=== PATIENT | female | born 1990 | race Caucasian/White ===

== ENCOUNTER 2024-11-02 09:16 | Outpatient (OUT) | payer OTHER, SELFPAY ==
--- NOTE | 2024-10-30 14:08 | V.VEINS.HP ---
Vital Signs 11/02/24 09:50 Height 5 ft 6 in Weight 97.522 kg BMI 34.7 Respiration 16 Pulse 90 Pulse Source Monitor Pulse Oximetry (%) 100 Oxygen Delivery Method Room Air Varicose Veins Patient is a 34 year old female in this day as a referral from Dr. Manzanarse secondary to painful varicose veins. Patient c/o bilateral lower leg achiness/pain and edema left leg greater than right leg. Patient has worn bilateral leg knee high compression stockings since 2015. 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 Patient has been diagnosed with varicose vein disease in 2019, but has not had any treatments. Patient has a family history of varicose vein in father and paternal grandmother. Patient has no history of blood clot issues. Omar Ramirez MD personally performed the services described in this documentation, as scribed by Carlos Jordan RN in my presence and it is both accurate and complete. Carlos Ramirez RN, am scribing for, and in the presence of, Dr. Omar Marin and in the presence of the patient. . thigh: bilateral (symptoms left leg > right leg), knee: bilateral, calf: bilateral, ankle: bilateral and duarte: bilateral aching, burning, cramping, dull and tender 4 10 years Worsened in recent months: Yes standing and sitting elevating extremities and compression stockings Reports muscle spasms of leg, heaviness, limb pain, edema and leg edema History of lower extremity trauma: No Superficial thrombophlebitis: No Family history of varicose veins: yes Has patient had previous lower extremity venous surgery: No Patient has previously received the following treatment(s) for lower extremity varicose veins: Reports none Does patient have a history of : yes Does patient intend to have future pregnancies: no Has patient had lower extremity venous scan with relux testing: Yes Support hose used: Yes Problems walking or doing physical activity: Yes How does it affect you: often has to stop and take a warm bath Do you walk much: Yes Do you stand much: Yes Review of Systems ROS Narrative Omar Ramirez MD personally performed the services described in this documentation, as scribed by Carlos Jordan RN in my presence and it is both accurate and complete. Carlos Ramirez RN, am scribing for, and in the presence of, Dr. Omar Marin and in the presence of the patient. 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 - Neoplasm of uncertain behavior of aortic body and other paraganglia (ICD-10) Varicose veins of bilateral lower extremities with pain ?I83.813 - Varicose veins of bilateral lower extremities with pain (ICD-10) Surgical History (Updated 11/02/24 @ 10:03 by Carlos Jordan) H/O tubal ligation ?Z98.51 - Tubal ligation status (ICD-10) Family History (Updated 11/02/24 @ 10:03 by Carlos Jordan) Other Family history of cancer Family history of diabetes mellitus Family history of hypertension Family history of myocardial infarction Social History (Updated 11/02/24 @ 10:04 by Carlos Jordan) Within the past year, how often did you have a drink containing alcohol: monthly or less Smoking status: Never smoker Non-prescribed substance use: denies use Meds Home Medications and Allergies Home Medications ?Medication ?Instructions ?Recorded ?Confirmed ?Type No Known Home Medications 11/02/24 11/02/24 History Allergies Allergy/AdvReac Type Severity Reaction Status Date / Time Iodinated Contrast Media Allergy Hives Verified 11/02/24 10:05 Exam Narrative Exam Narrative: IOmar MD personally performed the services described in this documentation, as scribed by Carlos Jordan RN in my presence and it is both accurate and complete. ICarlos RN, am scribing for, and in the presence of, Dr. Omar Marin and in the presence of the patient. Constitutional Documenting provider has reviewed patient's vital signs: yes Common normals: oriented x3 Nutritional appearance: overweight Cardio Peripheral pulses: posterior tibial pulses present and dorsalis pedis pulses present Extremity Common normals: normal capillary refill General: calf tenderness and edema Right lower extremity: lower leg Right lower leg: inspection and palpation Left lower extremity: lower leg Left lower leg: inspection and palpation Neuro Common normals: oriented x3 Results Additional Findings Additional findings: Bilateral leg reflux u/s reveals bilateral leg incompetent great saphenous veins with associated dilation along with bilaterateral leg branch saphenous truncal tributary varicosities. Omar Ramirez MD personally performed the services described in this documentation, as scribed by Carlos Jordan RN in my presence and it is both accurate and complete. Carlos Ramirez RN, am scribing for, and in the presence of, Dr. Omar Marin and in the presence of the patient. Assessment and Plan Assessment and Plan (1) Varicose veins of bilateral lower extremities with pain: Plan Patient is to continue use of bilateral leg knee high compression stockings, rest, and elevation of bilateral legs/feet. Patient to return for EVLT of left GSV followed by right GSV followed by microfoam chemical ablation bilateral leg branch saphenous varicosities. Omar Ramirez MD personally performed the services described in this documentation, as scribed by Carlos Jordan RN in my presence and it is both accurate and complete. Carlos Ramirez RN, am scribing for, and in the presence of, Dr. Omar Marin and in the presence of the patient.
--- NOTE | 2024-10-30 14:16 | W.VEIN ---
Discharge Plan Discharge Disposition: Home, Self-Care Outpatient Diagnostics: VC Endovenous Ablation 1VeinLT (Routine) Timeframe: 2 Weeks Facility: [facility] - Location: [facility]in Center Ordered By: Omar Marin Plan of Treatment: EVLT of left GSV Patient Instructions: Endovenous Ablation (DC) Print Language: Bulgarian Discharge Date/Time: 11/02/24 11:39
--- NOTE | 2024-11-02 09:37 | VEIN_ITS ---
Patient Name: STEPHANIE LONGORIA MR#: [id number] : 1990 Exam Date: 11/02/2024 Ordering Doctor: DR RAMESH MARTIN M.D. RADIOLOGY REPORT PROCEDURE: [facility]IN [facility] - OFFICE VISIT INITIAL COMPARISON: None. PROGRESS NOTES: [age] year old female who presents with a 10 year history of dilated bulging veins, leg pain. The patient's left leg symptoms are worse than the right. There has been a progression of symptoms over past 5 years. This increases with prolonged leg dependency. The patient describes an improvement with compression stockings, rest, and elevation. The patient denies any signs and symptoms to suggest arterial ischemia. The patient describes a family history of heart disease, diabetes, cancer. The patient has drinking and smoking history of : Occasional alcohol consumption. No tobacco use.. Patient has a past medical history significant for bilateral leg swelling, varicose veins, and remote history of benign brain neoplasm removal as a child. The patient denies a history of deep venous thrombus or pulmonary embolus. See separate history and physical for medication list. No prior treatment for varicose or spider veins. Current long-term use of compression stockings. After review of nurse notes, history and physical exam I discussed at length the pathophysiology of venous hypertension and possible treatments, therapies and strategies available. We discussed at length the importance of elevating the lower extremities above the level of the heart, increased physical activity and compression stocking use. Ultrasound venous reflux study performed today was discussed at length with the patient. The report demonstrates abnormally dilated and incompetent great saphenous veins bilaterally. Associated incompetent branch saphenous varicosities bilaterally, with a large 11 mm varicosity lateral to the left knee and calf corresponding to patient's area of pain. PHYSICAL EXAM: The right leg demonstrates a few varicosities, no significant spider veins, no ulceration, mild edema, no skin discoloration. The left leg demonstrates a few varicosities with a large tortuous varicosity lateral to the knee and proximal calf, no significant spider veins, no ulceration, mild edema, no skin discoloration. Both thighs, legs and feet were symmetrically warm to the touch. Good posterior tibial and dorsalis pedis pulses were present bilaterally. VEIN/[facility] IMPRESSION: 1. Bilateral lower extremity venous insufficiency 2. Bilateral lower extremity varicose veins 3. Mild bilateral lower extremity subcutaneous edema 4. No flow significant arterial disease 5. CEAP: C3, AP, , [place] PLAN: 1. Continued use of compression stockings 2. Elevated legs and increased physical activity symptomatic relief 3. Endovenous laser ablation of right and left great saphenous veins. 4. Microfoam chemical ablation of bilateral incompetent branch saphenous varicosities. Nurse notes, history and physical were reviewed and confirmed, see attached forms. The nurse was present throughout the physical exam and consultation Dictated by: Omar Marin M.D. on 11/02/2024 at 11:12 Approved by: Omar Marin M.D. on 11/02/2024 at 11:18
--- NOTE | 2024-11-02 09:37 | VEIN_ITS ---
Patient Name: STEPHANIE LONGORIA MR#: [id number] : 1990 Exam Date: 11/02/2024 Ordering Doctor: DR RAMESH MARTIN M.D. RADIOLOGY REPORT PROCEDURE: VC EXT VENOUS REFLUX BELA LMTD COMPARISON: None. INDICATIONS: I83.813 Bilateral painful varicose veins TECHNIQUE: Duplex imaging of the lower extremity to assess the deep and superficial venous system for the presence of deep or superficial venous incompetence and to document the location and severity of disease. The study includes evaluation of the great saphenous vein (GSV), anterior accessory saphenous vein (AASV) and small saphenous vein (SSV). Patient scanned in reverse Trendelenburg and standing. FINDINGS: RIGHT LOWER EXTREMITY: Saphenofemoral Junction Reflux: Yes 9.0mm 1.2 sec GSV: Diam (mm) Reflux/ Time (sec) Proximal Thigh 6.0 Yes 0.6 Mid Thigh 5.0 Yes 0.6 Distal Thigh 4.7 Yes 1.8 Prox Calf 4.1 Yes 0.5 Mid Calf 2.8 Yes 0.4 Saphenopopliteal Junction Reflux: 3.6mm Yes 0.5 SSV: Proximal Calf 3.0 Yes 0.4 Mid Calf 2.1 Yes 0.3 AASV: Proximal Thigh 3.8 Yes 1.0 Mid Thigh 3.6 Yes 0.4 Distal Thigh Thrombi: No acute or chronic thrombus. Compressibility: Normal. Flow: Moderate deep venous reflux. Preforator: Distal medial lower leg measures 3.4 mm with 4.8s reflux. Tech Note: Incompetent varicose vein proximal medial lower leg measures 4.0 mm with 2.2s reflux. Varicose vein medial knee measures 4.0 mm with 1.2s reflux. LEFT LOWER EXTREMITY: Saphenofemoral Junction Reflux: Yes 11.8 mm 1.4 sec GSV: Diam (mm) Reflux/Time (sec) Proximal Thigh 7.3 No 1.1 Mid Thigh 5.4 Yes 1.0 Distal Thigh 5.8 Yes 1.4 Prox Calf 4.3 Yes 0.8 Mid Calf 2.9 Yes 2.6 Saphenopopliteal Junction Relux: 4.4 mm No SSV: Proximal Calf 4.7 Yes 0.4 Mid Calf 3.0 No AASV: Proximal Thigh 4.1 Yes 0.4 Mid Thigh 4.3 Yes 0.9 Distal Thigh Thrombi: Chronic partial thrombus in small segment of varicose vein lateral knee. Compressibility: Chronic partial thrombus in small segment of varicose vein lateral knee. Flow: Mild deep venous reflux. Barrel Cap Setter: Mid lateral lower leg 4.6 mm with 2.9s reflux. Lateral knee 11.0mm with 3.8s reflux. Tech Note: Incompetent varicose vein proximal medial lower leg measures 4.3 mm with 1.3s reflux. Varicose vein off of director [employer] database lateral knee measures 11.4mm with 2.3s reflux. Varicose vein proximal lateral lower leg measures 7.1 mm with 4.6s reflux. CONCLUSION: 1. Abnormally dilated and incompetent great saphenous veins bilaterally with associated branch saphenous varicosities. Dictated by: Omar Marin M.D. on 11/02/2024 at 10:47 Approved by: Omar Marin M.D. on 11/02/2024 at 11:12
[2024-11-02 09:50] VITALS: PULSE 90; O2SAT 100; BMI 34.7
== END 2024-11-02 11:39 | disposition home or self-care (01) ==
LOC: VC 09:16
PROVIDERS: Visit Provider Radiology Diagnostic Radiology
DX: I83.813 Varicose veins of bilateral lower extremities with pain (principal)
CPT/HCPCS: 93970; G0463

== ENCOUNTER 2024-12-03 10:23 | Outpatient (OUT) | payer OTHER, SELFPAY ==
--- NOTE | 2024-12-02 14:06 | VEINCLINIC_ITS ---
Vital Signs 12/03/24 10:31 BP 142/72 H BP Location Left Brachial BP Position Sitting BP Cuff Size Adult BP Source Manual Cuff Respiration 16 Pulse 80 Pulse Source Monitor Pulse Oximetry (%) 98 Oxygen Delivery Method Room Air Comment The patient's blood pressure is elevated. Varicose Veins Patient in this day for EVLT of left GSV . thigh: bilateral (symptoms left leg > right leg), knee: bilateral, calf: bilateral, ankle: bilateral and duarte: bilateral aching, burning, cramping, dull and tender 4 10 years Worsened in recent months: Yes standing and sitting elevating extremities and compression stockings Reports muscle spasms of leg, heaviness, limb pain, edema and leg edema History of lower extremity trauma: No Superficial thrombophlebitis: No Family history of varicose veins: yes Has patient had previous lower extremity venous surgery: No Patient has previously received the following treatment(s) for lower extremity varicose veins: Reports none Does patient have a history of : yes Does patient intend to have future pregnancies: no Has patient had lower extremity venous scan with relux testing: Yes Support hose used: Yes Problems walking or doing physical activity: Yes How does it affect you: often has to stop and take a warm bath Do you walk much: Yes Do you stand much: Yes Review of Systems ROS Narrative I, Brandon Church MD personally performed the services described in this documentation, as scribed by Carlos Jordan RN in my presence and it is both accurate and complete. ICarlos RN, am scribing for, and in the presence of, Dr. Brandon Church and in the presence of the patient. Status of ROS 10 or more systems reviewed and unremark able except as noted in history and below Cardiovascular Reports: edema Neurological Reports: weakness in extremities [facility] Medical History (Updated 12/03/24 @ 11:01 by Carlos Jordan) Superficial thrombophlebitis of left leg ?I80.02 - Phlebitis and thrombophlebitis of superficial vessels of left lower extremity (ICD-10) Tumor cells, benign ?D36.9 - Benign neoplasm, unspecified site (ICD-10) Bilateral leg edema ?R60.0 - Localized edema (ICD-10) Brain tumor (benign) ?D33.2 - Benign neoplasm of brain, unspecified (ICD-10) Paraganglioma ?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.7 - Neoplasm of uncertain behavior of aortic body and other paraganglia (ICD-10) Varicose veins of bilateral lower extremities with pain ?I83.813 - Varicose veins of bilateral lower extremities with pain (ICD-10) Surgical History (Updated 12/03/24 @ 10:46 by Carlos Jordan) Status post laser ablation of incompetent vein ?Z98.890 - Other specified postprocedural states (ICD-10) H/O tubal ligation ?Z98.51 - Tubal ligation status (ICD-10) Family History (Updated 11/02/24 @ 10:03 by Carlos Jordan) Other Family history of cancer Family history of diabetes mellitus Family history of hypertension Family history of myocardial infarction Social History (Updated 11/02/24 @ 10:04 by Carlos Jordan) Within the past year, how often did you have a drink containing alcohol: monthly or less Smoking status: Never smoker Non-prescribed substance use: denies use Meds Home Medications and Allergies Allergies Allergy/AdvReac Type Severity Reaction Status Date / Time Iodinated Contrast Media Allergy Hives Verified 11/02/24 10:05 Exam Narrative Exam Narrative: Brandon Ramirez MD personally performed the services described in this documentation, as scribed by Carlos Jordan RN in my presence and it is both accurate and complete. Carlos Ramirez RN, am scribing for, and in the presence of, Dr. Brandon Church and in the presence of the patient. Constitutional Documenting provider has reviewed patient's vital signs: yes Common normals: oriented x3 Nutritional appearance: overweight Cardio Peripheral pulses: posterior tibial pulses present and dorsalis pedis pulses present Extremity Common normals: normal capillary refill General: calf tenderness and edema Right lower extremity: lower leg Right lower leg: inspection and palpation Left lower extremity: lower leg Left lower leg: inspection and palpation Neuro Common normals: oriented x3 Assessment and Plan Assessment and Plan (1) Varicose veins of bilateral lower extremities with pain: Plan f/u examination with physician along with left leg limited u/s Brandon Raimrez MD personally performed the services described in this documentation, as scribed by Carlos Jordan RN in my presence and it is both accurate and complete. Carlos Ramirez RN, am scribing for, and in the presence of, Dr. Brandon Church and in the presence of the patient. Procedures Procedure Instructions Procedures Plan of care: Risks and benefits of the procedure were discussed at length and informed written consent was obtained.? Time-out completed for verification of correct patient, procedure and site.? Staff present during time-out: Carlos Jordan RN,? Brandon Church MD, [facility]. Time Out Time__1100 Patient prepped and procedure performed in usual sterile fashion. Risk of injury related to use of Diode laser and/or laser devices__CR___ ? Serial number of laser used :? [id number] Control panel self test performed, electrical cords in good condition, floor is dry, basin of water available, fire extinguisher in close proximity_CR__ Polycarbonate goggles available and Laser warning signs outside of doors___CR__ Eye protection provided to patient and staff in room_CR___ Use of laser retardant drapes and dull blackened instruments as directed__CR___ Use of nonflammable prep solutions and use of saline soaked sponges to protect tissues as indicated _CR___ Length __36 cm Laser operated by __Dr. Church Physician verbal confirmation laser locked in place__CR__ Laser start time (date and time) _12/03/2024@__1113 Laser stop time(date and time) __12/03/2024@___1116 Chaney _8.0___ Average laser use __1256 Joules Average laser use___157 seconds Pulse continuous ___CR_? Pulse intermittent ___ Amount of Tumescent used __225cc____ Evaluated patient for signs and symptoms of electrical injury __CR___ ? Skin clear at insertion site __CR___ Patient tolerated procedure well.? Left leg Coban dressing applied to access site.? Applied Left thigh high leg compression stocking. Will return on 12/10/2024 for Left leg limited venous ultrasound and exam. I, Brandon Church MD personally performed the services described in this documenta tion, as scribed by Carlos Jordan RN in my presence and it is both accurate and complete. I, Carlos Jordan RN, am scribing for, and in the presence of, Dr. Brandon Church and in the presence of the patient.
--- NOTE | 2024-12-02 15:02 | W.VEIN ---
Discharge Plan Discharge Disposition: Home, Self-Care Outpatient Diagnostics: VC EXT Venous LT Limited (Routine) Timeframe: 2 Weeks Facility: [facility] - Location: [facility] Center Ordered By: Brandon Church VC Facility EST LMTD (Routine) Timeframe: 2 Weeks Facility: [facility] - Location: Vein Center Ordered By: Brandon Church Follow Up Appointments: 12/10/2024 Plan of Treatment: f/u evaluation with physician along with right leg limited u/s Patient Instructions: Endovenous Ablation (DC) Print Language: Montserratian Discharge Date/Time: 12/03/24 10:49
--- NOTE | 2024-12-03 10:23 | VEIN_ITS ---
[address] [address] Patient Name: STEPHANIE LONGORIA MRN: [id number] date: 1990 Sex: F Assigned Patient Location: Current Patient Location: Accession/Order Number: [id number] Exam Date: 12/03/2024 10:23 Report Date: 12/03/2024 11:43 At the request of: GABRIELLE ARNOLD Procedure: VC Endovenous Ablation 1VeinLT EXAMINATION: VC Endovenous Ablation 1Vein, left great saphenous vein HISTORY: I83.813 - Varicose veins of bilateral lower extremities w... COMPARISON: No relevant comparison available. TECHNIQUE: The risks and benefits of the procedure had been previously discussed, and were rediscussed at length. Informed written consent was obtained. Nina Flannery and Carlos Jordan assisted. Time out procedure was performed. The left lower extremity was prepared and draped in the usual sterile fashion to allow knee flexion in the sterile field. Duplex ultrasound probe was draped in a sterile cover, sterile transmission gel was used. Venous mapping was performed with the areas of dilation and large tributaries marked. The total length was 36 cm from the entry at the knee to 3 cm below the saphenofemoral junction. The diameter of the greater saphenous vein ranged from 4-8 mm. A 30 gauge needle and 1% buffered lidocaine was used to anesthetize the entry site. A 4 mm incision was made with a scalpel and the saphenous vein was entered percutaneously under direct ultrasound guidance with a micropuncture set, a single stick was successful in gaining access. A micro-guide wire was inserted and the needle removed. A micro-set including a dilator was inserted over the microwire and the needle and dilator were removed. A 0.018 guide wire was inserted through the micro-set and threaded through the saphenous vein to the saphenofemoral junction. The dilator was removed and an introducer sheath was inserted over the wire until the end of the sheath entered the saphenofemoral junction. The dilator and wire were removed and the 600 micron fiber was introduced and placed and positioned so that it extended beyond the sheath and was 3 cm peripheral to the saphenofemoral femoral junction. Final position of the fiber was determined by ultrasound guidance and duplex imaging. Tumescent anesthetic was delivered by ultrasound guidance. 225 cc of fluid was delivered along the entire course of the saphenous vein. The solution consisted of 1000 cc of normal saline with 40 mL of 1% lidocaine and 20 mL of sodium bicarbonate. A final positioning check was made. The energy source was turned on by means of the foot pedal and the fiber and sheath were withdrawn. The total number of Joules delivered was 1256. The laser was active for 157seconds under continuous pulse, average laser use of 8 J. Laser start time 1113 AM . Laser stop time 1116AM . A duplex ultrasound revealed compressibility and flow at the saphenofemoral junction immediately after the procedure. Hemostasis at the access site was achieved. The skin incision of the saphenous vein was closed with a 4 x 4. A compression stocking was applied. Postop instructions were given. A follow up appointment was recommended and scheduled. The patient tolerated the procedure well and was discharged in good condition . VEIN/VC Endovenous Ablation 1VeinLT IMPRESSION: Technically successful endovenous laser ablation left great saphenous vein Electronically authenticated by: RAMESH MARTIN Date: 12/03/2024 11:43
[2024-12-03] MEDS: 0.9 % SODIUM CHLORIDE 500 ML, LIDOCAINE HCL 20 ML, SODIUM BICARBONATE 10 MEQ INJ (10:24)
[2024-12-03] MEDS: LIDOCAINE HCL 1% 100 MG/10 ML MDV INJ (10:24)
[2024-12-03 10:31] VITALS: BP 142/72; PULSE 80; O2SAT 98
== END 2024-12-03 10:49 | disposition home or self-care (01) ==
LOC: VC 10:23
PROVIDERS: PCP Radiology Diagnostic Radiology; Visit Provider Radiology Diagnostic Radiology
DX: I83.813 Varicose veins of bilateral lower extremities with pain (principal)
CPT/HCPCS: 36478

== ENCOUNTER 2024-12-10 09:22 | Outpatient (OUT) | payer OTHER, SELFPAY ==
--- NOTE | 2024-12-10 09:23 | VEIN_ITS ---
Patient Name: STEPHANIE LONGORIA MR#: [id number] : 1990 Exam Date: 12/10/2024 Ordering Doctor: DR BRANDON CHURCH M.D. RADIOLOGY REPORT PROCEDURE: VC EXT VENOUS LT LIMITED COMPARISON: None. INDICATIONS: I80.02 - Phlebitis and thrombophlebitis of superficial ve... TECHNIQUE: Lower extremity goldberg scale and Duplex Doppler evaluation of the deep venous system from the inguinal ligament through the calf veins. FINDINGS: REGION: Left lower extremity. THROMBI: Negative for DVT. Heat induced thrombus visualized 4.1 cm from the SFJ. The heat induced thrombus extends from groin to mid thigh. COMPRESSIBILITY: Non-compressible segments corresponding to thrombus FLOW: Areas of no flow corresponding to thrombus CONCLUSION: Post ablation occlusion of the treated left great saphenous vein with heat induced thrombus 4.1 cm from the saphenofemoral junction. No deep vein thrombus Dictated by: Brandon Church MD on 12/10/2024 at 09:54 Approved by: Brandon Church MD on 12/10/2024 at 09:55
--- NOTE | 2024-12-10 09:23 | VEIN_ITS ---
Patient Name: STEPHANIE LONGORIA MR#: [id number] : 1990 Exam Date: 12/10/2024 Ordering Doctor: DR BRANDON CHURCH M.D. RADIOLOGY REPORT PROCEDURE: VC FACILITY EST LMTD VEIN CENTER - OFFICE VISIT FOLLOW UP COMPARISON: None. PROGRESS NOTES: The patient reports no significant problems following intravenous laser ablation of the left great saphenous vein. The patient did wear her compression stocking. The patient did not require oral analgesics. Physical exam demonstrates 3 areas of bruising the largest measuring 6 cm in size, mild likely related to tumescence injection. Minimal warmth suggests a very mild thrombophlebitis. No active ulceration. Review of the ultrasound performed the same day demonstrates occlusive thrombus extending throughout the treated left great saphenous vein with heat induced thrombus 4.1 cm from the saphenofemoral junction. No deep vein thrombus. The patient expressed a desire to proceed with treatment of incompetent right great saphenous vein. VEIN/VC Facility EST LMTD IMPRESSION: 1. Successful ablation of the left great saphenous vein 2. Persistent incompetent right great saphenous vein. PLAN: Intravenous laser ablation right great saphenous vein Nurse notes, history and physical were reviewed and confirmed, see attached forms. The nurse was present throughout the physical exam and consultation Dictated by: Brandon Church MD on 12/10/2024 at 10:21 Approved by: Brandon Church MD on 12/10/2024 at 10:24
--- NOTE | 2024-12-10 09:26 | VEINCLINIC_ITS ---
Varicose Veins Patient in this day for follow up ultrasound post EVLT of left GSV Brandon Ramirez MD personally performed the services described in this documentation, as scribed by Stacy Flannery RVT, RDMS in my presence and it is both accurate and complete. Stacy Ramirez RVT, RDMS, am scribing for, and in the presence of, Dr. Brandon Church and in the presence of the patient. thigh: bilateral (symptoms left leg > right leg), knee: bilateral, calf: bilateral, ankle: bilateral and duarte: bilateral aching, burning, cramping, dull and tender 4 10 years Worsened in recent months: Yes standing and sitting elevating extremities and compression stockings Reports muscle spasms of leg, heaviness, limb pain, edema and leg edema History of lower extremity trauma: No Superficial thrombophlebitis: No Family history of varicose veins: yes Has patient had previous lower extremity venous surgery: No Patient has previously received the following treatment(s) for lower extremity varicose veins: Reports none Does patient have a history of : yes Does patient intend to have future pregnancies: no Has patient had lower extremity venous scan with relux testing: Yes Support hose used: Yes Problems walking or doing physical activity: Yes How does it affect you: often has to stop and take a warm bath Do you walk much: Yes Do you stand much: Yes Review of Systems ROS Narrative Brandon Ramirez MD personally performed the services described in this documentation, as scribed by Stacy Flannery RVT, RDMS in my presence and it is both accurate and complete. I, Stacy Flannery RVT, RDMS, am scribing for, and in the presence of, Dr. Brandon Church and in the presence of the patient. Status of ROS 10 or more systems reviewed and unremark able except as noted in history and below Cardiovascular Reports: edema Neurological Reports: weakness in extremities [facility] Medical History (Updated 12/03/24 @ 11:01 by Carlos Jordan) Superficial thrombophlebitis of left leg ?I80.02 - Phlebitis and thrombophlebitis of superficial vessels of left lower extremity (ICD-10) Tumor cells, benign ?D36.9 - Benign neoplasm, unspecified site (ICD-10) Bilateral leg edema ?R60.0 - Localized edema (ICD-10) Brain tumor (benign) ?D33.2 - Benign neoplasm of brain, unspecified (ICD-10) Paraganglioma ?D44.7 - Neoplasm of uncertain behavior of aortic body and other paraganglia (ICD-10) Varicose veins of bilateral lower extremities with pain ?I83.813 - Varicose veins of bilateral lower extremities with pain (ICD-10) Surgical History (Updated 12/03/24 @ 10:46 by Carlos Jordan) Status post laser ablation of incompetent vein ?Z98.890 - Other specified postprocedural states (ICD-10) H/O tubal ligation ?Z98.51 - Tubal ligation status (ICD-10) Family History (Updated 11/02/24 @ 10:03 by Carlos Jordan) Other Family history of cancer Family history of diabetes mellitus Family history of hypertension Family history of myocardial infarction Social History (Updated 11/02/24 @ 10:04 by Carlos Jordan) Within the past year, how often did you have a drink containing alcohol: monthly or less Smoking status: Never smoker Non-prescribed substance use: denies use Meds Home Medications and Allergies Allergies Allergy/AdvReac Type Severity Reaction Status Date / Time Iodinated Contrast Media Allergy Hives Verified 11/02/24 10:05 Exam Narrative Exam Narrative: IBrandon MD personally performed the services described in this documentation, as scribed by Stacy Flannery RVT, RDMS in my presence and it is both accurate and complete. Stacy Ramirez RVT, RDMS, am scribing for, and in the presence of, Dr. Brandon Church and in the presence of the patient. Constitutional Documenting provider has reviewed patient's vital signs: yes Common normals: oriented x3 Nutritional appearance: overweight Cardio Peripheral pulses: posterior tibial pulses present and dorsalis pedis pulses present Extremity Common normals: normal capillary refill General: calf tenderness and edema Right lower extremity: lower leg Right lower leg: inspection and palpation Left lower extremity: lower leg Left lower leg: inspection and palpation Neuro Common normals: oriented x3 Results Imaging Venous US: Radiologist's impression: The ultrasound demonstrates Heat induced thrombus visualized 4.1 cm from the SFJ. The heat induced thrombus extends from groin to mid thigh. Assessment and Plan Assessment and Plan (1) Superficial thrombophlebitis of left leg: Plan Patient in today for follow up ultrasound of lower extremity following treatment of EVLT of left leg GSV completed on 12/03/24. IBrandon MD personally performed the services described in this documentation, as scribed by Stacy Flannery RVT, RDMS in my presence and it is both accurate and complete. I, Stacy Flannery RVT, RDMS, am scribing for, and in the presence of, Dr. Brandon Church and in the presence of the patient.
--- NOTE | 2024-12-10 09:56 | W.VEIN ---
Discharge Plan Discharge Disposition: Home, Self-Care Outpatient Diagnostics: VC Endovenous Ablation 1VeinRT (Routine) Timeframe: 2 Weeks Facility: [facility] - Location: Vein Center Ordered By: Brandon Church Plan of Treatment: EVLT of right leg GSV Print Language: Mauritanian Discharge Date/Time: 12/10/24 10:06
== END 2024-12-10 10:06 | disposition home or self-care (01) ==
PROVIDERS: PCP Radiology Diagnostic Radiology; Visit Provider Radiology Diagnostic Radiology
DX: I80.01 Phlebitis and thrombophlebitis of superficial vessels of right lower extremity (principal)
CPT/HCPCS: 93971; G0463

== ENCOUNTER 2024-12-17 15:26 | Outpatient (OUT) | payer OTHER, SELFPAY ==
--- NOTE | 2024-12-17 15:21 | VEINCLINIC_ITS ---
Varicose Veins Patient in this day for DVT evaluation due to patient concern for DVT due to back pain. Brandon Ramirez MD personally performed the services described in this documentation, as scribed by Stacy Flannery RVT, RDMS in my presence and it is both accurate and complete. Stacy Ramirez RVT, RDMS, am scribing for, and in the presence of, Dr. Brandon Church and in the presence of the patient. thigh: bilateral (symptoms left leg > right leg), knee: bilateral, calf: bilateral, ankle: bilateral and duarte: bilateral aching, burning, cramping, dull and tender 4 10 years Worsened in recent months: Yes standing and sitting elevating extremities and compression stockings Reports muscle spasms of leg, heaviness, limb pain, edema and leg edema History of lower extremity trauma: No Superficial thrombophlebitis: No Family history of varicose veins: yes Has patient had previous lower extremity venous surgery: No Patient has previously received the following treatment(s) for lower extremity varicose veins: Reports none Does patient have a history of : yes Does patient intend to have future pregnancies: no Has patient had lower extremity venous scan with relux testing: Yes Support hose used: Yes Problems walking or doing physical activity: Yes How does it affect you: often has to stop and take a warm bath Do you walk much: Yes Do you stand much: Yes Review of Systems ROS Narrative Brandon Ramirez MD personally performed the services described in this documentation, as scribed by Stacy Flannery RVT, RDMS in my presence and it is both accurate and complete. I, Stacy Flannery RVT, RDMS, am scribing for, and in the presence of, Dr. Brandon Church and in the presence of the patient. Status of ROS 10 or more systems reviewed and unremark able except as noted in history and below Cardiovascular Reports: edema Neurological Reports: weakness in extremities [facility] Medical History (Updated 12/03/24 @ 11:01 by Carlos Jordan) Superficial thrombophlebitis of left leg ?I80.02 - Phlebitis and thrombophlebitis of superficial vessels of left lower extremity (ICD-10) Tumor cells, benign ?D36.9 - Benign neoplasm, unspecified site (ICD-10) Bilateral leg edema ?R60.0 - Localized edema (ICD-10) Brain tumor (benign) ?D33.2 - Benign neoplasm of brain, unspecified (ICD-10) Paraganglioma ?D44.7 - Neoplasm of uncertain behavior of aortic body and other paraganglia (ICD-10) Varicose veins of bilateral lower extremities with pain ?I83.813 - Varicose veins of bilateral lower extremities with pain (ICD-10) Surgical History (Updated 12/03/24 @ 10:46 by Carlos Jordan) Status post laser ablation of incompetent vein ?Z98.890 - Other specified postprocedural states (ICD-10) H/O tubal ligation ?Z98.51 - Tubal ligation status (ICD-10) Family History (Updated 11/02/24 @ 10:03 by Carlos Jordan) Other Family history of cancer Family history of diabetes mellitus Family history of hypertension Family history of myocardial infarction Social History (Updated 11/02/24 @ 10:04 by Carlos Jordan) Within the past year, how often did you have a drink containing alcohol: monthly or less Smoking status: Never smoker Non-prescribed substance use: denies use Meds Home Medications and Allergies Allergies Allergy/AdvReac Type Severity Reaction Status Date / Time Iodinated Contrast Media Allergy Hives Verified 11/02/24 10:05 Exam Narrative Exam Narrative: Brandon Ramirez MD personally performed the services described in this documentation, as scribed by Stacy Flannery RVT, RDMS in my presence and it is both accurate and complete. Stacy Ramirez RVT, RDMS, am scribing for, and in the presence of, Dr. Brandon Church and in the presence of the patient. Constitutional Documenting provider has reviewed patient's vital signs: yes Common normals: oriented x3 Nutritional appearance: overweight Cardio Peripheral pulses: posterior tibial pulses present and dorsalis pedis pulses present Extremity Common normals: normal capillary refill General: calf tenderness and edema Right lower extremity: lower leg Right lower leg: inspection and palpation Left lower extremity: lower leg Left lower leg: inspection and palpation Neuro Common normals: oriented x3 Results Imaging Venous US: Radiologist's impression: The ultrasound is negative for DVT. Assessment and Plan Assessment and Plan (1) Superficial thrombophlebitis of left leg: Plan In today for ultrasound of left leg to rule out DVT. Brandon Ramirez MD personally performed the services described in this documentation, as scribed by Stacy Flannery RVT, RDMS in my presence and it is both accurate and complete. I, Stacy Flannery RVT, RDMS, am scribing for, and in the presence of, Dr. Brandon Church and in the presence of the patient.
--- NOTE | 2024-12-17 15:23 | P.DS_ITS ---
Discharge Plan Discharge Disposition: Home, Self-Care Print Language: Martiniquais Discharge Date/Time: 12/17/24 15:50
--- NOTE | 2024-12-17 15:27 | VEIN_ITS ---
Patient Name: STEPHANIE LONGORIA MR#: [id number] : 1990 Exam Date: 12/17/2024 Ordering Doctor: DR BRANDON CHURCH M.D. RADIOLOGY REPORT PROCEDURE: VC EXT VENOUS LT LIMITED COMPARISON: VC EXT VENOUS LT LIMITED, 12/10/2024. INDICATIONS: I80.02 - Phlebitis and thrombophlebitis of superficial ve... TECHNIQUE: Lower extremity goldberg scale and Duplex Doppler evaluation of the deep venous system from the inguinal ligament through the calf veins. FINDINGS: REGION: Left lower extremity. THROMBI: Negative for DVT. Normal COMPRESSIBILITY: Non-compressible segments corresponding to thrombus FLOW: Areas of no flow corresponding to thrombus CONCLUSION: No deep vein thrombus Dictated by: Brandon Church MD on 12/17/2024 at 15:59 Approved by: Brandon Church MD on 12/17/2024 at 16:00
--- NOTE | 2024-12-17 15:27 | VEIN_ITS ---
Patient Name: STEPHANIE LONGORIA MR#: [id number] : 1990 Exam Date: 12/17/2024 Ordering Doctor: DR BRANDON CHURCH M.D. RADIOLOGY REPORT PROCEDURE: FACILITY EST [facility] - OFFICE VISIT FOLLOW UP COMPARISON: [facility] EST TD, 12/10/2024. PROGRESS NOTES: The patient reports new onset of mid back pain and had a concern for blood clot in the lung. The patient also reports an episode nasal and sinus congestion with a minor cough over the weekend. Physical exam demonstrates the patient to be in no distress. Normal breathing rate 12 breaths per minute. Normal heart rate of 74. Pulse ox 98%. Blood pressure 134/97. No pain of the mid back upon palpation. Review of the ultrasound performed the same day demonstrates no deep vein thrombus. I informed the patient of our findings. Well I cannot rule out a pulmonary embolus, the patient has no deep vein thrombus or other signs or symptoms to suggest a pulmonary embolus. I discussed the possible etiologies of back pain including radiculopathy or musculoskeletal issues. The patient was asked to see her primary care physician or seek care in the emergency room as she felt necessary or if her symptoms significantly progressed. VEIN/ Facility EST LMTD IMPRESSION: 1. No deep vein thrombus 2. Mid back pain of unknown etiology, I have no clinical concern for pulmonary embolus PLAN: Follow-up as needed Nurse notes, history and physical were reviewed and confirmed, see attached forms. The nurse was present throughout the physical exam and consultation Dictated by: Brandon Church MD on 12/17/2024 at 16:07 Approved by: Brandon Church MD on 12/17/2024 at 16:11
== END 2024-12-17 15:50 | disposition home or self-care (01) ==
LOC: VC 15:26
PROVIDERS: PCP Radiology Diagnostic Radiology; Visit Provider Radiology Diagnostic Radiology
DX: I80.02 Phlebitis and thrombophlebitis of superficial vessels of left lower extremity (principal)
CPT/HCPCS: 93971; G0463

== ENCOUNTER 2025-03-24 14:31 | Outpatient (REF) | payer OTHER, SELFPAY | END 2025-03-24 14:32 | disposition home or self-care (01) | LOC: LAB 14:31 | PROVIDERS: PCP Radiology Diagnostic Radiology; Visit Provider Obstetrics & Gynecology | DX: N93.8 Other specified abnormal uterine and vaginal bleeding (principal); N71.9 Inflammatory disease of uterus, unspecified ==

== ENCOUNTER 2025-04-12 10:03 | Outpatient (OUT) | payer OTHER, SELFPAY ==
--- OUTSIDE RECORDS SUMMARY | 2025-04-12 10:11 | XMS_ITS | CCD ---
Author Organization [facility] Care Team Providers Care Print Support Specialist Name Role Phone Unavailable Primary Care Provider Unavailabl e LAMBERTO CANSECO Admitting Unavailable LAMBERTO CANSECO Attending Unavailable SUSIE ., DR BROWN Admitting Unavailable SUSIE ., DR BROWN Attending Unavailable SUSIE ., DR BROWN Consulting Unavailable SUSIE ., DR BROWN Attending Unavailable SUSIE ., DR BROWN Admitting Unavailable [place] MANAGER INFORMATION, Mirella Daniels Unavailable Harleen CNLamberto Mcgowan Unavailable Unallocated MD, [place] Provider Primary Care Provi mitchell Abel Richards DO Attending Provider [phone] LAMBERTO CANSECO Attending Unavailable MATHEW MONTEJO Attending Unavailable LAMBERTO CANSECO Attending Unavailable LAMBERTO CANSECO Referring Unavailable SUSIEABEL Attending Unavailable LAMBERTO CANSECO Referring Unavailable SUSIEABEL Martins Attending Unavailable Abel Richards Attending Unavailable Abel Richards Admitting Unavailable Bruno Chuck Jac Primary Care Unavailable Omar Marin Admitting Unavailable Omar Marin Attending Unavailable Brandon Church V. Admitting Unavailable Carr, Chuck W Primary Care Unavailable Brandon Church V. Attending Unavailable Carr, Chuck W Primary Care Unavailable Brandon Church V. Attending Unavailable Brandon Church V. Admitting Unavailable Carr, Chuck W Primary Care Unavailable Brandon Church V. Admitting Unavailable Brandon Church V. Attending Unavailable Carr, Chuck W Primary Care Unavailable Brandon Church V. Admitting Unavailable Brandon Church V. Attending Unavailable Carr, Chuck W Primary Care Unavailable Brandon Church V. Attending Unavailable Brandon Church V. Admitting Unavailable Allergies Allergy Classification Reported Allergen(s) Allergy Type Date of Onset Reaction(s) Facility (1 source) Iodine (And Iodine Containting Drugs) Drug allergy (disorder) 2 [facility] Repository (16 sources) Iodine; Translations: [iodine] Drug Allergy 3 [facility] Work Phone: (15 sources) Iodinated Contrast Media Drug Intolerance 0 Hives, Itching [facility] (3 sources) Other Propensity to adverse reactions 5 [facility] Medications Current Medications Medication Drug Class(es) Dates Sig (Normalized) Sig (Original) acetaminophen 500 mg oral tablet (3 sources) Start: 08-25-2024 take 2 tablets by mouth every eight hours as needed for fever Acetaminophen (Tylenol Extra Strength) 500 mg tablet Active 1000 MG PO Every 8 hours as needed for fever 42 August 25, 2024 12:00am Start: 11-08-2022 acetaminophen (TYLENOL) tablet 1,000 mg [id number] 200 actuat albuterol 0.09 mg/actuat metered dose inhaler (2 sources) beta2-Adrenergic Agonist Start: 08-25-2024 take 1 puff(s) by inhalation every four hours Albuterol Sulfate 90 mcg/actuation HFA aerosol inhaler Active 2 PUFF INHALATION Q4H 1 August 25, 2024 12:00am benzocaine 200 mg/ml / menthol 5 mg/ml topical spray (1 source) Standardized Chemical Allergen Start: 11-08-2022 benzocaine-menthol (DERMOPLAST) 20-0.5 % spray 1 ml carboprost 0.25 mg/ml injection (1 source) Prostaglandin Analog Start: 11-08-2022 carboprost (HEMABATE) injection 250 mcg dextromethorphan hydrobromide 15 mg / guaiFENesin 400 mg / pseudoephedrine hydrochloride 60 mg oral tablet (2 sources) alpha-Adrenergic Agonist, Uncompetitive Q-gvwebu-X-aspartate Receptor Antagonist, Sigma-1 Agonist Start: 08-25-2024 take 4 tablets by mouth every twenty-four hours as needed Pseudoephedrine-Dm- Guaifenesin (Capmist Dm) 60-15-400 mg tablet Active 1 TAB PO EVERY 4-6 HOURS as needed for cold symptoms August 25, 2024 12:00am do not exceed 4 doses per 24 hrs docusate sodium 100 mg oral capsule (1 source) Start: 11-08-2022 docusate sodium (COLACE) capsule 100 mg doxycycline hyclate 100 mg oral capsule (1 source) Tetracycline-class Drug Start: 03-01-2025 End: 03-08-2025 doxycycline (Vibramycin) 100 MG capsule Indications: DUB (dysfunctional uterine bleeding) Take 1 capsule (100 mg) by mouth in the morning and 1 capsule (100 mg) before bedtime. Do all this for 7 days. Take with at least 8 ounces (large glass) of water, do not lie down for 30 minutes after. 14 capsule 03/01/2025 03/08/2025 Active hydrocortisone 25 mg/ml rectal cream (1 source) Corticosteroid Start: 11-08-2022 hydrocortisone (ANUSOL-HC) 2.5 % rectal cream ibuprofen 800 mg oral tablet (1 source) Nonsteroidal Anti-inflammatory Drug Start: 11-08-2022 ibuprofen (ADVIL;MOTRIN) tablet 800 mg lanolin 1000 mg/ml topical cream (1 source) Start: 11-08-2022 lansinoh lanolin ointment 1 ml methylergonovine maleate 0.2 mg/ml injection (1 source) Ergot Derivative Start: 11-08-2022 methylergonovine (METHERGINE) injection 200 mcg miSOPROStol 0.1 mg oral tablet (1 source) Prostaglandin E1 Analog Start: 11-08-2022 miSOPROStol (CYTOTEC) tablet 800 mcg predniSONE 20 mg oral tablet (2 sources) Start: 08-25-2024 take 1 tablet by mouth twice daily Prednisone 20 mg tablet Active 20 MG PO Twice daily 10 August 25, 2024 12:00am 28-0.8 MG tablet (5 sources) End: 11-12-2024 28-0.8 MG tablet 1 (one) time each day at the same time 11/12/2024 Discontinued (Therapy completed) 28-0.8 MG tablet 1 (one) time each day at the same time Active 5 ml sodium chloride 9 mg/ml injection (3 sources) Start: 11-08-2022 0.9 % sodium c hloride infusion Start: 11-08-2022 sodium chlorid e flush 0.9 % injection 5-40 mL witch luis f 500 mg/ml medicated pad (1 source) Start: 11-08-2022 eulogiogermania kerns-gl ycerin ([facility]) pad Completed/Discontinued Medications Medication Drug Class(es) Dates Sig (Normalized) Sig (Original) 2 ml butorphanol tartrate 2 mg/ml injection (1 source) Opioid Agonist/Antagonist Start: 11-07-2022 End: 11-08-2022 butorphanol (STADOL) injection 1 mg calcium chloride 0.0014 meq/ml / potassium chloride 0.004 meq/ml / sodium chloride 0.103 meq/ml / sodium lactate 0.028 meq/ml injectable solution (1 source) Start: 11-07-2022 End: 11-08-2022 lactated ringers infusion oxytocin (PITOCIN) 30 units in 500 mL infusion (1 source) Start: 11-07-2022 End: 11-08-2022 oxytocin (PITOCIN) 30 units in 500 mL infusion rho(d) immune globulin, human 1500 unt prefilled syringe (1 source) Human Immunoglobulin G Start: 11-08-2022 End: 11-08-2022 rho(D) immune globulin (HYPERRHO S/D) injection 300 mcg Problems Active Problems Problem Classification Problem Date Documented Da te Episodic/Chronic Abdominal pain (1 source) Pain in female pelvis; Translations: [Pelvic and perineal pain] 03-24-2025 Episodic Anxiety disorders (4 sources) Post-traumatic stress disorder, unspecified; Translations: [Anxiety disorder, unspecified] Onset: 5 Chronic Attention-deficit, conduct, and disruptive behavior disorders (2 sources) Attention-deficit hyperactivity disorder, predominantly inattentive type; Translations: [Attention-deficit hyperactivity disorder. predominantly inattentive type] Onset: 5 Chronic Menstrual disorders (5 sources) Menorrhagia; Translations: [Excessive and frequent menstruation with regular cycle] 11-12-2024 Chronic Neoplasms of unspecified nature or uncertain behavior (2 sources) Neoplastic disease; Translations: [Neoplasm of unspecified behavior of bone, soft tissue, and skin] 02-25-2025 Episodic Other and unspecified benign neoplasm (2 sources) Melanocytic nevus of trunk; Translations: [Melanocytic nevi of trunk] 02-25-2025 Episodic Other and unspecified benign neoplasm (2 sources) Melanocytic nevi of right upper limb, including shoulder; Translations: [Benign neoplasm of skin of upper limb, including shoulder] 02-25-2025 Episodic Other and unspecified benign neoplasm (2 sources) Skin lesion; Translations: [Hemangioma of skin and subcutaneous tissue] 02-25-2025 Episodic Other endocrine disorders (1 source) Polycystic ovary syndrome; Translations: [Polycystic ovarian syndrome] 03-24-2025 Chronic Other female genital disorders (8 sources) Abnormal uterine bleeding; Translations: [Other specified abnormal uterine and vaginal bleeding] 11-12-2024 Chronic Other female genital disorders (1 source) Pain in female genitalia on intercourse; Translations: [Unspecified dyspareunia] 03-01-2025 Chronic Other screening for suspected conditions (not mental disorders or infectious disease) (2 sources) Cancer cervix screening status; Translations: [Encounter for screening for malignant neoplasm of cervix] 11-12-2024 Episodic Phlebitis; thrombophlebitis and thromboembolism (1 source) Phlebitis and thrombophlebitis of superficial vessels of left lower extremity; Translations: [Phlebitis and thrombophlebitis of superficial vessels of left lower extremity] Onset: 5 Episodic Varicose veins of lower extremity (1 source) Varicose veins of bilateral lower extremities with pain; Translations: [Varicose veins of bilateral lower extremities with pain] Onset: 5 Episodic Past or Other Problems Problem Classification Problem Date Documented Date Episodic/Chronic Cancer of cervix (15 sources) Atypical squamous cells of undetermined significance on cervical Papanicolaou smear; Translations: [Atypical squamous cells of undetermined significance on cytologic smear of cervix (ASC-US)] Onset: 04-08-2017 11-01-2023 Episodic Other complications of ; puerperium affecting management of mother (15 sources) heart echogenicity on obstetric ultrasound scan; Translations: [Echogenic focus of heart of fetus affecting management of mother in dexter , antepartum] Onset: 10-29-2018 11-01-2023 Episodic Other complications of (15 sources) RhD negative; Translations: [Other specified related conditions, unspecified trimester] Onset: 09-16-2018 11-01-2023 Episodic Other complications of (15 sources) Thrombocytopenic disorder; Translations: [Other diseases of the blood and blood-forming organs and certain disorders involving the immune mechanism complicating , unspecified trimester] Onset: 01-27-2019 11-01-2023 Episodic Other female genital disorders (15 sources) Vaginal odor; Translations: [Other specified noninflammatory disorders of vagina] Onset: 11-01-2023 11-01-2023 Episodic Other and delivery including normal (20 sources) Term ; Translations: [Encounter for supervision of normal , unspecified, unspecified trimester] Onset: 03-10-2019 Episodic Residual codes; unclassified (15 sources) Genetic disorder carrier; 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] Onset: 02-21-2020 11-01-2023 Episodic Residual codes; unclassified (15 sources) Family history of hereditary disease; Translations: [Family history of other specified conditions] Onset: 02-21-2020 11-01-2023 Episodic Results Test Name Value Interpretation Reference Range Facility US LE Venous Duplex Righton 04-06-2025 US LE Venous Duplex Right EXAMINATION: US LE Venous Duplex Right HISTORY: Phlebitis and thrombophlebitis of superficial vessels of right lower extremity COMPARISON: No relevant comparison available. TECHNIQUE: Greyscale, color and doppler FINDINGS: Post ablation occlusion of treated right leg varicose veins. No deep vein thrombus. No residual varicose veins are observed IMPRESSION: Occlusion of treated right leg varicose veins *Exam performed in accordance with [facility] practice guidelines- Peripheral venous ultrasound, February 18, 2010. Final Dictated by: Brandon Church MD Dictated DT/TM: 04/06/25 9:19 Signed (Electronic Signature): Brandon Church MD 04/06/25 9:27 am Technologist: DIGNA [facility] Coding Summaryon 04-01-2025 Coding Summary HTMLBase 64 TfmoprbsJYs2vWp+PGhlYW Q+IR3SOMOxV65riVZxxU2r P4LKKFdGRhztLMBDRVtOZm UyfzXcOF7nvRTzCUIv IC8+IT4sKIHsXzgbhRGci9 D2lIL8E46pwf3hKTglbAC9 DQJpDhXpyqttj1wgaYn3GC cuNmluOyBt QZIlcE40XIJ2nK25Dx50mO OmqZFpc2dqnDg3UqKbODBk QEE3lDxsCJgog9PxWRRvL1 2bpCEmu7P4 SXUezKbmcEIzVvWewGA6kD 9mKAqaechsc8ckiiivZhe6 ux69lDSvq3B8vSN8Q7Yghz A4TYDclFIu JqjqpDZJsP2uewraa1ezwp ayFjStCHQvDFj4PFb4OGCu jRraKeVyQN01GXZ1LJRsih EfX1ZaXXEo fElsTjG9o9Z9Bg4RT1HCKu xpV3PQLNASCGhcqHJ+PC90 iy98N3KbLibrMou2TGZzGB Q0cGZ3aG8r BFGiDSija6R6zCG4D9Ftca Ivex7dq7soPOMeBRlvX19n nIDvr4D4LOCloVP7VKVwvM evGdLbdX72 Oyc+DJQrjMqwt3IcNrurx9 pcb1uatOf9RvqfBQXpdpTb nQmoQJF9r1XcLq3kZVVuwE D1pZE6vT2y UpOgToQ4QJtkW888GnPuxS CrPafzR89nM2EwjNS+PHRy Crz1YMQycGlwTF4kT5NpPW RpbmctbGVm cFfdRT6sBMEwximzCWYogM 5lFFXzW3e4AzDeIsE3CQrc P8KiKBDnqaglLd10oI7uJs UyWmF1QIns R9VheqD1APFlsBUwMZlfKW L1X89cp1Q9CSCwSWEtUFK6 bYL8bV4myWmwvvhcsCUwfT sgdmVydGlj GLwpDUudO960PJHmzSugNw NvZGluZyBEYXRlOiAgMDUv MDgvMjAyNTwvdGQ+PHRkIH M1pAftXLPs lXTfGVraOc0ukWcpoIphKU 6dPYNcutxoJBRhvC5jSQTh xVPmgSevZY8jEHHbdtvmy4 24GfQtFVY1 GTQveOQlO5SieT7aVtRxLN KwKATlG2KmbQFkZTvwE081 HNpbBmO5NHCayeQrG9AhCL FsaWduOiB0 o5N1Pk3Ye6RlcvoyX0OgdZ QqOpStVvtgLTa3M9LkBpcv dHI+HI96STOpJN48FKq1KQ X4jOgdRWsy AZHfU2TowJ8rLmLxVWGyLC RkOyc+PHRhYmxlIHdpZHRo EFvoXUOnRoXmyAsvPB3zAh 9yZGVyLWNv xSjnmHAkIeDdf9wfGGIgMK qkMT2nhCweM2YjxKM7UKVx g3s1Yy72R20oA6ThxVJ+PG SvlTS6kZT3 jA5eSoZaZyV9CMgnW000Rr EwgCJmVwxxf3yoz1ifuZh0 PwZ4JYRadzDheIrmDAH4r5 IoVr15J08a IHdpZHRoPSIxNSUiIHZhbG ahhy6weS7tGf4+PGNvbCB3 bSQ4iQ1nDfXmLvR6UJhpX6 49InRvcCIv Currx2yxx2adtIv0WoIzSJ RmjbGbrHnbRCR5f8ZnKy00 I9SjuDntw6CcYec3wm46pG Edi2P4bZB3 F7DrMHYgqeczjEOumBfkRT 1aVXTogyzvLAJxxA1dFOOq K1a0DnTlMlM7TRoiP9Lkfh Q8ARUxnEVp LFHloZPGuD6nagqwp8ksut vlGuZeSEIjOKf4FRk7NVFl pRxnLxBgCME8EcS8OWQ0iY AzjL2pjQsf ufngzO3mLpj+DFP6oMHqfG FJER8wTmyspRU+PHRkIHN0 oYmbORqtJHHycU8gQRYqG8 x0LqGxHcD5 VExcK3IqgwP5JMRpkTMaPL HppQWKlB0kiuqrt3dxuyot ReTnGRFlUQf7EVp6YLHaqI duOiBsZWZ0 XvK1QWQ4mAUzkL9umKcsda klrI5uZoi+QmlydGggRGF0 VDi2F5KbHfr2PSHhzKjbZM 0ncGFkZGlu Eq0mgTjplOssVZ5wNWYhrq gxf092BuNqb7rkYRVjqKCc JWdsVNO5F30hm0I7VXNmEM EtQDI2vFG5 rQ2seHtmpfasvSFltLvtfj KpzIyiSVqjMSfwY217VCHm eWoeIpWgXVz4R7QbEaj8IG SbiBklQQ2m hAGiBIrjVq5cpAbmeKfaLS 7aCCDjvtteu333TjDxa6ow TPWraRFnFUfiUDT0U45zr9 L6AKVyYGNd ESY9wHM8dR8eoHducjoplJ VmdDsgdmVydGljYWwtYWxp F491YXCybMazKiRbmOy7X2 TuBfi7RIJh iRlrSM7plOEpAGraXl3ixO eilUgkQD2vPZBgixnoy713 YqAzg5tfOGNavFEmJLdyZZ Q2F53cn2D0 NKZiQEEbTJT6qMX2iN9vjY lnbjogbGVmdDsgdmVydGlj HIizRGfmV024PAZgsCypCn BhdGllbnQg PBijGTv9F0FyFiwzgJI+PC 78CVRnOU35uRPkcLBml9es jOw0ChNgECWpNAJ4nZhkFA zbr8CnRMYq A34gwQAfu7I5LGLfrOcjvE KjEzAodMD9dP3oDPvhlmuf c7kpbohbKbjuh0hvww33oO 54O23qJKzh ZHRoPSIzMCUiIHZhbGlnbj 0cvZ2zEj4+BOUjsBQ5rIZ8 zT1wVQHnMjD1AEidR300Xk RvcCIvPjxj r1kgf9foyRj2TgV3GMWxio WixZldFQL2w0QvDo71T30q IHdpZHRoPSIyMCUiIHZhbG tfhg7ppX4f Ii8+KPJhwDD3bSA3vA5nBg QfPxR1FUerT164KvMfrPKy WfyaD26qY9UreSS+PHRyPj v7PQVodJek UE0mdYYeXEwcCa1gTKO3Kn NfUnPwOMpbH9XbFETcblyj bobbkYQ2LGUwUQLpiP21Ep 9udDogMTBw pCLCeF3lblxep9tprarsLk XjKRPrKRm3FSx4DWQylTbh AjSrGQO6UbO7VZV7eTVnnH 1hbGlnbjog lQ6zA3SbZHEhqgjpWl46rE 6dQdBjEuZ2BYjrZtr+RU5H ImZBCTGHWSISG8HIMMSONf wvdGQ+PHRk PXQ8zOwdOBvkHZJgtO9uEV TyL2w3ZfZsMzC4KUcjR3Bh IYEgosikRf37kD2kMhRcUh D0QFohY2Mi xqS2PVJetYIbRZlnRNN2M4 0dq9K4BUVqAJTpZPJ3rSK4 xZ5ybFifwxjolXJikQlpmq VydGljYWwt EHruP637OGAxbWjkGbLmRq Y8RcQ4UZB5Y2RdVcn2HWRt vUkpTY2hkAUwZRazLc8efN xsyQidUQ9n RQQhshfgPDNivM8iZHBqyY XjsPirYH4sKWZkrppcb924 MkZmGUW9FGKnfLWwR8LygU 9yOiAjMDAw TWVyV3RcfNRsUTkcX716VN neXyZ7PYAcxwJxH8AfHJXa cKhtPoC8x7H8Ji8kWUDQGF FyczwvdGQ+ VZGeYVU3eAysOXzuQACnzB 5pONRiQ2x0FaNfFkV1OFxg W7OsASIpqnptPw10cH7pRi VjYiN7CRvq U4CaoyL3XSOigAFhNFbrQW I9I44wc3Q2EQLdFNTfQDS5 tUH2aJ2fcFaetjwnkNQxaP sgdmVydGlj QSwvOHkvQ776HLQylKvlYb ZFTUFMRTwvdGQ+PHRkIHN0 tPyuCTegZJYikZ7zSPJaG1 l0UeHaGcU4 VDbaE8PgXOJwqkfuMn18sL 9jOzZyVlS2BZpaM2YgraM2 NBAtzVJqPVycHTO4I99ku2 P6TZLpLIDk EFI8qAC7wF7kcBgklwqsvU VmdDsgdmVydGljYWwtYWxp Y927TZSnfFmqDn9KNM54BL 96D2MeTszo dGFibGU+PHRhYmxlIHdpZH KjQRidVMPoYmBgnMwxBX9l Is6oXIFfDQIwgFuivPIeBv Ytf6xcUXXt KAvsFD2tcOahM3TibKT4OY Osb5u0Af01D99jY5GikAK+ UEFysEL2hGF8yF2yQzQxQi B3KRcgT743 UdNwjGMiZbttb9yfb0qadM y8UoTcESNlyiZsgWdsFNZ3 u3EeWn15W54lITmmBSBeDP IyMCUiIHZh tMcycb3igK6uDs6+PGNvbC A2hEJ6zJ1oBlMbCvB3HHqj O742BcKfcEEsZrcuT69nN1 JvdXA+PHRy Ftr7NPGnaZneRF7cxSNmKT nvOr7lHOT9VeLwDpMfBWxg A4MzAGZongbnimiwaJL8WN IeHBZkhD47 Pd4heSjmXk2uESLwOWA7XI XgySAvR0ErdM3fZeAjFALt UWTnN3OhkQWfFOngS935IP ypWvN1FGWf koHiO6EyUORxsGmdQlQ9t8 Y0Ox4HmHbxoTZrGV8oPmYp UEe2H2NvZte3FJPlnHirKV 0ncGFkZGlu Li0hoHmkuQrlBZ8oEMNood brl500NiXfp0cuDHYlkCVj GApuHLQ5T44ga1V8QMGpAB CoKHQ6jIB2 oC1oaXqueixrkDQhsQxzca OfnFgqAUpqUCcsP339JQHo bKhaMvHXZeh6M0ZqDhp5NE YjeKmaPP7p sBWwRGamMn2hfKzkeLoiKT 2yVMOzjkjri013FlFkj4ha PPYxuDUlBBzuVTQ0U01et3 A0YQWlTSMa PFQ3zLH0eI5zuBlaleozaC VmdDsgdmVydGljYWwtYWxp M869MNWprCvoEy5KJiu8F4 JbJxp2FPEc rXchLA5jsMZzHSphNe7miN zfvUmbGE6nUJKjftsxd014 VcRta3kaCGFlmUNuUQteSS S3C85pl6A4 FYEqWJKcUUA3kJC8cR1neK lnbjogbGVmdDsgdmVydGlj BBtwRZvpQ259IGKzvVnfHb BheWVyOjwv dGQ+SK71mt82A1GpDcsgQj i8QGPqTLA4uEF3tM4cMZXq KClda5F8nZC2F8PmniUawu 4il1ntPYGv ZTo (more content not included)... [facility] PATHOLOGY REQUEST FOR LAB CO RPon 03-31-2025 PATHOLOGY REQUEST FOR LAB AMBIKA [facility] Comment on above: See report. Scanned copy available in EMR. [facility] HCG ( test) Ql (U)o n 03-24-2025 Interpretation and review of laboratory results Normal [facility] Preg Test, Ur Negative Negative [facility] Pathology Request for Lab Co rpon 03-24-2025 Pathology Request for Lab Ambika Normal [facility] Comment on above: Order Comment: EMBX Result Comment: See report. Scanned copy available in EMR. PERFORMED BY: [place] [address] PATHOLOGIST BAND NAILER MILKA MATTHEWS M.D. Performed By: #### P ATH TO [facility] #### [address] LE Venous Duplex Lefton 0 03-23-2025 LE Venous Duplex Left EXAMINATION: US LE Venous Duplex Left HISTORY: Phlebitis and thrombophlebitis of superficial vessels of left lower extremity COMPARISON: None. TECHNIQUE: Venous duplex examination performed using B-mode, color flow and spectral analysis. FINDINGS: Post ablation occlusion of the treated left leg varicose veins. No deep vein thrombus. There is accessory small saphenous vein arising from the popliteal vein measuring up to 7.5 mm with reflux of 1 second. IMPRESSION: Post ablation occlusion treated varicose veins Patent incompetent accessory small saphenous vein Final Dictated by: Brandon Church MD Dictated DT/TM: 03/23/25 10:47 Signed (Electronic Signature): Brandon Church MD 03/23/25 10:58 a Technologist: DIGNA [facility] Patient Handouton 03-17-2025 Patient Handout Sclerotherapy, Care After After sclerotherapy, it is common to have swelling, bruising, and soreness. You may also have: ? Some changes to skin color. ? Slight bleeding from where you got your shot (injection site). Follow these instructions at home: The instructions below may help you care for yourself at home. Your health care provider may give you more instructions. If you have questions, ask your health care provider. Injection site care ? Follow instructions from your health care provider about how to take care of your injection site. Make sure you: ? Wash your hands with soap and water for at least 20 seconds before and after you change your bandage. If you cannot use soap and water, use hand sorting livestock worker. ? Change your bandage. ? Check the area around any injection sites (injection areas) every day for signs of infection. Check for: ? More redness, swelling, or pain. ? More fluid or blood. ? Warmth. ? Pus or a bad smell. Activity ? Do light exercise every day, as told by your health care provider. Walking or riding a stationary bike may be good options for you. ? Return to your normal activities when your health care provider says that it is safe. Ask what activities are safe for you. General instructions ? Take ebuc-nsk-sunrbeq and prescription medicines only as told by your health care provider. ? Do not use lotions or creams on your legs unless your health care provider approves. ? Do not smoke or use any products that contain nicotine or tobacco before the procedure. If you need help quitting, ask your health care provider. ? Wear compression stockings as told by your health care provider. These help to prevent blood clots and reduce swelling in your legs. ? Wear loose-fitting clothes on the treatment area. ? Avoid being in direct sunlight. This includes avoiding: ? Sun tanning. ? Using tanning beds. ? Do not use hot, wet cloths or any form of heat near the injection site. Contact a health care provider if: ? You have more redness, swelling, or pain at any injection area. ? You have more fluid or blood coming from any injection site. ? Any injection area feels warm to the touch. ? You have pus or a bad smell coming from any injection site. ? You have a fever. Get help right away if: ? You have leg pain that gets worse when you walk. ? You have redness or swelling in your leg that is getting worse. ? You have trouble breathing. ? You have chest pain. Summary ? Swelling, bruising, and soreness are common after this procedure. ? Check all injection areas every day for signs of infection. ? Wear compression stockings as told by your health care provider. These stockings help to prevent blood clots and reduce swelling in your legs. This information is not intended to replace advice given to you by your health care provider. Make sure you discuss any questions you have with your health care provider. Document Revised: 02/14/2023 Document Reviewed: 02/14/2023 [employer] Patient Education ? 2023 [employer] Radiology Sclerotherapy, Care After After sclerotherapy, it is common to have swelling, bruising, and soreness. You may also have: ? Some changes to skin color. ? Slight bleeding from where you got your shot (injection site). Follow these instructions at home: The instructions below may help you care for yourself at home. Your health care provider may give you more instructions. If you have questions, ask your health care provider. Injection site care ? Follow instructions from your health care provider about how to take care of your injection site. Make sure you: ? Wash your hands with soap and water for at least 20 seconds before and after you change your bandage. If you cannot use soap and water, use hand sorting livestock worker. ? Change your bandage. ? Check the area around any injection sites (injection areas) every day for signs of infection. Check for: ? More redness, swelling, or pain. ? More fluid or blood. ? Warmth. ? Pus or a bad smell. Activity ? Do light exercise every day, as told by your health care provider. Walking or riding a stationary bike may be good options for you. ? Return to your normal activities when your health care provider says that it is safe. Ask what activities are safe for you. General instructions ? Take nkru-lnk-vuzmfwj and prescription medicines only as told by your health care provider. ? Do not use lotions or creams on your legs unless your health care provider approves. ? Do not smoke or use any products that contain nicotine or tobacco before the procedure. If you need help quitting, ask your health care provider. ? Wear compression stockings as told by your health care provider. These help to prevent blood clots and reduce swelling in your legs. ? Wear loose-fitting clothes on the treatment (more content not included)... [facility] Coding Summaryon 03-10-2025 Coding Summary HTMLBase 64 IqluwfqyHMb0uHr+PGhlYW Q+[id number] J6OFCCvZGaquHLALUQuOFs YwyaPdJF3vwRBpTLQn IC8+WH4oWWBvLdqvmVFiy2 L7kHW0D46tjp6nCLfpyXD5 BCOtSjKjhmpxn2bymEw6HB cuNmluOyBt TBHhzX65ILS9pF44Uh89nL LugSIay2hcnGq3NvOtGWWp FUQ2rClaTXule0YmTIZrP7 7drZYpv3E8 BDZyhXarhTXtQrCzaWR5nX 0bXEcxswgle8skgcrpBrt9 yx30pSIim9G9gYD2S2Opxq Z1FNQtfLKq UovptESCeN5zfrcob7okbf seFhAfLCYlOEc1HEg9QMAm uXcbThMwYW11HKP8FGQrfn BfV1ArKHVy iIbyHeX1d2H9Fr8PJ6KWCw obQ6YSNSNBWPuvgCB+PC90 cj46I1UaJhuqVwe1DNQwVX E5nER6eT7w WKInVDoch5C6zKS6V8Stsl Roug1sl7njVZCnDQyiO10h nKNfj0Q1WANoyBF0RFStvM rrBtMbuM04 Oyc+ZKVypAaga5UiBsams6 sax8bsePq0UvvcNISeasSx kEmaENH3a5XwCu4rTRUzuV S7rHH5dO6l KlGnYnS4BOrzN153GxFfwZ ZcRcffE05kA1RodAL+PHRy Cdb5KBIpoQrwSY9jF5LkXS RpbmctbGVm iVyeWH9iOVVhkbchAXOtaA 7uTCSeU1x8QqZkIpI5AOlz T9UaJBIhlmroDj64iJ3hIw WjDgF3NDle B4QzlrL5MMCukRUwOBtuDE Y7N95ii3L7NTRyLYSiCGN2 oOD2cR3bsOwshtrriIEyiD sgdmVydGlj FAjkERriB338OWLqfFpdSh NvZGluZyBEYXRlOiAgMDQv MTYvMjAyNTwvdGQ+PHRkIH Y8tUcrHVRr tUFzHLbzJp4ltPmszDzcZV 0tKWEigfanBNGthD2rOZGm uOYubHlwWI9hPIQbyiuva6 03RoVmSNV0 JYLtkEBzR9AqvQ0xCaMtEK PqCNQyQ4FhhMBaNByjN445 RJmzQtW3CVZiojIpY9XfBT FsaWduOiB0 j8J5Kp8Qj9BerkzdA9QlcL SxVmLeXfijTVg2U9ZbUdcv dHI+OZ36KXFqHR31EXt6DW W2sFqbSUcg QGFpG9UrkD5qZmCsIHHqTN RkOyc+PHRhYmxlIHdpZHRo WCblMMDwImWbcGhhSH4kDj 9yZGVyLWNv mPciuMDxHpOwj8awRJErKH enBV6yaUckP8UsfJG6AXLh c6i6Tl38V09kN0LqaQU+PG RpaON1iFR0 nU6yKyRfVbS6HHlqD086Gl LvcCVyVknfc3ltl0ovnXb6 DiH8HLObaeXsnIwlKDJ4g5 WaHw24T37w IHdpZHRoPSIxNSUiIHZhbG eetd5uuF9lIa5+PGNvbCB3 vRU4jX9yRmYcIwT6PLnjK0 49InRvcCIv Olite1rqb3fmwWh0YaIdUG QgpeOooImhVQS2g8RqBi94 T0EzzAruz0UmKxw4vl76fS Ler4P7tUO3 G3RnSAThmpnmfXUhzPflCI 2eJDNpjqvjXXVoxK0lXKDn F6y8AhImOwL8JKxxO8Anov Z7UMCisTGg FVKitUOQpK7pvnljl3jmix etYmVpKJQeNEe2UCx2VZIj qRnrRdXoMSZ9HsI0ODF2uY CdbW1jbEij bmedqQ7oVtu+IZP1xZNglN FVDC4eTnijtQP+PHRkIHN0 oDjzYYrpDISdkY4mBWReA5 t6WzAnOdN7 TSrkJ0KwjxC0BQCjqQXlCT AkwZRPvR7eaefll2teyhgv TsQxAPOnIZt2ABr1SAHdtR duOiBsZWZ0 SiT5ZVV9jYNzyK4htZnejs pkbM3pIll+QmlydGggRGF0 AAx5A6SyCxc7AURgeFvbKS 0ncGFkZGlu Pe7riVewjPxoIM9jWKJprl tdy794YiIub5jfQWLspNSq WEvzOIE0I33pm4F5VCZbIA JuYTA1hSM3 aD7uuAgwselcnKJhpOutov QjfZjeVLenAKzkU626DWHy nYruKjYuSFm6N7NhHvp8WM OvhEwgMO5a pABuQQifTx4gyYtqkTezNM 7yPLMjsxinp509EdKny3yy IPKozDImPLbpFJZ6L12lg4 I9DOGwRWPz FRV4aWN9gP3plKkpaccroM VmdDsgdmVydGljYWwtYWxp G388UEZaeHdyLePfqLt2N7 NgIgc7POQu oIalEH0dwJCtGWuoMz5xjL nmbIqtKM0bSZRboqsot662 IfNpq1isBJOujIKaVCcaPZ K5M19aj5B7 HQIvHTPrAPY3xEB4aK1qjJ lnbjogbGVmdDsgdmVydGlj NUzeSAqpH016HSWopQrqPd BhdGllbnQg RPkuBQo8C9YiYccpmWQ+PC 01POQcUV61wUQunJOrl9rs hUm6GuAfNYNaJMB1sHibHQ jij6MnJFLg S00djIPff6R0BGZcfIeuuG PbHrYblAV7cA2mNRkpcuzu b1nmadjrReskx3uuxi23rU 10E05wNGvt ZHRoPSIzMCUiIHZhbGlnbj 2fpV5yNn5+MXFycZY3fOV5 cO6lBVVxMoP4MHmzC003Vn RvcCIvPjxj e0wsm4ojgJg7JoO2QPUamj GacWapGYK9k4CjHu84Y94k IHdpZHRoPSIyMCUiIHZhbG hlrb2buR0t Ii8+GCYfmFW3rHW3gK0bFx HmReM5APznD854DfCpbYTe KcxjN65lW6YvjKO+PHRyPj o7RPMlzAvw OX5vuIHhGPqlHq3pYRF8Lv DtIaGhKCpdZ5SoXUMkjqfs uslpyDO2NZDfHOJgfY62Wa 9udDogMTBw fWIVnZ7zghqbp4odwvnuAi XtZCYvTSe2MKt0KQMgsLuv IiDpTYS0XiN1YRU8nAQubZ 1hbGlnbjog hG7tS7YwHRIsmsdmPr32tC 0wNcJgXtL2ILtpIra+RU5H FwCVPMDNFZELJ2VYILQKXf wvdGQ+PHRk TXP7zRvbOWsqTJLtvX1gUT WmE4f8XgShDvN9PCjxZ3Yr DVXpkztgVl06uF2dSpZpYb Y8KEzuX1Lh yrM1JYXwlTLfMOjxYMS1W0 6zr8J0IKKpCWJgIVY5pNH2 wY4fwKfztgksxNMazDowzu VydGljYWwt MWbsU725FOVjpCfbMzSlYs U4SmG6CUF2O7PsIhg6WVGf eUwjBI0hyCCkYYtcIu8iaQ xwgKfnBV2s SZFwlfbyKEBlwW4jCUTokK TxkNumXG0lQVGrckusf944 IyGjMDN6BPLxlZExW5HlhV 9yOiAjMDAw WPMdS1BhrOVuEQhnU210HU zkVyP9TTEjcrFzM2LdKVPk bFtrMwT1j5V1Er5bEQPCKV FyczwvdGQ+ MQHsUIX6oZncMDdnRHBqiT 6bTAVgH9u4PoMlZwW6HFdp A6UoUXCjolhzFe64gA1uEt LtGoA4ZPwk P5QqflB1XBRrhVSpVXnbFA J2O10eo1G7GTRoYKKiDJN7 pDL5gD5wjOdkqsfasBDvrJ sgdmVydGlj NNsvKFauT852JCJtrRhsUl ZFTUFMRTwvdGQ+PHRkIHN0 mBjmQDmwKLYmmR3eLEOiP2 t5XfEwQlE5 YVvfK0LbQSYculrhNn02qC 3yMbOlCvZ5GHeiQ0CiavR8 WCObqSXkELfgFSN3W45gn9 E9LFGlCUMj BAV0oSM3dV4zaHvatwiozD VmdDsgdmVydGljYWwtYWxp V815IRXqwUqeVe0ZGH45GV 60U9VyGftd dGFibGU+PHRhYmxlIHdpZH AaXJjuJCDiWbNsoNdoMQ4d Aq1zURKlVGKolVrkdHMtOs Hff8bzRJTc BImnEM2lzEaaH5OhwBJ8DT Imu2q0Bs77Z17cQ8FilHX+ TFMsyFS1mCR3bT6iZhXcBi G0RPjbY872 ZuGfgMNtLxofr4iuw0ohbP b3WrMqOTLoesZpoQifMEH0 n6JaIj59L88cVAtkLTOhQV IyMCUiIHZh pAefjr3apA3qMl1+PGNvbC K3sAS7gE2yLrBaFjV0ULkr N598WeUveFQyGpytI69fO5 JvdXA+PHRy Toj5WQZwuDubRP1faWWjKU ifUk9cRZF5KeYfYtNzFKid D3PkUEVjbdcpbqwdxBN7EO MiDBMkqU11 Pp3kfWlcKz0hYBBuPHW9EB MhkGTjK6UjnQ9mFdAxHUHp OVHwX7FxgFOnPPjeL046YG uqGwW8FISr gxHjQ9YbWIZovTidCgX2t1 V6Zj2IhNcwzTVwEX8lCfWl IVu8K5EfWtv2OFMsbDraXK 0ncGFkZGlu Hi3ygRndjNmiGQ6uJOUgzj pko378YdRhb4jbKICrjAGz MLyaDZV3I23pl8L4YAKtKJ XyMWV8uEL2 wA3xeMuahtmccOEzhPotjh GjyChfUGmeJDhxZ337XAPy dTxeHxIUIsf6R5JbBer5SD TzvFgtNR7f hYVmUReaXp6ycDiyzEabSV 5mDLJangdkj965YtQfk2rq GJLlhVCgCGbbKQS4U32ee8 S4CTIaRBCc EIO2yOW7wN9doEsenmmxmV VmdDsgdmVydGljYWwtYWxp X530ZPAcwNxhLl9TTiy6M5 KcLnv2BCZm xZboGW2rtQTaHStrDi4haO loaQmxCX9mMTLhtkkxv084 LuMrz2fqVRGjvKLdOPkeLM I1A59eg5L6 NZZwTIZjJTI8uMB9nW8oeX lnbjogbGVmdDsgdmVydGlj OTcnDJvcQ421FIOhtEghLn BheWVyOjwv dGQ+WO51ti40A1OvYhzcAx x5BXUvWUE0sJI4xC2qNVAp LScne5L9vBQ1J0BcjbXifr 2xk7vgTPJx ZTo (more content not included)... Normal [facility] HEMOGLOBIN A1con 03-03-2025 HEMOGLOBIN A1c 5.3 % of total Hgb Normal <5.7 [facility] Comment on above: Result Comment: For the purpose of screening for the presence of diabetes: <5.7% Consistent with the absence of diabetes 5.7-6.4% Consistent with increased risk for diabetes (prediabetes) > or =6.5% Consistent with diabetes This assay result is consistent with a decreased risk of diabetes. Currently, no consensus exists regarding use of hemoglobin A1c for diagnosis of diabetes in children. According to [place] [employer] (ADA) guidelines, hemoglobin A1c <7.0% represents optimal control in non- diabetic patients. Different metrics may apply to specific patient populations. Standards of Medical Care in Diabetes(ADA). Performed By: #### 4 [id number] #### [facility] [address], [address] [place] [address] Manager Post: Kosta Perdue MD Urinalysis macro (dipstick) panel (U)on 03-01-2025 Bilirubin, UA Negative Negative - 4(70) +++ mg/dL [facility] Blood, UA Negative Negative - 50 Bernardo/mcL [facility] Clarity, UA Clear [facility] Color, UA Yellow [facility] Glucose, UA Negative Negative - 2000(110) ++++ mg/dL [facility] Interpretation and review of laboratory results Normal [facility] Ketones, UA Negative Negative - 160(16) ++++ mg/dL [facility] Leukocytes, UA Negative Negative - 500+++ Matti/mcL [facility] Nitrite, UA Negative Negative - Positive [facility] pH, UA 6.5 5 - 9 [facility] Protein, UA Negative Negative - 2000(20) ++++ mg/dL [facility] Spec Grav, UA 1.02 1 - 1.03 [facility] Urobilinogen, UA 1.0 0.2 - 12 mg/dL [facility] No Panel Informationon 02-25 Type of biopsy: tangential Informed consent: discussed and consent obtained Informed consent comment: The risks and benefits of the biopsy were discussed. Risks include but are not limited to bleeding, infection, scarring, pain, and nerve damage. An opportunity to ask questions prior to the procedure was permitted and all questions were answered. Patient was prepped and draped in usual sterile fashion: area cleansed with alcohol. Anesthesia: the lesion was anesthetized in a standard fashion Anesthetic: 1% lidocaine w/ epinephrine 1-100,000 buffered w/ 8.4% NaHCO3 Instrument used: DermaBlade Hemostasis achieved with: electrodesiccation Outcome: patient tolerated procedure well Outcome comment: The specimen was placed in a prelabeled formalin container to be sent for pathology Post-procedure details: sterile dressing applied and wound care instructions given Post-procedure details comment: Emphasized need to contact clinic for any signs of infection, uncontrollable bleeding, or complications. Dressing type: bandage Additional details: Photo taken Amount of lidocaine used: 0.2 cc Scoutzie Type of biopsy: tangential Informed consent: discussed and consent obtained Informed consent comment: The risks and benefits of the biopsy were discussed. Risks include but are not limited to bleeding, infection, scarring, pain, and nerve damage. An opportunity to ask questions prior to the procedure was permitted and all questions were answered. Patient was prepped and draped in usual sterile fashion: area cleansed with alcohol. Anesthesia: the lesion was anesthetized in a standard fashion Anesthetic: 1% lidocaine w/ epinephrine 1-100,000 buffered w/ 8.4% NaHCO3 Instrument used: DermaBlade Hemostasis achieved with: electrodesiccation Outcome: patient tolerated procedure well Outcome comment: The specimen was placed in a prelabeled formalin container to be sent for pathology Post-procedure details: sterile dressing applied and wound care instructions given Post-procedure details comment: Emphasized need to contact clinic for any signs of infection, uncontrollable bleeding, or complications. Dressing type: bandage Additional details: Photo taken Amount of lidocaine used: 0.3 cc Scoutzie US LE Venous Duplex Righton 02-25-2025 US LE Venous Duplex Right EXAMINATION: US LE Venous Duplex Right HISTORY: Phlebitis and thrombophlebitis of superficial vessels of right lower extremity COMPARISON: None. TECHNIQUE: Venous duplex examination performed using B-mode, color flow and spectral analysis. 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 Heat induced thrombus is 2.4 cm from the saphenofemoral junction and just beyond the takeoff of the epigastric vein which remains patent. 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 Final Dictated by: Brandon Church MD Dictated DT/TM: 02/25/25 10:58 Signed (Electronic Signature): Brandon Church MD 02/25/25 11:00 a Technologist: [facility] US Endovenous Ablation 1st V love 02-18-2025 US Endovenous Ablation 1st Vein EXAMINATION: US Endovenous Ablation 1st Vein , right great saphenous vein HISTORY: Varicose veins of bilateral lower extremities with pain COMPARISON: No relevant comparison available. TECHNIQUE: The risks and benefits of the procedure had been previously discussed, and were rediscussed at length. Informed written consent was obtained. Nina Ellison and Carlos Jordan assisted. Time out procedure was performed. The right lower extremity was prepared and draped in the usual sterile fashion to allow knee flexion in the sterile field. Duplex ultrasound probe was draped in a sterile cover, sterile transmission gel was used. Venous mapping was performed with the areas of dilation and large tributaries marked. The total length was 31 cm from the entry upper calf to 3 cm below the saphenofemoral junction. The diameter of the greater saphenous vein ranged from 5-6 mm. A 30 gauge needle and 1% buffered lidocaine was used to anesthetize the entry site. A 4 mm incision was made with a scalpel and the saphenous vein was entered percutaneously under direct ultrasound guidance with a micropuncture set, a single stick was successful in gaining access. A micro-guide wire was inserted and the needle removed. A micro-set including a dilator was inserted over the microwire and the needle and dilator were removed. A 0.018 guide wire was inserted through the micro-set and threaded through the saphenous vein to the saphenofemoral junction. The dilator was removed and an introducer sheath was inserted over the wire until the end of the sheath entered the saphenofemoral junction. The dilator and wire were removed and the 600 micron fiber was introduced and placed and positioned so that it extended beyond the sheath and was 3 cm peripheral to the saphenofemoral femoral junction. Final position of the fiber was determined by ultrasound guidance and duplex imaging. Tumescent anesthetic was delivered by ultrasound guidance. 200 cc of fluid was delivered along the entire course of the saphenous vein. The solution consisted of 1000 cc of normal saline with 40 mL of 1% lidocaine and 20 mL of sodium bicarbonate. A final positioning check was made. The energy source was turned on by means of the foot pedal and the fiber and sheath were withdrawn. The total number of Joules delivered was 1522. The laser was active for 190 seconds under continuous pulse, average laser use of 8 J. Laser start time 1010 AM . Laser stop time 1013AM . A duplex ultrasound revealed compressibility and flow at the saphenofemoral junction immediately after the procedure. Hemostasis at the access site was achieved. The skin incision of the saphenous vein was closed with a 4 x 4. A compression stocking was applied. Postop instructions were given. A follow up appointment was recommended and scheduled. The patient tolerated the procedure well and was discharged in good condition . IMPRESSION: Technically successful endovenous laser ablation right great saphenous vein Final Dictated by: Brandon Church MD Dictated DT/TM: 02/18/25 10:26 Signed (Electronic Signature): Brandon Church MD 02/18/25 10:27 a Technologist: [facility] Outside Recordson 01-12-2025 Outside Records [id number]#1.00 [facility] Outside Records [id number]#1.00 [facility] Rad - Other Radiology Report on 01-12-2025 Rad - Other Radiology Report [id number]#1.00 [facility] Rad - Other Radiology Report [id number]#1.00 [facility] US PELVIS TRANSVAGINALon US PELVIS TRANSVAGINAL EXAM: Pelvic Ultrasound, Endovaginal: REASON FOR EXAM: Dysfunctional uterine bleeding. COMPARISON: None. TECHNIQUE: An endovaginal exam was performed, including color Doppler. FINDINGS: Myometrium: Smooth, normal echogenicity without focal masses. Endometrium: A small 2 mm cyst is noted within the endometrium in the lower uterine segment near the cervix. Cervix: A small amount of fluid is noted in the cervix, nonspecific. Cul-de-sac: No significant free fluid present. Right Ovary: Normal follicles. Normal size and echogenicity. Intact blood flow. Left Ovary: Not visualized. Measurements: Uterus: 8.55 x 6.04 x 4.63 cm EM: 1.15 cm Right Ovary: 3.38 x 4.19 x 2.87 cm Left Ovary: N/V IMPRESSION, Endovaginal Pelvic Ultrasound: Fluid in the cervix and a small cyst or other fluid collection in the lower uterine segment of the uterus near the internal os. The appearance is nonspecific and may reflect blood as noted in the history of dysfunctional uterine bleeding. *This report is generated using voice recognition reporting (Scanbuy). On occasion [employer]ant[employer] erroneously drops words from the report or replaces the spoken word with similar sounding words. Please call with any questions/concerns regarding this report.* Dictated and transcribed 12/10/2024/jf This report has been electronically signed and approved by the interpreting radiologist. Normal Not Available No Panel InformationOrdered By: Gissell Malagon on 08-25-2024 Quick Strep (POC) [facility] RHOGAM INJECTION ONLYon 10-25 Blood product type Nom (BPU) RHIG [facility] Status of Units TRANSFUSED [facility] Transfusion Status OK TO TRANSFUSE B ON [facility] Unit Divison 0 [facility] Unit Number [id number] [facility] CBC with Diffon 11-08-2022 Abs. Basophil 0.03 k/uL Normal 0.00-0.20 [facility] Comment on above: Performed By: #### C DP #### [facility] [address] [place] [address] [place] [address] Surgery Assistant: Brandon Thompson MD Abs. Eosinophil <0.03 Normal 0.00-0.44 [facility] Comment on above: Performed By: #### C DP #### [facility] [address] [place] [address] Surgery Assistant: Brandon Thompson MD Abs.Imm.Granulocyte 0.06 k/uL Normal 0.00-0.30 [facility] Comment on above: Performed By: #### C DP #### [facility] [address] [place] [address] [place] [address] Surgery Assistant: Brandon Thompson MD Abs.Neutrophil (Seg) 8.25 k/uL High 1.50-8.10 [facility] Comment on above: Performed By: #### C DP #### [facility] [address] [place] [address] [place] [address] Surgery Assistant: Brandon Thompson MD Basophils/100 WBC (Bld) 0 % Normal 0-2 [facility] Comment on above: Performed By: #### C DP #### [address] [place] [address] Surgery Assistant: Brandon Thompson MD Eosinophils/100 WBC (Bld) 0 % Low 1-4 [facility] Comment on above: Performed By: #### C DP #### [facility] [address] [place] [address] [place] [address] Surgery Assistant: Brandon Thompson MD Erythrocyte distribution width (RBC) [Ratio] 12.6 % Normal 11.8-14.4 [facility] Comment on above: Performed By: #### C DP #### [address] [place], [facility] Surgery Assistant: Brandon Thompson MD Hematocrit (Bld) [Volume fraction] 39.9 % Normal 36.3-47.1 [facility] Comment on above: Performed By: #### C DP #### [address] [place] [address] Surgery Assistant: Brandon Thompson MD Hemoglobin (Bld) [Mass/Vol] 13.5 g/dL Normal 11.9-15.1 [facility] Comment on above: Performed By: #### C DP #### [facility] [address] [place], [place] [id number] Surgery Assistant: Brandon Thompson MD Immature granulocytes/100 WBC (Bld) 1 % High 0 [facility] Comment on above: Performed By: #### C DP #### [facility] [address] [place] [address] Surgery Assistant: Brandon Thompson MD Lymphocytes (Bld) [#/Vol] 1.59 10*3/uL Normal 1.10-3.70 [facility] Comment on above: Performed By: #### C DP #### [address] [place] [address] Surgery Assistant: Brandon Thompson MD Lymphocytes/100 WBC (Bld) 15 % Low 24-43 [facility] Comment on above: Performed By: #### C DP #### [address] [place], [facility] Surgery Assistant: Brandon Thompson MD MCH (RBC) [Entitic mass] 32.6 pg Normal 25.2-33.5 [facility] Comment on above: Performed By: #### C DP #### [address] [place], [place] [id number] Surgery Assistant: Brandon Thompson MD MCHC (RBC) [Mass/Vol] 33.8 g/dL Normal 28.4-34.8 [facility] Comment on above: Performed By: #### C DP #### [address] [place] [address] Surgery Assistant: Brandon Thompson MD MCV (RBC) [Entitic vol] 96.4 fL Normal 82.6-102.9 [facility] Comment on above: Performed By: #### C DP #### [address] [place] [address] Surgery Assistant: Brandon Thompson MD Monocytes (Bld) [#/Vol] 0.74 10*3/uL Normal 0.10-1.20 [facility] Comment on above: Performed By: #### C DP #### [facility] [address] [place], [place] [id number] Surgery Assistant: Brandon Thomspon MD Monocytes/100 WBC (Bld) 7 % Normal 3-12 [facility] Comment on above: Performed By: #### C DP #### [facility] [address] [place], [place] [id number] Surgery Assistant: Brandon Thompson MD Neutrophil (Seg) 77 % High 36-65 [facility] Comment on above: Performed By: #### C DP #### [facility] [address] [place], [place] [id number] Surgery Assistant: Brandon Thompson MD NRBC Automated 0.0 per 100 WBC Normal 0.0 [facility] Comment on above: Performed By: #### C DP #### [facility] [address] [place], [place] [id number] Surgery Assistant: Brandon Thompson MD Platelet mean volume (Bld) [Entitic vol] 13.0 fL Normal 8.1-13.5 [facility] Comment on above: Performed By: #### C DP #### [facility] [address] [place] [address] [place] [address] Surgery Assistant: Brandon Thompson MD Platelets (Bld) [#/Vol] 134 10*3/uL Low 138-453 [facility] Comment on above: Performed By: #### C DP #### [facility] [address] [place], [place] [id number] Surgery Assistant: Brandon Thompson MD RBC (Bld) [#/Vol] 4.14 10*6/uL Normal 3.95-5.11 [facility] Comment on above: Performed By: #### C DP #### [facility] [address] [place], [place] [id number] Surgery Assistant: Brandon Thompson MD WBC (Bld) [#/Vol] 10.7 10*3/uL Normal 3.5-11.3 [facility] Comment on above: Performed By: #### C DP #### [facility] [address] [place], [place] [id number] Surgery Assistant: Brandon Thompson MD Drug Scr, Abuse, Uron 2021 Amphetamine(s),Ur Negative Normal NEG [facility] Comment on above: Performed By: #### D AU #### [address] [place], [place] [id number] Surgery Assistant: Brandon Thompson MD Barbiturate(s),Ur Negative Normal NEG [facility] Comment on above: Performed By: #### D AU #### [facility] [address] [place], [place] [id number] Surgery Assistant: Brandon Thompson MD Benzodiazepine(s) Negative Normal NEG [facility] Comment on above: Performed By: #### D AU #### [address] [place], [place] [id number] Surgery Assistant: Brandon Thompson MD Buprenorphrine, Ur Negative Normal NEG [facility] Comment on above: Performed By: #### D AU #### [facility] [address] [place], [place] [address]83 Surgery Assistant: Brandon Thompson MD Cannabinoid(s),Ur Negative Normal NEG [facility] Comment on above: Performed By: #### D AU #### [facility] [address] [place], [place] [id number] Surgery Assistant: Brandon Thompson MD Cocaine Metabolite Negative Normal [facility] Comment on above: Performed By: #### D AU #### [facility] [address] [place], [place] [id number] Surgery Assistant: Brandon Thompson MD Methadone Ql (U) Negative Normal NEG [facility] Comment on above: Performed By: #### D AU #### [facility] [address] [place], [place] [id number] Surgery Assistant: Brandon Thompson MD Methamphetamine, Ur Negative Normal NEG [facility] Comment on above: Performed By: #### D AU #### [facility] [address] [place], [place] [id number] Surgery Assistant: Brandon Thompson MD Opiate(s), Ur Negative Normal NEG [facility] Comment on above: Performed By: #### D AU #### [facility] [address] [place], [place] [id number] Surgery Assistant: Brandon Thompson MD Oxycodone, Urine Negative Normal NEG [facility] Comment on above: Performed By: #### D AU #### [facility] [address] [place], [place] [id number] Surgery Assistant: Brandon Thompson MD Phencyclidine, Ur Negative Normal NEG [facility] Comment on above: Performed By: #### D AU #### [facility] [address] [place], [place] [id number] Surgery Assistant: Brandon Thompson MD Propoxyphene,Urine Negative Normal NEG [facility] Comment on above: Performed By: #### D AU #### [facility] [address] [place], [place] [id number] Surgery Assistant: Brandon Thompson MD Tricyclic antidepressants Screen Ql (U) Negative Normal NEG [facility] Comment on above: Result Comment: Drug screen results are to be used for medical purposes only. All positive results are unconfirmed. Testing for employment or legal uses should be sent to a reference laboratory for confirmation. Performed By: #### D AU #### [facility] [address] [place] [address] Surgery Assistant: Brandon Thompson MD ROSETTEon 11-08-2022 Kymberly Negative [facility] Rosetteon 11-08-2022 Kymberly Negative Normal [facility] Comment on above: Performed By: #### C FET #### [facility] [address] [place] [address] Surgery Assistant: Brandon Thompson MD RHIG, Transfuseon 11-08-2022 RHIG, Transfuse Unit Number [id number]/ [id number] Blood Component Type RHIG Unit Division 00 Status of Unit TRANSFUSED Transfusion Status OK TO TRANSFUSE [facility] Comment on above: Performed By: #### T RHIG #### [address] [place] [address] Surgery Assistant: Brandon Thompson MD Surgical Pathologyon 022 Surgical Pathology (NOTE) -- Diagnosis -- PLACENTA, CORD AND MEMBRANES, DELIVERY: - MILD ACUTE CHORIOAMNIONITIS. 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 Oscar Aguilera M.D. Electronically Signed Out 11/12/2022 Clinical Information Operative Findings: PLACENTA Source of Specimen A: PLACENTA Gross Description STEPHANIE PALENCIA, UNDESIGNATED Placenta with attached membranes and umbilical cord. UMBILICAL CORD Length: 24.0 cm Diameter: 1.6 cm True knots: No Number of vessels: 3 Spiraling: Normal Insertion into surface: Paracentral MEMBRANES Color: Powell-alva and opacified with a marginal insertion Meconium staining: No SURFACE Color: Purple-alva, with a normal array of surface vessels Subchorionic fibrin: Patchy and marginal and involves less than 5% of the disc MATERNAL SURFACE Cotyledons: -All present and intact: Yes -Focal lesions: No Placental size: 17.0 x 15.0 x 3.0 cm Shape: Ovoid Weight: 408 grams Number of cassettes: 3cs tm Microscopic Description Umbilical cord: Unremarkable Membranes: Mild neutrophilic inflammation Meconium staining: No Infarcts: No Intervillous thrombi: No Subchorionic fibrin: Not significantly increased Villous maturation: Appropriate Nucleated erythrocytes in villous capillaries: Not increased Other: Few microcalcifications SURGICAL PATHOLOGY CONSULTATION Patient Name: STEPHANIE PALENCIA [facility] Rec: [id number] Path Number: [id number] [facility] ANATOMIC PATHOLOGY [address] [place], [place] [address] [facility] Comment on above: Performed By: #### P PPVS #### [facility] [address] [place], [place] [id number] Surgery Assistant: Curly Connolly MD TYPE AND SCREENon 11-08-2022 ABO/Rh Negative [facility] Arm Band Number [id number] [facility] Expiration Date 11/10/2022,2359 [facility] Type + Screenon 11-08-2022 Type + Screen Sample Expiration 11/10/2022,2359 Arm Band Number [id number] ABO/Rh(D) O NEGATIVE Antibody Screen NEGATIVE [facility] Comment on above: Performed By: #### T YS #### [facility] [address] [place] [address] Surgery Assistant: Brandon Thompson MD CBC auto differentialon 10-25 Absolute Eos # [facility] Absolute Immature Granulocyte 0.06 [facility] Absolute Lymph # 1.59 [facility] Absolute Harlan # 0.74 [facility] Basophils (Bld) [#/Vol] 0.03 10*3/uL [facility] Basophils/100 WBC (Bld) 0 % 0 - 2 % [facility] Eosinophils/100 WBC (Bld) 0 % Low 1 - 4 % [facility] Hematocrit (Bld) [Volume fraction] 39.9 % 36.3 - 47.1 % [facility] Hemoglobin (Bld) [Mass/Vol] 13.5 g/dL 11.9 - 15.1 g/dL [facility] Immature granulocytes/100 WBC (Bld) 1 % High 0 [facility] Interpretation and review of laboratory results Abnormal [facility] Lymphocytes/100 WBC (Bld) 15 % Low 24 - 43 % [facility] MCH (RBC) [Entitic mass] 32.6 pg 25.2 - 33.[address] [facility] MCHC (RBC) [Mass/Vol] 33.8 g/dL 28.4 - 34.8 g/dL [facility] MCV (RBC) [Entitic vol] 96.4 fL 82.6 - 102.9 fL [facility] Monocytes/100 WBC (Bld) 7 % 3 - 12 % [facility] NRBC Automated 0.0 0.0 per 100 WBC [facility] Platelet distribution width (Bld) [Ratio] 12.6 % 11.8 - 14.4 % [facility] Platelet mean volume (Bld) [Entitic vol] 13.0 fL 8.1 - 13.5 fL [facility] Platelets (Bld) [#/Vol] 134 10*3/uL Low [facility] RBC (Bld) [#/Vol] 4.14 10*6/uL 3.95 - 5.1 1 m/uL [facility] Segmented neutrophils/100 WBC (Bld) 77 % High 36 - 65 % [facility] Segs Absolute 8.25 High [facility] WBC (Bld) [#/Vol] 10.7 10*3/uL [facility] DRUG SCREEN MULTI URINEon Amphetamine Screen, Ur Negative NEGATIVE [facility] Barbiturate Screen, Ur Negative NEGATIVE [facility] Benzodiazepine Screen, Urine Negative NEGATIVE [facility] Buprenorphine Urine Negative NEGATIVE [facility] Cannabinoid Scrn, Ur Negative NEGATIVE [facility] Cocaine Metabolite, Urine Negative NEGATIVE [facility] Methadone Screen, Urine Negative NEGATIVE [facility] Methamphetamine, Urine Negative NEGATIVE [facility] Opiates, Urine Negative NEGATIVE [facility] Oxycodone Screen, Ur Negative NEGATIVE [facility] Phencyclidine, Urine Negative NEGATIVE [facility] Propoxyphene, Urine Negative NEGATIVE [facility] Slides Tricyclic Antidepressants, Urine Negative NEGATIVE [facility] Comment on above: Drug screen results are to be used for medical purposes only. All positive results are unconfirmed. Testing for employment or legal uses should be sent to a reference laboratory for confirmation. [employer] [facility] OB Growthon 10-17-2022 US OB Growth FINDINGS: Comparison made with prior examination October 11, 2022, delivery at that time was October 31, 2022. A single, live intrauterine is present with normal cardiac rate of 156 beats per minute. Normal activity and amniotic fluid volume. Amniotic fluid index is 17.0 cm. Morphology is grossly normal. The cervix is long and closed, 4.8 cm. The placenta is posterior, (maternal left) Grade 2, not associated with the cervical os. The current sonographic age is 37 weeks and 5 days, based on the following measurements: BPD 9.4cm (38 weeks,3 days) Head Circumference 33.4 cm (38 weeks, 2 days) Abdominal Circumference 32.9 cm (36 weeks, 5 days) Femur Length 7.4 cm (37 weeks, 5 days) Presentation Cephalic Placenta Posterior, maternal left, Grade 2 Weight by percentile 93.3% These measurements result in an estimated date of delivery of November 02, 2022. The current estimated weight is 3188 grams +/- grams ( 7 pound, 0 ounces). IMPRESSION: Single, live intrauterine , current sonographic age of 37 weeks and 5 days, with an estimated date of delivery of November 02, 2022. Report reported and signed by Elder Farrell on 10/17/2022 1135 Normal [facility] Machinist Class B GBS, External Resulton 10-11 GBS, External Result Negative [employer] Work Phone: [employer] Work Phone: OB 2nd/3rd Trimesteron OB 2nd/3rd Trimester HISTORY: Late care/FMA. COMPARISON: None Findings: Transabdominal imaging was performed. There is no abnormality of the maternal uterus or fetus. A single living intrauterine demonstrates spontaneous movement. Cervical length is 5.1 cm and the cerix is closed. heart rate is 141 bpm. Amniotic fluid index is 18.3 cm. Fetus is in the cephalic position. The placenta is grade 1. Measurements include cerebellum 5.0 cm, cisterna magnum 0.8 cm, biparietal diameter 9.2 cm, head circumference 33.2 cm, abdominal circumference 31.4 cm, and femur length 7.3 cm. This calculates to a mean gestational age by ultrasound of 37 weeks and 1 day. Estimated date of delivery is 10/31/22. Estimated weight is 3045 g (6 lbs. 11 oz.). Estimated weight percentile is 76 %. A four-chamber heart, three-vessel cord, cord insertion, stomach, bladder, face, spine, and kidneys are seen. There are no gross abnormalities however please note that ultrasound cannot detect all anomalies. IMPRESSION: Single live intrauterine with estimated gestational age 37 weeks 1 day. Estimated date of delivery is 10/31/22. Report reported and signed by Leonel Foster on 10/12/2022 1159 Normal [facility] Machinist Class B C. Trachomatis, External Res [facility] 05-15-2022 C. Trachomatis, External Result Negative [employer] Work Phone: N. Gonorrhoeae, External Res [facility] 05-15-2022 N. Gonorrhoeae, External Result Negative [employer] Work Phone: No Panel Informationon 05-15 [employer] Work Phone: Hepatitis B, External Result on 05-01-2022 Hep B, External Result Negative [employer] Work Phone: [employer] Work Phone: ABO, External Resulton 04-30 ABO, External Result o [employer] Work Phone: HIV, External ResultOrdered By: Rizwana Sorto on 04-30-2022 HIV, External Result Negative [facility] [facility] Verified ray quigley rn [employer] [facility] Hepatitis C Antibody, Emr Implementation Specialist al Resulton 04-30-2022 Hepatitis C Antibody, External Result Negative [employer] Work Phone: No Panel Informationon 04-30 [employer] Work Phone: RPR, External Labon 04-30-20 RPR, External Result Negative [employer] Work Phone: Rh Factor, External Resulton 04-30-2022 Rh Factor, External Result Negative [employer] Work Phone: Rubella Titer, External Resu lton 04-30-2022 Rubella Titer, External Result Immune [employer] Work Phone: Vital Signs Date Time Vital Sign Value Performing Clinician Facility 03-24-2025 16:16-0400 Body mass index (BMI) [Ratio] 35.96 kg/m2 Abel Susie DO Work Phone: [facility] 03-24-2025 16:16-0400 Body weight 101.06 kg Abel Susie DO Work Phone: [facility] 03-24-2025 16:16-0400 Diastolic blood pressure 78 mm[Hg] Abel Susie DO Work Phone: [facility] 03-24-2025 16:16-0400 Systolic blood pressure 120 mm[Hg] Abel Susie DO Work Phone: [facility] 03-01-2025 09:21-0400 Body mass index (BMI) [Ratio] 36.17 kg/m2 Abel Susie DO Work Phone: [facility] 03-01-2025 09:21-0400 Body weight 101.66 kg Abel Susie DO Work Phone: [facility] 03-01-2025 09:21-0400 Diastolic blood pressure 76 mm[Hg] Abel Susie DO Work Phone: [facility] 03-01-2025 09:21-0400 Systolic blood pressure 114 mm[Hg] Abel Susie DO Work Phone: [facility] 01-26-2025 13:19-0500 Body mass index (BMI) [Ratio] 36.15 kg/m2 Lamberto Floro CNM Work Phone: [facility] 01-26-2025 13:19-0500 Body weight 101.61 kg Lamberto Floro CNM Work Phone: [facility] 01-26-2025 13:19-0500 Diastolic blood pressure 80 mm[Hg] Lamberto Floro CNM Work Phone: [facility] 01-26-2025 13:19-0500 Systolic blood pressure 120 mm[Hg] Lamberto Floro CNM Work Phone: [facility] 11-12-2024 10:35-0500 Body mass index (BMI) [Ratio] 36.15 kg/m2 Lamberto Floro CNM Work Phone: [facility] 11-12-2024 10:35-0500 Body weight 101.61 kg Lamberto Floro CNM Work Phone: [facility] 11-12-2024 10:35-0500 Diastolic blood pressure 80 mm[Hg] Lamberto Floro CNM Work Phone: [facility] 11-12-2024 10:35-0500 Systolic blood pressure 120 mm[Hg] Lamberto Floro CNM Work Phone: [facility] 08-25-2024 09:17-0400 Body height 167.64 cm [facility] 08-25-2024 09:17-0400 Body mass index (BMI) [Ratio] 34.5 kg/m2 [facility] 08-25-2024 09:17-0400 Body temperature 97.3 [degF] [facility] 08-25-2024 09:17-0400 Body weight 97.06 kg [facility] 08-25-2024 09:17-0400 Diastolic blood pressure 90 mm[Hg] [facility] 08-25-2024 09:17-0400 Heart rate 104 /min [facility] 08-25-2024 09:17-0400 Respiratory rate 18 /min [facility] 08-25-2024 09:17-0400 SaO2% (BldA) [Mass fraction] 97 % [facility] 08-25-2024 09:17-0400 Systolic blood pressure 138 mm[Hg] [facility] 11-09-2022 12:22-0500 Body temperature 98.01 [degF] Lamberto Canseco MANAGER TRUCK - CNM Work Phone: [employer] 11-09-2022 12:22-0500 Diastolic blood pressure 80 mm[Hg] Lamberto Canseco MANAGER TRUCK - CNM Work Phone: [employer] 11-09-2022 12:22-0500 Heart rate 81 /min Lamberto Canseco MANAGER TRUCK - CNM Work Phone: [employer] 11-09-2022 12:22-0500 Respiratory rate 16 /min Lamberto Canseco MANAGER TRUCK - CNM Work Phone: [employer] 11-09-2022 12:22-0500 Systolic blood pressure 130 mm[Hg] Lamberto Canseco MANAGER TRUCK - CNM Work Phone: [employer] Encounters Encounter Date Encounter Type Care Provider Facility Start: 04-06-2025 End: 04-06-2025 ambulatory [facility] Facility:[facility] Start: 04-01-2025 ambulatory [facility] Facility: [facility] Start: 03-24-2025 End: 03-24-2025 Departed Referred Abel Richards DO Work Phone: [facility] Start: 03-24-2025 End: 03-24-2025 Patient encounter procedure Abel Quickzio DO Work Phone: [facility] Comment on above: Pre-op examination; Menorrhagia with regular cycle; Abnormal uterine bleeding; Pelvic pain in female; PCOS (polycystic ovarian syndrome) Start: 03-24-2025 End: 03-24-2025 Preprocedural examination done Abel Susie DO Work Phone: [facility] Start: 03-24-2025 End: 03-24-2025 ambulatory ABEL SUSIE [facility] Work Phone: Start: 03-24-2025 End: 03-31-2025 External Result Encounter Abel Susie DO Work Phone: [facility] External Department Unsolicited Start: 03-24-2025 End: 03-31-2025 External Result Encounter Abel Susie DO Work Phone: [facility] External Department Unsolicited Start: 03-23-2025 End: 03-23-2025 ambulatory [facility] Facility:[facility] Start: 03-18-2025 End: 03-18-2025 ambulatory [facility] Facility:[facility] Start: 03-01-2025 End: 03-01-2025 Bamboo flowsheet Abel Susie DO Work Phone: [facility] Start: 03-01-2025 End: 03-01-2025 Bamboo flowsheet Abel Susie DO Work Phone: [facility] Start: 03-01-2025 End: 03-01-2025 Office outpatient visit 15 minutes Abel Susie DO Work Phone: [facility] Comment on above: DUB (dysfunctional u terine bleeding) (Primary Dx); Dyspareunia, female Start: 03-01-2025 End: 03-01-2025 ambulatory ABEL SUSIE Not Available Start: 02-25-2025 End: 02-25-2025 Bamboo flowsheet Mathew A Felter MANAGER TRUCK-HVAC R TECH Work Phone: [facility] Start: 02-25-2025 End: 02-25-2025 Bamboo flowsheet Mathew A Felter MANAGER TRUCK-HVAC R TECH Work Phone: [facility] Start: 02-25-2025 End: 02-25-2025 ambulatory MATHEW A FELTER Not Available Start: 02-25-2025 End: 02-25-2025 Office outpatient visit 15 minutes Mathew A Felter MANAGER TRUCK-HVAC R TECH Work Phone: [facility] Comment on above: Melanocytic nevus of trunk (Primary Dx); Melanocytic nevus of skin of both upper extremities; Angioma of skin; Neoplasm of unspecified behavior of bone, soft tissue, and skin Start: 02-18-2025 ambulatory Chuck Barillase Facility: [facility] Start: 01-26-2025 End: 01-26-2025 Bamboo flowsheet Lamberto L Floro CNM Work Phone: [facility] Start: 01-26-2025 End: 01-26-2025 Bamboo flowsheet Lamberto L Floro CNM Work Phone: [facility] Start: 01-26-2025 End: 01-26-2025 Office outpatient visit 15 minutes Lamberto L Floro CNM Work Phone: [facility] Comment on above: DUB (dysfunctional u terine bleeding) (Primary Dx); Irregular bleeding Start: 01-26-2025 End: 01-26-2025 ambulatory LAMBERTO L FLORO Not Available Start: 12-09-2024 End: 12-09-2024 ambulatory LAMBERTO L FLORO Not Available Start: 12-07-2024 End: 12-28-2024 ambulatory [facility] Start: 11-12-2024 End: 11-12-2024 Bamboo flowsheet Lamberto L Floro CNM Work Phone: [facility] Start: 11-12-2024 End: 11-12-2024 Bamboo flowsheet Lamberto L Floro CNM Work Phone: [facility] Start: 11-12-2024 End: 11-12-2024 Gynecological examination normal Lamberto L Floro CNM Work Phone: [facility] Start: 11-12-2024 End: 11-12-2024 Periodic preventive med est patient 18-39 yrs Lamberto L Floro CNM Work Phone: [facility] Comment on above: Menorrhagia with reg ular cycle (Primary Dx); Normal gynecologic examination; Screening for cervical cancer; DUB (dysfunctional uterine bleeding) Start: 11-12-2024 End: 11-12-2024 ambulatory LAMBERTO CANSECO Not Available Start: 10-28-2024 End: 10-28-2024 Telephone encounter [facility] Provider Unallocated Work Phone: [facility] Start: 10-26-2024 End: 10-26-2024 Telephone encounter Lamberto Canseco CNM Work Phone: [facility] Start: 08-25-2024 End: 08-25-2024 ambulatory [facility] Work Phone: Start: 08-25-2024 End: 08-25-2024 Patient encounter procedure [facility] Work Phone: Start: 04-12-[address] ABEL RICHARDS . Facili ty:H1 Start: 04-04-2023 Encounter for other preprocedural examination DR ABEL RICHARDS . [facility] Start: 03-29-2023 End: 03-30-[address] ABEL RICHARDS . Facility: Start: 03-29-2023 End: 03-30-2023 Encounter for other preprocedural examination DR ABEL RICHARDS . Facility: Start: 11-07-2022 End: 11-09-2022 Evaluation and management of inpatient LAMBERTO CANSECO [facility] Start: 11-07-2022 End: 11-09-2022 Evaluation and management of inpatient Lamberto Canseco MANAGER TRUCK - CNM Work Phone: [facility] Labor and Delivery Procedures Date Procedure Procedure Detail Performing Clinician Start: 03-24-2025 Urine test visual color cmprsn meths Abel Richards DO Work Phone: Start: 03-24-2025 PATHOLOGY REQUEST FO R LAB AMBIKA Abel Richards DO Work Phone: Start: 03-01-2025 Urnls dip stick/tabl et rgnt non-auto w/o micrscp Abel Richards DO Work Phone: Start: 02-25-2025 End: 02-25-2025 SKIN / NAIL BIOPSY Mathew Montejo APR N[facility] Work Phone: Start: 11-12-2024 Microscopic observat ion [Identifier] in Cervix by Cyto stain Mathew Montejo MANAGER TRUCK-HVAC R TECH Work Phone: Start: 08-25-2024 Quick Strep (POC) Start: 12-26-2022 Microscopic observat ion [Identifier] in Cervix by Cyto stain Jatin Unallocated Work Phone: Start: 11-08-2022 KYMBERLY Lamberto edwards [facility] Work Phone: Start: 11-08-2022 Antibody screen Lamberto Canseco [facility] Work Phone: Start: 11-07-2022 Blood count complete auto&auto difrntl wbc Lamberto Canseco [facility] Work Phone: Start: 11-07-2022 Blood typing serolog ic abo Lamberto Canseco [facility] Work Phone: Start: 11-07-2022 Drug tst prsmv instr mnt chem analyzers pr date Lamberto Canseco MANAGER TRUCK - [facility] Work Phone: Start: 10-11-2022 GBS, EXTERNAL RESULT Md neemaical Provider Start: 05-15-2022 C. TRACHOMATIS, EXTE RNAL RESULT Historical Provider Start: 05-15-2022 N. GONORRHOEAE, EXTE RNAL RESULT Historical Provider Start: 05-01-2022 HEPATITIS B, EXTERNA L RESULT Historical Provider Start: 04-30-2022 ABO, EXTERNAL RESULT Hi neemaical Provider Start: 04-30-2022 HEPATITIS C ANTIBODY , EXTERNAL RESULT Historical Provider Start: 04-30-2022 HIV, EXTERNAL RESULT Md neemaical Provider Start: 04-30-2022 RH FACTOR, EXTERNAL RESULT Historical Provider Start: 04-30-2022 RPR, EXTERNAL RESULT Hi storical Provider Start: 04-30-2022 RUBELLA TITER, EXTER NAL RESULT Historical Provider Plan of Treatment Date Care Activity Detail Author Start: 12-26-2027 Screening for malignant neoplasm of cervix [facility] Start: 11-12-2027 Screening for malignant neoplasm of cervix Pap Smear [facility] Start: 03-14-2026 End: 03-14-2026 Patient encounter procedure 03/14/2026 9:20 AM EDT Office Visit [facility] [address] [place] [id number] Mathew Montejo, MANAGER TRUCK-HVAC R TECH [address] [place] [address] [facility] Start: 02-28-2026 End: 02-28-2026 Patient encounter procedure 02/28/2026 9:35 AM EDT Office Visit [facility] [address] [place] [phone] Mathew Montejo, MANAGER TRUCK-HVAC R TECH [address] [place] [address] [facility] Start: 12-26-2025 Screening for malignant neoplasm of cervix Pap Smear [facility] Start: 07-26-2025 Influenza vaccination Influenza Vaccine (Season Ended) [facility] Start: 03-24-2025 End: 03-24-2025 Patient encounter procedure 03/24/2025 3:30 PM EDT Procedure Visit [facility] [address] [place] [phone] Abel Richards, [address] [address] [facility] Start: 03-24-2025 End: 03-24-2026 DHEA DHEA Lab Routine PCOS (polycystic ovarian syndrome) Expected: 03/24/2025 (Approximate), Expires: 03/24/2026 [facility] Comment on above: Expected: 03/24/2025 (Approximate), Expi res: 03/24/2026 Start: 03-24-2025 [facility] Start: 03-01-2025 End: 03-01-2025 Patient encounter procedure [facility] Comment on above: DUB (dysfunctional uterine bleeding) Start: 01-26-2025 End: 01-26-2025 Patient encounter procedure 01/26/2025 1:15 PM EST Office Visit [facility] [address] [facility] [place] [phone] Lamberto Canseco, RIRIM [address] [place] [address] Arrived [facility] Comment on above: Arrived Start: 12-07-2024 End: 12-07-2024 Patient encounter procedure 12/07/2024 1:10 PM EST Office Visit [facility] [address] [place] [phone] Mathew Montejo APRN-HVAC R TECH [address] [place] [address] [facility] Start: 11-12-2024 End: 11-12-2025 Lipid 1996 panel - Serum or Plasma Lipid panel Lab Routine Normal gynecologic examination Expected: 11/12/2024 (Approximate), Expires: 11/12/2025 [facility] Comment on above: Expected: 11/12/2024 (Approximate), Expi res: 11/12/2025 Start: 11-12-2024 End: 11-12-2025 THINPREP IMAGING PAP AND HPV DNA REFLEX HPV 16,18 THINPREP IMAGING PAP AND HPV DNA REFLEX HPV 16,18 Pathology and Cytology Routine Screening for cervical cancer Expected: 11/12/2024 (Approximate), Expires: 11/12/2025 [facility] Work Phone: Comment on above: Expected: 11/12/2024 (Approximate), Expi res: 11/12/2025 Start: 11-12-2024 End: 11-12-2025 US Pelvis transvaginal US pelvis transvaginal Imaging Routine DUB (dysfunctional uterine bleeding) Expected: 11/12/2024, Expires: 11/12/2025 [facility] Comment on above: Expected: 11/12/2024, Expires: Start: 11-12-2024 End: 11-12-2024 Patient encounter procedure 11/12/2024 10:30 AM EST Office Visit [facility] [address] [place] [address] Lamberto Canseco CNM [address] [place] [address] Arrived [facility] Comment on above: Arrived Start: 07-26-2024 Influenza vaccination Influenza Vaccine (#1) [facility] Start: 06-25-2022 Influenza vaccination Flu vaccine (#1) [facility] Start: 2009 DTaP/Tdap/Td vaccine (1 - Tdap) DTaP/Tdap/Td vaccine (1 - Tdap) [facility] Start: 03-23-1991 COVID-19 Vaccine (#1) COVID-19 Vaccine (#1) [facility] Biopsy endometrium Biopsy endome trium Procedures Routine Pre-op examination Menorrhagia with regular cycle Abnormal uterine bleeding Ordered: 03/24/2025 [facility] Work Phone: Comment on above: Ordered: 03/24/2025 CBC panel - Blood by Automated count CBC Lab Routine Normal gynecologic examination Ordered: 11/12/2024 [facility] Comment on above: Ordered: 11/12/2024 Comprehensive metabo lic 2000 panel - Serum or Plasma Comprehensive metabolic panel Lab Routine Normal gynecologic examination Ordered: 11/12/2024 [facility] Comment on above: Ordered: 11/12/2024 Dermatopathology exam Dermatopat hology exam Pathology and Cytology Timed Neoplasm of unspecified behavior of bone, soft tissue, and skin Release Upon Ordering for 1 Occurrences starting 02/25/2025 [facility] Work Phone: Comment on above: Release Upon Ordering for 1 Occurrences starting 02/25/2025 DHEA-sulfate DHEA-sulfate Lab Routine PCOS (polycystic ovarian syndrome) Ordered: 03/24/2025 [facility] Comment on above: Ordered: 03/24/2025 Estradiol Estradiol Lab Ro utine Pre-op examination Menorrhagia with regular cycle Abnormal uterine bleeding PCOS (polycystic ovarian syndrome) Ordered: 03/24/2025 [facility] Comment on above: Ordered: 03/24/2025 Follicle stimulating hormone Follicle stimulating hormone Lab Routine PCOS (polycystic ovarian syndrome) Ordered: 03/24/2025 [facility] Comment on above: Ordered: 03/24/2025 Hemoglobin A1c/Hemoglobin.total in Blood Hemoglobin A1c Lab Routine DUB (dysfunctional uterine bleeding) Ordered: 03/01/2025 [facility] Work Phone: Comment on above: Ordered: 03/01/2025 Luteinizing hormone Luteinizing hormone Lab Routine PCOS (polycystic ovarian syndrome) Ordered: 03/24/2025 [facility] Comment on above: Ordered: 03/24/2025 Progesterone Progesterone Lab Routine Pre-op examination Menorrhagia with regular cycle Abnormal uterine bleeding PCOS (polycystic ovarian syndrome) Ordered: 03/24/2025 [facility] Comment on above: Ordered: 03/24/2025 End: 11-08-2022 Surgical Pathology Surgical Pathology Lab Routine One Time for 1 Occurrences starting 11/08/2022 until 11/08/2022 [employer] Phone: Comment on above: One Time for 1 Occurrences starting 10/25 until 11/08/2022 End: 11-08-2022 SURGICAL PATHOLOGY REPORT SURGICAL PATHOLOGY REPORT Lab Routine Once for 1 Occurrences starting 11/08/2022 until 11/08/2022 [employer] Phone: Comment on above: Once for 1 Occurrences starting 11/08/20 until 11/08/2022 Thyrotropin [Units/volume] in Serum or Plasma TSH Lab Routine Normal gynecologic examination Menorrhagia with regular cycle Ordered: 11/12/2024 [facility] Comment on above: Ordered: 11/12/2024 [facility] Immunizations Immunization Date Immunization Notes Care Provider Ynes giles 11-08-2022 RHO(D) immune globulin - IM Lamberto Canseco APRN - ELIAS Work Phone: [employer] Phone: 11-08-2022 measles, mumps and rubella virus vaccine Lamberto Canseco APRN - CNM Work Phone: [facility] [place] [employer] [facility] Work Phone: 03-15-2022 RHO(D) immune globulin- IV or IM Lamberto Floro CNM Work Phone: [facility] 05-12-2020 RHO(D) immune globulin- IV or IM Lamberto Floro CNM Work Phone: [facility] 03-14-2020 tetanus toxoid, reduced diphtheria toxoid, and acellular pertussis vaccine, adsorbed Lamberto Floro CNM Work Phone: [facility] 12-16-2018 RHO(D) immune globulin- IV or IM Lamberto Floro CNM Work Phone: [facility] NEGATED: Highlighted row has not occurred!11-09-2022 tetanus toxoid, reduced diphtheria toxoid, and acellular pertussis vaccine, adsorbed Lamberto Floro MANAGER TRUCK - CNM [facility] Phone: [facility] Payers Date Payer Category Payer Unknown [employer] rx 2024 Unknown UNKNOWN 2024 Medicaid (Managed Care) [employer] [id number] 2023 [facility] er [id number] 2023 Unknown [id number] 2023 Private Health Insurance [facility] MEDICAID [id number] 2021 [employer] ( and others) [id number] 1990 Unknown [id number] 2.16.840.1.392886.3.579.2 .173 1990 Unknown [id number] 2.16.840.1.152447.3.579.2 .593 1990 Unknown [id number] 2.16.840.1.531586.3.579.2 .593 1990 Unknown [id number] 2.16.840.1.898112.3.579.2 .1259 1990 Unknown [id number] 2.16.840.1.790051.3.579.2 .1259 1990 Unknown [id number] 2.16.840.1.341420.3.579.2 .1259 1990 Unknown [id number] 2.16.840.1.243590.3.579.2 .1259 1990 Unknown [id number] 2.16.840.1.017809.3.579.2 .1259 1990 Unknown [id number] 2.16.840.1.675484.3.579.2 .1259 1990 Unknown [id number] 2.16.840.1.123165.3.579.2 .718 1990 Unknown [id number] 2.16.840.1.874026.3.579.2 .718 1990 Unknown [id number] 2.16.840.1.776548.3.579.2 .718 1990 Unknown [id number] 2.16.840.1.368432.3.579.2 .718 1990 Unknown [id number] 2.16.840.1.166210.3.579.2 .718 1990 Unknown [id number] 2.16.840.1.606461.3.579.2 .718 1959 Medicaid [id number] 1959 Private Health Insurance [id number] Social History Date Type Detail Facility Tobacco smoking stat [facility] Tobacco smoking consumption unknown [facility] Phone: Start: 1990 Sex Assigned At Not on file [facility] Phone: Start: 10-28-2022 End: 11-07-2022 Exposure to SARS-CoV-2 (event) Not sure [facility] Phone: Start: 1990 Sex Assigned At Female F [facility] Start: 12-19-2023 Tobacco smoking stat [facility] Never smoked tobacco [facility] Start: 12-19-2023 Tobacco use and exposure Smokeless tobacco non-user [facility] Start: 12-19-2023 End: 02-25-2025 Alcoholic beverage intake Current drinker of alcohol (finding) [facility] Start: 12-02-2023 End: 06-23-2024 History of Social function [facility] Start: 12-02-2023 End: 06-23-2024 [id number] Health Literacy [facility] How often do you nee d to have someone help you when you read instructions, pamphlets, or other written material from your doctor or pharmacy [SILS] Never [facility] Do you belong to any clubs or organizations such as restoration groups, unions, fraternal or athletic groups, or school groups? No [facility] Are you now , , , , never or living with a partner? [facility] How often to you hav e a drink containing alcohol? Monthly or less [facility] How many standard drinks containing alcohol do you have on a typical day? 3 or 4 [facility] How often do you hav e 6 or more drinks on 1 occasion? Less than monthly [facility] How hard is it for y ou to pay for the very basics like food, housing, medical care, and heating Hard [facility] Do you feel stress - tense, restless, nervous, or anxious, or unable to sleep at night because your mind is troubled all the time - these days [OSQ] Only a little [facility] (I/We) worried wheth er (my/our) food would run out before (I/we) got money to buy more. Sometimes true [facility] In the past 12 month s, was there a time when you were not able to pay the mortgage or rent on time? Yes [facility] Start: 12-02-2023 Alcohol Comment Caffeine intak e: 1-2 cups per day [facility] How often do you nee d to have someone help you when you read instructions, pamphlets, or other written material from your doctor or pharmacy [SILS] Never [facility] Start: 03-26-2025 Sex Female (finding) [facility] NEGATED: Highlighted rowStart: NINF History of tobacco use Passive smoker [facility] Clinical Notes 11-09-2022 to 04-06-2025 Albina Post - 03/24/2025 3:30 PM Musa Monroy NP - 03/01/2025 9:10 AM Lexa Montejo, GLEN-MANSOOR - 02/25/2025 9:10 AM David Canseco CNM - 01/26/2025 1:15 PM ESTAttachments Note Date & Type Note Facility 04-06-2025 Note Radiology Sclerotherapy Sclerotherapy is a procedure that is done to make varicose veins and spider veins look better and it helps to relieve aching, swelling, cramping, and pain in the legs. Varicose veins are veins that have become enlarged, bulging, and twisted due to a damaged valve that causes blood to collect (pool) in the veins. Spider veins are small varicose veins. Sclerotherapy is usually done on the legs where varicose and spider veins occur most of the time. Sclerotherapy usually works best for smaller spider and varicose veins. This procedure involves putting a chemical directly into the lining of the vein, causing it to swell and stick together. Over time, the vessel turns into scar tissue that fades from view. You may need more than one treatment to close a vein all the way. The number of veins treated in one session depends on the size and location of the veins, and on your overall medical condition. Tell a health care provider about: ? Any allergies you have. ? All medicines you are taking, including vitamins, herbs, eye drops, creams, and myjh-rwr-clulium medicines. ? Any bleeding problems you have. ? Any surgeries you have had. ? Any medical conditions you have. ? Whether you are or may be . What are the risks? Your health care provider will talk with you about risks. These may include: ? Infection. ? Bleeding or blood clots. ? Allergic reactions to medicines or to the chemicals being used, which are called sclerosing agents. ? Larger treated veins becoming lumpy or hard. This may last for several months before getting better. ? Small sores (ulcers) forming at the injection site. ? Red streaking in the groin area or bruising around the injection site. ? Brown lines or spots at the injection site. These usually disappear within 3 to 6 months, but in rare cases they can be permanent. What happens before the procedure? Medicines Ask your health care provider about: ? Changing or stopping your regular medicines. These include any diabetes medicines or blood thinners you take. ? Taking medicines such as aspirin and ibuprofen. These medicines can thin your blood. Do not take them unless your health care provider tells you to. ? Taking mjtq-rgd-wptzfvu medicines, vitamins, herbs, and supplements. Tests ? You may have an ultrasound of the affected area to check for blood clots and to check blood flow. ? In rare cases, you may have an X-ray procedure to check how blood flows through your veins (angiogram). For an angiogram, a dye is injected to highlight your veins on X-rays. General instructions ? Do not use lotions or creams on your legs before the procedure unless your health care provider approves. ? Follow instructions from your health care provider about what you may eat and drink. ? Do not use any products that contain nicotine or tobacco before the procedure. These products include cigarettes, chewing tobacco, and vaping devices, such as e-cigarettes. If you need help quitting, ask your health care provider. ? Ask your health care provider what steps will be taken to help prevent infection. These steps may include: ? Removing hair at the injection site. ? Washing skin with a soap that kills germs. What happens during the procedure? ? The treatment area will be cleaned. ? A small, thin needle is used to inject a chemical (sclerosant) into your varicose or spider veins. The sclerosant will irritate the lining of the vein and cause the vein to close below where the needle was put in. You may feel some stinging, burning, or irritation. ? The injection may be repeated for more than one varicose or spider vein. ? After the procedure, the area around where the needle was put in will be wrapped with elastic bandages. The procedure may vary among health care providers and hospitals. What can I expect after the procedure? ? Your blood pressure, heart rate, breathing rate, and blood oxygen level will be monitored until you leave the hospital or clinic. ? The area around the injection site will be wrapped with elastic bandages. If there is bleeding, the bandages may be changed. ? After the treatment, you will be able to drive yourself home. ? Wear compression stockings as told by your health care provider. These stockings help to prevent blood clots and reduce swelling in your legs. Contact a health care provider if: ? You have more redness, swelling, or pain around any injection sites. ? You have more fluid or blood coming from any injection sites. ? Any injection sites feel warm to the touch. ? You have pus or a bad smell coming from any injection sites. ? You have a fever. Get help right away if: ? You have leg pain that gets worse when you walk. ? You have redness or swelling in your leg that is getting worse. ? You have trouble breathing. ? You have chest pain. These symptoms may be an emergency. Get help right away. Call 911. (more content not included)... [facility] 04-01-2025 Note PROCEDURE: US Inject ion Varicose Vein Multiple COMPARISON: None. HISTORY: Varicose veins of bilateral lower extremities with pain Pre-operative Diagnosis: CEAP class C3 venous insufficiency with pain, tenderness, edema and incompetent right varicose and saphenous vein(s), chronic venous insufficiency right leg secondary to venous incompetence Post-operative Diagnosis: CEAP class C3 venous insufficiency with pain, tenderness, edema and incompetent right varicose and saphenous vein(s), chronic venous insufficiency right leg secondary to venous incompetenceProcedure Performed: 1. Ultrasound-guided microfoam chemical ablation with Varithenaregistered 2. Intraoperative ultrasound guidance Anesthesia: None Indications for Procedure: 34-year-old female who presents with a long history of lower extremity pain and swelling. The patient failed conservative medical therapy including medical compression stockings, exercise and analgesics. Prior procedures include endovenous laser ablation. Multiple incompetent varicosities of the right leg. Duplex scan showed reflux and enlarged diameters up to 4 mm. The patient underwent informed consent including management options where the complications of infection, bleeding, pain, and skin injury were discussed. Particular attention was spent discussing thrombus extension and deep vein thrombosis as well as the possibility of pulmonary embolus and treatment with oral or injectable blood thinners. Procedure: The patient walked to the procedure room. All applicable staff donned appropriate apparel. A procedure timeout was performed to confirm correct patient, correct extremity, correct procedure, and correct room set-up including presence of all applicable supplies, devices, and drugs. A duplex ultrasound, performed by myself confirmed the location and incompetence of branch saphenous varicosities and their course was marked on the skin together with the dilated tributaries. The extent of treatment of the vein and the associated varicosities was determined through ultrasound mapping. The skin was prepped and then punctured with a butterfly needle and advanced under ultrasound guidance. The Varithenaregistered canister was activated and the canister was primed and purged as required in the instructions for use. Varithenaregistered was drawn into a sterile syringe. The following injections were made: 6 cc injected into a 4 mm varicose vein right proximal medial lower leg 4 cc injected into a 4 mm varicose vein right distal lateral lower leg Varithenaregistered was slowly administered at 0.5-1.0 cc/second with close observation by ultrasound of its course in the vessels. Total volume utilized was: 10cc. Following administration of Varithenaregistered the leg was elevated and the patient was asked to repeatedly dorsiflex the ankle to limit flow of Varithenaregistered into perforating veins. Once appropriate spasm had been confirmed in the treated veins, the vascular catheter was removed from the leg and light pressure was applied over the puncture site for hemostasis. The common femoral and deep superficial veins were then evaluated for flow and compressibility prior to dressing placement. The lower extremity was kept elevated at 45 degrees above the horizontal and cording material was applied over the saphenous segments and tributaries to allow for eccentric compression over the target vessels including the targeted saphenous vein(s). A multilayer dressing was applied consisting of foam pads, coban and thigh-high 20-30 mm Hg compression elastic support hose were placed on the patient. The leg was lowered only after compression had been applied and the patient was immediately ambulatory. The patient ambulated 10 minutes under supervision and was without apparent concerns at time of release. Post-care instructions include advising patient to keep post-treatment bandages in place and dry for 48 hours, avoid extended periods of inactivity, avoid heavy exercise for one week, wear compression stockings on the treated leg continuously for two weeks, to walk daily for 10 minutes over the next month. The patient was instructed to take an anti-inflammatory medicine as needed and to follow up for color duplex scan of the Saphenous veins, the treated branch saphenous varicosities, the adjacent deep veins, and additional treatment within 7 days. PERSONNEL: Carlos Jordan RN Final Dictated by: Brandon Church MD Dictated DT/TM: 04/01/25 10:09 Signed (Electronic Signature): Brandon Church MD 04/01/25 10:10 a Technologist: [facility] 03-29-2025 Note Radiology Sclerotherapy Sclerotherapy is a procedure that is done to make varicose veins and spider veins look better and it helps to relieve aching, swelling, cramping, and pain in the legs. Varicose veins are veins that have become enlarged, bulging, and twisted due to a damaged valve that causes blood to collect (pool) in the veins. Spider veins are small varicose veins. Sclerotherapy is usually done on the legs where varicose and spider veins occur most of the time. Sclerotherapy usually works best for smaller spider and varicose veins. This procedure involves putting a chemical directly into the lining of the vein, causing it to swell and stick together. Over time, the vessel turns into scar tissue that fades from view. You may need more than one treatment to close a vein all the way. The number of veins treated in one session depends on the size and location of the veins, and on your overall medical condition. Tell a health care provider about: ? Any allergies you have. ? All medicines you are taking, including vitamins, herbs, eye drops, creams, and ggvt-tbb-jbbqzko medicines. ? Any bleeding problems you have. ? Any surgeries you have had. ? Any medical conditions you have. ? Whether you are or may be . What are the risks? Your health care provider will talk with you about risks. These may include: ? Infection. ? Bleeding or blood clots. ? Allergic reactions to medicines or to the chemicals being used, which are called sclerosing agents. ? Larger treated veins becoming lumpy or hard. This may last for several months before getting better. ? Small sores (ulcers) forming at the injection site. ? Red streaking in the groin area or bruising around the injection site. ? Brown lines or spots at the injection site. These usually disappear within 3 to 6 months, but in rare cases they can be permanent. What happens before the procedure? Medicines Ask your health care provider about: ? Changing or stopping your regular medicines. These include any diabetes medicines or blood thinners you take. ? Taking medicines such as aspirin and ibuprofen. These medicines can thin your blood. Do not take them unless your health care provider tells you to. ? Taking ijyy-eit-zdclrft medicines, vitamins, herbs, and supplements. Tests ? You may have an ultrasound of the affected area to check for blood clots and to check blood flow. ? In rare cases, you may have an X-ray procedure to check how blood flows through your veins (angiogram). For an angiogram, a dye is injected to highlight your veins on X-rays. General instructions ? Do not use lotions or creams on your legs before the procedure unless your health care provider approves. ? Follow instructions from your health care provider about what you may eat and drink. ? Do not use any products that contain nicotine or tobacco before the procedure. These products include cigarettes, chewing tobacco, and vaping devices, such as e-cigarettes. If you need help quitting, ask your health care provider. ? Ask your health care provider what steps will be taken to help prevent infection. These steps may include: ? Removing hair at the injection site. ? Washing skin with a soap that kills germs. What happens during the procedure? ? The treatment area will be cleaned. ? A small, thin needle is used to inject a chemical (sclerosant) into your varicose or spider veins. The sclerosant will irritate the lining of the vein and cause the vein to close below where the needle was put in. You may feel some stinging, burning, or irritation. ? The injection may be repeated for more than one varicose or spider vein. ? After the procedure, the area around where the needle was put in will be wrapped with elastic bandages. The procedure may vary among health care providers and hospitals. What can I expect after the procedure? ? Your blood pressure, heart rate, breathing rate, and blood oxygen level will be monitored until you leave the hospital or clinic. ? The area around the injection site will be wrapped with elastic bandages. If there is bleeding, the bandages may be changed. ? After the treatment, you will be able to drive yourself home. ? Wear compression stockings as told by your health care provider. These stockings help to prevent blood clots and reduce swelling in your legs. Contact a health care provider if: ? You have more redness, swelling, or pain around any injection sites. ? You have more fluid or blood coming from any injection sites. ? Any injection sites feel warm to the touch. ? You have pus or a bad smell coming from any injection sites. ? You have a fever. Get help right away if: ? You have leg pain that gets worse when you walk. ? You have redness or swelling in your leg that is getting worse. ? You have trouble breathing. ? You have chest pain. These symptoms may be an emergency. Get help right away. Call 911. (more content not included)... [facility] 03-24-2025 History of Present illness Narrative Reason for Appointment: Patient ID: Stephanie Palencia is a 34 y.o. female who presents for Pre-op Visit and Endometrial Biopsy Patient presents today for Pre Op/Endometrial Biopsy appointment. Patient is scheduled to undergo Endometrial Ablation with Anneliese on 04/22/[address] Richards at [facility]. 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 Echogenic focus of heart of fetus affecting management of mother in dexter , antepartum 10/29/2018 Family history of genetic disease 02/21/2020 Normal labor 03/10/2019 (normal spontaneous vaginal delivery) 11/09/2022 state 05/12/2020 Rh negative state in antepartum period 09/16/2018 Term 11/07/2022 Thrombocytopenia affecting (CMS/HCC) 01/27/2019 Vaginal odor 11/01/2023 Resolved Ambulatory Problems Diagnosis Date Noted No Resolved Ambulatory Problems Past Medical History: Diagnosis Date Brain tumor (CMS/HCC) Personal history of medical treatment HISTORY PAST MEDICAL HISTORY SOCIAL HISTORY Past Medical History: Diagnosis Date Brain tumor (CMS/HCC) age 12 Personal history of medical treatment 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 Social History Tobacco Use Smoking status: Never Passive exposure: Never Smokeless tobacco: Never Vaping Use Vaping status: Never Used Substance Use Topics Alcohol use: Yes Comment: Caffeine intake: 1-2 cups per day Drug use: Never FAMILY HISTORY Family History Problem Relation Name Age of Onset Hypertension Mother Hyperlipidemia Father Other (sma) Daughter SURGICAL HISTORY Past Surgical History: Procedure Laterality Date BRAIN SURGERY Age 11-- benign tumor removed EYE SURGERY Age 14- Tumor removed SALPINGECTOMY Bilateral 04/12/2023 assisted by [employer] REVIEW OF SYSTEMS Review of Systems: Review of Systems Constitutional: Negative. HENT: Negative. Eyes: Negative. Respiratory: Negative. Cardiovascular: Negative. Gastrointestinal: Negative. Genitourinary: Positive for menstrual problem and pelvic pain. Musculoskeletal: Negative. Skin: Negative. Neurological: Negative. All other systems reviewed and are negative. Hematological: Negative. Endocrine: Negative. Allergic/Immunologic: Negative. OBJECTIVE Objective: Physical Exam Constitutional: Appearance: Normal appearance. She is well-developed. Genitourinary: Vulva normal. Cardiovascular: Rate and Rhythm: Normal rate and regular rhythm. Pulmonary: Effort: Pulmonary effort is normal. Breath sounds: Normal breath sounds. Abdominal: General: Bowel sounds are normal. There is no distension. Palpations: Abdomen is soft. Tenderness: There is no abdominal tenderness. There is no guarding or rebound. Musculoskeletal: General: No swelling. Normal range of motion. Right lower leg: No edema. Left lower leg: No edema. Neurological: Mental Status: She is alert and oriented to person, place, and time. Skin: General: Skin is warm and dry. Psychiatric: Mood and Affect: Mood normal. Behavior: Behavior normal. Vitals and nursing note reviewed. Exam conducted with a script reader present. Vitals: Estimated body mass index is 36.17 kg/m as calculated from the following: Height as of 11/01/23: 5' 6 . Weight as of 03/01/25: 224 lb 1.9 oz. BP: No LMP recorded. ASSESSMENT & PLAN ICD-10-CM 1. Pre-op examination Z01.818 2. Menorrhagia with regular cycle N92.0 3. Abnormal uterine bleeding N93.9 4. Pelvic pain in female R10.2 EMBX: Patient was placed in dorsal lithotomy position with feet in stirrups. A sterile speculum was placed into the vagina and the cervix was visualized. The cervix was grasped with a single tooth tenaculum. The endometrial pipette was placed through the cervix into the uterus, endometrial curettage was performed and sampling was obtained, endometrial curettings were placed in formalin, and single tooth tenaculum was removed. Excellent hemostasis was assured. All instruments were removed from vagina. Pre Op: Patient is doing well but has complaints of bleeding and pelvic pain. Patient has tried hormone therapy in the past but all attempts to subside patients issues have failed. I have discussed conservative management vs. surgical management with the patient in detail and patient desires surgical management at this time. Patient will undergo Endometrial Ablation with Anneliese on 04/22/2025. Surgical consents were signed, mmc was reviewed, and patient is to proceed to [facility] OR. Follow Up: Patient is to follow up between 1-2 weeks post op to assess proper healing and recovery from procedure. Documented by Brittani Grossman LPN on behalf of: Abel Richards DO documented in this encounter [facility] 03-23-2025 Note Sclerotherapy Sclerotherapy is a procedure that is done to make varicose veins and spider veins look better and it helps to relieve aching, swelling, cramping, and pain in the legs. Varicose veins are veins that have become enlarged, bulging, and twisted due to a damaged valve that causes blood to collect (pool) in the veins. Spider veins are small varicose veins. Sclerotherapy is usually done on the legs where varicose and spider veins occur most of the time. Sclerotherapy usually works best for smaller spider and varicose veins. This procedure involves putting a chemical directly into the lining of the vein, causing it to swell and stick together. Over time, the vessel turns into scar tissue that fades from view. You may need more than one treatment to close a vein all the way. The number of veins treated in one session depends on the size and location of the veins, and on your overall medical condition. Tell a health care provider about: ? Any allergies you have. ? All medicines you are taking, including vitamins, herbs, eye drops, creams, and nlke-vbh-tvotpms medicines. ? Any bleeding problems you have. ? Any surgeries you have had. ? Any medical conditions you have. ? Whether you are or may be . What are the risks? Your health care provider will talk with you about risks. These may include: ? Infection. ? Bleeding or blood clots. ? Allergic reactions to medicines or to the chemicals being used, which are called sclerosing agents. ? Larger treated veins becoming lumpy or hard. This may last for several months before getting better. ? Small sores (ulcers) forming at the injection site. ? Red streaking in the groin area or bruising around the injection site. ? Brown lines or spots at the injection site. These usually disappear within 3 to 6 months, but in rare cases they can be permanent. What happens before the procedure? Medicines Ask your health care provider about: ? Changing or stopping your regular medicines. These include any diabetes medicines or blood thinners you take. ? Taking medicines such as aspirin and ibuprofen. These medicines can thin your blood. Do not take them unless your health care provider tells you to. ? Taking mtmu-vyq-xvijact medicines, vitamins, herbs, and supplements. Tests ? You may have an ultrasound of the affected area to check for blood clots and to check blood flow. ? In rare cases, you may have an X-ray procedure to check how blood flows through your veins (angiogram). For an angiogram, a dye is injected to highlight your veins on X-rays. General instructions ? Do not use lotions or creams on your legs before the procedure unless your health care provider approves. ? Follow instructions from your health care provider about what you may eat and drink. ? Do not use any products that contain nicotine or tobacco before the procedure. These products include cigarettes, chewing tobacco, and vaping devices, such as e-cigarettes. If you need help quitting, ask your health care provider. ? Ask your health care provider what steps will be taken to help prevent infection. These steps may include: ? Removing hair at the injection site. ? Washing skin with a soap that kills germs. What happens during the procedure? ? The treatment area will be cleaned. ? A small, thin needle is used to inject a chemical (sclerosant) into your varicose or spider veins. The sclerosant will irritate the lining of the vein and cause the vein to close below where the needle was put in. You may feel some stinging, burning, or irritation. ? The injection may be repeated for more than one varicose or spider vein. ? After the procedure, the area around where the needle was put in will be wrapped with elastic bandages. The procedure may vary among health care providers and hospitals. What can I expect after the procedure? ? Your blood pressure, heart rate, breathing rate, and blood oxygen level will be monitored until you leave the hospital or clinic. ? The area around the injection site will be wrapped with elastic bandages. If there is bleeding, the bandages may be changed. ? After the treatment, you will be able to drive yourself home. ? Wear compression stockings as told by your health care provider. These stockings help to prevent blood clots and reduce swelling in your legs. Contact a health care provider if: ? You have more redness, swelling, or pain around any injection sites. ? You have more fluid or blood coming from any injection sites. ? Any injection sites feel warm to the touch. ? You have pus or a bad smell coming from any injection sites. ? You have a fever. Get help right away if: ? You have leg pain that gets worse when you walk. ? You have redness or swelling in your leg that is getting worse. ? You have trouble breathing. ? You have chest pain. These symptoms may be an emergency. Get help right away. Call 911. ? Do not wa (more content not included)... [facility] 03-18-2025 Note PROCEDURE: US Inject ion Varicose Vein Multiple HISTORY: Varicose veins of bilateral lower extremities with pain Pre-operative Diagnosis: CEAP class C3 venous insufficiency with pain, tenderness, edema and incompetent branch saphenous vein(s), chronic venous insufficiency left leg secondary to venous incompetence Post-operative Diagnosis: CEAP class C3 venous insufficiency with pain, tenderness, edema and incompetent branch saphenous vein(s), chronic venous insufficiency left leg secondary to venous incompetence Procedure Performed: 1. Ultrasound-guided microfoam chemical ablation with Varithenaregistered. 2. Intraoperative ultrasound guidance Physician: Omar Marin M.D. Anesthesia: None INDICATION : 34 year old female. Symptoms including lower extremity heaviness, swelling, dilated bulging veins for many years despite conservative medical therapy including medical compression stockings, exercise and analgesics. Prior procedures include endovenous laser ablation. Multiple incompetent varicosities of the left leg. Duplex scan showed reflux and enlarged diameters up to 5 mm. The patient underwent informed consent including management options where the complications of infection, bleeding, pain, and skin injury were discussed. Particular attention was spent discussing thrombus extension and deep vein thrombosis as well as the possibility of pulmonary embolus and treatment with oral or injectable blood thinners. PROCEDURE: The patient walked to the procedure room. All applicable staff donned appropriate apparel. A procedure timeout was performed to confirm correct patient, correct extremity, correct procedure, and correct room set-up including presence of all applicable supplies, devices, and drugs. A duplex ultrasound, performed by myself confirmed the location and incompetence of branch saphenous varicosities and their course was marked on the skin together with the dilated tributaries. The extent of treatment of the vein and the associated varicosities was determined through ultrasound mapping. The skin was prepped and then punctured with a butterfly needle and advanced under ultrasound guidance. The Varithenaregistered canister was activated and the canister was primed and purged as required in the instructions for use. Varithenaregistered was drawn into a sterile syringe. Varithenaregistered was slowly administered at 0.5-1.0 cc/second with close observation by ultrasound of its course in the vessels. Total volume utilized was: 10 mL (5 mL into a 4 mm varicosity proximal anterior medial lower leg; 5 mL into a 5 mm varicosity mid lateral lower leg). Following administration of Varithenaregistered the leg was elevated and the patient was asked to repeatedly dorsiflex the ankle to limit flow of Varithenaregistered into perforating veins. Once appropriate spasm had been confirmed in the treated veins, the vascular catheter was removed from the leg and light pressure was applied over the puncture site for hemostasis. The common femoral and deep superficial veins were then evaluated for flow and compressibility prior to dressing placement. The lower extremity was kept elevated at 45 degrees above the horizontal and cording material was applied over the saphenous segments and tributaries to allow for eccentric compression over the target vessels including the targeted saphenous vein(s). A multilayer dressing was applied consisting of foam pads, coban and thigh-high 20-30 mm Hg compression elastic support hose were placed on the patient. The leg was lowered only after compression had been applied and the patient was immediately ambulatory. The patient ambulated 10 minutes under supervision and was without apparent concerns at time of release. Post-care instructions include advising patient to keep post-treatment bandages in place and dry for 48 hours, avoid extended periods of inactivity, avoid heavy exercise for one week, wear compression stockings on the treated leg continuously for two weeks, to walk daily for 10 minutes over the next month. The patient was instructed to take an anti-inflammatory medicine as needed and to follow up for color duplex scan of the Saphenous veins, the treated branch saphenous varicosities, the adjacent deep veins, and additional treatment within 7 days. PERSONNEL: Carlos Jordan RN and Stacy Flannery RDMS, RVT Final Dictated by: Omar Marin MD Dictated DT/TM: 03/18/25 2:37 Signed (Electronic Signature): Omar Marin MD 03/18/25 2:39 pm Technologist: [facility] 03-01-2025 History of Present illness Narrative Reason for Appointment: Patient ID: Stephanie Palencia is a 34 y.o. female who presents for Vaginal Bleeding Patient presents today for Acute Visit. 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 Echogenic focus of heart of fetus affecting management of mother in dexter , antepartum 10/29/2018 Family history of genetic disease 02/21/2020 Normal labor 03/10/2019 (normal spontaneous vaginal delivery) 11/09/2022 state 05/12/2020 Rh negative state in antepartum period 09/16/2018 Term 11/07/2022 Thrombocytopenia affecting (CMS/HCC) 01/27/2019 Vaginal odor 11/01/2023 Resolved Ambulatory Problems Diagnosis Date Noted No Resolved Ambulatory Problems Past Medical History: Diagnosis Date Brain tumor (CMS/HCC) Personal history of medical treatment HISTORY PAST MEDICAL HISTORY SOCIAL HISTORY Past Medical History: Diagnosis Date Brain tumor (CMS/HCC) age 12 Personal history of medical treatment 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 Social History Tobacco Use Smoking status: Never Passive exposure: Never Smokeless tobacco: Never Vaping Use Vaping status: Never Used Substance Use Topics Alcohol use: Yes Comment: Caffeine intake: 1-2 cups per day Drug use: Never FAMILY HISTORY Family History Problem Relation Name Age of Onset Hypertension Mother Hyperlipidemia Father Other (sma) Daughter SURGICAL HISTORY Past Surgical History: Procedure Laterality Date BRAIN SURGERY Age 11-- benign tumor removed EYE SURGERY Age 14- Tumor removed SALPINGECTOMY Bilateral 04/12/2023 assisted by Heriberto Marinelli Robot REVIEW OF SYSTEMS Review of Systems: Review of Systems Constitutional: Negative. HENT: Negative. Eyes: Negative. Respiratory: Negative. Cardiovascular: Negative. Gastrointestinal: Negative. Genitourinary: Positive for dyspareunia, pelvic pain and vaginal bleeding. Musculoskeletal: Negative. Skin: Negative. Neurological: Negative. All other systems reviewed and are negative. Hematological: Negative. Endocrine: Negative. Allergic/Immunologic: Negative. OBJECTIVE Objective: Physical Exam Constitutional: Appearance: Normal appearance. She is well-developed. Cardiovascular: Rate and Rhythm: Normal rate and regular rhythm. Pulmonary: Effort: Pulmonary effort is normal. Breath sounds: Normal breath sounds. Abdominal: General: Bowel sounds are normal. There is no distension. Palpations: Abdomen is soft. Tenderness: There is no abdominal tenderness. There is no guarding or rebound. Musculoskeletal: General: No swelling. Normal range of motion. Right lower leg: No edema. Left lower leg: No edema. Neurological: Mental Status: She is alert and oriented to person, place, and time. Skin: General: Skin is warm and dry. Psychiatric: Mood and Affect: Mood normal. Behavior: Behavior normal. Vitals and nursing note reviewed. Exam conducted with a script reader present. Vitals: Estimated body mass index is 36.17 kg/m as calculated from the following: Height as of 11/01/23: 5' 6 . Weight as of this encounter: 224 lb 1.9 oz. BP: 114/76 No LMP recorded. ASSESSMENT & PLAN ICD-10-CM 1. DUB (dysfunctional uterine bleeding) N93.8 Ambulatory referral to Obstetrics / Gynecology POCT urinalysis dipstick manually resulted doxycycline (Vibramycin) 100 MG capsule Hemoglobin A1c 2. Dyspareunia, female N94.10 Patient with complaints of pelvic pain, dysfunctional uterine bleeding, dyspareunia. She has no recent hemoglobin A1c on file so and order has been given to her. She reports history of salpingectomy bilateral. She is interested in moving forward with endometrial ablation. She will be started on doxycycline given the continued complaint of dyspareunia. Documented by Lynsey Monroy NP on behalf of: Abel Richards DO documented in this encounter [facility] 02-25-2025 Note Procedures Endovenous Ablation Endovenous ablation is a procedure that seals off an abnormally enlarged leg vein (varicose vein). This procedure uses heat from radiofrequency waves or a laser to close off the affected vein. This procedure leaves the vein in place, so there is minimal pain and bruising. Closing off the vein can help reduce symptoms by preventing the pooling of blood that causes varicose veins. This procedure may be done if the vein is causing pain, swelling, sores on the skin (ulcers), or skin discoloration. Tell a health care provider about: ? Any allergies you have. ? All medicines you are taking, including vitamins, herbs, eye drops, creams, and zvqq-eah-zhjovlr medicines. ? Any problems you or family members have had with anesthetic medicines. ? Any bleeding problems you have. ? Any surgeries you have had. ? Any medical conditions you have or have had. ? Whether you are or may be . What are the risks? Generally, this is a safe procedure. However, problems may occur, including: ? Infection. ? Bleeding. ? Allergic reactions to medicines. ? Damage to nearby structures. ? Numbness or tingling along the leg. This is uncommon, and it is usually temporary. ? Vein swelling. This is usually temporary. ? Blood clots that form in a deep vein of the leg (deep vein thrombosis, or DVT) and can travel to the lungs (pulmonary embolism, or PE). This is very rare. What happens before the procedure? When to stop eating and drinking Follow instructions from your health care provider about what you may eat and drink before your procedure. These may include: ? 8 hours before your procedure ? Stop eating most foods. Do not eat meat, fried foods, or fatty foods. ? Eat only light foods, such as toast or crackers. ? All liquids are okay except energy drinks and alcohol. ? 6 hours before your procedure ? Stop eating. ? Drink only clear liquids, such as water, clear fruit juice, black coffee, plain tea, and sports drinks. ? Do not drink energy drinks or alcohol. ? 2 hours before the procedure ? Stop drinking all liquids. ? You may be allowed to take medicines with small sips of water. If you do not follow your health care provider's instructions, your procedure may be delayed or canceled. Medicines Ask your health care provider about: ? Changing or stopping your regular medicines. This is especially important if you are taking diabetes medicines or blood thinners. ? Taking medicines such as aspirin and ibuprofen. These medicines can thin your blood. Do not take these medicines unless your health care provider tells you to take them. ? Taking ttlw-sqc-dfzvzjv medicines, vitamins, herbs, and supplements. General instructions ? You may have blood tests to make sure that your blood can clot normally. ? Do not use any products that contain nicotine or tobacco for at least 4 weeks before the procedure. These products include cigarettes, chewing tobacco, and vaping devices, such as e-cigarettes. If you need help quitting, ask your health care provider. ? Plan to have a responsible adult take you home from the hospital or clinic. ? If you will be going home right after the procedure, plan to have a responsible adult care for you for the time you are told. This is important. ? Ask your health care provider what steps will be taken to help prevent infection. These may include: ? Removing hair at the procedure site. ? Washing skin with a germ-killing soap. What happens during the procedure? ? You will lie on an exam table. ? An IV will be inserted into one of your veins. ? You will be given one or more of the following: ? A medicine to help you relax (sedative). ? A medicine to numb the area (local anesthetic). ? A medicine to make you fall asleep (general anesthetic). ? Your health care provider will use an imaging tool that uses sound waves (ultrasound) to show images of your leg veins and to tory the skin over the target treatment vein. ? A small incision will be made near the area that will be treated. A thin tube (catheter) will be slipped through the incision and into the vein. ? Your health care provider will inject a solution of salt water and anesthetic agent along the length of the vein to be treated. ? Electrodes or laser fibers will be passed through the catheter and into the vein. ? Radiofrequency or laser energy will be sent through the electrodes or laser fibers to burn the vein. This seals off the vein. ? The electrodes, laser fibers, and catheter will be removed from the vein. ? A bandage (dressing) will be placed over the incision. The procedure may vary among health care providers and hospitals. What happens after the procedure? ? Your blood pressure, heart rate, breathing rate, and blood oxygen level may be monitored until you leave the hospital or clinic. ? You may have to wear compression stockings. These stockings help (more content not included)... [facility] 02-25-2025 History of Present illness Narrative Images from the original note were not included. Skin Check Location: Patient requests a skin examination from the waist up Dermatologic history: no history of skin cancer, no history of atypical moles, no family history of melanoma Last visit: 1 year ago Established patient All pertinent medical history, medications, and allergies were reviewed. General Exam: alert, oriented to person, place, and time, normal affect, well appearing Accompanied by daughter A complete skin exam was offered, pt declined. Areas not examined despite medical recommendation: Scalp, Examined , exam limited by hair Head, Face Examined Neck Examined Chest Examined Back Examined Abdomen Examined Right arm Examined Left arm Examined Hands Examined Digits,nails: Examined Lymphatics: Not examined 1. Melanocytic nevus of trunk Trunk Scattered benign appearing, regular brown to light brown melanocytic papules and macules with similar morphology Counseled regarding these benign growths. Rarely, a nevus can develop into malignant melanoma, so any changing nevi should be promptly re-evaluated. 2. Melanocytic nevus of skin of both upper extremities Arms Scattered benign appearing, regular brown to light brown melanocytic papules and macules with similar morphology Counseled regarding these benign growths. Rarely, a nevus can develop into malignant melanoma, so any changing nevi should be promptly re-evaluated. 3. Angioma of skin Mid Tip of Nose Scattered braxton-red papule(s). The patient was informed that angiomas are benign growths on the the skin. No treatment is necessary. 4. Neoplasm of unspecified behavior of bone, soft tissue, and skin (2) Left Shoulder Irregularly pigmented papule Lesion biopsy Type of biopsy: tangential Informed consent: discussed and consent obtained Informed consent comment: The risks and benefits of the biopsy were discussed. Risks include but are not limited to bleeding, infection, scarring, pain, and nerve damage. An opportunity to ask questions prior to the procedure was permitted and all questions were answered. Patient was prepped and draped in usual sterile fashion: area cleansed with alcohol. Anesthesia: the lesion was anesthetized in a standard fashion Anesthetic: 1% lidocaine w/ epinephrine 1-100,000 buffered w/ 8.4% NaHCO3 Instrument used: DermaBlade Hemostasis achieved with: electrodesiccation Outcome: patient tolerated procedure well Outcome comment: The specimen was placed in a prelabeled formalin container to be sent for pathology Post-procedure details: sterile dressing applied and wound care instructions given Post-procedure details comment: Emphasized need to contact clinic for any signs of infection, uncontrollable bleeding, or complications. Dressing type: bandage Additional details: Photo taken Amount of lidocaine used: 0.3 cc Specimen A - Dermatopathology exam Differential Diagnosis: Inflamed nevus vs other Check Margins: No Size of lesion: 0.6 x 0.3 cm Left Abdomen Irregularly pigmented papule Lesion biopsy Type of biopsy: tangential Informed consent: discussed and consent obtained Informed consent comment: The risks and benefits of the biopsy were discussed. Risks include but are not limited to bleeding, infection, scarring, pain, and nerve damage. An opportunity to ask questions prior to the procedure was permitted and all questions were answered. Patient was prepped and draped in usual sterile fashion: area cleansed with alcohol. Anesthesia: the lesion was anesthetized in a standard fashion Anesthetic: 1% lidocaine w/ epinephrine 1-100,000 buffered w/ 8.4% NaHCO3 Instrument used: DermaBlade Hemostasis achieved with: electrodesiccation Outcome: patient tolerated procedure well Outcome comment: The specimen was placed in a prelabeled formalin container to be sent for pathology Post-procedure details: sterile dressing applied and wound care instructions given Post-procedure details comment: Emphasized need to contact clinic for any signs of infection, uncontrollable bleeding, or complications. Dressing type: bandage Additional details: Photo taken Amount of lidocaine used: 0.2 cc Specimen B - Dermatopathology exam Differential Diagnosis: Inflamed nevus vs other Check Margins: No Size of lesion: 0.2 x 0.2 cm Next Visit: 1 year, skin check documented in this encounter [facility] 02-18-2025 Note Procedures Endovenous Ablation, Care After The following information offers guidance on how to care for yourself after your procedure. Your health care provider may also give you more specific instructions. If you have problems or questions, contact your health care provider. What can I expect after the procedure? After the procedure, it is common to have: ? Bruising. ? Tenderness. Follow these instructions at home: Incision care ? Follow instructions from your health care provider about how to take care of your incision. Make sure you: ? Wash your hands with soap and water for at least 20 seconds before and after you change your bandage (dressing). If soap and water are not available, use hand sorting livestock worker. ? Change your dressing as told by your health care provider. ? Follow instructions from your health care provider about when you should remove your dressing. ? Check your incision area every day for signs of infection. Check for: ? Redness, swelling, or pain. ? Fluid or blood. ? Warmth. ? Pus or a bad smell. ? Keep the dressing dry until your health care provider says it can be removed. Activity ? Avoid sitting for a long time without moving. Get up to take short walks every 1?2 hours. This is important to improve blood flow. Ask for help if you feel weak or unsteady. ? Rest as told by your health care provider. ? Do exercises as told by your health care provider. ? Return to your normal activities as told by your health care provider. Ask your health care provider what activities are safe for you. Driving ? If you were given a sedative during the procedure, it can affect you for several hours. Do not drive or operate machinery until your health care provider says that it is safe. ? Ask your health care provider if the medicine prescribed to you requires you to avoid driving or using machinery. General instructions ? Raise (elevate) your legs above the level of your heart while you are sitting or lying down. ? Take brzw-gha-iqtmyoa and prescription medicines only as told by your health care provider. ? Do not take long car trips or travel by air until your health care provider has approved. ? Wear compression stockings as told by your health care provider. These stockings help to prevent blood clots and reduce swelling in your legs. ? Do not use any products that contain nicotine or tobacco. These products include cigarettes, chewing tobacco, and vaping devices, such as e-cigarettes. These can delay incision healing after the procedure. If you need help quitting, ask your health care provider. ? Keep all follow-up visits. This is important. Contact a health care provider if you have: ? A fever. ? More redness, swelling, or pain at the site of your incision. ? Fluid or blood coming from your incision. ? Warmth at the incision area. ? Pus or a bad smell coming from your incision. Get help right away if: ? You notice red streaks coming from the incision. ? You develop nausea or vomiting. ? You have trouble breathing. ? You develop chest pain. Summary ? Follow instructions from your health care provider about how to take care of your incision. ? Avoid sitting for a long time without moving. Get up to take short walks every 1?2 hours. ? Wear compression stockings as told by your health care provider. These stockings help to prevent blood clots and reduce swelling in your legs. ? Contact a health care provider if you have more redness, swelling, or pain at the site of your incision. ? Keep all follow-up visits. This is important. This information is not intended to replace advice given to you by your health care provider. Make sure you discuss any questions you have with your health care provider. Document Revised: 04/19/2022 Document Reviewed: 04/19/2022 [employer] Patient Education ? [facility]23 [facility] History of Present illness Narrative PROBLEM VISIT Stephanie Palencia is 34 y.o. a patient of [facility] Here for Last pap: 11/12/24 Last mammogram: Patient's last menstrual period was 01/07/2025 (approximate). 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 No current facility-administered medications on file prior to visit. There were no vitals filed for this visit. HPI: ROS: Review of Systems Physical exam: Physical Exam Assessment and Plan: No exam, patient had yearly done in November. Patient c/o irregular, unpredictable bleeding since she had her salpingectomy. She states she has bled off and on for 65 weeks at a time, and then spots for several days after intercourse. She states her mom did the exact same thing. When we discussed referral to Dr Richards for consult for endometrial ablation, she states My mom had to have that done for the same reasons Denies current pain, she wears a disc when on her period and she changes it 2-3 x a day when bleeding. I will refer her back to Dr Richards for evaluation of irregular bleeding and get his opinion of if she is a good candidate for endometrial ablation. There are no diagnoses linked to this encounter. No follow-ups on file. There are no Patient Instructions on file for this visit. Izabel Orosco MA,01/26/2025 1:26 PM documented in this encounter [facility] 11-12-2024 History of Present illness Narrative YEARLY HPI: This is a established patient. Chief Complaint Patient presents with Gynecologic Exam Here for annual exam. 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 Past Surgical History: Procedure Laterality Date BRAIN SURGERY Age 11-- benign tumor removed EYE SURGERY Age 14- Tumor removed SALPINGECTOMY Bilateral 04/12/2023 assisted by Da Isis Robot Family History Problem Relation Name Age of Onset Hypertension Mother Hyperlipidemia Father Other (sma) Daughter Allergies: Allergies Allergen Reactions Iodinated Contrast Media Hives and Itching Iodine Medications: Current Outpatient Medications on File Prior to Visit Medication Sig Dispense Refill [DISCONTINUED] 28-0.8 MG tablet 1 (one) time each day at the same time No current facility-administered medications on file prior to visit. ROS: Review of Systems All other systems reviewed and are negative. There were no vitals filed for this visit. Physical exam: Physical Exam Vitals reviewed. Constitutional: Appearance: Normal appearance. HENT: Head: Normocephalic. Right Ear: Tympanic membrane normal. Left Ear: Tympanic membrane normal. Mouth/Throat: Mouth: Mucous membranes are moist. Eyes: Pupils: Pupils are equal, round, and reactive to light. Cardiovascular: Rate and Rhythm: Normal rate and regular rhythm. Pulses: Normal pulses. Heart sounds: Normal heart sounds. Pulmonary: Effort: Pulmonary effort is normal. Breath sounds: Normal breath sounds. Chest: Breasts: Right: Normal. Left: Normal. Abdominal: General: Abdomen is flat. Bowel sounds are normal. Palpations: Abdomen is soft. Tenderness: There is no abdominal tenderness. Genitourinary: General: Normal vulva. Exam position: Lithotomy position. Vagina: Normal. No tenderness. Cervix: Normal. No cervical motion tenderness. Uterus: Normal. Adnexa: Right adnexa normal and left adnexa normal. Musculoskeletal: General: Normal range of motion. Cervical back: Normal range of motion and neck supple. Skin: General: Skin is warm and dry. Neurological: General: No focal deficit present. Mental Status: She is alert and oriented to person, place, and time. Psychiatric: Mood and Affect: Mood normal. Patient states her periods have been really heavy and lasting a long time like 10 days, and then she spots before her period and also after. Does have some pain with sex, but only occasionally. She has a new PCP at [facility] and she is being worked up for ADHD and with the bleeding changes I asked her if they ran any labs and she stated no. I will order labs today. Schedule pelvic US for irregular bleeding and pelvic discomfort. Assessment and Plan: 1. Annual exam 2. SBE discussed: Yes 3. Diet and exercise discussed: No 4. Wt control discussed: No 5. Safe sex discussed: No Stephanie was seen today for gynecologic exam. Diagnoses and all orders for this visit: Normal gynecologic examination No follow-ups on file. There are no Patient Instructions on file for this visit. Izabel Orosco MA, 11/12/2024 10:40 AM documented in this encounter [facility] 10-28-2024 Telephone encounter Note Stephanie returned your call to make an appt . She is at work but will try to answer. [facility] 10-28-2024 Miscellaneous Notes Stephanie returned your call to make an appt . She is at work but will try to answer. documented in this encounter [facility] 10-26-2024 Telephone encounter Note Pt would like to schedule with Lisa for her yearly, but is having issues with pain and would like to be seen sooner. Please return call to [phone] [facility] 10-26-2024 Miscellaneous Notes Pt would like to schedule with Lisa for her yearly, but is having issues with pain and would like to be seen sooner. Please return call to [phone] documented in this encounter [facility] 11-09-2022 History of Present illness Narrative Discharge instructions given and AVS. Questions and concerns addressed. Informed pt she will have to call Chris's office on Saturday for follow up appointment. RN attempted to call office for appointment office was closed before pts discharge. Pt discharged via wheelchair with in cars eat on lap accompanied by staff . No distress noted on discharge. Received call from Pharmacist stating that the rectal dose for Hydrocortisone cream is 2.5% not the 1% and that the 2.5% is what is in the unit omnicell. Control Integration Engineer talked to Lisa Canseco CNM, stated okay to switch order to the 2.5%. Department of Obstetrics and Gynecology Progress Note SUBJECTIVE: patient feeling more discomfort from contractions and would like some pain medication OBJECTIVE: Vitals: 11/07/22 2230 11/07/22 2300 11/07/22 2330 11/08/22 0000 Resp: Temp: 97.5 F (36.4 C) TempSrc: Oral heart rate: Baseline Heart Rate: 130 Accelerations: present Stone Splitter Variability: moderate Decelerations: absent Contraction frequency: irregular Membranes: Ruptured clear fluid, AROM performed with sterile amniohook with return of small amount of clear, odorless fluid. heart tones 130's before, during and after rupture of membranes Cervix: Dilation: 5 cm Effacement: 90 Station: -1 Position: mid ASSESSMENT & PLAN: Continue routine labor orders Continue pitocin orders Pain management as patient desires Department of Obstetrics and Gynecology Progress Note SUBJECTIVE: patient states the contractions are a little stronger and she feels the pressure OBJECTIVE: There were no vitals filed for this visit. heart rate: Baseline Heart Rate: 130 Accelerations: present Stone Splitter Variability: moderate Decelerations: absent Contraction frequency: 3-5 minutes Membranes: Intact Cervix: Dilation: 3-4/90/-2 stretchy and very soft Effacement: 90 Station: -2 Position: mid ASSESSMENT & PLAN: Admit for routine labor and delivery Pitocin augmentation Cord blood banking Anticipate documented in this encounter [facility] [employer] Work Phone: 11-09-2022 Hospital course Narrative Vaginal Delivery Discharge Summary Gestational Age:39w6d Antepartum complications: none Date of Delivery: Information for the patient's : Slime, Baby Girl Stephanie [[id number]] 11/08/2022 Type of Delivery: Vaginal Labs: CBC Lab Results Component Value Date HGB 13.5 11/07/2022 HCT 39.9 11/07/2022 Intrapartum complications: None complications: none Discharge Medications: Medication List You have not been prescribed any medications. The patient is ambulating well. The patient is tolerating a normal diet. Discharged to: Home Discharge Date: 11/09/2022 Plan: Follow up in 2 week(s) Shawn Rod MD documented in this encounter [facility] [employer] Work Phone: 11-09-2022 Hospital Discharge instructions Re Marie RN - 11/09/2022 9:54 AM EST Follow-up with your OB doctor as specified. [facility] OB Department phone: Dr. Marcel Duron [facility] Dr. Graham Griffin [facility] [address] [facility] [address] Graham Romo [facility] [address] [facility] [id number] [phone] Lisa Canseco, MSN, MANAGER TRUCK, CNM [facility] [address] [facility] [address] Stephany Lucas CN [address] [place] [address] [place] [address] Monique Delacruz CN [address] [place] [address] [place] [address] [phone] DIET Eat a well balanced diet focusing on foods high in fiber and protein. Drink plenty of fluids especially water. To avoid constipation you may take a mild stool softener as recommended by your doctor or section leader and machine setter. ACTIVITY Gradually increase your activity. Resume exercise regimen only after advice by your doctor or section leader and machine setter. Avoid lifting anything heavier than a gallon of milk for SIX weeks. Avoid driving until your doctor or section leader and machine setter has given their approval. Rise slowly from a lying to sitting and then a standing position. Climb stairs one at a time. Use caution when carrying your baby up and down the stairs. NO SEXUAL Activity for 4-6 weeks or until advised by your doctor; Nothing in vagina: intercourse, tampons, or douching. Be prepared to discuss family planning at your follow-up OB visit. You may feel tired or have a lack of energy. You may continue your vitamin to replenish nutrients post delivery. Nap when baby naps to catch up on sleep. EMOTIONS You may feel butler, sad, teary, & overwhelmed. Contact your OB provider if you feel you may be showing signs of depression, or have thoughts of harming yourself or your infant. If will not stop crying, contact another adult for help or place infant in their crib on their back and take a break. NEVER shake your . BLEEDING Vaginal bleeding will decrease in amount over the next few weeks. You will notice that as your activity increases, your flow may increase. This is your body's way of telling you, you need to take things easier and rest more often. Call your care provider if you are saturating more than one maxi pad in an hour & resting does not help. BREAST CARE Take medications as recommended by your doctor or section leader and machine setter for pain If you develop a warm, red, tender area on your breast or develop a fever contact your OB provider. For moms: If you become engorged, feeding may be more difficult or painful for 1-2 days. You may find it helpful to hand express some milk so that the can latch on more easily. While , continue to take your vitamins as directed by your doctor or section leader and machine setter. Refer to the booklet in the folder/binder for more information. If you feel you need more assistance or have questions, please call Betsy Rodriguez IBCLC, clinical practice consultant, at or the OB department to schedule an appointment or phone consultation. For more FREE help, visit the Support Group on Saturday evenings at 7 pm in the OB department. For NON- moms: You may apply ice packs to your breasts over your bra for twenty minutes at a time for comfort. Avoid stimulation to your breasts, when showering allow the water to strike your back not your breasts. Wear a good fitting bra until your milk dries, such as a sports bra. INCISIONAL CARE / MIGUEL CARE If you have an acticoat dressing in place after your please leave your dressing in place for one week until you follow up with your provider. They will remove this dressing in the office when you see them. If you have a DORINDA negative pressure wound dressing please leave the dressing in place for 7 days after delivery. Your health care provider will remove the dressing at your one week incisional check. You may shower with your DORINDA dressing, however the DORINDA pump should be disconnected and placed in a safe location where it will not get wet. To disconnect the pump from the dressing, press the orange button to pause the therapy, unscrew the two part connector, and place the pump somewhere safe. While disconnected, ensure the end of the tubing attached to the dressing is facing downward so that water does not enter the tubing. Then re-connect the pump after your shower is complete. If your dressing starts to peel up or becomes soiled prior to your appointment with your provider, you may remove the dressing and clean your incision as directed below. Clean your incision in the shower with mild soap. After shower pat the incision area dry and allow the area open to air. If used, Steri-strips should be completely removed by 2 weeks but you may remove them as they become loose or soiled. If used, Roselle should be removed by your care provider. If used/ordered, an abdominal binder may provide support for your incision. Use the miguel-bottle after toileting until bleeding stops. Cleanse your perineum from front to back If used, stitches will dissolve in 4-6 weeks. You may use a sitz bath or soak in a clean tub as needed for comfort. Kegel exercises will help restore bladder control. SWELLING Try to keep your legs elevated when you are sitting. When lying down keep your legs elevated. When wearing stocking or socks, make sure they are not too tight. WHEN TO CALL THE DOCTOR If you have a temp of 100.6 or more. If your bleeding has increased and you are saturating a pad in an hour. Your abdomen is tender to touch. You are passing blood clots bigger than the size of a lemon. If you are experiencing extreme weakness or dizziness. If you are having flu-like symptoms such as achy muscles or joints. There is a foul smell or a green color to your vaginal bleeding. If you have pain that cannot be relieved. You have persistent burning or frequency with urination. Call if you have concerns about your well-being. You are unable to sleep, eat, or are having thoughts of harming yourself or your baby. You have swelling, bleeding, drainage, foul odor, redness, or warmth in/around your incision or stitches. You have a red, warm, tender area in your calf. Call Lisa Mark office on Saturday for 11/12/2022 for 2 week follow up. The following attachments cannot be sent through Care Everywhere.5 Things You Can Expect With a New Baby: Video (Qatari)5 Ways to Prepare for : Video (Qatari)Caring for Yourself After Vaginal Delivery: Video (Qatari) (Qatari)documented in this encounter [employer] Work Phone: Evaluation note Diagnosis Term - Primary (normal spontaneous vaginal delivery) Normal delivery documented in this encounter [employer] Work Phone: evaluation noteNo assessment information available [facility] Work Phone: Evaluation note* Diagnosis Menorrhagia with regular cycle- Primary Normal gynecologic examination Screening for cervical cancer Screening for malignant neoplasm of the cervix DUB (dysfunctional uterine bleeding) Other disorder of menstruation and other abnormal bleeding from female genital tract [facility] Diagnosis DUB (dysfunctional uterine bleeding)- Primary Other disorder of menstruation and other abnormal bleeding from female genital tract Irregular bleeding Irregular menstrual cycle documented [facility]* Diagnosis Melanocytic nevus of trunk- Primary Benign neoplasm of skin of trunk, except scrotum Melanocytic nevus of skin of both upper extremities Angioma of skin Neoplasm of unspecified behavior of bone, soft tissue, and skin documented in [facility]* Diagnosis DUB (dysfunctional uterine bleeding)- Primary Other disorder of menstruation and other abnormal bleeding from female genital tract Dyspareunia, female documented in this [facility]* Diagnosis Pre-op examination Menorrhagia with regular cycle Abnormal uterine bleeding Unspecified disorder of menstruation and other abnormal bleeding from female genital tract Pelvic pain in female Unspecified symptom associated with female genital organs PCOS (polycystic ovarian syndrome) Polycystic ovaries documented in this encounter [facility] Summary Purpose Family History No Family History Records FoundNo Family History Records FoundNo Family History Records FoundNo Family History Records FoundNo Family History Records FoundNo Family History Records FoundNo Family History Records FoundNo Family History Records Found Advance Directives No Advanced Directives Records FoundLatest Code Status on File Code Status Date Activated Date Inactivated Comments Full Code 11/07/2022 9:59 PM 11/08/2022 3:42 AM Advance Directive Response Recorded Date/ Time Advance Directives No August 25, 2024 9:09am Chief Complaint and Reason for Visit Chief Complaint Cough, sinus congest ion Chief Complaint Admit Date Unknown March 24, 2025 4:0 0pm Additional Source Comments INFORMATION SOURCE (unrecogn ized section and content) DATE CREATED AUTHOR 10/18/2022 [facility] dical Specialist DATE CREATED AUTHOR AUTHOR'S ORGANIZ ATION 11/14/2022 [facility] DATE CREATED AUTHOR AUTHOR'S ORGANIZ ATION 04/10/2023 [facility] DATE CREATED AUTHOR AUTHOR'S ORGANIZ ATION 12/29/2024 [facility] DATE CREATED AUTHOR AUTHOR'S ORGANIZ ATION 03/05/2025 [facility] DATE CREATED AUTHOR AUTHOR'S ORGANIZ ATION 03/29/2025 [facility] dical Specialists EPIC DATE CREATED AUTHOR AUTHOR'S ORGANIZ ATION 04/02/2025 [facility] DATE CREATED AUTHOR AUTHOR'S ORGANIZ ATION 04/07/2025 [facility] Reason for Visit (unrecogniz ed section and content) Reason Comments Contractions Specialty Diagnoses / Procedures Referred By Contac t Referred To Contact Diagnoses Term Lamberto Canseco, MANAGER TRUCK - RIRIM [address] [place] [address] [facility] [address] [place] [address] Referral ID Status Reason Start Date Expiration Date Visits Re quested Visits Authorized [id number] 1 1 Reason Comments Gynecologic Exam Reason Comments Menstrual Problem Reason Comments Skin Check Reason Comments Vaginal Bleeding Specialty Diagnoses / Procedures Referred By Contac t Referred To Contact Obstetrics and Gynecology Diagnoses DUB (dysfunctional uterine bleeding) Procedures AL OFFICE/OUTPATIENT [facility] 60 MINUTES Lamberto Canseco, CNM [address] [place] [address] Phone: tel: fax: Abel Richards, [address] [place] [address] Phone: tel: fax: Referral ID Status Reason Start Date Expiration Date V isits Requested Visits Authorized [id number] Closed Specialty Services Required 01/26/2025 07/25/2025 1 1 Reason Comments Pre-op Visit Endometrial Biopsy Scheduled Active and Recently Administ ered Medications (unrecognized section and content) Medication Order 11/07/2022 11/08/2022 11/09/2022 benzocaine-menthol (DERMOPLAST) 20-0.5 % spray Topical, 2 TIMES DAILY, First dose (after last modification) on Airam 11/08/22 at 0430, Apply to perineal area. Patient is capable and may self administer at bedside., 0652 (Not Given - Provider: Audrey Vick RN - Reason: Patient/family refused)2099 (Due) 121 (Not Given - Provider: Re Marie RN - Reason: Other - Comment: Pt not wanting canister, states not really helping )2100 (Due) hydrocortisone (ANUSOL-HC) 2.5 % rectal cream Topical, 2 TIMES DAILY, First dose on Sat11/08/22 at 0900, Apply to Hemorrhoid. 0849 (Given - Provider: Rizwana Sorto RN - Comment: hemmirroids)2100 (Due) 1216 (Not Given - Provider: Re Marie RN - Reason: Other - Comment: Pt not wanting, states not really helping )2100 (Due) ibuprofen (ADVIL;MOTRIN) tablet 800 mg 800 mg, Oral, EVERY 8 HOURS, First dose on Airam 11/08/22 at 0400, Until Discontinued, Give 800 mg q 8 hrs x24 hours and then order can convert to q8 hrs prn, 0411 (Given - Provider: Audrey Vick, RN)1232 (Given - Provider: Rizwana Sorto RN)1928 (Given - Provider: Bronwyn Nunez, RN)1929 (Given - Provider: Bronwyn Nunez, RN) 0533 (Given - Provider: Bronwyn Nunez RN)1220 (Given - Provider: Re Marie, DALJIT)1999 (Due) measles, mumps & rubella vaccine (MMR) injection 0.5 mL 0.5 mL, SubCUTAneous, PRIOR TO DISCHARGE, 1 dose, Starting on Airam 11/08/22 at 0341, Until Discontinued, sodium chloride flush 0.9 % injection 5-40 mL 5-40 mL, IntraVENous, EVERY 12 HOURS SCHEDULED (2 times per day), First dose on Airam 11/08/22 at 0900, Until Discontinued, For Line Patency: Peripheral IV = 5 mL; Midline or Central Line = 10 mL/lumen. If following IV push medication, administer flush at same rate as the IV push. Flush volume is determined by type of infusion therapy being given. For non-viscous solutions use: Peripheral IV = 5 mL Midline or Central Line = 10 mL/lumen For viscous solutions (i.e. blood components, parenteral nutrition, contrast media, or after obtaining blood sample) use: Peripheral IV = 10 mL Midline or Central Line = 20 mL/lumen, 0851 (Given - Provider: Rizwana Sorto RN)2100 (Due) 0900 (Not Given - Provider: Re Marie, DALJIT - Reason: Other - Comment: No IV access)2100 (Due) witch luis f-glycerin (TUCKS) pad Topical, 2 TIMES DAILY, First dose (after last modification) on Airam 11/08/22 at 0430, Apply to perineal area. Patient is capable and may self administer at bedside., 0500 (Given - Provider: Audrey Vick RN)2100 (Due) 1218 (Not Given - Provider: Re Marie, DALJIT - Reason: Patient/family refused)2100 (Due) Continuous Medication Order 11/07/2022 11/08/2022 11/09/2022 lactated ringers infusion (CANCELED) IntraVENous, at 125 mL/hr, CONTINUOUS, Starting on Sat11/07/22 at 2215, Labor and Delivery 2244 (New Bag - Provider: Audrey Vick RN) oxytocin (PITOCIN) 30 units in 500 mL infusion (CANCELED) 1-24 jamie-units/min (1-24 mL/hr), IntraVENous, CONTINUOUS, Starting on Sat11/07/22 at 2215, Until Airam 11/08/22 at 0342, Begin infusion at 1 jamie-unit/min (1 jamie-unit per min = 1 mL per hour) and increase by 2 jamie-units/min as needed, every 30 minutes, until labor is achieved. Labor is defined as contractions every 2-3 minutes with cervical changes or Cary units (MVU) greater than 200 in a 10-minute window. Maximum infusion rate: 24 jamie-unit/min. Contact provider if maximum rate does not achieve desired response. Provider may order alternative titration goal or other clinically appropriate goal of titration rate (s). If staff does not increase pitocin at ordered rate, or if pitocin is turned down or off notify provider., Labor and Delivery 2245 (New Bag - Provider: Audrey Vick, DALJIT)2329 (Rate/Dose Change - Provider: Audrey Vick RN)2359 (Rate/Dose Change - Provider: Audrey Vick RN) 0030 (Rate/Dose Change - Provider: Audrey Vick RN)0130 (Rate/Dose Change - Provider: Audrey Vick RN)0203 (Rate/Dose Change - Provider: Audrey Vick RN)0313 (Rate/Dose Change - Provider: Audrey Vick RN)0326 (Rate/Dose Change - Provider: Audrey Vick RN)0523 (Stopped - Provider: Audrey Vick RN)0524 (Stopped - Provider: Audrey Vick RN) PRN Medication Order 11/07/2022 11/08/2022 11/09/2022 0.9 % sodium chloride infusion IntraVENous, at 5-250 mL/hr, PRN, if patient receiving piggyback infusions and maintenance fluids are not ordered OR KVO fluids to protect IV site / prevent frequent line interruptions/ long duration, Starting on Sat11/08/22 at 0341, For piggyback infusion, administer at same rate as piggyback for a total of 25 mL. Enter 25 mL into dose field and piggyback rate into rate field of order. If piggyback is infusing at a rate less than 100 mL/hr, enter 25 mL into dose field and 100 mL/hr into rate field of order. For KVO fluids, enter rate of 20 mL/hr or less into rate field of order., acetaminophen (TYLENOL) tablet 1,000 mg 1,000 mg, Oral, EVERY 8 HOURS PRN, Starting on Sat11/08/22 at 0341, Until Discontinued, Other, Pain (1-10), Give in addition to any other pain medication ordered at same time for any pain indication. Maximum dose of acetaminophen is 4000mg from all sources in 24 hours. Alternate ibuprofen and acetaminophen every 4 hours., 0850 (Given - Provider: Rizwana Sorto RN)1928 (Given - Provider: Bronwyn Nunez, RN) 0307 (Given - Provider: Bronwyn Nunez, RN) butorphanol (STADOL) injection 1 mg (CANCELED) 1 mg, IntraVENous, EVERY 3 HOURS PRN, 2 doses, Starting on Sat11/07/22 at 2154, Until Sat11/08/22 at 0342, Pain, For moderate pain level 4-6, May repeat times 1 for a total of 2 mg while in labor., Labor and Delivery 0220 (Given - Provider: Audrey Vick RN) carboprost (HEMABATE) injection 250 mcg 250 mcg, IntraMUSCular, PRN, Starting on Sat11/08/22 at 0341, Until Discontinued, bleeding, May repeat every 15 minutes up to a cumulative maximum dose of 1000 mcg, at physician's request., docusate sodium (COLACE) capsule 100 mg 100 mg, Oral, 2 TIMES DAILY PRN, Starting on Sat11/08/22 at 0341, Until Discontinued, Constipation, Do not crush or break., lansinoh lanolin ointment Topical, PRN, Dry Skin, nipple discomfort, Starting on Sat11/08/22 at 0341, methylergonovine (METHERGINE) injection 200 mcg 200 mcg, IntraMUSCular, PRN, Starting on Sat11/08/22 at 0341, Until Discontinued, Bleeding, PRN for post- hemorrhage, if not hypertensive., miSOPROStol (CYTOTEC) tablet 800 mcg 800 mcg, Rectal, PRN, 1 dose, Starting on Airam 11/08/22 at 0341, Until Discontinued, Post- Hemorrhage, Notify Physician prior to administration., rho(D) immune globulin (HYPERRHO S/D) injection 300 mcg (COMPLETED) 300 mcg, IntraMUSCular, PRN, 1 dose, Starting on Airam 11/08/22 at 0341, Until Discontinued, if mom negative and baby positive, 1232 (Given - Provider: Rizwana Sorto RN) sodium chloride flush 0.9 % injection 5-40 mL 5-40 mL, IntraVENous, PRN, Starting on Airam 11/08/22 at 0341, Until Discontinued, Line Care, After every IV line use, For Line Patency: Peripheral IV = 5 mL; Midline or Central Line = 10 mL/lumen. If following IV push medication, administer flush at same rate as the IV push. Flush volume is determined by type of infusion therapy being given. For non-viscous solutions use: Peripheral IV = 5 mL Midline or Central Line = 10 mL/lumen For viscous solutions (i.e. blood components, parenteral nutrition, contrast media, or after obtaining blood sample) use: Peripheral IV = 10 mL Midline or Central Line = 20 mL/lumen, Care Teams (unrecognized sec tion and content) Team Status: Active Member Role Status Dates HENRY Dumas Primary Care Provider Active Team Status: Inactive Member Role Status Dates Gissell Malagon APRN Attending Provider Active Start: August 25, 2024 End: August 25, 2024 HENRY Dumas Primary Care Provider Active Start: August 25, 2024 End: August 25, 2024 Print Support Specialist Relationship Specialty Start Date End Date Unallocated, Noms Provider, [address] [place], [place] [id number] PCP - General Family Medicine 10/26/24 Mirella Thibodeaux NP [address] [place] [address] Nurse Practitioner Family Medicine 10/26/24 Lamberto Canseco CNM [address] [facility] [place] [address] Obstetrics and Gynecology 10/26/24 Print Support Specialist Relationship Specialty Start Date End Date Unallocated, Jatin Perez MD [address] [place] [address] PCP - General Family Medicine 10/26/24 Mirella Thibodeaux NP [address] [place] [address] Nurse Practitioner Family Medicine 10/26/24 Lamberto Canseco CNM [address] [place] [address] Obstetrics and Gynecology 10/26/24 Print Support Specialist Relationship Specialty Start Date End Date Unallocated, Jtain Perez MD [address] [place] [address] PCP - General Family Medicine 10/26/24 Mirella Thibodeaux NP [address] [place] [address] Nurse Practitioner Family Medicine 10/26/24 Lamberto Canseco CNM [address] [place] [address] Obstetrics and Gynecology 10/26/24 Print Support Specialist Relationship Specialty Start Date End Date Unallocated, Jatin Perez MD [address] [place] [address] PCP - General Family Medicine 10/26/24 Mirella Thibodeaux NP [address] [place] [address] Nurse Practitioner Family Medicine 10/26/24 Lamberto Canseco CNM [address] [place] [address] Obstetrics and Gynecology 10/26/24 Print Support Specialist Relationship Specialty Start Date End Date Unallocated, Jatin Perez MD [address] [facility] [place] [address] PCP - General Family Medicine 10/26/24 Mirella Thibodeaux NP [address] [place] [address] Nurse Practitioner Family Medicine 10/26/24 Lamberto Canseco CNM [address] [facility] [place] [address] Obstetrics and Gynecology 10/26/24 Print Support Specialist Relationship Specialty Start Date End Date Unallocated, Jatin Perez MD [address] [place] [address] PCP - General Family Medicine 10/26/24 Mirella Thibodeaux NP [address] [place] [address] Nurse Practitioner Family Medicine 10/26/24 Lamberto Canseco CNM [address] [place] [address] Obstetrics and Gynecology 10/26/24 Print Support Specialist Relationship Specialty Start Date End Date Unallocated, Jatin Perez MD [address] [place] [address] PCP - General Family Medicine 10/26/24 Mirella Thibodeaux NP [address] [place] [address] Nurse Practitioner Family Medicine 10/26/24 Lamberto Canseco CNM [address] [place] [address] Obstetrics and Gynecology 10/26/24 Print Support Specialist Relationship Specialty Start Date End Date Unallocated, Noms ProviderMD [address] [place] [address] PCP - General Family Medicine 10/26/24 Mirella Thibodeaux NP [address] [place] [address] Nurse Practitioner Family Medicine 10/26/24 Lamberto Canseco CNM [address] [place] [address] Obstetrics and Gynecology 10/26/24 Team Status: Inactive Member Role Status Dates Abel Richards DO Attending Provider Active Start : March 24, 2025 End: March 24, 2025 Print Support Specialist Relationship Specialty Start Date End Date Unallocated, Jatin Perez MD [address] [place] [address] PCP - General Family Medicine 10/26/24 Mirella Thibodeaux NP [address] [place] [address] Nurse Practitioner Family Medicine 10/26/24 Lamberto Canseco CNM [address] [place] [address] Obstetrics and Gynecology 10/26/24 Goals (unrecognized section and content) Goals may be documented in a n alternate sectionGoals may be documented in an alternate section FOR RECORDS PERTAINING TO PATIENTS WHO ARE OR HAVE BEEN ENROLLED IN A CHEMICAL DEPENDENCY/SUBSTANCEABUSE PROGRAM, SOME INFORMATION MAY BE OMITTED. This clinical summary was aggregated from multiple sources. Caution should be exercised in using it in the provision of clinical care. This summary normalizes information from multiple sources, and as a consequence, information in this document may materially change the coding, format and clinical context of patient data. In addition, data may be omitted in some cases. CLINICAL DECISIONS SHOULD BE BASED ON THE PRIMARY CLINICAL RECORDS. [facility] [employer] [facility] provides no warranty or guarantee of the accuracy or completeness of information in this document.
== END 2025-04-12 10:04 | disposition home or self-care (01) ==
PROVIDERS: PCP Internal Medicine; Visit Provider Obstetrics & Gynecology
DX: Z01.818 Encounter for other preprocedural examination (principal); N92.0 Excessive and frequent menstruation with regular cycle; N93.9 Abnormal uterine and vaginal bleeding, unspecified; R10.2 Pelvic and perineal pain

== ENCOUNTER 2025-04-22 06:12 | Day surgery (SDC) | payer OTHER, SELFPAY ==
--- OUTSIDE RECORDS SUMMARY | 2015-07-28 05:35 | XMS_ITS | Continuity of Care Document ---
Author [facility] Address [address] [place] [address] Phone Care Team Providers Care Civil Rights Attorney Name Role Phone Unavailable Unavailable Unavailable Allergies, Adverse Reactions, Alerts Substance Reaction Status Criticality Iodinated Contrast Media Active No Information Medications Medication Instructions Dosage Effective Dates (start - stop) Status Comments Cipro 500 mg tablet take 1 tablet by oral route every 12 hours 500 MG - Active amoxicillin 500 mg tablet take 1 tablet by oral route every 8 hours - three times a day - No Longer Active Ann Marie-D 12 Hour 60 mg-120 mg tablet,extended release take 1 tablet by oral route 2 times every day as needed. 1 tablet - No Longer Active Problems Condition Type Effective Dates (start - stop) Clini cynthia Status Comments No Known Problems Procedures Procedure Date OFFICE/OUTPATIENT VISIT, [facility] URINALYSIS, AUTO, W/O SCOPE URINALYSIS, AUTO, W/O SCOPE OFFICE/OUTPATIENT VISIT, [facility] Advance Directives Directive Yes / No Effective Date File Name No Information Encounters Encounter Description Practice Location Reason(s) For Visit Diagnoses Date Provider Providers Copied on Encounter OFFICE/OUTPAT IENT VISIT, [employer], [address], [place], [place], [id number], [place] tel:[phone] [facility] cc back pain/headac he (chief complaint) Dysuria No Information OFFICE/OUTPAT IENT VISIT, [employer] [facility], [address], [place], [place], [id number], [place] tel:[phone] [facility] Cold symptoms (chief complaint) URI (upper respiratory infection)Str eptococcal carrier No Information Family History Family Member Type Diagnosis Age At Onset Father Problem (finding) hypercholesterolemia Payers Payer name Insurance type Covered constitution party ID Omar maravilla(alice) Larisa KRISHNAN [id number] Social History Type Description Quantity Date Captured Comments Alcohol Use Details hard liquor > 5 glasses monthly Caffeine Use Details No Tobacco Use Status Never smoked tobacco 2014 Smoking Status Never smoker Sex Female Vital Signs Date / Time: Height Weight BMI Pulse Rate Blood Pressure Temperature Respiratory Rate Body Surface Area Head Circumference Head Circ. Percentile Wt./Jae. Percentile BMI percentile Pulse Ox Inhaled Ox 9:35 AM 66.00 in 79.469 kg (175.20 lbs) 28.2 8 kg/m eter (2) 75 /min 121/84 mm[Hg] 97.60 F 16 /min 97 % Chief Complaint And Reason For Visit From encounter dated '07/28/2015 09:35'. cc back pain/headache (chief complaint). Description: The symptoms began 1 week ago. The symptoms are reported as being moderate. pt is here for lower back pain that started 1 week ago. pt states sheis now having stomach pain, urinary frequency, burning with urnination. pt states the last 2 days she has been shakey, hands cold, head hot, hot flashes, severe headache, dizzy, nausea, and having some extra discharge clear in color. pt denies vomiting, loose stool, chest pain, sob, fever. pt denies taking anything otc. Reason For Referral Reason For Referral No Information History Of Present Illness Encounter Date Complaint History Of Prese nt Illness cc back pain/headache The sympto ms began 1 week ago. The symptoms are reported as being moderate. pt is here for lower back pain that started 1 week ago. pt states she is now having stomach pain, urinary frequency, burning with urnination. pt states the last 2 days she has been shakey, hands cold, head hot, hot flashes, severe headache, dizzy, nausea, and having some extra discharge clear in color. pt denies vomiting, loose stool, chest pain, sob, fever. pt denies taking anything otc. Cold symptoms Onset: 2 weeks a go. There is no cough present. It occurs persistently. The problem has become gradually worse. Associated symptoms include chills, fatigue, hoarseness, nasal congestion, post-nasal drainage and sinus pressure. Pertinent negatives include cough, dyspnea, dyspnea on exertion, fever, heartburn, night sweats, sore throat and wheezing. The patient does not have a history of allergies or asthma. Additional information: Needs work note. Functional Status Date Functional Assessmen t No Information Instructions Date Instruction Additional Infor shanaion Antibiotic as prescr ibed. Report to ER for worsening abdominal or flank pain, fever or vomiting. Return to [facility] if not improving 3-7 days for recheck and possible additional testing. Related to Dysuria Amoxicillin 500 mg. - use one pill three times a day till gone (10 days).Ann Marie-D - 12 hour - use one every twelve hours for congestion (OTC).Throat lozenges, salt water gargles - as directed.Push fluid intake - water, tea, limited caffeine beveragesOTC Advil or Tylenol - every 4-6 hours as per label for aches, fever and malaise - limit to 5 days.Follow-up if not better in 1 - 3 days or [facility] ED if after hours and symptoms are worsened. Related to URI (upper respiratory infection) Assessments Type Assessment Date assessment Dysuria Mental Status Date Cognitive Assessment Orientation - Felton ed to time, place, person, situation. Patient Care Teams Name Effective Dates (start - stop) Status Members No Information
--- OUTSIDE RECORDS SUMMARY | 2020-01-11 03:15 | XMS_ITS | Continuity of Care Document ---
Author Organization [facility] Address [address] [place] [address] Phone Care Team Providers Care Heel Sprayer Name Role Phone Unavailable Unavailable Unavailable Advance Directives Directive Yes / No Effective Date File Name No Information Encounters Encounter Description Practice Location Reason(s) For Visit Diagnoses Date Provider Providers Copied on Encounter [facility], [address], [place], [place], [id number], tel:[phone] [facility] No Information 0 No Information Referring Provider: ANSLEY RIGGINS , [address] [place] [address] [address], [place], [address]. tel:[phone] Family History Family Member Type Diagnosis Age At Onset No Information Payers Payer name Insurance type Covered constitution party ID Authoriza tion(s) [facility] [id number] Social History Type Description Quantity Date Captured Comments Sex Female Smoking Status No Information Chief Complaint And Reason For Visit No Information History Of Present Illness Encounter Date Complaint History Of Prese nt Illness No Information Instructions Date Instruction Additional Infor mation No Information Assessments Type Assessment Date No Information
--- OUTSIDE RECORDS SUMMARY | 2025-04-12 10:18 | XMS_ITS | CCD ---
Author Organization [facility] Care Team Providers Care Railways Assistant Name Role Phone Unavailable Primary Care Provider Unavailabl e LAMBERTO CANSECO Admitting Unavailable LAMBERTO CANSECO Attending Unavailable SUSIE ., DR BROWN Admitting Unavailable SUSIE ., DR BROWN Attending Unavailable SUSIE ., DR BROWN Consulting Unavailable SUSIE ., DR BROWN Attending Unavailable SUSIE ., DR BROWN Admitting Unavailable [place] MICROBIOLOGY INSTRUCTOR, Mirella Daniels Unavailable Harleen CNLamberto Mcgowan Unavailable Unallocated MD, Noms Provider Primary Care Provi mitchell Abel Richards DO Attending Provider [phone] LAMBERTO CANSECO Attending Unavailable MATHEW MONTEJO [...] Containting Drugs) Drug allergy (disorder) 2 [facility] Repository (16 sources) Iodine; Translations: [iodine] Drug Allergy 3 [facility] Work Phone: (15 sources) Iodinated Contrast Media Drug Intolerance 0 Hives, Itching [facility] (3 sources) Other Propensity to adverse reactions 5 [facility] Medications Current Medications Medication Drug Class(es) Dates Sig (Normalized) Sig (Original) acetaminophen 500 mg oral tablet (3 sources) Start: 08-25-2024 take 2 tablets by mouth every eight hours as needed for fever Acetaminophen (Tylenol Extra Strength) 500 mg tablet Active 1000 MG PO Every 8 hours as needed for fever 42 August 25, 2024 12:00am Start: 11-08-2022 acetaminophen (TYLENOL) tablet 1,000 mg [id number] 200 actuat albuterol 0.09 mg/actuat metered dose [...] oral tablet (2 sources) alpha-Adrenergic Agonist, Uncompetitive M-eyprbw-R-aspartate Receptor Antagonist, Sigma-1 Agonist Start: 08-25-2024 take [...] (1 source) Start: 11-08-2022 eulogiogermania kerns-gl ycerin ([facility]) pad Completed/Discontinued Medications Medication Drug Class(es) Dates [...] Church MD 04/06/25 9:27 am Technologist: DIGNA [facility] Coding Summaryon 04-01-2025 Coding Summary HTMLBase 64 BqshrqcqPRb7dRk+PGhlYW Q+SJ4RYDJxW88wmJMbcF8x V2ICGGuCKesxCXKRRMlCIe BgvpJcLC2hjDWiZWLk IC8+QO5lGHOvObuhnPAvv2 D6eVQ3H93zwk5kSAisjTY1 VXSzKzHtjcddt5hmaHi4YV cuNmluOyBt UQMzaG31FIA2pO38Xw13yF JxiDFld8sioFw2QmCjMJJm DPF5pKmyPTwyr6LwCPIwJ3 2mjBOnu2V2 TRHahWupqUUnAlOgbFN2pB 1eBZqtuwamj9gukxsoRyp0 sj82eIJsw1Z5gOS3Y1Wneb Q4GCEgjSOt BdlmuXQOzA6mlhtqs7ranq cuEnCqXLUeQCh0FPp4CDKh uMzwFjNzZX95TCM0RSAfyj UuM8XeANQd pRkfWjX2k9U1Ko0AK9ATFl pxW7FKGPFJGRywoMQ+PC90 lg77L9QhNdqlJgf6WYZfGA W3pMQ9iT6g KXGpXMezi0Z0mBU0B9Mofb Htvl8jp3ieQLKqVJlcN36h yBDvy3E1NRIirYL7KTJuuO kgZqZxuG40 Oyc+GDNcpIpmz1OvOuntc8 fct9utjDf4MdzxNQRdmbTd vXgmFWG1n2SpSl7oBPRvvE E2qAJ5bB8c HyUvXnS8ZPerT062JeKjoS LdNxwoH83fD6EtaKW+PHRy Iam8VGByrAgvQM4pT6BfAB RpbmctbGVm zMvuMS5wAJUbfweiOLUtxM 9rOSDsX0t3OkHaPxE9EQho X2BkWIQsqkdvYs74jW4eYg HuZmG4EJzb G9WavzV0JWOplYJoZXotIN M9L39rl2E1BFTuEWDbPSK5 nFG9uS1bfQgouuxleRTacY sgdmVydGlj UFnvUQdtG314IAIuoMmiTx NvZGluZyBEYXRlOiAgMDUv MDgvMjAyNTwvdGQ+PHRkIH M5eHkxQJJr gLXsEOkzWk3wbBwdfTebFM 1gMSXblnbfYYLucO7rKZOr wAKgqDvpSF1lDOXlawqpz6 41VzSmHZX3 UPTjnWZfO1SvrQ6wIiQjNZ JzAOJbO5VtrGYvLTbpB328 TXkaRxJ3RJNmuiTpK7OeUZ FsaWduOiB0 n6R0Zk7Us3AmayymE2SizS VxApPsTybaDTc8Q8DcZxbz dHI+TO56WRQsRW61UUf8VI B0zKlzWZim LRAjB0SqwL5sQjJjLYSyRN RkOyc+PHRhYmxlIHdpZHRo VUohDTJnAdKlpZfaNS3zZw 9yZGVyLWNv uGbbcOWiWqGzy3rcFRBfWE prCS4exDzcG0BycPN8WNHj k6b9Ew20Z57bI4VfzSH+PG KamKQ1bDG4 qN5jGaHeBcP1UIzuR340Uy YgnYEaBgxce3gjq4jxcVd3 JiV6RCPktlNcbQknOQE3z1 UwJz72E06y IHdpZHRoPSIxNSUiIHZhbG exzs5wwR7cVm9+PGNvbCB3 zWO3iX4kKlTsHjN4VYthO8 49InRvcCIv Mzadr0xzk9cifXz9SaTrFZ XkieFizQwpMWK2x8CvBh68 C3ErqLegu7QeHty5nl71jO Nfc1L6mMI2 B1ReDIJmqoouvTHpwHzfDE 1yDTYfvwloIXIxvU8iBQCo S1b4GfEdHnT7XQudH2Hlpl V4NXLcqLAc HTUfgKWSvQ4romxdz0qbqj fkZzQmLRPxKNk3MGg6UNUf wJkfCfNuAYT6HbG1AUS8kN WbkO4clBci qxlarH3yWat+IDZ4eWRrrZ RDQQ6vJkmxiFB+PHRkIHN0 pNquWGzhYIPxjM3qFFMgV5 f1EqVbPeP9 QZoiJ2HrysY6PUYypZIxOA NlzRBRiD1cbnsbm6ugvhba KbZfJQWaIZg3NNt6CWMerZ duOiBsZWZ0 SjX0XVN6hLIibM9miUszgh gxdV4uUuk+QmlydGggRGF0 FQe2N3WkFwn1IYTrkYbeTI 0ncGFkZGlu Vs4lfTmsgQujEC5sGRCidf hym120CfKni9nqLEEjvGGv ZGbcUXG1Q36fr5M5DFSbQF RjCUF8nUI9 gZ6dkXowiaprhFXijIlnyz ZjtZtaTNbnTNuvZ844PNOu cSftYqXgEDz0H4XhQio9WZ SpzOboZH1z hCEpNLgdRy6pzWweeDiyDM 9lDYTsitzcj906XmTel6pt LZQnuQDrTKnuVMD1X96xz3 Q2DNXiWGEv IQK0tCL9yD9ifEckfaglaE VmdDsgdmVydGljYWwtYWxp M611OZOluPphKjUchDm0E6 ZhBaq6VPEv jLteTP2hhTWhAYaiZn8oqZ djsDwiVI6xNDMvibyij824 UtIzw6jtTOMdpUQeAIgkIF U7N16ty1X5 PYJzINFjWZJ4nOP5oP2arJ lnbjogbGVmdDsgdmVydGlj DRbaHPlhV332URVqsOcpLw BhdGllbnQg HFqnYEz9K6UmYeajpTU+PC 65EMJuSN45fAIvdWKqr5hi dCu2KoXySBDuMFF9yGrmKN wjm0ToOEZy C13ixBYud8I6IBCkrHfpxK YdHgSxuTC1tE1lTBxwzlfm c8cyygdnPubub9pkvf93qL 54O38lIWyz ZHRoPSIzMCUiIHZhbGlnbj 2ppQ9xBw8+QEUcuYE0bNM1 jE8uMWYjJpG1SWtkE603Gt RvcCIvPjxj u1gau7txeNr3ZuY5GFEzqn YdwYzrXGB0z7WkBs57G67i IHdpZHRoPSIyMCUiIHZhbG grjb7uvS8c Ii8+LGFxnRQ7lDL3yT4tSz TgAoS1JPmvM320PsZshPMg EjokO74wC9OmuDP+PHRyPj j4OYVjgQwo CS1shPAhECwyXx8aXTG3Sj JyApBeXFwiF7ImEHBkkmaz deayjGH7MNYcKZXviN40Mn 9udDogMTBw bETLoX8bfxgvy9bsopdhKe ZoHSHqMJb1IKc0TZVnkGuy AhXrBVP4JqF9FPH8uQIsqX 1hbGlnbjog xO0aB0IzCQEqdrzyLb98xY 8xVrVpIzX2OBrcPgd+RU5H KsGJDHOSPIHTC1KPDTIZDy wvdGQ+PHRk NOK9qCpyLDkxLLElkF3rSY KpX1l0WcOvJrL6ZAjtF0Mq JNZptohvJi07pN5rTgZwQj C6INyvV4Ck xfV6XXClmXNqCGpgMYU6U4 9cd9M0JHRlRRCoNGI9kLV1 vE9dxIonacwgzOBrwBzpyc VydGljYWwt VMkeV164GKMjmFibYzPcAh P6QpB8UGY2Z4IbYuz5STVj qYomUU5qnWHlDDwbMf2zbD xgwWmjWY0h ADRvnwykEZUieB7hDXGfwQ HwoVpuAN0dYXYafezxw886 NyXeFGH3XAYevYBjJ0RisJ 9yOiAjMDAw UDYrF3DyqBZuAXmtC890EI gvIoV5FLGpnuVnP2WnHICi mLxgWdW0l6T7Mj8iZDFOYW FyczwvdGQ+ GXFpXQL7gSggLPnrTDSvhH 0wARDoE2s3CbYzIeU5TShb O4TdLXDtovsnNn29qQ2vGk ZlKxD1DQop Y3DgzdC6UQIhwRDxHJgrER L1U35vp5I4MSFnGSNyGMA4 jMQ4tN4mgCufysquhTVanD sgdmVydGlj EBzqVKbwY230YMCtuCxaQq ZFTUFMRTwvdGQ+PHRkIHN0 hEwqCLijLAPmzD0rRQNyH1 g6JrXrEcA4 ZGmqQ7GcFCVvtmqgSo59kT 6zWiFwOqY4DZlwC3LlggU7 SDMfnASgASvlIFP2Q64zj5 O7HUXnYRGg QXE1xIB2aK1cnIdljdvjfZ VmdDsgdmVydGljYWwtYWxp H597YIXpxYbsOu4ULO83BB 08K0TcWzjp dGFibGU+PHRhYmxlIHdpZH XdRVnoAJEiIxJbqBgkZT3x Ll7dNGGuTXDtaUmutWAkJz Hna6ggJBSg DJipHE8mpAskD1CqgHT1DM Mta1s1Il37L07kO2LuiVC+ FYPblUV7vEU2hX8zVlHaPl J9MNphD624 GuUqsKVuEaiji1lty9ugkP i2HyHmAAIoboQarHdaGRG3 x3RzJo08F66cOWioSRUhDU IyMCUiIHZh zRjkmk9vlK7fNy4+PGNvbC Q9nCY4jA7hIkBpPzH9KRge J880OhKtuAHxKiyhR66fQ3 JvdXA+PHRy Ezo2INPyvKfvDJ0bfTOlWK ptKg0oSDL8GeMjXtAdBJgv N3PyIAUommdfoueyfGU7QD OfQYMkfL88 Bn4tvKceHi9xJDKxTNN8EM UldECvU5AjnV4fZwUyDVQn HCPuZ4PbqMGjPLrsF831HT leIxV4KLRh bcOpW0SxNROkbMjoHlI6m5 H9Uh6HbXafoZLsBB5pRhNu HWl1U7TbPya7IHEbjAqpBL 0ncGFkZGlu Yu0lcRbabEaoFI1yPTAtpu tvm659VjYtz7mfRRIdgBIu CFinACF9L61gp2W7MYLrXP UjCTD6bXL9 qC5scCpmrwlyiRZdxCymqk HcpPhaJRxmUAncL954MRYq jSyhRfRDMwx3F4PjTic9XW RtnDulLR8x cZWlBAqnLd3mnMtgbNcgGM 7uLHWdsezem205SnBpn3pa XNMhsCGbDCzsXRG9F41up5 B1ADXkTSBd ADY8sKR4gQ4heVzkaxingW VmdDsgdmVydGljYWwtYWxp L059OWVybPbsOy1LIud7R4 IcZar4QQTx vCyiON4owDUfDHdiSy5oeK kpuGsrFC2yHXFqzisrk489 GdPei9vsFKJacRAzEFuyDX Z7L37fx5V8 CKBiEWYzIOP6eIT1dV0yqR lnbjogbGVmdDsgdmVydGlj OVouOAwpK691QMLdtLaxRd BheWVyOjwv dGQ+GY11xv04Q8ZaTknbJo l1TWCbHYK1iUZ4lN6pIPPd DYyai4N2sVK3V5XhrwEvgt 1kg2afAKIj ZTo (more content not included)... [facility] PATHOLOGY REQUEST FOR LAB CO RPon 03-31-2025 PATHOLOGY REQUEST FOR LAB AMBIKA [facility] Comment on above: See report. Scanned copy available in EMR. [facility] HCG ( test) Ql (U)o n 03-24-2025 Interpretation and review of laboratory results Normal [facility] Preg Test, Ur Negative Negative [facility] Pathology Request for Lab Co rpon 03-24-2025 Pathology Request for Lab Ambika Normal [facility] Comment on above: Order Comment: EMBX Result Comment: See report. Scanned copy available in EMR. PERFORMED BY: [place] [id number] PATHOLOGIST JIGGER ARTISAN MILKA MATTHEWS M.D. Performed By: #### P ATH TO [facility] #### [address] [place] Venous Duplex Lefton 0 03-23-2025 [...] Church MD 03/23/25 10:58 a Technologist: DIGNA [facility] Patient Handouton 03-17-2025 Patient Handout Sclerotherapy, Care [...] cannot use soap and water, use hand marketing systems manager. ? Change your bandage. ? Check the [...] safe for you. General instructions ? Take nkdz-wpz-rilypvu and prescription medicines only as told by [...] provider. Document Revised: 02/14/2023 Document Reviewed: 02/14/2023 [employer] Patient Education ? 2023 [employer] Radiology Sclerotherapy, Care After After sclerotherapy, [...] cannot use soap and water, use hand marketing systems manager. ? Change your bandage. ? Check the [...] safe for you. General instructions ? Take xked-tnz-hnilnke and prescription medicines only as told by [...] on the treatment (more content not included)... [facility] Coding Summaryon 03-10-2025 Coding Summary HTMLBase 64 UqmalhnsJQj2sGb+PGhlYW Q+HT8RIHRjF50mmXUmgG7m E4MHXAoMZumgCLLTYNiEIm JarpKuYF4ttWBpYTHq IC8+LD8sOVJpQdavaCYbb3 S1jPM8Q68zqa4lLVmeyKN4 ZHZkUdNqucwqp0weiEl5LJ cuNmluOyBt SVHznW05DFF5aK99Lu97dQ RfuFRnt0kvqCl5YhYkXVNo WNR1rAwxHNxjt6DqCRKsV1 7qvZEkn5C1 ZVWtmRkcsWSfVfZtyJK6gR 1lQMouzuigj2bqkgunUog2 lh02jYAua1G0nKW6R6Feuy Z7TVAluUOg XgvajGLXoC6anrnvq5glnu qpRmJzZTTfOIt6YWv4NZVq lGahTbXlMQ18LLB2TKRrek WvU6VdIZOi zClzItW9h9N8Wh3TQ6FTJu kbE8PNOTAZNFbmeVF+PC90 or07Q3JrCfyqErx7AYUyJO V5gWX0mP0i YPPwZHnei5A6tML7M0Mlts Oshg4am0wqFOHuCBetI71q tDKcg9Q2EVNsqII1ORFghQ hmShUuwV81 Oyc+OGRfxIgpc9UeMwlaa7 aba7efcLi4QflzKATvwfXm bIpqHIS0t2FkTy3jUGRftA F6mVG8qK7l GoRsPvE2YLetW960ZkCjsL PeWuebW35mM1IorFZ+PHRy Gzm4FMZvbXgnMV2lH2ZlOP RpbmctbGVm pBexDZ5xRCKnrsijWOKluA 4gYSUzN8s4SnZqLlK7BVtz O9NjVNRrxntcSw10fE8xJm OwPdV4JOtc A3AwyxF5WCYidQUwCUgiLY N1Q37ka8W8DTPbLDVkTWM5 hAC4hH7wqFnjvegomVQxiV sgdmVydGlj ZZbrWIlzM025AJThqOzfBp NvZGluZyBEYXRlOiAgMDQv MTYvMjAyNTwvdGQ+PHRkIH U2jQetKUEv nAUgBQysPv1gdYqbrGefHF 4cJAVvsrkcXGQfsA4fDYPq qFHpbCdjHB9eEQRogioyt8 29DkPyAWD4 ENKyvUTnM4PwtI0dHjUeBK VnACMqA4OzgINjSStlG419 GEepQpE8GQHzhhHrO2XeDK FsaWduOiB0 n3W4Wz6Jh3TmgilkK6UmhA LwRjPdMykvDLk6D0IgXsxe dHI+IX05UOFnWE42JSj1JQ X1dNlwPAku RVOoC9GeiN0iEfRyYZLqDA RkOyc+PHRhYmxlIHdpZHRo SAugJYHzMpMzsCqzHB3zEv 9yZGVyLWNv vMnxyXOpJfJjx8rtTXJkWE fbUX6csBdfM8FrhVE3GSTv f2p9Fe97V73dL1LypYA+PG LkkHL0nAS8 pQ7sVcIkPyG5JDiiX756Cy CiiNAdLzoae6sxr8bwuRj7 AkR3NHOrhfKqfRkaDCG0e8 ZcAi85V74f IHdpZHRoPSIxNSUiIHZhbG kiub6rpB0qMe9+PGNvbCB3 xVP9yQ1sNoCuQcF0SMwqU4 49InRvcCIv Bcmgi5rvy7cvzAe6ErRbOS KgokCalLfbZTL3s4RsMt76 K0TbnOovf0FfViy4vm72lS Ixu5J3iWP7 H3UxQSMpwsddnWIluIhcXK 1dVKXowzujELClkJ2pNRYx I5q3OvXzJuZ2KOvkJ5Qcfa W5DPAxvFNn EPMbpHXShC7yssbnt3aqax usIvFtKVItHFv6BPs1AODq qHoiMfQqZNA4PbM0GRX0sM BibP4wfXji sfhpcU5aHlm+MAD7zTZanZ ZHDL3nJeifjAJ+PHRkIHN0 vYkeVQhbCWXkxY4mATTzJ9 n6ZjZrMuT1 BBbkU8NfyxV9FOImxXAkHS OjlRYMmS6kdonra4ghejmd IpKeVQVkAUn5RDp6IARqxO duOiBsZWZ0 CbE9BMI6iMCaqI1ylZmgdv croQ8tMpe+QmlydGggRGF0 IPr1M1CvWuv1BWQdyOqeRI 0ncGFkZGlu Dp4xaDlhmAwxIJ9rYXEldo uut705DgTgi4oqEOSrcLBl MNxhLDV4L05zf1J4ZQCmZZ JmFUB4mJU9 iN0lsBnucnoieYSzvGmceh HuaPfmJDngHUltY454DUXt lFuhBuPlCHy2C5ObNvv7MA ZbbIhnDW9i lXAgLFptQo3qzLqczTcxSO 3fHFPsxjmyf964TzDlc9gl UTPblWUcMUsuACZ6R71mn5 Q9KIEsRVHo MEE9vWD8oT0ebCebrhntwW VmdDsgdmVydGljYWwtYWxp Z498PJGmxOahDiFwvCl9G0 WgBef6CHDc wAriPU5ocDMiWKqqEx4ijB rotSasUI8iTXVgqdxeb556 GfSck7jyECDmqOUxSYzqVQ N1Y49tr2T6 SHSgORMfVVG5hIW0zY6knJ lnbjogbGVmdDsgdmVydGlj CSxpKYzhQ568YBZorOwbEf BhdGllbnQg ZMjoKCl3R1BbFvbhoVB+PC 88ZBFjAJ75lWQiwTGmj9zj sMf8RjJdSSSoEZD1uDaiUQ hxd0ZeQOZw V37qzGIqz4N8NSNfpRmwwO HrWiZcpDN0tI3yJCqrmmjv h8sxytvwXqxgc9epcn34aQ 81B08oIZhb ZHRoPSIzMCUiIHZhbGlnbj 5anL8dCx3+PFOoxZW4bPU7 qI6mHDIxVyM2KOaiX352Ot RvcCIvPjxj y7utq1qngAp6YlQ8OUEcor OutJdyYAE9a3LsMt98Y66p IHdpZHRoPSIyMCUiIHZhbG vexx6thO0n Ii8+HNWnzQX3iOJ7vC9fFs QnMwH6NWgxS037EeXfdSZn ErfgQ37zR9IrqXT+PHRyPj d6HXItxNut VO0eoBLaZUfpHd2eMBQ2Dc BeWhBbMQxoY3EkOVQrktwr dbakdNY3IUJpGYCgzO21Vv 9udDogMTBw iYWZmT6fytokb3gkzczsLz XyWJYiVIg0GUa5KWBchCxb LiVaJLW5YbX5HIG2jHZryD 1hbGlnbjog jK1uE7CjCYAjgytqDa99hI 0aCsTqJjD9PKbjImi+RU5H IzRPCWSADTFPR7MWGOPMDf wvdGQ+PHRk EMH8eQdlOJtkCKVndE5xMT OtW6y5KwQbNvP3WOjuB8Ik YZPmqdgqVj25uK6gIjUnPj H8RZaxT9Vw fmW9KHLwdJRwKEieWDU4U9 0xv1M5UOIeHLNuIYE3hYZ6 gK2zsRullkmciXUsiDyazi VydGljYWwt CBvwF192QSRhzEnbVzOvSq Q4QkA0MWU1U4HfSbm3KRKm cGdiXP9uwKUnBJgjEb7ivZ wquAidGI4b USBltisaUYEpuU1nJJWuoN IyeAvhCM4sZHRvdfzxf966 IfMxPWF7UPJfoVDiA5MjiR 9yOiAjMDAw JHKsK4KorSTuYDcmS286CX gcJeE1RKFhgeOaJ3GcJEEd qVlaMiC0v5R4Nm1tJEEAWA FyczwvdGQ+ ZCMpYCM4aFesLZzoQCKocM 6cSNPgH6e4NmTgBiA7KXus E2CeMCRzptpyUg78eF7vOo IzPuX0BPri N1WqduV1SJQdmGXwSIgbKJ K6K79yy4W5FJNsCXZxBJA2 hZU4oP7cpTekusvddJWciG sgdmVydGlj CEvqMBbgX744KBCasNxiJy ZFTUFMRTwvdGQ+PHRkIHN0 kQmqJEunGYNjqF3cVMObH8 d1OnNxNeV3 DGocH6TsHQBbmplmHh93kO 7lHhObLaA5WJklM8KvrmG0 YWXopQUrRFelUYM6O32xx9 T3YXFuTDKt KXE7eDC7uY1nqLzmthpxpG VmdDsgdmVydGljYWwtYWxp L568JFNxmZzdUx7CVF78FW 14H5DlZxzl dGFibGU+PHRhYmxlIHdpZH YfBTppRRBnOzUkrPrzKV8c Pr9xTUJkLUDjtYhqaBRtDe Cnw2tnVDMg TKvdKK8dvXwyQ6KpcCG1YV Tuv0k9Yh44A08fD1NvoOP+ YFLhbQS6jSZ4vD1aApNsLs K8LCkmT458 BoUblBVvAqedl8szz4mmkW g6BfNuKBYgtpUflDblTMG3 p4CfIu63Z42dMXvxCPAaWC IyMCUiIHZh zPgrrq9xtJ2hJz9+PGNvbC P9sJU2uP1uYyKxNnT0OIwg B367QuKvoIMlKlnnY32zN3 JvdXA+PHRy Cuv7AJBqyFekAF1cgESgIM fxFb6iYTM4YrMxQsAtECvp B1OrFPFdtxdvuwunvMW3AN LnGNJnhR69 Oy2lfKbwYx9vMVEyMQK5IV DiaMVnH6XeaZ8wDgAbPAMs QRYcR8AqqCGsDPetA735MD oeUtA4VJHt aiMaV6WoXJXjsHijKxO4g3 A5Tc6SwZvpaCZmIE0uFlUx XNc8S5OlWkx8WAFfmDvtQV 0ncGFkZGlu Qq2rhAwmvBzdQM8pRFEgff myr951BgDtr5vkGIOluZTl AEdrPJU5R13kz8U9NAWtLL NnKRQ0hUH8 hK9vaBxtpmvlbGZtsXvnkd DbgFmwOZapSSbxB285BPUj tSlaLfJWJpb6G9ZlVta6EG KqvHwtIV0t sEFyWBzfJb5zjArptIubOZ 6uDRXoblujm625OwHvl5ye DMVstKIdFNcvAFR2F67mc7 P8UHOtXCJm LCT3xJM3qW6udWgscswnkR VmdDsgdmVydGljYWwtYWxp G540JWRkdBslUs5ACpn5N3 IiCdu0EXNf wTlqOA7mqCLqNPegMw6nvG aaaRspGH4rDUWpymudn883 MaLwf1zjZNTuwALlZRgcZU Q9S08bv7W8 BKEoMEFrCRS2cDA4rO4ztN lnbjogbGVmdDsgdmVydGlj SVpcXRrnC498VJOfdAaaTd BheWVyOjwv dGQ+UW50mi33V5AmOhejZk l5TCViSAP1dZK6oP1dXVFq NLnsl3Q3yTZ9T8HeaaItuz 1qc1uxBLHg ZTo (more content not included)... Normal [facility] HEMOGLOBIN A1con 03-03-2025 HEMOGLOBIN A1c [...] diagnosis of diabetes in children. According to [place] [employer] (ADA) guidelines, hemoglobin A1c <7.0% represents optimal control in non- diabetic patients. Different metrics may apply to specific patient populations. Standards of Medical Care in Diabetes(ADA). Performed By: #### 4 [id number] #### [facility] [address], [address] [place] [address] Gasser Machine Operator: Kosta Perdue MD Urinalysis macro (dipstick) panel (U)on 03-01-2025 Bilirubin, UA Negative Negative - 4(70) +++ mg/dL [facility] Blood, UA Negative Negative - 50 Bernardo/mcL [facility] Clarity, UA Clear [facility] Color, UA Yellow [facility] Glucose, UA Negative Negative - 2000(110) ++++ mg/dL [facility] Interpretation and review of laboratory results Normal [facility] Ketones, UA Negative Negative - 160(16) ++++ mg/dL [facility] Leukocytes, UA Negative Negative - 500+++ Matti/mcL [facility] Nitrite, UA Negative Negative - Positive [facility] pH, UA 6.5 5 - 9 [facility] Protein, UA Negative Negative - 2000(20) ++++ mg/dL [facility] Spec Grav, UA 1.02 1 - 1.03 [facility] Urobilinogen, UA 1.0 0.2 - 12 mg/dL [facility] No Panel Informationon 02-25 Type of [...] taken Amount of lidocaine used: 0.2 cc [employer] Type of biopsy: tangential Informed consent: discussed [...] taken Amount of lidocaine used: 0.3 cc [employer] US LE Venous Duplex Righton 02-25-2025 US [...] Brandon Church MD 02/25/25 11:00 a Technologist: [facility] US Endovenous Ablation 1st V love 02-18-2025 [...] Church MD 02/18/25 10:27 a Technologist: [facility] [facility] Outside Recordson 01-12-2025 Outside Records [id number]#1.00 [facility] Outside Records [id number]#1.00 [facility] Rad - Other Radiology Report on 01-12-2025 Rad - Other Radiology Report [id number]#1.00 [facility] Rad - Other Radiology Report [id number]#1.00 [facility] US PELVIS TRANSVAGINALon US PELVIS TRANSVAGINAL EXAM: [...] report is generated using voice recognition reporting ([email or web address]). On occasion [employer] erroneously drops words from the report or replaces the spoken word with similar sounding words. Please call with any questions/concerns regarding this report.* Dictated and transcribed 12/10/2024/jf This report has been electronically signed and approved by the interpreting radiologist. Normal Not Available No Panel InformationOrdered By: Gissell Malagon on 08-25-2024 Quick Strep (POC) [facility] RHOGAM INJECTION ONLYon 10-25 Blood product type Nom (BPU) RHIG [facility] Status of Units TRANSFUSED [facility] Transfusion Status OK TO TRANSFUSE B ON [facility] Unit Divison 0 [facility] Unit Number [id number] [facility] CBC with Diffon 11-08-2022 Abs. Basophil 0.03 k/uL Normal 0.00-0.20 [facility] Comment on above: Performed By: #### C DP #### [facility] [address] [place] [address] [place] [address] Hand Finisher: Brandon Thompson MD Abs. Eosinophil <0.03 Normal 0.00-0.44 [facility] Comment on above: Performed By: #### C DP #### [facility] [address] [place] [address] Hand Finisher: Brandon Thompson MD Abs.Imm.Granulocyte 0.06 k/uL Normal 0.00-0.30 [facility] Comment on above: Performed By: #### C DP #### [facility] [address] [place] [address] [place] [address] Hand Finisher: Brandon Thompson MD Abs.Neutrophil (Seg) 8.25 k/uL High 1.50-8.10 [facility] Comment on above: Performed By: #### C DP #### [facility] [address] [place] [address] [place] [address] Hand Finisher: Brandon Thompson MD Basophils/100 WBC (Bld) 0 % Normal 0-2 [facility] Comment on above: Performed By: #### C DP #### [address] [place] [address] Hand Finisher: Brandon Thompson MD Eosinophils/100 WBC (Bld) 0 % Low 1-4 [facility] Comment on above: Performed By: #### C DP #### [facility] [address] [place] [address] [place] [address] Hand Finisher: Brandon Thompson MD Erythrocyte distribution width (RBC) [Ratio] 12.6 % Normal 11.8-14.4 [facility] Comment on above: Performed By: #### C DP #### [address] [place], [facility] Hand Finisher: Brandon Thompson MD Hematocrit (Bld) [Volume fraction] 39.9 % Normal 36.3-47.1 [facility] Comment on above: Performed By: #### C DP #### [address] [place] [address] Hand Finisher: Brandon Thompson MD Hemoglobin (Bld) [Mass/Vol] 13.5 g/dL Normal 11.9-15.1 [facility] Comment on above: Performed By: #### C DP #### [facility] [address] [place], [place] [id number] Hand Finisher: Brandon Thompson MD Immature granulocytes/100 WBC (Bld) 1 % High 0 [facility] Comment on above: Performed By: #### C DP #### [facility] [address] [place] [address] Hand Finisher: Brandon Thompson MD Lymphocytes (Bld) [#/Vol] 1.59 10*3/uL Normal 1.10-3.70 [facility] Comment on above: Performed By: #### C DP #### [address] [place] [address] Hand Finisher: Brandon Thompson MD Lymphocytes/100 WBC (Bld) 15 % Low 24-43 [facility] Comment on above: Performed By: #### C DP #### [address] [place], [facility]83 Hand Finisher: Brandon Thompson MD MCH (RBC) [Entitic mass] 32.6 pg Normal 25.2-33.5 [facility] Comment on above: Performed By: #### C DP #### [address] [place], [place] [id number] Hand Finisher: Brandon Thompson MD MCHC (RBC) [Mass/Vol] 33.8 g/dL Normal 28.4-34.8 [facility] Comment on above: Performed By: #### C DP #### [address] [place] [address] Hand Finisher: Brandon Thompson MD MCV (RBC) [Entitic vol] 96.4 fL Normal 82.6-102.9 [facility] Comment on above: Performed By: #### C DP #### [address] [place] [address] Hand Finisher: Brandon Thompson MD Monocytes (Bld) [#/Vol] 0.74 10*3/uL Normal 0.10-1.20 [facility] Comment on above: Performed By: #### C DP #### [facility] [address] [place], [place] [id number] Hand Finisher: Brandon Thompson MD Monocytes/100 WBC (Bld) 7 % Normal 3-12 [facility] Comment on above: Performed By: #### C DP #### [facility] [address] [place], [place] [id number] Hand Finisher: Brandon Thompson MD Neutrophil (Seg) 77 % High 36-65 [facility] Comment on above: Performed By: #### C DP #### [facility] [address] [place], [place] [id number] Hand Finisher: Brandon Thompson MD NRBC Automated 0.0 per 100 WBC Normal 0.0 [facility] Comment on above: Performed By: #### C DP #### [facility] [address] [place], [place] [id number] Hand Finisher: Brandon Thompson MD Platelet mean volume (Bld) [Entitic vol] 13.0 fL Normal 8.1-13.5 [facility] Comment on above: Performed By: #### C DP #### [facility] [address] [place] [address] [place] [address] Hand Finisher: Brandon Thompson MD Platelets (Bld) [#/Vol] 134 10*3/uL Low 138-453 [facility] Comment on above: Performed By: #### C DP #### [facility] [address] [place], [place] [id number] Hand Finisher: Brandon Thompson MD RBC (Bld) [#/Vol] 4.14 10*6/uL Normal 3.95-5.11 [facility] Comment on above: Performed By: #### C DP #### [facility] [address] [place], [place] [id number] Hand Finisher: Brandon Thompson MD WBC (Bld) [#/Vol] 10.7 10*3/uL Normal 3.5-11.3 [facility] Comment on above: Performed By: #### C DP #### [facility] [address] [place], [place] [id number] Hand Finisher: Brandon Thompson MD Drug Scr, Abuse, Uron 2021 Amphetamine(s),Ur Negative Normal NEG [facility] Comment on above: Performed By: #### D AU #### [address] [place], [place] [id number] Hand Finisher: Brandon Thompson MD Barbiturate(s),Ur Negative Normal NEG [facility] Comment on above: Performed By: #### D AU #### [facility] [address] [place], [place] [id number] Hand Finisher: Brandon Thompson MD Benzodiazepine(s) Negative Normal NEG [facility] Comment on above: Performed By: #### D AU #### [address] [place], [place] [id number] Hand Finisher: Brandon Thompson MD Buprenorphrine, Ur Negative Normal NEG [facility] Comment on above: Performed By: #### D AU #### [facility] [address] [place], [place] [id number] Hand Finisher: Brandon Thompson MD Cannabinoid(s),Ur Negative Normal NEG [facility] Comment on above: Performed By: #### D AU #### [facility] [facility] [address] [place], [place] [phone] Hand Finisher: Brandon Thompson MD Cocaine Metabolite Negative Normal [facility] Comment on above: Performed By: #### D AU #### [facility] [address] [place], [place] [phone] Hand Finisher: Brandon Thompson MD Methadone Ql (U) Negative Normal NEG [facility] Comment on above: Performed By: #### D AU #### [facility] [address] [place], [place] [phone] Hand Finisher: Brandon Thompson MD Methamphetamine, Ur Negative Normal NEG [facility] Comment on above: Performed By: #### D AU #### [facility] [address] [place], [place] [phone] Hand Finisher: Brandon Thompson MD Opiate(s), Ur Negative Normal NEG [facility] Comment on above: Performed By: #### D AU #### [facility] [address] [place], [place] [phone] Hand Finisher: Brandon Thompson MD Oxycodone, Urine Negative Normal NEG [facility] Comment on above: Performed By: #### D AU #### [facility] [address] [place], [place] [phone] Hand Finisher: Brandon Thompson MD Phencyclidine, Ur Negative Normal NEG [facility] Comment on above: Performed By: #### D AU #### [facility] [address] [place], [place] [phone] Hand Finisher: Brandon Thompson MD Propoxyphene,Urine Negative Normal NEG [facility] Comment on above: Performed By: #### D AU #### [facility] [address] [place], [place] [phone] Hand Finisher: Brandon Thompson MD Tricyclic antidepressants Screen Ql (U) Negative Normal NEG [facility] Comment on above: Result Comment: Drug screen results are to be used for medical purposes only. All positive results are unconfirmed. Testing for employment or legal uses should be sent to a reference laboratory for confirmation. Performed By: #### D AU #### [facility] [address] [place] [address] Hand Finisher: Brandon Thompson MD ROSETTEon 11-08-2022 Kymberly Negative [facility] Rosetteon 11-08-2022 Kymberly Negative Normal [facility] Comment on above: Performed By: #### C FET #### [facility] [address] [place] [address] Hand Finisher: Brandon Thompson MD RHIG, Transfuseon 11-08-2022 RHIG, Transfuse Unit Number [id number] Blood Component Type RHIG Unit Division 00 Status of Unit TRANSFUSED Transfusion Status OK TO TRANSFUSE [facility] Comment on above: Performed By: #### T RHIG #### [address] [place] [address] Hand Finisher: Brandon Thompson MD Surgical Pathologyon 022 Surgical [...] SURGICAL PATHOLOGY CONSULTATION Patient Name: STEPHANIE PALENCIA [facility] Rec: [id number] Path Number: [id number] [facility] ANATOMIC PATHOLOGY [address] [place], [place] [address] [facility] Comment on above: Performed By: #### P PPVS #### [facility] [address] [place], [place] [phone] Hand Finisher: Curly Connolly MD TYPE AND SCREENon 11-08-2022 ABO/Rh Negative [facility] Arm Band [facility] [id number] [facility] Expiration Date 11/10/2022,2359 [facility] Type + Screenon 11-08-2022 Type + Screen Sample Expiration 11/10/2022,2359 Arm Band Number [id number] ABO/Rh(D) O NEGATIVE Antibody Screen NEGATIVE [facility] Comment on above: Performed By: #### T YS #### [facility] [address] [place] [address] Hand Finisher: Brandon Thompson MD CBC auto differentialon 10-25 Absolute Eos # [facility] Absolute Immature Granulocyte 0.06 [facility] Absolute Lymph # 1.59 [facility] Absolute Sierra # 0.74 [facility] Basophils (Bld) [#/Vol] 0.03 10*3/uL [facility] Basophils/100 WBC (Bld) 0 % 0 - 2 % [facility] Eosinophils/100 WBC (Bld) 0 % Low 1 - 4 % [facility] Hematocrit (Bld) [Volume fraction] 39.9 % 36.3 - 47.1 % [facility] Hemoglobin (Bld) [Mass/Vol] 13.5 g/dL 11.9 - 15.1 g/dL [facility] Immature granulocytes/100 WBC (Bld) 1 % High 0 [facility] Interpretation and review of laboratory results Abnormal [facility] Lymphocytes/100 WBC (Bld) 15 % Low 24 - 43 % [facility] MCH (RBC) [Entitic mass] 32.6 pg 25.2 - 33.5 pg [facility] MCHC (RBC) [Mass/Vol] 33.8 g/dL 28.4 - 34.8 g/dL [facility] MCV (RBC) [Entitic vol] 96.4 fL 82.6 - 102.9 fL [facility] Monocytes/100 WBC (Bld) 7 % 3 - 12 % [facility] NRBC Automated 0.0 0.0 per 100 WBC [facility] Platelet distribution width (Bld) [Ratio] 12.6 % 11.8 - 14.4 % [facility] Platelet mean volume (Bld) [Entitic vol] 13.0 fL 8.1 - 13.5 fL [facility] Platelets (Bld) [#/Vol] 134 10*3/uL Low [facility] RBC (Bld) [#/Vol] 4.14 10*6/uL 3.95 - 5.1 1 m/uL [facility] Segmented neutrophils/100 WBC (Bld) 77 % High 36 - 65 % [facility] Segs Absolute 8.25 High [facility] WBC (Bld) [#/Vol] 10.7 10*3/uL [facility] DRUG SCREEN MULTI URINEon Amphetamine Screen, Ur Negative NEGATIVE [facility] Barbiturate Screen, Ur Negative NEGATIVE [facility] Benzodiazepine Screen, Urine Negative NEGATIVE [facility] Buprenorphine Urine Negative NEGATIVE [facility] Cannabinoid Scrn, Ur Negative NEGATIVE [facility] Cocaine Metabolite, Urine Negative NEGATIVE [facility] Methadone Screen, Urine Negative NEGATIVE [facility] Methamphetamine, Urine Negative NEGATIVE [facility] Opiates, Urine Negative NEGATIVE [facility] Oxycodone Screen, Ur Negative NEGATIVE [facility] Phencyclidine, Urine Negative NEGATIVE [facility] Propoxyphene, Urine Negative NEGATIVE [facility] [employer] Tricyclic Antidepressants, Urine Negative NEGATIVE [facility] [employer] Comment on above: Drug screen results are to be used for medical purposes only. All positive results are unconfirmed. Testing for employment or legal uses should be sent to a reference laboratory for confirmation. [facility] OB Growthon 10-17-2022 US OB Growth FINDINGS: [...] by Elder Farrell on 10/17/2022 1135 Normal [facility] GBS, External Resulton 10-11 GBS, External Result Negative [employer] Work Phone: [employer] Work Phone: OB 2nd/3rd Trimesteron OB 2nd/3rd [...] by Leonel Foster on 10/12/2022 1159 Normal [facility] C. Trachomatis, External Res [facility] 05-15-2022 C. Trachomatis, External Result Negative [employer] [facility] Work Phone: N. Gonorrhoeae, External Res [facility] 05-15-2022 N. Gonorrhoeae, External Result Negative [employer] [facility] Work Phone: No Panel Informationon 05-15 [employer] [facility] Work Phone: Hepatitis B, External Result on 05-01-2022 Hep B, External Result Negative [employer] Work Phone: [employer] [facility] Work Phone: ABO, External Resulton 04-30 ABO, External Result o [facility] Work Phone: HIV, External ResultOrdered By: Rizwana Sorto on 04-30-2022 HIV, External Result Negative [facility] Verified ray quigley rn [facility] Hepatitis C Antibody, Gravity Flow Irrigator al Resulton 04-30-2022 Hepatitis C Antibody, External Result Negative [facility] Work Phone: No Panel Informationon 04-30 [facility] [employer] Work Phone: RPR, External Labon 04-30-20 RPR, External Result Negative [facility] Work Phone: Rh Factor, External Resulton 04-30-2022 Rh Factor, External Result Negative [facility] [employer] Work Phone: Rubella Titer, External Resu lton 04-30-2022 Rubella Titer, External Result Immune [facility] [employer] Work Phone: Vital Signs Date Time Vital Sign Value Performing Clinician Facility 03-24-2025 16:16-0400 Body mass index (BMI) [Ratio] 35.96 kg/m2 Abel Susie DO Work Phone: [facility] 03-24-2025 16:16-0400 Body weight 101.06 kg Abel Susie DO Work Phone: [facility] 03-24-2025 16:16-0400 Diastolic blood pressure 78 mm[Hg] Abel Susie DO Work Phone: [facility] 03-24-2025 16:16-0400 Systolic blood pressure 120 mm[Hg] Abel Susie DO Work Phone: [facility] 03-01-2025 09:21-0400 Body mass index (BMI) [Ratio] 36.17 kg/m2 Abel Susie DO Work Phone: [facility] 03-01-2025 09:21-0400 Body weight 101.66 kg Abel Susie DO Work Phone: [facility] 03-01-2025 09:21-0400 Diastolic blood pressure 76 mm[Hg] Abel Susie DO Work Phone: [facility] 03-01-2025 09:21-0400 Systolic blood pressure 114 mm[Hg] Abel Susie DO Work Phone: [facility] 01-26-2025 13:19-0500 Body mass index (BMI) [Ratio] 36.15 kg/m2 Lamberto Floro CNM Work Phone: [facility] 01-26-2025 13:19-0500 Body weight 101.61 kg Lamberto Floro CNM Work Phone: [facility] 01-26-2025 13:19-0500 Diastolic blood pressure 80 mm[Hg] Lamberto Floro CNM Work Phone: [facility] 01-26-2025 13:19-0500 Systolic blood pressure 120 mm[Hg] Lamberto Floro CNM Work Phone: [facility] 11-12-2024 10:35-0500 Body mass index (BMI) [Ratio] 36.15 kg/m2 Lamberto Floro CNM Work Phone: [facility] 11-12-2024 10:35-0500 Body weight 101.61 kg Lamberto Floro CNM Work Phone: [facility] 11-12-2024 10:35-0500 Diastolic blood pressure 80 mm[Hg] Lamberto Floro CNM Work Phone: [facility] 11-12-2024 10:35-0500 Systolic blood pressure 120 mm[Hg] Lamberto Floro CNM Work Phone: [facility] 08-25-2024 09:17-0400 Body height 167.64 cm [facility] 08-25-2024 09:17-0400 Body mass index (BMI) [Ratio] 34.5 kg/m2 [facility] 08-25-2024 09:17-0400 Body temperature 97.3 [degF] [facility] 08-25-2024 09:17-0400 Body weight 97.06 kg [facility] 08-25-2024 09:17-0400 Diastolic blood pressure 90 mm[Hg] [facility] 08-25-2024 09:17-0400 Heart rate 104 /min [facility] 08-25-2024 09:17-0400 Respiratory rate 18 /min [facility] 08-25-2024 09:17-0400 SaO2% (BldA) [Mass fraction] 97 % [facility] 08-25-2024 09:17-0400 Systolic blood pressure 138 mm[Hg] [facility] 11-09-2022 12:22-0500 Body temperature 98.01 [degF] Lamberto Canseco EXPEDITER - CNM Work Phone: [facility] 11-09-2022 12:22-0500 Diastolic blood pressure 80 mm[Hg] Lamberto Canseco EXPEDITER - CNM Work Phone: [facility] 11-09-2022 12:22-0500 Heart rate 81 /min Lamberto Canseco [employer] - CNM Work Phone: [facility] 11-09-2022 12:22-0500 Respiratory rate 16 /min Lamberto Canseco [employer] CN[employer] Work Phone: [facility] 11-09-2022 12:22-0500 Systolic blood pressure 130 mm[Hg] Lamberto Canseco EXPEDITER - CNM Work Phone: [facility] Encounters Encounter Date Encounter Type Care Provider Facility Start: 04-06-2025 End: 04-06-2025 ambulatory [facility] Facility:[facility] Start: 04-01-2025 ambulatory [facility] Facility: [facility] Start: 03-24-2025 End: 03-24-2025 Departed Referred Abel Richards DO Work Phone: [facility] Start: 03-24-2025 End: 03-24-2025 Patient encounter procedure Abel Quickzio DO Work Phone: [facility] Comment on above: Pre-op examination; Menorrhagia with regular cycle; Abnormal uterine bleeding; Pelvic pain in female; PCOS (polycystic ovarian syndrome) Start: 03-24-2025 End: 03-24-2025 Preprocedural examination done Abel Susie DO Work Phone: [facility] Start: 03-24-2025 End: 03-24-2025 ambulatory ABEL SUSIE [facility] Work Phone: Start: 03-24-2025 End: 03-31-2025 External Result Encounter Abel Susie DO Work Phone: [facility] External Department Unsolicited Start: 03-24-2025 End: 03-31-2025 External Result Encounter Abel Susie DO Work Phone: [facility] External Department Unsolicited Start: 03-23-2025 End: 03-23-2025 ambulatory [facility] Facility:[facility] Start: 03-18-2025 End: 03-18-2025 ambulatory [facility] Facility:[facility] Start: 03-01-2025 End: 03-01-2025 Bamboo [...] End: 02-25-2025 Bamboo flowsheet Mathew A Felter [employer] Work Phone: [facility] Start: 02-25-2025 End: 02-25-2025 Bamboo flowsheet Mathew A Felter [employer] Work Phone: [facility] Start: 02-25-2025 End: 02-25-2025 ambulatory MATHEW A FELTER Not Available Start: 02-25-2025 End: 02-25-2025 Office outpatient visit 15 minutes Mathew A Felter [employer] Work Phone: [facility] Comment on above: Melanocytic nevus of trunk (Primary Dx); Melanocytic nevus of skin of both upper extremities; Angioma of skin; Neoplasm of unspecified behavior of bone, soft tissue, and skin Start: 02-18-2025 ambulatory Chuck Barillase Facility: [facility] Start: 01-26-2025 End: 01-26-2025 Bamboo [...] Not Available Start: 12-07-2024 End: 12-28-2024 ambulatory [place] Start: 11-12-2024 End: 11-12-2024 Bamboo flowsheet Lamberto [...] [facility] Start: 08-25-2024 End: 08-25-2024 ambulatory [facility] Work Phone: Start: 08-25-2024 End: 08-25-2024 Patient encounter procedure [facility] [place] Work Phone: Start: 04-12-[address] ABEL RICHARDS . Facili ty:[facility]1 Start: 04-04-2023 Encounter for other preprocedural examination DR ABEL RICHARDS . [facility] Start: 03-29-2023 End: 03-30-[address] ABEL RICHARDS . Facility: Start: 03-29-2023 End: 03-30-2023 Encounter for other preprocedural examination DR ABEL RICHARDS . Facility: Start: 11-07-2022 End: 11-09-2022 Evaluation and management of inpatient LAMBERTO CANSECO [facility] Start: 11-07-2022 End: 11-09-2022 Evaluation and management of inpatient Lamberto Canseco EXPEDITER - CNM Work Phone: [facility] Labor and Delivery Procedures Date Procedure Procedure Detail Performing Clinician Start: 03-24-2025 Urine test visual color cmprsn meths Abel Richards DO Work Phone: Start: 03-24-2025 PATHOLOGY REQUEST FO R LAB AMBIKA Abel Richards DO Work Phone: Start: 03-01-2025 Urnls dip stick/tabl et rgnt non-auto w/o micrscp Abel Richards DO Work Phone: Start: 02-25-2025 End: 02-25-2025 SKIN / NAIL BIOPSY Mathew Montejo APR [facility] Work Phone: Start: 11-12-2024 Microscopic observat ion [Identifier] in Cervix by Cyto stain Mathew Montejo [employer] Work Phone: Start: 08-25-2024 Quick Strep (POC) Start: 12-26-2022 Microscopic observat ion [Identifier] in Cervix by Cyto stain Jatin Unallocated Work Phone: Start: 11-08-2022 KYMBERLY Lamberto edwards [facility] Work Phone: Start: 11-08-2022 Antibody screen Lamberto Canseco [facility] Work Phone: Start: 11-07-2022 Blood count complete auto&auto difrntl wbc Lamberto Canseco [facility] Work Phone: Start: 11-07-2022 Blood typing serolog ic abo Lamberto Canseco [facility] Work Phone: Start: 11-07-2022 Drug tst prsmv instr mnt chem analyzers pr date Lamberto Canseco [employer] - [facility] Work Phone: Start: 10-11-2022 GBS, EXTERNAL RESULT Nd neemaical Provider Start: 05-15-2022 C. TRACHOMATIS, EXTE RNAL RESULT Historical Provider Start: 05-15-2022 N. GONORRHOEAE, EXTE RNAL RESULT Historical Provider Start: 05-01-2022 HEPATITIS B, EXTERNA L RESULT Historical Provider Start: 04-30-2022 ABO, EXTERNAL RESULT Hi neemaical Provider Start: 04-30-2022 HEPATITIS C ANTIBODY , EXTERNAL RESULT Historical Provider Start: 04-30-2022 HIV, EXTERNAL RESULT Nd neemaical Provider Start: 04-30-2022 RH FACTOR, EXTERNAL RESULT Historical Provider Start: 04-30-2022 RPR, EXTERNAL RESULT Hi storical Provider Start: 04-30-2022 RUBELLA TITER, EXTER NAL RESULT Historical Provider Plan of Treatment Date Care Activity Detail Author Start: 12-26-2027 Screening for malignant neoplasm of cervix [facility] Start: 11-12-2027 Screening for malignant neoplasm of cervix Pap Smear [facility] Start: 03-14-2026 End: 03-14-2026 Patient encounter procedure 03/14/2026 9:20 AM EDT Office Visit [facility] [address] [place] [phone] Mathew Montejo, [employer] [address] [place] [address] [facility] Start: 02-28-2026 End: 02-28-2026 Patient encounter procedure 02/28/2026 9:35 AM EDT Office Visit [facility] [address] [place] [phone] Mathew Montejo, [employer] [address] [place] [address] [facility] Start: 12-26-2025 Screening for malignant neoplasm of cervix Pap Smear [facility] Start: 07-26-2025 Influenza vaccination Influenza Vaccine (Season Ended) [facility] Start: 03-24-2025 End: 03-24-2025 Patient encounter procedure 03/24/2025 3:30 PM EDT Procedure Visit [facility] [address] [place] [phone] Abel Richards, [address] [place] [address] [facility] Start: 03-24-2025 End: 03-24-2026 DHEA DHEA Lab Routine PCOS (polycystic ovarian syndrome) Expected: 03/24/2025 (Approximate), Expires: 03/24/2026 [facility] Comment on above: Expected: 03/24/2025 (Approximate), Expi res: 03/24/2026 Start: 03-24-2025 [facility] Start: 03-01-2025 End: 03-01-2025 Patient encounter procedure [facility] Comment on above: DUB (dysfunctional uterine bleeding) Start: 01-26-2025 End: 01-26-2025 Patient encounter procedure 01/26/2025 1:15 PM EST Office Visit [facility] [address] [place] [phone] Lamberto Canseco, RIRIM [address] [place] [address] Arrived [facility] Comment on above: Arrived Start: 12-07-2024 End: 12-07-2024 Patient encounter procedure 12/07/2024 1:10 PM EST Office Visit [facility] [address] [place] [phone] Mathew Montejo [employer] [address] [place] [address] [facility] Start: 11-12-2024 End: 11-12-2025 Lipid 1996 panel - Serum or Plasma Lipid panel Lab Routine Normal gynecologic examination Expected: 11/12/2024 (Approximate), Expires: 11/12/2025 [facility] Comment on above: Expected: 11/12/2024 (Approximate), Expi res: 11/12/2025 Start: 11-12-2024 End: 11-12-2025 THINPREP IMAGING PAP AND HPV DNA REFLEX HPV 16,18 THINPREP IMAGING PAP AND HPV DNA REFLEX HPV 16,18 Pathology and Cytology Routine Screening for cervical cancer Expected: 11/12/2024 (Approximate), Expires: 11/12/2025 [facility] Work Phone: Comment on above: Expected: 11/12/2024 (Approximate), Expi res: 11/12/2025 Start: 11-12-2024 End: 11-12-2025 US Pelvis transvaginal US pelvis transvaginal Imaging Routine DUB (dysfunctional uterine bleeding) Expected: 11/12/2024, Expires: 11/12/2025 [facility] Comment on above: Expected: 11/12/2024, Expires: Start: 11-12-2024 End: 11-12-2024 Patient encounter procedure 11/12/2024 10:30 AM EST Office Visit [facility] [address] [place] [address] Lamberto Canseco CNM [address] [place] [address] Arrived [facility] Comment on above: Arrived Start: 07-26-2024 Influenza vaccination Influenza Vaccine (#1) [facility] Start: 06-25-2022 Influenza vaccination Flu vaccine (#1) [facility] Start: 2009 DTaP/Tdap/Td vaccine (1 - Tdap) DTaP/Tdap/Td vaccine (1 - Tdap) [facility] Start: 03-23-1991 COVID-19 Vaccine (#1) COVID-19 Vaccine (#1) [facility] Biopsy endometrium Biopsy endome trium Procedures Routine Pre-op examination Menorrhagia with regular cycle Abnormal uterine bleeding Ordered: 03/24/2025 [facility] Work Phone: Comment on above: Ordered: 03/24/2025 CBC panel - Blood by Automated count CBC Lab Routine Normal gynecologic examination Ordered: 11/12/2024 [facility] Comment on above: Ordered: 11/12/2024 Comprehensive metabo lic 2000 panel - Serum or Plasma Comprehensive metabolic panel Lab Routine Normal gynecologic examination Ordered: 11/12/2024 [facility] Comment on above: Ordered: 11/12/2024 Dermatopathology exam Dermatopat hology exam Pathology and Cytology Timed Neoplasm of unspecified behavior of bone, soft tissue, and skin Release Upon Ordering for 1 Occurrences starting 02/25/2025 [facility] Work Phone: Comment on above: Release Upon Ordering for 1 Occurrences starting 02/25/2025 DHEA-sulfate DHEA-sulfate Lab Routine PCOS (polycystic ovarian syndrome) Ordered: 03/24/2025 [facility] Comment on above: Ordered: 03/24/2025 Estradiol Estradiol Lab Ro utine Pre-op examination Menorrhagia with regular cycle Abnormal uterine bleeding PCOS (polycystic ovarian syndrome) Ordered: 03/24/2025 [facility] Comment on above: Ordered: 03/24/2025 Follicle stimulating hormone Follicle stimulating hormone Lab Routine PCOS (polycystic ovarian syndrome) Ordered: 03/24/2025 [facility] Comment on above: Ordered: 03/24/2025 Hemoglobin A1c/Hemoglobin.total in Blood Hemoglobin A1c Lab Routine DUB (dysfunctional uterine bleeding) Ordered: 03/01/2025 [facility] [employer] Work Phone: Comment on above: Ordered: 03/01/2025 Luteinizing hormone Luteinizing hormone Lab Routine PCOS (polycystic ovarian syndrome) Ordered: 03/24/2025 [facility] [employer] Comment on above: Ordered: 03/24/2025 Progesterone Progesterone Lab Routine Pre-op examination Menorrhagia with regular cycle Abnormal uterine bleeding PCOS (polycystic ovarian syndrome) Ordered: 03/24/2025 [facility] [employer] Comment on above: Ordered: 03/24/2025 End: 11-08-2022 Surgical Pathology Surgical Pathology Lab Routine One Time for 1 Occurrences starting 11/08/2022 until 11/08/2022 [employer] Phone: Comment on above: One Time for 1 Occurrences starting 10/25 until 11/08/2022 End: 11-08-2022 SURGICAL PATHOLOGY REPORT SURGICAL PATHOLOGY REPORT Lab Routine Once for 1 Occurrences starting 11/08/2022 until 11/08/2022 [employer] Phone: Comment on above: Once for 1 Occurrences starting 11/08/20 until 11/08/2022 Thyrotropin [Units/volume] in Serum or Plasma TSH Lab Routine Normal gynecologic examination Menorrhagia with regular cycle Ordered: 11/12/2024 [facility] [employer] Comment on above: Ordered: 11/12/2024 [facility] Immunizations Immunization Date Immunization Notes Care Provider Ynes giles 11-08-2022 RHO(D) immune globulin - IM Lamberto Canseco APRN - ELIAS Work Phone: [employer] Phone: 11-08-2022 measles, mumps and rubella virus vaccine Lamberto Canseco APRN - CNM Work Phone: [facility] [employer] [facility] Work Phone: 03-15-2022 RHO(D) immune globulin- IV or IM Lamberto Floro CNM Work Phone: [facility] 05-12-2020 RHO(D) immune globulin- IV or IM Lamberto Floro CNM Work Phone: [facility] 03-14-2020 tetanus toxoid, reduced diphtheria toxoid, and acellular pertussis vaccine, adsorbed Lamberto Floro CNM Work Phone: [facility] 12-16-2018 RHO(D) immune globulin- IV or IM Lamberto Floro CNM Work Phone: [facility] NEGATED: Highlighted row has not occurred!11-09-2022 tetanus toxoid, reduced diphtheria toxoid, and acellular pertussis vaccine, adsorbed Lamberto Floro EXPEDITER - CNM Work Phone[facility] Payers Date Payer Category Payer Unknown caremark rx 2024 Unknown UNKNOWN 2024 Medicaid (Managed Care) [facility] [employer] [id number] 2023 [facility] er [id number] 2023 Unknown [id number] 2023 Private Health Insurance [facility] MEDICAID [id number] 2021 [employer] ( and others) [id number] [id number] .[id number] 1990 Unknown [id number] 2.16.840.1.868024.3.579.2 .173 1990 Unknown [id number] 2.16.840.1.859078.3.579.2 .593 1990 Unknown [id number] 2.16.840.1.237962.3.579.2 .593 1990 Unknown [id number] 2.16.840.1.347203.3.579.2 .1259 1990 Unknown [id number] 2.16.840.1.188757.3.579.2 .1259 1990 Unknown [id number] 2.16.840.1.890929.3.579.2 .1259 1990 Unknown [id number] 2.16.840.1.313419.3.579.2 .1259 1990 Unknown [id number] 2.16.840.1.982770.3.579.2 .1259 1990 Unknown [id number] 2.16.840.1.778774.3.579.2 .1259 1990 Unknown [id number] 2.16.840.1.934975.3.579.2 .718 1990 Unknown [id number] 2.16.840.1.688548.3.579.2 .718 1990 Unknown [id number] 2.16.840.1.155722.3.579.2 .718 1990 Unknown [id number] 2.16.840.1.460484.3.579.2 .718 1990 Unknown [id number] 2.16.840.1.793954.3.579.2 .718 1990 Unknown [id number] 2.16.840.1.674105.3.579.2 .718 1959 Medicaid [id number] [id number] .7.3.221561.315 1959 Private Health Insurance [id number] Social History Date Type Detail Facility Tobacco smoking stat [facility] Tobacco smoking consumption unknown [facility] Phone: Start: 1990 Sex Assigned At Not on file [facility] Phone: Start: 10-28-2022 End: 11-07-2022 Exposure to SARS-CoV-2 (event) Not sure [facility] Phone: Start: 1990 Sex Assigned At Female F [facility] Start: 12-19-2023 Tobacco smoking stat [facility] Never smoked tobacco [facility] Start: [...] to any clubs or organizations such as protestant groups, unions, fraternal or athletic groups, or [...] [facility] Start: 03-26-2025 Sex Female (finding) [facility] NEGATED: Highlighted rowStart: NINF History of tobacco [...] including vitamins, herbs, eye drops, creams, and kqiv-xom-dvobhsy medicines. ? Any bleeding problems you have. [...] care provider tells you to. ? Taking wixc-qlb-awnqwzf medicines, vitamins, herbs, and supplements. Tests ? [...] away. Call 911. (more content not included)... [facility] 04-01-2025 Note PROCEDURE: US Inject [...] Brandon Church MD 04/01/25 10:10 a Technologist: [facility] 03-29-2025 Note Radiology Sclerotherapy Sclerotherapy is [...] including vitamins, herbs, eye drops, creams, and ewvp-lmh-xhmnehr medicines. ? Any bleeding problems you have. [...] care provider tells you to. ? Taking esyp-rac-rsfayby medicines, vitamins, herbs, and supplements. Tests ? [...] away. Call 911. (more content not included)... [facility] 03-24-2025 History of Present illness Narrative Reason for Appointment: Patient ID: Stephanie Palencia is a 34 y.o. female who presents for Pre-op Visit and Endometrial Biopsy Patient presents today for Pre Op/Endometrial Biopsy appointment. Patient is scheduled to undergo Endometrial Ablation with Anneliese on 04/22/[address] Richards at [facility]. MEDICATIONS No current outpatient medications ALLERGIES [...] nursing note reviewed. Exam conducted with a crystallography teacher present. Vitals: Estimated body mass index is [...] reviewed, and patient is to proceed to [facility] OR. Follow Up: Patient is to follow up between 1-2 weeks post op to assess proper healing and recovery from procedure. Documented by Brittani Grossman LPN on behalf of: Abel Richards DO documented in this encounter [facility] 03-23-2025 Note Sclerotherapy Sclerotherapy is a procedure [...] including vitamins, herbs, eye drops, creams, and zryu-jbg-vloitcg medicines. ? Any bleeding problems you have. [...] care provider tells you to. ? Taking amxg-fmn-znicyvq medicines, vitamins, herbs, and supplements. Tests ? [...] Do not wa (more content not included)... [facility] 03-18-2025 Note PROCEDURE: US Inject [...] Omar Marin MD 03/18/25 2:39 pm Technologist: [facility] 03-01-2025 History of Present illness Narrative Reason for Appointment: Patient ID: Stpehanie Palencia is a 34 y.o. female who [...] nursing note reviewed. Exam conducted with a crystallography teacher present. Vitals: Estimated body mass index is [...] Abel Richards DO documented in this encounter [facility] 02-25-2025 Note Procedures Endovenous Ablation Endovenous ablation [...] including vitamins, herbs, eye drops, creams, and uluy-dla-jkqepls medicines. ? Any problems you or family [...] tells you to take them. ? Taking dbvz-oap-ujknrgo medicines, vitamins, herbs, and supplements. General instructions [...] These stockings help (more content not included)... [facility] 02-25-2025 History of Present illness [...] year, skin check documented in this encounter [facility] 02-18-2025 Note Procedures Endovenous Ablation, Care After [...] and water are not available, use hand marketing systems manager. ? Change your dressing as told by [...] are sitting or lying down. ? Take chfn-ztl-yqmwwpi and prescription medicines only as told by [...] provider. Document Revised: 04/19/2022 Document Reviewed: 04/19/2022 [employer] Patient Education ? 2023 [facility] History of Present illness Narrative PROBLEM VISIT Stephanie Palencia is 34 y.o. a patient of [facility] Here for Last pap: 11/12/24 Last mammogram: [...] Patient Instructions on file for this visit. 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 She has a new PCP at [facility] and she is being worked up for [...] 11/12/2024 10:40 AM documented in this encounter [facility] 10-28-2024 Telephone encounter Note Stephanie returned your call to make an appt . She is at work but will try to answer. [facility] 10-28-2024 Miscellaneous Notes Stephanie returned your call to make an appt . She is at work but will try to answer. documented in this encounter [facility] 10-26-2024 Telephone encounter Note Pt would like to schedule with Lisa for her yearly, but is having issues with pain and would like to be seen sooner. Please return call to [phone] [facility] 10-26-2024 Miscellaneous Notes Pt would like to schedule with Lisa for her yearly, but is having issues with pain and would like to be seen sooner. Please return call to [phone] documented in this encounter [facility] 11-09-2022 History of Present illness Narrative Discharge [...] is what is in the unit omnicell. Robotics Testing Technician talked to Lisa Canseco CNM, stated okay to switch order to the 2.5%. Department of Obstetrics and Gynecology Progress Note SUBJECTIVE: patient feeling more discomfort from contractions and would like some pain medication OBJECTIVE: Vitals: 11/07/22 2230 11/07/22 2300 11/07/22 2330 11/08/22 0000 Resp: Temp: 97.5 F (36.4 C) TempSrc: Oral heart rate: Baseline Heart Rate: 130 Accelerations: present Space Control Agent Variability: moderate Decelerations: absent Contraction frequency: irregular [...] rate: Baseline Heart Rate: 130 Accelerations: present Space Control Agent Variability: moderate Decelerations: absent Contraction frequency: 3-5 minutes Membranes: Intact Cervix: Dilation: 3-4/90/-2 stretchy and very soft Effacement: 90 Station: -2 Position: mid ASSESSMENT & PLAN: Admit for routine labor and delivery Pitocin augmentation Cord blood banking Anticipate documented in this encounter [facility] [employer] Work Phone: 11-09-2022 Hospital course Narrative Vaginal Delivery Discharge Summary Gestational Age:39w6d Antepartum complications: none Date of Delivery: Information for the patient's : Slime, Baby Girl Stephanie [[id number]] 11/08/2022 Type of Delivery: Vaginal Labs: CBC [...] Rod MD documented in this encounter [facility] [facility] [employer] Work Phone: 11-09-2022 Hospital Discharge instructions Re Marie RN - 11/09/2022 9:54 AM EST Follow-up with your OB doctor as specified. [facility] OB Department phone: Dr. Marcel Duron [facility] Dr. Graham Griffin [facility] [address] [facility] [address] [address] [place] [address] Graham Romo [facility] [address] [id number] [phone] Lisa Canseco, MSN, EXPEDITER, CNM [facility] [address] [address] Stephany Lucas CN [address] [place] [address] [place] [address] Monique Delacruz CN [address] [place] [address] [place] [address] [phone] DIET Eat a well balanced diet focusing on foods high in fiber and protein. Drink plenty of fluids especially water. To avoid constipation you may take a mild stool softener as recommended by your doctor or evaluation specialist. ACTIVITY Gradually increase your activity. Resume exercise regimen only after advice by your doctor or evaluation specialist. Avoid lifting anything heavier than a gallon of milk for SIX weeks. Avoid driving until your doctor or evaluation specialist has given their approval. Rise slowly from [...] medications as recommended by your doctor or evaluation specialist for pain If you develop a warm, [...] vitamins as directed by your doctor or evaluation specialist. Refer to the booklet in the folder/binder for more information. If you feel you need more assistance or have questions, please call Betsy Rodriguez IBCLC, web development consultant, at or the OB department to [...] they become loose or soiled. If used, Spe[place]k should be removed by your care provider. [...] Can Expect With a New Baby: Video (Angolan)5 Ways to Prepare for : Video (Angolan)Caring for Yourself After Vaginal Delivery: Video (Angolan) (Angolan)documented in this encounter [employer] Work Phone: Evaluation note Diagnosis Term - Primary (normal spontaneous vaginal delivery) Normal delivery documented in this encounter [employer] Work Phone: evaluation noteNo assessment information available [facility] Work Phone: Evaluation note* Diagnosis Menorrhagia with [...] and content) DATE CREATED AUTHOR 10/18/2022 [facility] dical Specialist DATE CREATED AUTHOR AUTHOR'S ORGANIZ ATION 11/14/2022 [facility] DATE CREATED AUTHOR AUTHOR'S ORGANIZ ATION 04/10/2023 [facility] DATE CREATED AUTHOR AUTHOR'S ORGANIZ ATION 12/29/2024 [place] DATE CREATED AUTHOR AUTHOR'S ORGANIZ ATION 03/05/2025 [facility] DATE CREATED AUTHOR AUTHOR'S ORGANIZ ATION 03/29/2025 [facility] dical Specialists EPIC DATE CREATED AUTHOR AUTHOR'S ORGANIZ ATION 04/02/2025 [facility] DATE CREATED AUTHOR AUTHOR'S ORGANIZ ATION 04/07/2025 [facility] Reason for Visit (unrecogniz ed section and content) Reason Comments Contractions Specialty Diagnoses / Procedures Referred By Contac t Referred To Contact Diagnoses Term Lamberto Canseco, EXPEDITER - RIRIM [address] [place] [address] [facility] [id number] [place] [address] Referral ID Status Reason Start Date Expiration Date Visits Re quested Visits Authorized [id number] 1 Reason Comments Gynecologic Exam Reason Comments Menstrual Problem Reason Comments Skin Check Reason Comments Vaginal Bleeding Specialty Diagnoses / Procedures Referred By Contac t Referred To Contact Obstetrics and Gynecology Diagnoses DUB (dysfunctional uterine bleeding) Procedures DC OFFICE/OUTPATIENT [facility] 60 MINUTES Lamberto Canseco, CNM [address] [place] [address] Phone: tel: fax: Abel Richards, [address] [place] [address] Phone: tel: fax: Referral ID Status Reason Start Date Expiration Date V isits Requested Visits Authorized [id number] Closed Specialty Services Required 01/26/2025 07/25/2025 1 [...] every 2-3 minutes with cervical changes or Wallace units (MVU) greater than 200 in a [...] August 25, 2024 End: August 25, 2024 Railways Assistant Relationship Specialty Start Date End Date Unallocated, [facility] Provider, [address] [place], [place] [id number] PCP - General Family Medicine 10/26/24 Mirella Thibodeaux NP [address] [place] [address] Nurse Practitioner Family Medicine 10/26/24 Lamberto Canseco CNM [address] [place] [facility] [place] [address] Obstetrics and Gynecology 10/26/24 Railways Assistant Relationship Specialty Start Date End Date Unallocated, Jatin Perez MD [address] [place] [address] PCP - General Family Medicine 10/26/24 Mirella Thibodeaux NP [address] [facility] [place] [address] Nurse Practitioner Family Medicine 10/26/24 Lamberto Canseco CNM [address] [facility] [place] [address] Obstetrics and Gynecology 10/26/24 Railways Assistant Relationship Specialty Start Date End Date Unallocated, Jatin Perez MD [address] [place] [address] PCP - General Family Medicine 10/26/24 Mirella Thibodeaux NP [address] [facility] [place] [address] Nurse Practitioner Family Medicine 10/26/24 Lamberto Canseco CNM [address] [facility] [place] [address] Obstetrics and Gynecology 10/26/24 Railways Assistant Relationship Specialty Start Date End Date Unallocated, Jatin Perez MD [address] [place] [address] PCP - General Family Medicine 10/26/24 Mirella Thibodeaux NP [address] [facility] [place] [address] Nurse Practitioner Family Medicine 10/26/24 Lamberto Canseco CNM [address] [place] [address] Obstetrics and Gynecology 10/26/24 Railways Assistant Relationship Specialty Start Date End Date Unallocated, Jatin Perez MD [address] [place] [address] PCP - General Family Medicine 10/26/24 Mirella Thibodeaux NP [address] [place] [address] Nurse Practitioner Family Medicine 10/26/24 Lamberto Canseco CNM [address] [place] [facility] [place] [address] Obstetrics and Gynecology 10/26/24 Railways Assistant Relationship Specialty Start Date End Date Unallocated, Jatin Perez MD [address] [place] [address] PCP - General Family Medicine 10/26/24 Mirella Thibodeaux NP [address] [place] [address] Nurse Practitioner Family Medicine 10/26/24 Lamberto Canseco CNM [address] [place] [address] Obstetrics and Gynecology 10/26/24 Railways Assistant Relationship Specialty Start Date End Date Unallocated, Jatin Perez MD [address] [place] [address] PCP - General Family Medicine 10/26/24 Mirella Thibodeaux NP [address] [place] [address] Nurse Practitioner Family Medicine 10/26/24 Lamberto Canseco CNM [address] [place] [address] Obstetrics and Gynecology 10/26/24 Railways Assistant Relationship Specialty Start Date End Date Unallocated, [facility] ProviderMD [address] [place] [address] PCP - General Family Medicine 10/26/24 Mirella Thibodeaux NP [address] [place] [address] Nurse Practitioner Family Medicine 10/26/24 Lamberto Canseco CNM [address] [place] [address] Obstetrics and Gynecology 10/26/24 Team Status: Inactive Member Role Status Dates Abel Richards DO Attending Provider Active Start : March 24, 2025 End: March 24, 2025 Railways Assistant Relationship Specialty Start Date End Date Unallocated, Jatin Perez MD [address] [place] [address] PCP - General Family Medicine 10/26/24 Mirella Thibodeaux NP [address] [place] [address] Nurse Practitioner Family Medicine 10/26/24 Lamberto Canseco CNM [address] [place] [address] Obstetrics and Gynecology 10/26/24 Goals (unrecognized section [...] BE BASED ON THE PRIMARY CLINICAL RECORDS. [facility] [email or web address] [facility]. provides no warranty or guarantee of the accuracy or completeness of information in this document.
[2025-04-12 10:35] VITALS: BP 125/71; PULSE 70; TEMP 36.3; O2SAT 98; BMI 35.9
[2025-04-22] VITALS (9 sets, daily range): BP systolic 132–156; BP diastolic 87–102; PULSE 65–89; TEMP 36.1–36.6; O2SAT 96–99; BMI 35.9
--- OUTSIDE RECORDS SUMMARY | 2025-04-22 06:14 | XMS_ITS | Continuity of Care Document ---
Author Name [facility] Organization [facility] Care Team Providers Care Factory Representative Name Role Phone [facility] Unavailable Unavailable Medications Combined list of outpatient medications from Department of Defense and Veterans Affairs facilities.Medications provided include 1) outpatient medications from the last 15 months, and 2) patient-reported medications. Medication Details Route Status Patient Instructions Prescription Expires Prescription Number Last Dispense Date Ordering Provider Order Date Order Qty Source Multivitami ns with Folic Acid 0.8 mg oral tablet TAKE 1 TABLET BY MOUTH DAILY, # 100 EA, 3 total refill(s ), Acute Complet ed 09/25/2023 2 2022 100.0 Ambulat ory Pharmac y Allergies, Adverse Reactions, Alerts Combined list of allergies from Department of Defense and Veterans Affairs facilities. It does not include entries that were removed or entered in error. Substance Category Reaction Severity Reaction type Status Date Reported Comments Source No Known Allergies Drug allergy (disorder) active 2 Jhonathan Joel [place] Encounters Combined list of: 1) Encounters from Department of Veterans Affairs facilities going backup to the last 18 months, not all [place] inpatient encounters are included; 2) Encounters from the Department of Defense facilities going backup to 280 months. Location Location Details Encounter Type Encounter Number Reason For Visit Attending Provider ADM Date DC Date Status Disposition Source Jhonathan [place] [place] OUTPATIENT [id number] [email or web address] KAREEM CHOWTHEVICTOR HUGO 06/09 Released w/o Limitations [place]) [place] OUTPATIENT [id number] WELL WOMAN WITH PAP/ CASANDRA KAREEM CHOWTHEVICTOR HUGO 07/07 Released w/o Limitations [facility] [place] [place] [place] [facility] [place]([facility]) TELE CONSULT [id number] Notes Entered by: oCmpa GALAN 21 Jul 2021 1537 ------- ------- ------- ------- -- GERALD secure message /referr al request ETIENNE DANIEL 07/21 Referred for Appointment [facility], [facility] [place]([facility] Family) [facility], [place](Opsurg e Multi-Spe cialty Cl) TELE CONSULT [id number] Notes Entered by: Luis SMALL 23 Jul 2021 1057 ------- ------- ------- ------- -- C-19 TRIAGE ANSLEY CAMPBELL 07/23 Referred for Appointment [facility], [place](Opsu rge Multi-S pecialt y Cl) [facility], [place]([facility] Family) OUTPATIENT [id number] / REFERRA L REQUEST /RANDY FERMIN 07/26 Released w/o Limitations [facility] [place] [place]([facility]) [facility], [place]([facility] M[facility] Family) TELE CONSULT [id number] Notes Entered by: DAJUAN DELCID 12 Sep 2021 1425 ------- ------- ------- ------- -- NETWORK RESULTS , RANDY CHOW 09/12 [facility], [place]([facility] Family) [facility], [place](Orthop edic Appliance ) OUTPATIENT [id number] Notes Entered by: JACK ALEMAN 12 Oct 2021 1527 ------- ------- ------- ------- -- DERRICK SINGLETARY 10/12 Released w/o Limitations [facility], [place] [place]([facility] opedic Applian ce) [facility], [place]([facility]) TELE CONSULT [id number] Notes Entered by: PHI TAYLOR 19 Apr 2022 0845 ------- ------- ------- ------- -- ANGEL WHITAKER 04/19 Other Not Elsewhere Classified [facility], Jhonathan bell, [facility]HELLE(Ob/G yn Clinic) [facility], [place]([facility]) OUTPATIENT [id number] FEBRUARY 02 ANTONY HERNÁNDEZ 04/27 Released w/o Limitations [facility], [facility]([facility]n [facility]) [facility], [place]([facility]) TELE CONSULT [id number] Notes Entered by: THOM MCGOVERN 01 May 2022 1449 ------- ------- ------- ------- -- +antibo dy screen THOM MCGOVERN 05/01 [facility], Jhonathan bell, MICHELLE(Ob/G yn Clinic) [facility], [place]([facility]) TELE CONSULT [id number] Notes Entered by: ALISA CRUZ 02 May 2022 0902 ------- ------- ------- ------- -- GERALD ANSLEY Lorenzo 05/02 Advice Assessment [facility], Jhonathan [place], [facility]HELLE(Ob/G yn Clinic) [facility], [place]([facility]) OUTPATIENT [id number] RAJINDER DUKE ABNER 09 NOV 2022 14+4WKS MOHAMUD SALAS 05/15 Released w/o Limitations [facility], [employer] [place]([facility]) [facility], [place]([facility]) TELE CONSULT [id number] Notes Entered by: ALISA CRUZ 17 May 2022 1000 ------- ------- ------- ------- -- GERALD message MOHAMUD SALAS Roslyn 05/17 [facility], Jhonathan [place]abel l, MICHELLE(Ob/G yn Clinic) [facility], [place](L & D Outpatien t) TELE CONSULT [id number] Notes Entered by: ANNE REBOLLEDO 01 Jun 20222056 ------- ------- ------- ------- -- Lab results MOHAMUD SALAS Roslyn 06/02 [facility], Jhonathan [place], MICHELLE(L & D Outpati ent) [facility], [place]([facility]) OUTPATIENT [id number] LEILANI ABNER [id number] (18+0 INTII) JAVAN BACA 06/08 Released w/o Limitations [facility], Jhonathan [place], MICHELLE(Ob/G yn Clinic) [facility], [place]([facility]) TELE CONSULT [id number] Notes Entered by: LIBBY COVARRUBIAS 13 Jun 2022 0933 ------- ------- ------- ------- -- GERALD message ARNOLD COVARRUBIAS 06/13 Other Not Elsewhere Classified [facility], [employer] [facility], [place](L & D Outpatien t) TELE CONSULT [id number] Notes Entered by: JAVAN MENDEZ 18 Jun 2022 1908 ------- ------- ------- ------- -- Needs quad screen ordered LUCITA BACAGH Yu 06/19 [facility], Jhonathan bell, MICHELLE(L & D Outpati ent) [facility], [place](L & D Outpatien t) TELE CONSULT [id number] Notes Entered by: ANNE REBOLLEDO 30 Jun 2022 1212 ------- ------- ------- ------- -- MFM consult and report MOHAMUD SALAS 06/30 [facility], Jhonathan bell, MICHELLE(L & D Outpati ent) [facility], [place]([facility]) OUTPATIENT [id number] LEILANI 21 03/01WKS ABNER 09 NOV 2022 BRONSON MARX 07/03 Released w/o Limitations [facility], Jhonathan bell, MICHELLE(Ob/G yn Clinic) [facility], [place]([facility]) TELE CONSULT [id number] Notes Entered by: ANNE REBOLLEDO 03 Jul 2022 1536 ------- ------- ------- ------- -- Lab results MOHAMUD SALAS 07/03 [facility], Jhonathan bell, MICHELLE(Ob/G yn Clinic) [facility], [place] [place]([facility] OUTPATIENT [id number] 25 5 LEILANI ABNER 09 Nov 2022 LELAND JO 08/01 Released w/o Limitations [facility], Jhonathan Lunabel l, [place]HELLE(Ob/G yn Clinic) [facility], [place]([facility]) TELE CONSULT [id number] Notes Entered by: ANNE REBOLLEDO 15 Aug 2022 0123 ------- ------- ------- ------- -- MFM Report MOHAMUD SALAS Roslyn 08/15 [facility], [employer]) [facility], [employer] [place]([facility]) TELE CONSULT [id number] Notes Entered by: EYAL SPAIN 15 Aug 2022 1222 ------- ------- ------- ------- -- Lab results LELAND JO 08/15 [facility], [employer]) [facility] OUTPATIENT [id number] LEILANI 28WKS ABNER 09 NOV 2022 BRENDA LÓPEZ 08/17 Released w/o Limitations [facility], [employer]) [facility], [employer], [place]HEL[place]([facility] M[facility]C Family) TELE CONSULT [id number] Notes Entered by: KIYA KAUR 24 Aug 2022 0813 ------- ------- ------- ------- -- LILIA SHELTON 08/24 [facility], [employer] [place]) [facility] OUTPATIENT [id number] Spraine d ankle LINDSAY HELLER 08/28 Released w/o Limitations [facility], [employer] [place]) [facility] [place] [place](Orthop edic Appliance ) OUTPATIENT [id number] Sprain of calcane ofibula r ligamen t of left ankle, initial encount er BRIAN BRONWING 08/29 Released w/o Limitations [facility], [employer], [place](Orth opedic Applian ce) [facility], Jhonathan [place]([facility]) TELE CONSULT [id number] Notes Entered by: ANNE REBOLLEDO 06 Sep 2022 1604 ------- ------- ------- ------- -- MFM report and plan MOHAMUD SALAS 09/06 [facility], Jhonathan Lansingsaleem [place](Ob/G yn Clinic) [facility], [facility] V[place]([facility]) OUTPATIENT [id number] 1 33 5/7 WKS ABNER 16 DEC OUT OF TOWN FOR 28WK MORIAH EDVIN HANKS 09/26 Released w/o Limitations [facility], [place]honathan [place]([facility]n Clinic) [facility], [place]([facility] M01C Family) OUTPATIENT [id number] F2F/ F/U FRACTUR E L FIBULA/ GURINDER CHARLTON 09/26 Released w/o Limitations [facility], Jhonathan [place]([facility] M[facility] Family) [facility], [facility] [place]([facility]) TELE CONSULT [id number] Notes Entered by: ANNE REBOLLEDO 03 Oct 2022 2104 ------- ------- ------- ------- -- MFM report and plan MOHAMUD SALAS 10/04 [facility], [place]honathan [place](Ob/G yn Clinic) Procedures Combined list of: 1) Procedures from Department of Veterans Affairs facilities going back up to thelast 18 months, not all VA non-surgical procedures are included; 2) All procedures from the Department of Defense facilities. Procedure Procedure Type Code Date Perfomer Comments Sourc e Psychiatric Evaluation Comprehensive Examination Psychiatric Evaluation Comprehensive Examination 19726 BRAYAN COHEN DoD Waiver services; not otherwise specified (NOS) RANDY CHOW Physical Therapy Education Orthotics Training Physical Therapy Education Orthotics Training 54247 DERRICK EUBANKS DoD Gradient compre ion stocking, thigh length, 18-30 mm Hg, each DERRICK EUBANKS Gradient compre ion stocking, waist length, 18-30 mm Hg, each DERRICK EUBANKS OB Services Antepartum Care Only First Visit, With Report OB Services Antepartum Care Only First Visit, With Report 0500F MOHAMUD SALAS [facility] OB Services Antepartum Care Only Subsequent Single Visit OB Services Antepartum Care Only Subsequent Single Visit 0502F JAVAN BACA Dr. Supervised Injection Intramuscular Supervised Injection Intramuscular 56721 ANGEL MENDOZA Rho D Immune Globulin (Human) Intramuscular Use Full-dose Rho D Immune Globulin (Human) Intramuscular Use Full-dose 20811 ANGEL MENDOZA [facility] Case Management, each 15 minutes LILIA VIGIL Walking boot, non-pneumatic, with or without joints, with or without interface material, prefabricated item that has been trimmed, bent, molded, a embled, or otherwise customized to fit a specific patient by an individual with expertise BRIAN BROWNING [facility] SUBSEQ CARE VISIT () [EXCLS:PATIENTS WHO ARE SEEN FOR A CONDITION UNREL TO /PRENATA L CARE (EG,AN UP RESPIR INFECT;PATIENTS SEEN FOR CONSULTATION ONLY,NOT FOR CONT CARE)] 09/26/20 [facility] ORTHOTIC(S) MANAGEMENT AND TRAINING (INCLUDING ASSESSMENT AND FITTING WHEN NOT OTHERWISE REPORTED),UPPER EXTREMITY(IES),LO WER EXTREMITY(IES) AND/OR TRUNK,INITIAL ORTHOTIC(S) ENCOUNTER,EACH 15 MINUTES 08/29/20 [facility] CASE MANAGEMENT, EACH 15 MINUTES 08/24/20 [facility] SUBSEQ CARE VISIT () [EXCLS:PATIENTS WHO ARE SEEN FOR A CONDITION UNREL TO /PRENATA L CARE (EG,AN UP RESPIR INFECT;PATIENTS SEEN FOR CONSULTATION ONLY,NOT FOR CONT CARE)] 08/17/20 [facility] SUBSEQ CARE VISIT () [EXCLS:PATIENTS WHO ARE SEEN FOR A CONDITION UNREL TO /PRENATA L CARE (EG,AN UP RESPIR INFECT;PATIENTS SEEN FOR CONSULTATION ONLY,NOT FOR CONT CARE)] 08/01/20 [facility] SUBSEQ CARE VISIT () [EXCLS:PATIENTS WHO ARE SEEN FOR A CONDITION UNREL TO /PRENATA L CARE (EG,AN UP RESPIR INFECT;PATIENTS SEEN FOR CONSULTATION ONLY,NOT FOR CONT CARE)] 07/03/20 [facility] SUBSEQ CARE VISIT () [EXCLS:PATIENTS WHO ARE SEEN FOR A CONDITION UNREL TO /PRENATA L CARE (EG,AN UP RESPIR INFECT;PATIENTS SEEN FOR CONSULTATION ONLY,NOT FOR CONT CARE)] 06/08/20 [facility] ULTRASOUND, UTERUS, REAL TIME WITH IMAGE DOCUMENTATION, LIMITED (EG, HEART BEAT, PLACENTAL LOCATION, POSITION AND/OR QUALITATIVE AMNIOTIC FLUID VOLUME), 1 OR MORE FETUSES 05/15/20 [facility] GRADIENT COMPRESSION STOCKING, WAIST LENGTH, 18-30 MMHG, EACH 10/12/20 DoD WAIVER SERVICES; NOT OTHERWISE SPECIFIED (NOS) 07/26/20 [facility] SCREENING PAPANICOLAOU SMEAR; OBTAINING, PREPARING AND CONVEYANCE OF CERVICAL OR VAGINAL SMEAR TO LABORATORY 07/07/20 [facility] WAIVER SERVICES; NOT OTHERWISE SPECIFIED (NOS) 06/09/20 [facility] PSYCHIATRIC DIAGNOSTIC EVALUATION 05/03/20 [facility] No data available for this section Ambulato ry Pharmacy Social History Combined list of available smoking, tobacco, and other social history from Department of Defense and Veterans Affairs facilities. Social History Type Response Date Comment Sourc e This section is an empty social history section. DoD Assessment and Plan Combined list of future care activities from Department of Defense and Veterans Affairs facilities (e.g., assessment and plan notes, appointments, orders, and referrals). Additional future care activities may be listed in the Plan of Care section. Result Assessment and Plan Date Source Assessment and Plan No data available for this section 04/22/2025 Ambulatory Pharmacy Functional Status Combined list of recent functional and cognitive assessments recorded at Department of Defense and Veterans Affairs (VA).VA Functional [place] Measurement (FIM) Scale: 1 = Total Assistance (Subject = 0% +), 2 = Maximal Assistance (Subject = 25% +), 3 = Moderate Assistance (Subject = 50% +), 4 = Minimal Assistance (Subject = 75% +), 5 = Supervision, 6 = Modified [place] (Device), 7 = Complete [place] (Timely, Safely). Assessment Date/Time Source Assessment Type Assessment Skill Assessment Score Assessment Details No data available for this section
--- OUTSIDE RECORDS SUMMARY | 2025-04-22 06:15 | XMS_ITS | Clinical Summary ---
Author Organization [facility] [facility] Address [id number] [address] [place] [address] Care Team Providers Care Corporate Logistics Manager Name Role Phone No Pcp, No Pcp Primary Care Provider Unavailabl e Allergies Active Allergy Reactions Criticality Noted Date Comments Dye 11/20/2016 IVP dye Medications vit,cynthia 74/iron/folic ( VITAMIN 1+1 ORAL) Take 1 tablet by mouth once daily. Active Active Problems Problem Noted Date Diagnosed Date Normal labor 03/10/2019 Thrombocytopenia affecting 01/27/2019 Overview (01/27/2019): Does not want an epidural Echogenic focus of heart of fetus affecting management of mother in dexter , antepartum 10/29/2018 Overview (12/30/2018): Offer cell free DNA- negative Rh negative state in antepartum period 8 Overview (12/30/2018): Received 2-5-19 ASCUS with positive high risk HPV cervical 04/08 Overview (08/11/2018): Pap done 08/11/18 Comments Yes Resolved Problems Problem Noted Date Diagnosed Date Resolved Date Nausea 02/25/2017 01/13/2019 Overview (02/25/2017): Began in November - skipped dec menses. Had menses in january - no contraception Immunizations Immunization Administration Dates Next Due Rho (D) Immune Globulin 03/15/2022,03/12/2019(), 12/16/2018 Family History Medical History Relation Name Comments Hyperlipidemia Father Cancer Maternal Grandfather lung No Known Problems Maternal Grandmother Hypertension Mother Cancer Other nephew brain cancer- 2 018 clear now Cancer Paternal Grandfather Prostat e previous, now bone Hypertension Paternal Grandfather Gallbladder disease Paternal Grandmother Hyperlipidemia Paternal Grandmother Breast cancer Neg Hx Colon cancer Neg Hx Ovarian cancer Neg Hx Uterine cancer Neg Hx Relation Name Status Comments Brother Alive Father Alive Maternal Grandfather Maternal Grandmother Alive Mother Alive Other nephew Alive Paternal Grandfather Paternal Grandmother Alive Sister Alive Social History Tobacco Use Types Packs/Day Years Used Date Smoking Tobacco: Never Smokeless Tobacco: Never Alcohol Use Standard Drinks/Week Comments Yes 0 (1 standard drink = 0.6 oz pure alcohol) , none since found out she was Childcare Answer Date Recorded Childcare Unknown 05/04/2019 Employment Answer Date Recorded Employment Unknown 05/04/2019 Purpose - Life Answer Date Recorded Purpose and direction in life Unknown Comments Yes Sex and Gender Information Value Date Recorded Sex Assigned at Not on file Legal Sex Female 2:29 PM EDT Gender Identity Not on file Sexual Orientation Not on file Last Filed Vital Signs Vital Sign Reading Time Taken Comments Blood Pressure 119/91 03/14/2022 9:29 PM EDT Pulse 87 03/14/2022 9:29 PM EDT Temperature 36.7 C (98 F) 03/14/2022 9:29 PM EDT Respiratory Rate 18 03/14/2022 9:29 PM EDT Oxygen Saturation 99% 03/14/2022 9:29 PM EDT Inhaled Oxygen Concentration - - Weight 90.7 kg (200 lb) 03/14/2022 9:29 PM EDT Height 165.1 cm (5' 5 ) 03/14/2022 9:29 PM EDT Body Mass Index 33.28 03/14/2022 9:29 PM EDT Plan of Treatment Health Maintenance Due Date Last Done Comments Depression Screening 2002 Tobacco Screening 2002 Adult BMI Screening 2008 Pap Smear 08/11/2021 08/11/2018, 07/26, 04/07/2018, Additional history exists Influenza Vaccine 07/26/2025 DTaP,Tdap and Td Vaccines (2 - Td or Tdap) 03/14/2030 03/14/2020 Medical Devices Not on file Procedures Procedure Name Priority Date/Time Associated Diagnosis Comments HIGH RISK HPV W/JUAN Routine 08/11/2018 9:22 AM EDT care, subsequent in first trimester from Last 3 Months or Most Recently Relevant to Health Maintenance Results * High risk HPV w/juan (08/11/2018 9:22 AM EDT) Hpv specimen type ThinPrep 08/15/2018 9:21 AM EDT [facility] Hpv 16 Negative Negative 08/16/2018 1:35 PM EDT [facility] Hpv 18 Negative Negative 08/16/2018 1:35 PM EDT [facility] Other high risk hpv Negative Negative 08/16/2018 1:35 PM EDT [facility] Comment: HPV types 31,33,35,39,45,52,56,58,59,66 and 68 DNA were undetectable. 08/11/2018 9:22 AM EDT 08/15/2018 9:22 AM EDT Kaylee Coleman APRN-CN LAB BLOOD ORDERABLES Roberta bell Result [facility] [address] [place] [address], [facility] from Last 3 Months or Most Recently Relevant to Health Maintenance Insurance [facility] Advance Directives * Full Code (Latest Code Status on File) Date Activated Date Inactivated Comments 03/10/2019 7:02 AM 03/12/2019 6:03 PM Care Teams Corporate Logistics Manager Relationship Specialty Start Date End Date No Pcp, No Pcp XAVIER Guthrie [id number] PCP - General Family Medicine 03/14/22
--- OUTSIDE RECORDS SUMMARY | 2025-04-22 06:15 | XMS_ITS | Encounter Summary ---
Author Organization [facility] Address [address] [place] [address] Care Team Providers Care Window Tinter Name Role Phone Mirella Thibodeaux ELIGIBILITY COUNSELOR Unavailable [phone] Harleen Yue Ana Luisa CNM Unavailable [phone] Unallocated, [facility] Provider Primary [facility] Encounter Details Date Type Department Care Team (Late st Contact Info) Description 02/22/2025 Orders Only [facility] [address] [place] [place] [address] Jessica Solis LPN [address] [facility] [id number] Social History Tobacco Use Types Packs/Day Years Used Date Smoking Tobacco: Never Passive Smoke Exposure: Never Smokeless Tobacco: Never Alcohol Use Standard Drinks/Week Comments Yes 0 (1 standard drink = 0.6 oz pure alcohol) Caffeine intake: 1-2 cups per day B1300 Health Literacy Answer Date Recor ded How often do you need to hav e someone help you when you read instructions, pamphlets, or other written material from your doctor or pharmacy? Never 06/23/2024 Social Connection and Isolat ion Panel [NHANES] Answer Date Recorded In a typical week, how many times do you talk on the phone with family, friends, or neighbors? More than three times a week 06/23/2024 How often do you get togethe r with friends or relatives? Once a week 06/23/2024 How often do you attend chur ch or taoist services? Never 06/23/2024 Do you belong to any clubs o r organizations such as scientologist groups, unions, fraternal or athletic groups, or school groups? No 06/23/2024 How often do you attend meet ings of the clubs or organizations you belong to? Patient declined 06/23/2024 Are you , , di vorced, , never , or living with a partner? 06/23/2024 AUDIT-C Answer Date Recorded Q1: How often do you have a drink containing alc ohol? Monthly or less 06/23/2024 Q2: How many drinks containi ng alcohol do you have on a typical day when you are drinking? 3 or 4 06/23/2024 Q3: How often do you have si x or more drinks on one occasion? Less than monthly 06/23/2024 Overall Financial Resource Strain (CARDIA) Answe r Date Recorded How hard is it for you to pa y for the very basics like food, housing, medical care, and heating? Hard 06/23/2024 PHQ-2 Answer Date Recorded Patient Health Questionnaire-2 Score 0 12/02/2023 [facility] of Occupat ional Health - Occupational Stress Questionnaire Answer Date Recorded Do you feel stress - tense, restless, nervous, or anxious, or unable to sleep at night because your mind is troubled all the time - these days? Only a little 06/23/2024 Exercise Vital Sign Answer Date Recorde d On average, how many days pe r week do you engage in moderate to strenuous exercise (like a brisk walk)? 2 days 06/23/2024 On average, how many minutes do you engage in exercise at this level? 30 min 06/23/2024 Hunger Vital Sign Answer Date Recorded Within the past 12 months, y ou worried that your food would run out before you got the money to buy more. Sometimes true Within the past 12 months, t he food you bought just didn't last and you didn't have money to get more. Sometimes true PRAPARE - Transportation Answer Date Re corded In the past 12 months, has l ack of transportation kept you from medical appointments or from getting medications? No 05/27 In the past 12 months, has l ack of transportation kept you from meetings, work, or from getting things needed for daily living? Yes 06/23/2024 Housing Stability Vital Sign Answer Kvng e Recorded In the last 12 months, was t here a time when you were not able to pay the mortgage or rent on time? Yes 06/23/2024 In the past 12 months, how m any times have you moved where you were living? 0 06/23/2024 At any time in the past 12 m [facility], were you homeless or living in a fci (including now)? No 06/23/2024 Comments No Sex and Gender Information Value Date Recorded Sex Assigned at Not on file Legal Sex Female 11:47 PM EDT Gender Identity Not on file Sexual Orientation Not on file documented as of this encounter Plan of Treatment Upcoming Encounters Date Type Department Care Team (Late st Contact Info) Description 03/14/2026 9:20 AM EDT Office Visit [facility] [address] [place] [id number] Karen Montejo APRN-HEM INSPECTOR [address] [place] [address] documented as of this encounter Procedures Procedure Name Priority Date/Time Associated Diagnosis Comments PAP SMEAR Routine 11/12/2024 12:00 AM EST documented in this encounter Results * Pap Smear (11/12/2024 12:00 AM EST) Swab Cervical swab / Unknown [facility] Nurse LAB CYTOLOGY ORDERABLES Final Result EXTERNAL LAB documented in this encounter Visit Diagnoses Not on filedocumented in this encounter Care Teams Window Tinter Relationship Specialty Start Date End Date Unallocated, [facility] MD Chris [address] [place] [address] PCP - General Family Medicine 10/26/24 Mirella Thibodeaux NP [address] [place] [address] Nurse Practitioner Family Medicine 10/26/24 Yue Canseco CNM [address] [place] [address] Obstetrics and Gynecology 10/26/24 documented as of this encounter
--- OUTSIDE RECORDS SUMMARY | 2025-04-22 06:15 | XMS_ITS | Patient Health Record ---
Author Organization [facility] vices Address [address] [place], [place] [id number] Care Team Providers Care Lepidopterist Name Role Phone Glenna Light Primary Care Provider [phone] Master Josy Luo Unavailable [phone] Allergies Allergen (clinical drug ingredient) Drug/Non Drug Allergy documented on EMR Reaction Allergy Type Onset Date Status contrast dye (uncoded) Unknown Allergy Active Reason For Referral Reason evaluation and manag ement Diagnosis 1 Varicose vein (I86.8 ) Referral Organization Main Referring Provider First Name Glenna Referring Provider Last Name Kuldeep Referring Provider Speciality Internal M edicine Referred Provider [facility] in and Body - Varicose Veins Specialist Referred Provider Specialty Vascular Yariel lizzeth General Notes Shivani Robles 08:29:18 AM >{{TOFIRSTNAME}} This is [facility] following up on an outstanding referral that was ordered by your provider. Please call our office at , so we can _update our records., Shivani Robles 11/09/2024 09:16:33 AM >No response from pt with appointment date, closing per protocol. Referral Priority Routine Social History Tobacco Use: Social History Observation Description Date Details (start date - stop date) Never Smoker NA - NA Sex Assigned At : Social History Observation Description Sex Assigned At Female Tobacco Control (Standard) Question Answer Notes Tobacco use: Nonsmoker Additional Findings: Tobacco non-user Current no nsmoker Problems Problem Type SNOMED Code ICD Code Onset Dates Problem Status W/U Status Risk Notes Problem Varicose vein (87308351) Varicose vein (I86.8) Active confirmed Problem Unable to concentrate (finding) (39355324) Difficulty concentrating (R41.840) Active confirmed Vital Signs Heart Rate 84 /min 02/17/2025 Temperature 97.9 degrees Fahrenheit 10/19/2024 [facility] 10/19/2024 02:08:38 PM EST > Respiratory Rate 18 /min 10/19/2024[facility] 10/19/2024 02:08:38 PM EST > Height-cm 167.64 cm 02/17/2025 Oximetry 97 % 10/19/2024[facility] 10/19/2024 02:08:38 PM EST > Blood pressure diastolic 89 mm Hg 02/17/2025 Weight-kg 99.79 kg 02/17/2025 Height 66 in 02/17/2025 Blood pressure systolic 139 mm Hg 02/17/2025 Weight 220 lbs 02/17/2025 BMI 35.51 kg/m2 02/17/2025 Encounters Encounter Location Date Provider Diagnosis Main [address] [place], [place] [id number] 10/19/2024 Glennaqi Harperl Varicose vein I86. 8 and Difficulty concentrating R41.840 Dental Main [address] [place], [place] [id number] 02/01/2025 Josy Luo Dental caries into dentine K02.62 ; Encounter for screening for dental disorders Z13.84 and Encounter for dental examination and cleaning with abnormal findings Z01.21 Dental Main [address] [place] [id number] 02/17/2025 Josy Luo Obesity, Class II, BMI 35-39.9 E66.812 ; Encounter for dental examination and cleaning with abnormal findings Z01.21 ; Dietary counseling Z71.3 and Exercise counseling Z71.82 Assessments Encounter Date Diagnosis (ICD Code) Assessment Notes Treatment Notes Treatment Clinical Notes Section Notes 10/19/2024 Varicose vein (ICD-10 - I86.8) Will refer to vascular specialist for further evaluation. 10/19/2024 Difficulty concentrating (ICD-10 - R41.840) Recommend to get ADHD evaluation done as her sympotms are not new and she is dealing with these sympotms since her college. Pt agrees with the plan. Also disucssed regarding her history of brain tumor but no concerning symptoms noted. We discuss about establishing care with Neurology again if she likes but she would like to wait. She was given location where she can get ADHD testing done and PVU 02/17/2025 Obesity, Class II, BMI 35-39.9 (ICD-10 - E66.812) 02/01/2025 Dental caries into dentine (ICD-10 - K02.62) 02/01/2025 Encounter for screening for dental disorders (ICD-10 - Z13.84) 02/17/2025 Encounter for dental examination and cleaning with abnormal findings (ICD-10 - Z01.21) 02/17/2025 Dietary counseling (ICD-10 - Z71.3) 02/01/2025 Encounter for dental examination and cleaning with abnormal findings (ICD-10 - Z01.21) 02/17/2025 Exercise counseling (ICD-10 - Z71.82) Plan Of Treatment Next Appt Details Provider Name:Kenia juarez, 06/30/2025 08:45:00 AM, [address] [place] [address], [phone], Provider Name:Kenia juarez, 07/07/2025 10:15:00 AM, [address] [place] [address], [phone], Insurance Providers Payer Name Payer Address Payer Phone Subscriber Number Group Number Insured Name Patient Relationship to Insured Coverage Start Date Coverage End Date [facility] [address] [place] [address] [id number] Elva Palencia Self - patient is the insured 4 [employer] [facility] [address] [address] [place] [address] [id number] Ramona Palenciaca Self - patient is the insured 4 D[employer]icaid C[employer] after [facility] [employer] [address] [place], [place] [id number] Ramona Palenciaca Self - patient is the insured 4 Medicaid CFC after [place] [address] [place] [address] [id number] Elva Palencia Self - patient is the insured 2 Medical (General) History Surgical History Surgery Date(Month/Year) brain surgery 2001 precancerous eye surgery 2014 salpingectomy 2022 Hospitalization History Reason Date(Month/Year) see above
--- OUTSIDE RECORDS SUMMARY | 2025-04-22 06:15 | XMS_ITS | Clinical Summary ---
Author Organization [facility] Address [address] [place] [address] Care Team Providers Care System Auditor Name Role Phone Unavailable Primary Care Provider Unavailabl e Allergies No known active allergies Active Problems Problem Noted Date Diagnosed Date (normal spontaneous vaginal delivery) 11/09 Term 11/07/2022 Immunizations Immunization Administration Dates Next Due TDaP, ADACEL (age 10y-64y), BOOSTRIX (age 10y+), IM, 0.5mL 11/09/2022() Social History Tobacco Use Types Packs/Day Years Used Date Smoking Tobacco: Never Assessed [place] Depression Scale Answer Date Recorded Last EPDS Total Score Not on file 11/09/2022 The thought of harming myself has occurred to me . Never 11/09/2022 Comments No Sex and Gender Information Value Date Recorded Sex Assigned at Not on file Legal Sex Female 6:46 PM EST Gender Identity Not on file Sexual Orientation Not on file Last Filed Vital Signs Vital Sign Reading Time Taken Comments Blood Pressure 130/80 11/09/2022 12:22 PM EST Pulse 81 11/09/2022 12:22 PM EST Temperature 36.7 C (98 F) 11/09/2022 12:22 PM EST Respiratory Rate 16 11/09/2022 12:22 PM EST Oxygen Saturation - - Inhaled Oxygen Concentration - - Weight - - Height - - Body Mass Index - - Plan of Treatment Health Maintenance Due Date Last Done Comments DTaP/Tdap/Td vaccine (1 - Tdap) 2009 COVID-19 Vaccine ( - 2023-2 5 season) 2024 Flu vaccine (Season Ended) 2025 Polio vaccine Aged Out No longer elig ible based on patient's age to complete this topic Insurance MEDICAID [place] Advance Directives * Full Code (Latest Code Status on File) Date Activated Date Inactivated Comments 11/07/2022 9:59 PM 11/08/2022 3:42 AM
--- OUTSIDE RECORDS SUMMARY | 2025-04-22 06:15 | XMS_ITS | Clinical Summary ---
Author Organization [facility] Address [address] [place] [address] Care Team Providers Care Agriculture Laborer Name Role Phone Mirella Thibodeaux RN PICU Unavailable AmandaYue fontana CNM Unavailable [phone] Unallocated, Noms Provider MD Primary Care Provi mitchell Allergies Active Allergy Reactions Criticality Noted Date Comments Iodinated Contrast Media Hives,Itching 04/12/20 Other Reaction(s): Unknown Iodine 04/18/2023 Other 03/01/2025 Contrast dye Medications No known medications Active Problems Problem Noted Date Diagnosed Date Vaginal odor 11/01/2023 (normal spontaneous vaginal delivery) 11/09 Term 11/07/2022 state 05/12/2020 Overview (11/01/2023): Last Assessment & Plan: PPD1 Pain Control: well controlled Rh Status: NEG, s/p Rhogam Rubella: immune Tdap Vaccine: UTD Contraception: wait until 6 w visit EPDS: pending nursing, will follow up prior to discharge Feeding: breast PNC: [facility] at [facility] Anticipate discharge PPD1, today Continue routine care based on evidence based protocol 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/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 from cord blood at time of delivery Last Assessment & Plan: 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) Family history of genetic disease 02/21/2020 Overview (11/01/2023): Daughter with Spinal Muscular Atrophy (Kiley) G2 daughter is a carrier Last Assessment & Plan: Family hx w/ SMA, pt and partner presumed carriers Draw cord blood in purple top (EDTA)x2 and page Abbe Lazo (genetic counselor) [phone] Normal labor 03/10/2019 Thrombocytopenia affecting 01/27/2019 Overview (11/01/2023): Does not want an epidural Echogenic focus of heart of fetus affecting management of mother in dexter , antepartum 10/29/2018 Overview (11/01/2023): Offer cell free DNA- negative Rh negative state in antepartum period 8 Overview (11/01/2023): Received 2-5-19 ASCUS with positive high risk HPV cervical 04/08 Overview (11/01/2023): Pap done 08/11/18 Encounters Date Type Department Care Team Description 04/07/2025 Telephone [facility] [address] [address] Prachi Posada MA 03/24/2025 3:30 PM EDT Procedure Visit [facility] [address] [address] Abel Richards DO Pre-op examination; Menorrhagia with regular cycle; Abnormal uterine bleeding; Pelvic pain in female; PCOS (polycystic ovarian syndrome) 03/24/2025 External Result Encounter [facility] External Department Unsolicited Abel Richards DO 03/04/2025 Telephone [facility] [address] [place] [address] Rebecca Altamirano LPN Results 03/01/2025 9:10 AM EDT Consult [facility] [address] [place] [address] Abel Richards DO DUB (dysfunctional uterine bleeding) (Primary Dx); Dyspareunia, female 03/01/2025 Bamboo flowsheet [facility] [address] [place] [address] Abel Richards DO 02/25/2025 9:10 AM EDT Office Visit [facility] [address] [place] [phone] Karen Montejo, BOILING OFF WINDER-CHRONOMETER TESTER Melanocytic nevus of trunk (Primary Dx); Melanocytic nevus of skin of both upper extremities; Angioma of skin; Neoplasm of unspecified behavior of bone, soft tissue, and skin 02/25/2025 Bamboo flowsheet [facility] [address] [place] [phone] Karen Montejo, BOILING OFF WINDER-CHRONOMETER TESTER 02/25/2025 Travel 02/22/2025 Orders Only [facility] [address] [place] [address] Jessica Solis LPN 01/26/2025 1:15 PM EST Office Visit [facility] [address] [place] [address] Yue Canseco CNM DUB (dysfunctional uterine bleeding) (Primary Dx); Irregular bleeding 01/26/2025 Bamboo flowsheet [facility] [address] [place] [address] Yue Canseco CNM from Last 3 Months Immunizations Immunization Administration Dates Next Due Rho(D)-IG 03/15/2022,05/12/2020,12/16/2018 Tdap 03/14/2020 Family History Medical History Relation Name Comments sma Daughter 1 Hyperlipidemia Father Hypertension Mother Relation Name Status Comments Brother x1 Daughter 1 Alive Daughter 2 Alive Daughter 3 Alive Father Alive Mother Alive Sister x1 Social History Tobacco Use Types Packs/Day Years Used Date Smoking Tobacco: Never Passive Smoke Exposure: Never Smokeless Tobacco: Never Tobacco Cessation:Counseling Given: No Alcohol Use Standard Drinks/Week Comments Yes 0 [...] often do you attend chur ch or pentecostal services? Never 06/23/2024 Do you belong to any clubs o r organizations such as jain groups, unions, fraternal or athletic groups, or [...] Recorded Patient Health Questionnaire-2 Score 0 12/02/2023 [facility] [place] of Occupat ional Health - Occupational Stress [...] any time in the past 12 m [facility] [place], were you homeless or living in a fdc (including now)? No 06/23/2024 Comments No Sex and Gender Information Value Date Recorded Sex Assigned at Not on file Legal Sex Female 11:47 PM EDT Gender Identity Not on file Sexual Orientation Not on file Last Filed Vital Signs Vital Sign Reading Time Taken Comments Blood Pressure 120/78 03/24/2025 4:16 PM EDT Pulse 84 12/02/2023 11:36 AM EST Temperature 36.1 C (96.9 F) 12/02/2023 11:36 AM EST Respiratory Rate - - Oxygen Saturation 96% 12/02/2023 11:36 AM EST Inhaled Oxygen Concentration - - Weight 101 kg (222 lb 12.8 oz) 03/24/2025 4:16 P M EDT Height 167.6 cm (5' 6 ) 11/01/2023 12:57 PM EST Body Mass Index 35.96 11/01/2023 12:57 PM EST Plan of Treatment Upcoming Encounters Date Type Department Care Team (Late st Contact Info) Description 03/14/2026 9:20 AM EDT Office Visit [facility] [address] [place] [phone] Karen Montejo, BOILING OFF WINDER-CHRONOMETER TESTER [address] [place] [address] Health Maintenance Due Date Last Done Comments Influenza Vaccine (Season Ended) 2025 Pap Smear 11/12/2027 11/12/2024, 12/26/2022 Cervical Cancer Screening 12/26/2027 HPV/Cotest 12/26/2027 12/26/2022, 07/26, 04/07/2018 Procedures Procedure Name Priority Date/Time Associated Diagnosis Comments POCT , URINE Routine 03/24/2025 4:34 PM EDT Pre-op examination Menorrhagia with regular cycle PATHOLOGY REQUEST FOR LAB AMBIKA Routine 03/24/2025 12:00 AM EDT HEMOGLOBIN A1C Routine 03/02/2025 10:19 AM EDT DUB (dysfunctional uterine bleeding) POCT URINALYSIS DIPSTICK Routine 025 9:35 AM EDT DUB (dysfunctional uterine bleeding) SKIN / NAIL BIOPSY Routine 02/25/2025 9: 44 AM EDT Neoplasm of unspecified behavior of bone, soft tissue, and skin SKIN / NAIL BIOPSY Routine 02/25/2025 9: 44 AM EDT Neoplasm of unspecified behavior of bone, soft tissue, and skin ZZDERMATOPATHOLOGY EXAM UNORDERABLE Routine 02/25/2025 12:00 AM EDT Melanocytic nevus of trunk Neoplasm of unspecified behavior of bone, soft tissue, and skin DERMATOPATHOLOGY EXAM Routine 02/25/2025 12:00 AM EDT Neoplasm of unspecified behavior of bone, soft tissue, and skin PAP SMEAR Routine 11/12/2024 12:00 AM EST THINPREP PAP AND HPV MRNA E6/E7 REFLEX HPV 16,18/45 Routine 12/26/2022 from Last 3 Months or Most Recently Relevant to Health Maintenance Results * POCT , urine manually resulted (03/24/2025 4:34 PM EDT) Preg Test, Ur Negative Negative Urine 03/24/2025 4:34 PM EDT No World Borderszio DO POINT OF CARE TEST ENTER/EDIT OR DERABLES Final Result * PATHOLOGY REQUEST FOR LAB AMBIKA (03/24/2025 12:00 AM EDT) PATHOLOGY REQUEST FOR LAB AMBIKA 03/31/2025 8:16 AM EDT [facility] Comment:See report. Scanned copy available in EMR. Other Topography unknown / Unknown 03/24/2025 03/25/2025 1:46 PM EDT Narrative [facility] - 03/31/2025 8:16 AM EDT EMBX No World B[employer] DO LAB BLOOD ORDERABLES Final Resul t [facility] [address] [place] [address], [facility] [address] [place] [address] * Hemoglobin A1c (03/02/2025 10:19 AM EDT) Hemoglobin A1C 5.3 <5.7 % of total Hgb [facility] Comment: For the purpose of screening for the presence of diabetes: <5.7% Consistent with the absence of diabetes 5.7-6.4% Consistent with increased risk for diabetes (prediabetes) > or =6.5% Consistent with diabetes This assay result is consistent with a decreased risk of diabetes. Currently, no consensus exists regarding use of hemoglobin A1c for diagnosis of diabetes in children. According to [place] Diabetes Association (ADA) guidelines, hemoglobin A1c <7.0% represents optimal control in non- diabetic patients. Different metrics may apply to specific patient populations. Standards of Medical Care in Diabetes(ADA). Blood Venous blood specimen / Unknown 03/02/2025 10:19 AM EDT 03/02/2025 4:11 PM EDT Narrative Resulting Agency Comment Performing Organization Information Site ID: QPT Name: [facility] Address: [address] [place] [address], [address] [place] [id number] Director: Kosta Perdue MD Lynsey Monroy NP LAB BLOOD ORDERABLES Final Re sult [facility] * POCT urinalysis dipstick manually resulted (03/01/2025 9:35 AM EDT) Color, UA Yellow Clarity, UA Clear Glucose, UA Negative Negative - 2000(110) ++++ mg/dL Bilirubin, UA Negative Negative - 4(70) +++ mg/dL Ketones, UA Negative Negative - 160(16) ++++ mg/dL Spec Grav, UA 1.020 1 - 1.03 Blood, UA Negative Negative - 50 Bernardo/mcL pH, UA 6.5 5 - 9 Protein, UA Negative Negative - 2000(20) ++++ mg/dL Urobilinogen, UA 1.0 0.2 - 12 mg/dL Leukocytes, UA Negative Negative - 500+++ Matti/mcL Nitrite, UA Negative Negative - Positive Urine 03/01/2025 9:35 AM EDT Abel Richards DO POINT OF CARE TEST ENTER/EDIT OR DERABLES Final Result * Lesion biopsy (02/25/2025 9:44 AM EDT) Narrative Bell Sanchez MA - 02/25/2025 9:44 AM EDT Type of biopsy: tangential Informed consent: discussed [...] taken Amount of lidocaine used: 0.2 cc Karen Montejo APRN-CHRONOMETER TESTER DERM PROCEDURE ORDERAB LES Final Result * Lesion biopsy (02/25/2025 9:44 AM EDT) Narrative Bell Sanchez MA - 02/25/2025 9:44 AM EDT Type of biopsy: tangential Informed consent: discussed [...] taken Amount of lidocaine used: 0.3 cc Karen Montejo APRN-CHRONOMETER TESTER DERM PROCEDURE ORDERAB LES Final Result * Dermatopathology exam (02/25/2025 12:00 AM EDT) SPECIMEN TYPE SPECIMEN: LEFT SHOULDER [facility] ICD10 Code D23.60 [facility] PROTOCOL F - FLAT [facility] Final Diagnosis 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 [facility] Gross Text [facility] Microscopic Description Microscopic examination performed. [facility] SPECIMEN TYPE SPECIMEN: LEFT ABDOMEN [facility] ICD10 Code D23.5 [facility] PROTOCOL F - FLAT [facility] Final Diagnosis PAPILLOMATOUS COMPOUND NEVUS WITH STROMAL INFLAMMATION. [facility] Gross Text [facility] Microscopic Description Microscopic examination performed. [facility] CPT 98557*2 [facility] Skin (tissue) specimen (specimen) Topography unknown / Unknown 02/25/2025 9:44 AM EDT Comment:Differential Diagnos is: Inflamed nevus vs other Check Margins: No Size of lesion: 0.6 x 0.3 cm Skin (tissue) specimen (specimen) Topography unknown / Unknown 02/25/2025 9:44 AM EDT Comment:Differential Diagnos is: Inflamed nevus vs other Check Margins: No Size of lesion: 0.2 x 0.2 cm us Karen Montejo APRN-CHRONOMETER TESTER LAB PATHOLOGY ORDERABL ES Final Result [facility] * Pap Smear (11/12/2024 12:00 AM EST) Swab Cervical swab / Unknown us [facility] Susie Nurse LAB CYTOLOGY ORDERABLES Final Result EXTERNAL LAB * THINPREP PAP AND HPV MRNA E6/E7 REFLEX HPV 16,18/45 (12/26/2022) CLINICAL INFORMATION: None given [facility] LMP: NONE GIVEN [facility] PREV. PAP: NONE GIVEN [facility] PREV. BX: NONE GIVEN [facility] SOURCE: None given [facility] STATEMENT OF ADEQUACY: SEE COMMENT [facility] Comment: Satisfactory for evaluation. Endocervical/transformation zone component present. INTERPRETATION/R ESULT: Negative for intraepithelial lesion or malignancy. [facility] DYE RANGE OPERATOR : SEE COMMENT [facility] Comment: LLT, CT(ASCP) CT screening location: [place] [address]. REVIEW DYE RANGE OPERATOR : SEE COMMENT [facility] Comment: [facility], CT(ASCP) CT screening location: [place] [address]. COMMENT SEE COMMENT [facility] Comment: EXPLANATORY NOTE: The Pap is a screening test for cervical cancer. It is not a diagnostic test and is subject to false negative and false positive results. It is most reliable when a satisfactory sample, regularly obtained, is submitted with relevant clinical findings and history, and when the Pap result is evaluated along with historic and current clinical information. HPV MRNA E6/E7 Not Detected Not Detected [facility] Comment: Methodology: Staff Psychologist-Mediated Amplification This assay detects E6/E7 viral messenger RNA (mRNA) from 14 high-risk HPV types (16,18,31,33,35,39,45,51,52,56,58,59,66,68). Cervical sources are required for HPV testing. If a vaginal source from a patient who has had a total hysterectomy with removal of cervix was submitted, please contact the testing laboratory for alternative testing options. For additional information, please refer to http://education.[employer].Evrent/faq/CIA947c6 (This link if provided for information/ educational purposes only.) 12/26/2022 Yue Canseco CNM [facility] Final Result [facility] from Last 3 Months or Most Recently Relevant to Health Maintenance Insurance [employer] Care Teams Agriculture Laborer Relationship Specialty Start Date End Date Unallocated, Noms Provider, [address] [place] [address] PCP - General Family Medicine 10/26/24 Mirella Thibodeaux NP [address] [place] [address] Nurse Practitioner Family Medicine 10/26/24 Yue Canseco CNM [address], [place] [phone] Obstetrics and Gynecology 10/26/24
--- OUTSIDE RECORDS SUMMARY | 2025-04-22 06:15 | XMS_ITS | Encounter Summary ---
Author Organization [facility] Address [address] [place] [address] Care Team Providers Care Assistant Media Buyer Name Role Phone Unavailable Primary Care Provider Unavailabl e Encounter Details Date Type Department Care Team (Late st Contact Info) Description 11/12/2022 FollowUp Telephone Encounter [facility] Delivery [address] [place], [place] [id number] Betsy Rodriguez, IBCLC OB Unit at [place] [id number] Social History Tobacco Use Types Packs/Day Years Used Date Smoking Tobacco: Never Assessed Gooding Depression Scale Answer Date Recorded Last EPDS Total Score Not on file 11/09/2022 The thought of harming myself has occurred to me . Never 11/09/2022 Comments No Sex and Gender Information Value Date Recorded Sex Assigned at Not on file Legal Sex Female 6:46 PM EST Gender Identity Not on file Sexual Orientation Not on file COVID-19 Exposure Response Date Recorded In the last 10 days, have yo u been in contact with someone who was confirmed or suspected to have Coronavirus/COVID-19? No / Unsure 11/07/2022 7:47 PM EST documented as of this encounter Plan of Treatment Not on file documented as of this encounter Visit Diagnoses Not on filedocumented in this encounter
--- OUTSIDE RECORDS SUMMARY | 2025-04-22 06:15 | XMS_ITS | CCD ---
Author Organization [facility] CliniSyde Care Team Providers Care Dental Chair Assembler Name Role Phone Unavailable Primary Care Provider UnavailLAMBERTO Chow Admitting Unavailable LAMBERTO CANSECO Attending Unavailable SUSIE ., DR BROWN Admitting Unavailable SUSIE ., DR BROWN Attending Unavailable SUSIE ., DR BROWN Consulting Unavailable SUSIE ., DR BROWN Attending Unavailable SUSIE ., DR BROWN Admitting Unavailable [place] ASSIGNMENT MANAGER, Mirella Daniels Unavailable Harleen CNMLamberto Unavailable Unallocated , Noms Provider Primary Care Provi mitchell Abel Richards DO Attending Provider LAMBERTO CANSECO Attending Unavailable MATHEW MONTEJO Attending Unavailable LAMBERTO CANSECO Attending Unavailable LAMBERTO CANSECO Referring Unavailable SUSIEABEL SNIDER Attending Unavailable LAMBERTO CANSECO Referring Unavailable ABEL RICHARDS Attending Unavailable Abel Richards Attending Unavailable Abel Richards Admitting Unavailable Carr, Chuck W Primary Care Unavailable Brandon Church V. Admitting Unavailable Brandon Church V. Attending Unavailable Omar Marin Attending Unavailable Omar Marin Admitting Unavailable Carr, Chuck W Primary Care Unavailable Brandon Church V. Attending Unavailable Brandon Church V. Admitting Unavailable Carr, Chuck W Primary Care Unavailable Carr, Chuck W Primary Care Unavailable Brandon Church V. Admitting Unavailable Brandon Church V. Attending Unavailable Brandon Church V. Attending Unavailable Brandon Church V. Admitting Unavailable Carr, Chuck W Primary Care Unavailable Carr, Chuck W Primary Care Unavailable Brandon Church V. Admitting Unavailable Brandon Church V. Attending Unavailable Allergies Allergy Classification Reported Allergen(s) Allergy Type Date of Onset Reaction(s) Facility (1 source) Iodine (And Iodine Containting Drugs) Drug allergy (disorder) 2 [facility] Repository (16 sources) Iodine; Translations: [iodine] Drug Allergy 3 [facility] Work Phone: (15 sources) Iodinated Contrast Media Drug Intolerance 0 Hives, Itching [facility] (3 sources) Other Propensity to adverse reactions 5 [facility] Medications Current Medications Medication [...] Start: 11-08-2022 acetaminophen (TYLENOL) tablet 1,000 mg [id number] 200 actuat albuterol 0.09 mg/actuat metered dose [...] oral tablet (2 sources) alpha-Adrenergic Agonist, Uncompetitive B-awpwdl-N-aspartate Receptor Antagonist, Sigma-1 Agonist Start: 08-25-2024 take [...] tablet Active 20 MG PO Twice daily 08 29August 25, 2024 12:00am 28-0.8 MG tablet (5 [...] mg/ml medicated pad (1 source) Start: 11-08-2022 roderick kerns-gl ycerin (TUCKS) pad Completed/Discontinued Medications Medication Drug Class(es) Dates [...] superficial vessels of left lower extremity] Onset: Episodic Varicose veins of lower extremity (1 source) Varicose veins of bilateral lower extremities with pain; Translations: [Varicose veins of bilateral lower extremities with pain] Onset: Episodic Past or Other Problems Problem Classification [...] Test Name Value Interpretation Reference Range Facility Coding Summaryon 04-13-2025 Coding Summary HTMLBase 64 HzdlpfkwCAg6hQe+PGhlYW Q+HW0PMNTeJ68nqGRkfG7k G0IVUVmDLpynIKRQOPqJOq UwsuNpMS9rmBGfRQSn IC8+HB4fCWVrWmyppICob3 D9nHP0G71whk4nLWdhpTK8 PYGrQnHpvoche1spjYy2NZ cuNmluOyBt FQXbbG56NXT7yA84Tw76bN DjmZQpi4ddsMs7WhPzYSSe VNI2bUwnCPanf0LbWYOzN9 8siFVhy8E9 JTKrzYlhvIKpUkMpoYN9cT 0yAGtwiyqxg1dwejrrEwr7 js99lGHkk4J2dUR5Z5Veqv A7JZEhbVUo AqcvdINZdF9udmfdf1thpn ijEmBbUQRqZSf2SXq4VQBo dPjfXnPlRS82POG4CTEqgq YqD3SbTRYr vWrgAbI9c2C4Pm1VO8UQCk dvV0BKBFOOUPtgfMA+PC90 sw86G5OkVhyeXrm1WTBtBC A2yFR7dT5g BXNuAZwnf3A1fAH7F2Nabz Naoc8fv2dlINLlYAosX53i jIKet4D6WEUwjRB7MONlrN uvIvEngZ83 Oyc+FDTfiMxnx1BlCnbxd1 cnq8sjxNt4WnpgKOHgekDz tWwtCSC6q4VkKv2oCCOhkP D3cLS6sU9e DtIbOpI0FKygR869GnBhjK MpLovnQ60iC7PeuEZ+PHRy Hzo0RIWsmNwfDM2vZ5EfBK RpbmctbGVm gBioYZ2uXJJxqgjeRSUmjH 7wQBUiS1y0CrJlMhN9ZSjj V1SjFAOwbqsfGv99rM4uMf LhJjZ3VArq X0ObwgZ4ZUKwcEInERfwFJ O0G18oy8K1IKOlQAMlMSY6 fZN1aR4bpOfadnqalRLghE sgdmVydGlj QYbvDRmeF134RIZqcMrhEu NvZGluZyBEYXRlOiAgMDUv MjAvMjAyNTwvdGQ+PHRkIH F4dRmoBTMe fPOpBFdjJb2orLinhTwdAM 6pYISdobxiRZQnzR8zVCWh wDUsmMifUM2qDHUzzisob6 95EsRiEZU2 FVFtyCEpR8ZiiP4mEhHlPS QdEOOgH8PqwPWnYJdhM798 UNpcJcZ2YLUlolSeM1UjZD FsaWduOiB0 d1Z3Ru4Hp6YazzrzY2KitM XsPwEdSphiYPa0R7TeIlhs dHI+QL30AKFnZO82ZAv8KW B6jIdmKDrs OJIeP2GnjJ9hSlXrCJSrHY RkOyc+PHRhYmxlIHdpZHRo COtpARNhFfQnoRfpAO7qLq 9yZGVyLWNv pMammIDrNlWqh5roBSYvFP okJE1ltHtzY5QzoRE2JSFm d9z1Mj30Z37jD5TfjIR+PG VqtCG7gHK3 iX1oWeVwSxP0PZmwK353Qp RgkTSeAkfcc2bhx6tmcTe8 HgJ4JODptiCidYbjCQL7k8 QfSk57B74f IHdpZHRoPSIxNSUiIHZhbG beyu9chR4jQf8+PGNvbCB3 aDB5mX7hYaGjYjR6EQncV6 49InRvcCIv Ygpik9smk8rhnCu0YoWvDD CpbcJjoLecTLZ0c4NoCw82 O4JiuXcsy3AnUdy8yk75uL Riv5A8oBH3 S1DbSEOwrhxpgLOusSgeVS 5oXFXsjgieBJHtpH7lEXQl R7a7TkDgKcC2NYimC4Gczl U5GENqsUJa LZZnmCALaH0mmpfju4lyps tgKnEsGZMaBTz3AWl7EUHb mAhaXfZrJUF4ObH8RYU8cR MlxS8cpTop wrkirQ4dTgp+GHP2gVFkbF NPFA7lQurseIS+PHRkIHN0 bDwvMMfjZIKphW5jRUUgH9 y4GwCjVsO8 YXypJ5WsjlZ0KSCsoXVjVK OfpAQBvF4kbkqym1vuueon FbEgTNStQId0THm4XHNziX duOiBsZWZ0 BbV9FFS7mRNxoV7wqUaess ixjU9rSeo+QmlydGggRGF0 ZZl6S9SfSys7BRNyjPsrPT 0ncGFkZGlu Ln5kkAfnsCbhPL5bRUSvhl cha268YtEoq5ezUOYijDXo IAtvKDT6A49xb5J0VMKhXQ RbSCC9cMV1 fL1hgKcrbakthOKmcIicdd IzcKsuMAjqOSleF699UHVn iXbsMmKsPNp3K4IdGwq7VL BgaAykDG1f bRRrDNmsFx1zjGimtDpzQT 5tLVAforall530HiWde1cq VEItgKKwHTmgZHX8N88fw1 O3VWXlCUYm OWO4oIG2cV4jhRzxcuswwF VmdDsgdmVydGljYWwtYWxp P278FJQsyOnyQxFwbJp9E0 BsEmy3WEVt qEesOV4yoTScRJabNv6tmF gfjOjhDF0cAGXnrlcat350 FaFup3zaSNNerFYsUFjqJL Z4R26aa6W1 XWHuYYKyBLE6vXF9hR5ecX lnbjogbGVmdDsgdmVydGlj BPyhJRfgB920TXUwsFboCf BhdGllbnQg UTxaWRj6J9DpLjqokER+PC 76YELaVT30rQYbfIOkv6qm lKd8QuIgRWLmVFJ9aOkeZU tue4PoNKFd K05gmHBgw1M0BBAjuWarfF OrUnNdfZK7qP4cKRnezfjv h3mtpjzrXawyr5fcro27qU 77W33rANyx ZHRoPSIzMCUiIHZhbGlnbj 3wzN2pBj8+MQTiiUZ3dWU8 fM3nPMJnVyR1DBlhR755Ma RvcCIvPjxj b3crl3inmKm4YcD2AQXvga ZenPxqDAR6l8LfUo51I33p IHdpZHRoPSIyMCUiIHZhbG extv6weU0v Ii8+SRCbsAU4xVJ0tF3mTz HoUeN2RGxvK943VnZvzDPx IlrsX47wX9NuwNL+PHRyPj s2HQHuxWze TS2hkPMoBNvfWn2mLLX7Nu NsJiLlPRykK9AdZDFyhtof bhglfKE4IBTdCVNgpF23Mx 9udDogMTBw uDAFuT4icfhxy7tlrdylZz SwGAPzPWc6PCd4BGSvsKyy ZqHrBRF8NnV0KGL2qCUlsN 1hbGlnbjog zQ8fP4PrQTXoaownRv63qG 1bIkCxBpM5AJhuOyd+RU5H KlVIVSHEEHLKS6HGWMKCVo wvdGQ+PHRk ZWU2dHlpCWlcCDUbxO2hIT XfL1d0BrGtYdI3GGcpD2Bp LWCesszkLv88mY9wXtUrPw W7UQapB7Al vlH3PLBudMJaTRjmGFL9T4 8ma6L8UNQcFQJjMKC0gVS3 hN3okKsklhjqwXFzjYfrdn VydGljYWwt MSldN665DPYgmJppVeFkBb J0YoI5UIM4P7SuPvn2TELl xSjiBC6enRAmENskOj0ubD issYhoHZ5f OPLjripyTYWpnU3wCNUlbK RluMcrIV7gGGEikhbtq321 YdFgNBV1EOJsbNEiU2XqeE 9yOiAjMDAw SYMpR6WeyTOoOQxkJ677DP cjYmI1YHIqbiKzH4LlNAPl hJkyTuZ5g0J6Ea7vYGNXFF FyczwvdGQ+ GSFlOKX6zZroQLckOHFybO 6gIVDhY9y8ZfDwEpZ8DJzz C7BjKVHxmpwoJh41pA6xTq TtPgW3HKvl R8GdrjB0SFWxqOWiFKcxTZ U7V60ot5E0OFAjZGQgYMN0 eCU2xT6eiLhdwsrrwGTtuV sgdmVydGlj THekHItyR213SRZgiFamFp ZFTUFMRTwvdGQ+PHRkIHN0 yArnYHujLZTlvL7wOQDgE4 o1FyKnQaQ0 GEtvG9WdEGJozcleXx60dQ 5sBaHpVpR5DBouH4BebkU3 UZBeqCHlPAbfXIR2W98yj9 A5LWCkSUJv LAS5bMZ2pG8vwYytizyjiK VmdDsgdmVydGljYWwtYWxp H548NILauDtiFw8NXI97HG 72K6XhZbti dGFibGU+PHRhYmxlIHdpZH VqANtpVNAcWeKqmTbqNO1z Va6eVEAeIOWnhMauiJWaXe Kdo4uzUVBz SStuEN5xtPuaN1UwvUG5TV Rgm6i6No58Z92nD4OnyAZ+ VBLtpBC9bNZ8cX0xGfYbSq H5XSilX156 XaIfyBQqNyrjy2qmu9tieW v4AzIeATGumcFnoOmcBYH6 s4EiUk12Z79jUYkcDGMhOM IyMCUiIHZh rIknkk3yzI1eTm7+PGNvbC W9gRA1nU8lBbIiNiO4PAjn J607EgRjzAUgIgnzI27bO9 JvdXA+PHRy Rcr6HSPhePhvZA6lfNFbMO rkWl6hMJO0HuZoZzRkSQte O2RcJKJfqjyvhsvwnES6RR DgTRAaeS94 Oy4wqMmtNa4eLUGrLJO5YZ VuiUFpD0LlcP2uZvYhLJYc HAHfN9MqkUBrLDwoM419UL mvUqG7ZVZf pdNnA5XuWKZjeBdkKmH5f5 V6Ty5QnMohqIKpRQ6yNjKr SJs2G2MmAhd6KLDzsLpbSG 0ncGFkZGlu Ji6wqQpzsXnoWO9gGQRrho hdk037YhTow3vqEFEgdUCa WThzBBP0C72iq9N1FTIbEO UfJXW7kOP8 jR2nwHgqtajqoJOdbCvonj MtoPbsRRvkGJczU715MRIf lRtwBjTGEmb3Y6MgOjn9UP FxvGizNY0i iRVfYQeqGa2mrVwnaUcgLS 1uTWUdyvofj487AcWcy0gn SIZwnPGyDRgbMZE0V10nx0 B2HZKqEUYd NOU8aYK9dV1gcNffalywmM VmdDsgdmVydGljYWwtYWxp B103XNZsjAyhSl7MHcx5H4 PcScz3YCKj rOqzKJ9wyDSnRQbzCz2keC tdmQbmSU0gPOFwxbdpk949 NvUew8kgRJBrsZQpNCuoMM V2L86tw2L4 ODLvSZRdZRU6pNN0yB6tbH lnbjogbGVmdDsgdmVydGlj CYyqTPgeA725VSZcjKdxJz BheWVyOjwv dGQ+AO07hh19Z7RbAnldBs g0UIRoDUH0gUP9cH8qRWIt VJhen0L5mAS2G8YnheFfsu 0st0qgQWZq ZTo (more content not included)... [facility] Coding Summary HTMLBase 64 MovwpertQKa9tIn+PGhlYW Q+FW4AVUSnS51mxNDpfP3h X1PCIZqUVsezQRHBGNlPJk AsfaFwEF3rgCPtPQEd IC8+RD3wJTOlCasfqRRoh1 G9lAJ4M86gti8eBRzjdBB7 YXEnNwEvhcwwu9lmgTv8QH cuNmluOyBt IPVizU53KZS1lC01Zj27xX OlmGUxw9swzXj0YuAePDCl NBA7nUcmTZsqr1HkEJUyI8 1aaERub7S0 NJIyhGghwGRsKmVevIX2tF 8oWCrgrimyu6vneywfGip6 wy58yVPrl1G4aLC4C5Tbit Z9LQJgoBMc WwtmgOSPrD5dmevqf9fkpy anMoAqUQNeJLy5PAm4XWRg uLjlVjEnBE32WVV7PBKvzy SzH2BtJFAo bUzsJeR9a8E8Kk7PQ7SCOn zlP5DLOHJPKNbyqHW+PC90 sq52S1ViTheyPin4PMUnSS Q0kYW5jV7b DAIhEPvkv2S9fMS7E9Naru Yvsn0fk1aeKPJyZFjtD59n kWKvl5E7TRDodCR3MTMojQ euKcBiuY51 Oyc+ZNLcbOsek8IvHssdn4 xcf8gmpKp4KennATXjucHn tXypESA1j2LbPf0vFIUvkK T2yYV7zY3n JoHbJvM5YFbzI986NpHxyA LoDnytB18mR8BfhUO+PHRy Gie2VLLvaYnaTJ3aL9FcGD RpbmctbGVm gKrxGN5cSGCjjlzjBBPfuY 7lIGWwP4h0MfEgLrE6LDdj F2MdBVGiifcwVz62eY7dKt LkJkS1MGmd N2AvcfU8UEOdvTJmZQkzGQ W4G08sd7S3YOKfMXZiVJY2 lXV5fB7stTpmrlkslCTlwR sgdmVydGlj COnuYGiyJ870GSQhgUtmLx NvZGluZyBEYXRlOiAgMDUv MjAvMjAyNTwvdGQ+PHRkIH S6uLpnVLYj wAEbPPfkJp7kpPvfhNakTH 1bZEUlfcebWJGugB8aPOIg sTZcoCeeZG1hKSZkfrqai0 44EsQnYXY3 VRKtbNBuZ5DruT9nOzYfJB XaVPJeT1GqeKVvQVzaD829 URlvGoA9BJTdpgReP5GtIZ FsaWduOiB0 n1L4Vi8Ho6WjubnzF2HwrX HyIhLqXlmbRSm7X0GwVeyx dHI+GN18UXLjOH54ADd5FR H1iHaeIVet JRDqP6UgaQ7vLfCxXUHoAH RkOyc+PHRhYmxlIHdpZHRo JIonFIFoIpWzeXqfBZ1sWc 9yZGVyLWNv nJgsbJGeZaYmo9heKLZaOU kzDA4niSliY7MwaNW8FTTw w2a2Mu49K29nE7InnRS+PG VlsVO2yDR2 jY7aMmFvKmD2HRchB869Xi ZtuMNhHliwz7frq4xolBm3 BkO3HCRetgIcoEerDWB3x2 BlUe68L92d IHdpZHRoPSIxNSUiIHZhbG hscn5qtR8iDq6+PGNvbCB3 tAP8bD3oCqMnQyL1CYdbY2 49InRvcCIv Vfzyj5ejn1fyoLs0FwBfWW QpbiEzuVpuOVX2z1IqEo43 X0SuwOush9VsCvh0ud64uE Myo3V1jGH0 Y2HiPWWxqwcfdAAqbQhsUE 6kLDOnkbhiHOXkcK2sRBVq Q8x1YeOlZsC1FGdeX2Qwam C2TLVooYVg ZJSckLDLsD9smaekz0ecej lwJbAjUXVeFSz1TTa4GYBs eNtuKiNzMYM8FdC2SNS1qM EaqR0tjXff rwtzmT0tYsq+INL5uGAkyB PUIA9iGpodmAW+PHRkIHN0 aKrmSVguTFCxuG8tHXLjL0 k8BjQiGzK8 DBlsA8HawnT3VIUmeUGxAG IpbOTFkI9lqinnj9gqdewk ArBeHFGhTZz1ABy2MJRkpQ duOiBsZWZ0 FlP2WBE2mRCrxH9mmFwrqm cfxO5xLta+QmlydGggRGF0 BEa5E9QeRds2ANBfoNqgPK 0ncGFkZGlu Us1uaPoneQgvPI8aRHJjxz tha562RhXrn6yqOTEsjVMx DBpkSOU3R50nk1W3UWOgBW AmUVS7cUJ0 gJ9vgMieibgfwVOabEpbvy DrvAkjOQmvTHkbC233HNOi nOnyFeXxECp4H6JqTlw7UE UspLvsSI3o gKBvJPxzVq0yzZcxvLdhSE 2mOFHgirtzx105WeQhz8lb VSOlgCVpEOfxEYT6K04py5 F3UTMcAIKi LMV8fRU8oI5huEjwdjorbE VmdDsgdmVydGljYWwtYWxp W256RIRanEjyIhGqcTb7C4 AaJjr0DQKq iTqdBE1gxQGcRAhcXf3gzW gmhHkuDO3uCQCpmtcgu671 VfMtx4meDXVvvJRdWCluTL Y8L06pe7Z5 VPWfKTOpNCO0aCR2gP7ahZ lnbjogbGVmdDsgdmVydGlj NIalDBusT207QEGruJniBu BhdGllbnQg PPbgAXv5F7GyZdunaSB+PC 60TYEvYU61dZIwsBGav8ob vDg1TxPnDRPzOWZ4xIbaCQ tkl5NpQWNp F18ufKEsy6Z3BRRveKzneM BpHwRtoCC9vD8cNWxpfdji z3mxszpcHmnra8plet45yE 31J09rMAad ZHRoPSIzMCUiIHZhbGlnbj 5noC5xQi4+HUJkaIO7kTN0 mN4uMXLkLdH1ASwyV169Wq RvcCIvPjxj a5pok6dfcIq8YvQ0OJAjrk JdvUjjPCK8h4WpGd34D39i IHdpZHRoPSIyMCUiIHZhbG ixmw3eyZ2w Ii8+QSBdzGQ1gNB6rI8qYq AcIzE4WEauN925YmWozMVk EttpJ67tF7ApuSM+PHRyPj b7SMLmwJha XY9jrGEdNBapHt5mXYU0Os OkEyObANfcR3GcIWOktjsa xbdcdYE6AABtTABywK01Ya 9udDogMTBw vELCqJ0njhila3sdwbvwKy RdFIGlSKu4MPc8MDPkaTwk YiAvEAB7EeN6GWS3eREiiW 1hbGlnbjog lW8dY5LaIUXmpjjgFg48dY 3sKiLsOvV6NQnvCof+RU5H HeHNYPLETHAVB6ORJCQUYp wvdGQ+PHRk JFB0fKdfGOesXCCjyT5hYR FzB6l3RjGbWlS7HPffH5Pr AUKagcunCg63bQ2cLeJoKh Y5ZHjyE3Mt wuJ4SOVusPLjCKdwAJS8E1 7nu4Y4BDWnTZJbQKE2wXL7 vE6dsXrueeaslERciTydtr VydGljYWwt XXbxB474DXKqwJneAmAaCb T7VnS0ZER9P3EfCgd8CYDh qKmjRR4pfWEhUPsoCj4ouW sjkUeqMK7j BLRuqnerBZFwxT5nNGJqiJ OeeGruEE5eTIMpiyqsy936 IdMrGHY9PXLpfLLfZ6VtwY 9yOiAjMDAw LQKkC5XgsVBnXItoC876SD eeKeQ6LMMrvxWkT4OgIREa iCzrJbS0z0Q2Va7bLIJGWR FyczwvdGQ+ VQKeOTS4mCeyUVfbLORkxF 7kHOKcP0i6JoCrLgE7KSey N8LkQRGfsbcuEy26rO0aAv XoFkT2IMib N0SnjxR8YUNvvNSiGZubMF K3M33uh0U0KXTrKSGyRKB1 bJL8nI3xaOxobmeqeMPykE sgdmVydGlj YUwxPJirH685ZZGguGouZt ZFTUFMRTwvdGQ+PHRkIHN0 pIscVTzkXFRffM1iQBNvK4 v3KpVlPyT8 MZyfG7DfTHSmdvxkKi08zQ 9vDtXrFzB1WSqwV8ZertF0 SRWrkOEdWThoLBS7Q01pf2 U9FYPmAUAz RMU2eCR1lD0nuTiwzwjbiZ VmdDsgdmVydGljYWwtYWxp P761SYDhbVynWd3UTS55GI 86D2EsMhbj dGFibGU+PHRhYmxlIHdpZH UbVIpvYZLtNuNtqBvhXB1k Mx5kNMAtDNNlbJeudBUtIm Jvz1vuBQFv NDluOJ9ygUkjO3NipHN0LU Nwz0q3Nw54M08nX8DmnJV+ OQQdqQL4hPT5bD3hFhGsLh N5BAghO463 RbKzdNZiNbjtk4dpb6xitV c8OvJnXYZxabFauLkbPFU6 v7ZxVe99E74vBZnpRWIvQU IyMCUiIHZh yAegur5jfZ5rLq9+PGNvbC C7cQL2rV6cTuAzNiQ6FCur X271GqPssPGyYgiyT64nS6 JvdXA+PHRy Xwr7BTSrrWrtJE5qzZTfEU edOa1oDQE1DcPhEgHbAMop V0MrMYYebltwsibsfQY5NN SgGMGyvT74 Dy7xzWutKm5wLYNpZKT1AL JqnBQnW9VkfV3aAaSzRQTj JUEeX8BgkOGcAFgyB989NA yqEnI0ZAFr yqNnX6OmFFXeiXxwUaO6d8 H1Ca5VbQfyrOVoZT0jFeNn ZRu2J2OhQvy7MBRtnNiaPU 0ncGFkZGlu Sb4faLeonQjdNJ8dYINmjj ehh412YdBck9wnJOYwtSOs EEasIGU5T61cx3L5ELOnAL HcNDZ4cNX2 tY8rqSrfcvndfZLejTyfyr XgeGmmZBkjNIiwA439ARAa mSwtTkJQYji4A6HhKtg3BW TayUrhMH6m kDDbWVrmNu4kpUcfdBrhPG 7bJLWhqkpwc980ZzBys6hz VTGufGKdZLuzSKA4R40ru1 W6PIDmJSLp OVR2tDE0xW2cpMvldbtuvR VmdDsgdmVydGljYWwtYWxp H286IPWjqWcwCi9GNsu9L4 MgUrs9GCGi wQfqAF9vmSHiSExkWy2dbN nzkIooEG6vTROfmwbja685 FeKfn5dvSREftXDiGZlhOB I1F85gq0Z0 WLPtZUHjSIA7hDV0wG1zwN lnbjogbGVmdDsgdmVydGlj NFswAWowP645EIFbrEcgWc BheWVyOjwv dGQ+AL32zb54S8CoAxjeHa w3AIFvXZN3xGV1qT3yLTXq PBbzc9O4iSI2B8GcezOioh 8if2vfQBWp ZTo (more content not included)... Normal [facility] [place] LE Venous Duplex Righton 04-06-2025 US [...] varicose veins *Exam performed in accordance with [employer] practice guidelines- Peripheral venous ultrasound, February 18, 2010. Final Dictated by: Brandon Church MD Dictated DT/TM: 04/06/25 9:19 Signed (Electronic Signature): Brandon Church MD 04/06/25 9:27 am Technologist: DIGNA [facility] Coding Summaryon 04-01-2025 Coding Summary HTMLBase 64 PwwnursmARx3dLw+PGhlYW Q+XX2DOTMgM94gbLSujD2i N8YWYVcJPfzdJKGBUEpGCa KmnpEyKW2irQAyYDBx IC8+QI4aJJPiHehsxGTmf8 P3hTR6K11zdb1rEUhbmUV8 AJLmVvJeokvvt2cryQg0KZ cuNmluOyBt AEVjcI52KBJ9iQ06Mu63lS PzjFZro4hzzVe5OpNoMKBh HHC1fWvuZJvvb6CmHQNkH4 2fuEDnk0D2 FDOflWwckGGgMyYacPZ4oZ 0hCPnrhwyif9bcnbhlBtj5 tg82cLCcc2W5fHS5A0Mzbc I4CVYxmKSp RuoepAXUhY3dmuxew0dxth lyKwEyIRQuEUr9EUc4LNUq wPnkDdZtPJ70GJS9YKQjzi HvW7IwYHUx wJwiNtW3j9H0As0UC9JJZc wvO9BFSZSHJBygaVJ+PC90 ij31T5HbLowgEol2UPLqSN O2zCT0aI9a HQXjNGget9W5lLT6O0Wdqx Gvve4pn3wpWHAjUNwtG08h oXHsn3Y5BYLboHS0NIOdtM mqOjCfcW41 Oyc+ZNDzcAitf6RnGwqhs8 qwb4hldLc1HipkAXOfbxVy jAksWFN1l5DgXj6vIQBxgE D7cYH3iF1r RkYcQfH3JNzgI963BkVbyO BtRtjlS35aY7BevYP+PHRy Uug6VFIsgYutUJ9oO5HeLN RpbmctbGVm xIvdYS9hEASdvdwoJUCibH 1vJUMgR9f3ToGxKpS0OBid U7PtAGLcqhnpFe06lB7cYe TfWhU0FUrx Y9FrhbL4QJGcmKDeNKqsOM X9N65vu1L2NHNbLKBtAHC6 wVI3pI4hhAiubzohxACzgK sgdmVydGlj KSclUEujZ468NXQgpBocLq NvZGluZyBEYXRlOiAgMDUv MDgvMjAyNTwvdGQ+PHRkIH K5eRcaDRLx gYHaYPflRr8beYilsDvjYP 0vKTGnryqpCTDsoM9bHAGm iBZpySkmUH2yWIEyehrex1 59BfJhAHU7 RCVqbHOcR5TqjU4uSdYmQM LmMFNfN1SqaSGoEUqlY287 LBarDgC3KLVwrxVjP4QeJG FsaWduOiB0 r6Y8He3Cx1TphatlV7ZayJ KdWkWmFruoUNz6N1KvNtoq dHI+IE85RJNfHY86QAs8YN G5hYnuVIua ZXTlM9QvvK0vUgFxQICfBQ RkOyc+PHRhYmxlIHdpZHRo NOlcXDNqTmLflGerAT1pOi 9yZGVyLWNv nCamxSTxWiNtm8dnAZPbDC uuLX8zuReyG3TatPB6KHOz l9s1Jj92L43bG4YqjTO+PG QglWU7tDN3 jV4bHvKbYwF3UUweF926Mm VdaWNhNctwd3hko1tkrZh4 YlR8JOXtipIbpQskHEQ6m2 OoYd63Q06c IHdpZHRoPSIxNSUiIHZhbG npnk0rsW3oNs3+PGNvbCB3 xFW6mZ9hQeJdNrF7HEbkA0 49InRvcCIv Txzcj0xwr9kryIo8CqJhOO XtaoXckYnrJSG5p3NsSn58 Y0JaeTqbc9XtYza6al14jR Ljn9B6vPA3 Z5OjQZTqqcebfHRdwNlnRN 0uSILschrtSCGzjL6yCLNu G3o3GoUvNjB7DCatS5Okqi G0QPQpoHQd JJIcpUMMgI8wwmbyi2yykf ojAtVdQTNbAYc1SSi5IATq mNyqTtMtYQE1OwV3PTL3yK NkfW0ywYpp kflglL7pYev+FVU9rIAruI BCPW2cJhkpmJQ+PHRkIHN0 mSekYAueLPWbjV3aENZuG1 d1HhUuCaN1 MZiuQ0WxweQ1NHZznKKiHE TdwXRPvZ7ynamgz3lrzgij KoHpAUIcVTq1JLa3WMSwyY duOiBsZWZ0 LqO9ZKT2hBOoaA4rbMfudq gclV3uOah+QmlydGggRGF0 DOh8F6KiIrh2ZDXnxIelUD 0ncGFkZGlu Md2lbRlthYxtBZ5nDIOwcj qlp571XqOje5hvJJMfeNNu ASjnTCD0P48vd1U8GFGuLD RaJAW0kAG8 kT9ksLvzotzaaTHnsMsnbc EymNtgURmrULgpQ424JJRy uUcfQxQaWRj7N5UoGnl3DZ WddCavMZ5j jNBoLNyzCq0qfIwdyFkmAO 6yDVKnszubp798GhYlg3pl FJBdaIEhORxnNJO8U36pq4 I9KDHnJZRe EYX1uCT0gR8vnZtbpwthjF VmdDsgdmVydGljYWwtYWxp B134DKSqcDqtWtCgnWn8K4 DoCyf4RAPz iMblRR1myZZiLWogCl0woH tcrIktHL6tASRncwsjn766 LeMhs9ezPHSioVUmHWfbNK N4N14zq2U9 JSNwFZSqROU9uEP2hK8rlD lnbjogbGVmdDsgdmVydGlj WOmlLPrtO134SETitAljTn BhdGllbnQg HBzxEBa7I2YtJjvjlBA+PC 03MCDpTG97sCJgxSFka0bh uOf1OgMuATMtJIR6fMtjOJ bpf3WzBDXq D46yvTPet1X8PFVjzKgeaT VlLfOlqNU9tY2rYHfayoyv w9bwslstJucou4fbar52lN 80O96dWAud ZHRoPSIzMCUiIHZhbGlnbj 8anY8sJq9+RZHlxNQ8cIE1 kB2oXIHqUsM0NCiyH581Gm RvcCIvPjxj n0kiv3valNv3YbE3HEAiow ZkiDclDCO5o2SiNz49M37c IHdpZHRoPSIyMCUiIHZhbG ssiy8otF5n Ii8+BUBgaZT2gZV8mK1sZo AbBjW7HRmdN807JdLqnFRy WzgdK06iB5EnjJT+PHRyPj r1FQGftOnb LK7jjRAzALvfJk0pNQX7Ef SeBgFzDGndP1YcQIMvlynm yeajuIY0MNShEXEfvS67Lt 9udDogMTBw aHTWsA5prokoj5tyjucoRg FbINCcLWy4QFg6BSSzwYsx HkTeGGD5DvV2CWR2aBSnqO 1hbGlnbjog uG8zW9PyHJErxxkdPd57gY 6tJuSkXdQ9FSqvEat+RU5H NwZULXYCJFLQV4NLRFABUo wvdGQ+PHRk EUY6fBmjIUzaJSHylD8gLP PlS5k4MiPsZkN4UOyiN7Aw GHRidozdMd99lR2xXhEhWu R0FCtbJ8Sk ixS7GEDwoOEzLZzyNTP2I2 0op4V5XKKeYZUbUMF5lMR3 cY3vwHaczivfvCErrNzfzt VydGljYWwt LBrtY758MXAbaYfqFhXuQv G2QiN6PFU2W7PkRnn9THBv hAxhGF4brXRgFWpuDr8qhW neiHjlVM5s YYEiduciRYBifG3xLWWooI ZiuImmAR3lYSGutnycc268 GzJeEOO2YZTuhFOwW6VpsE 9yOiAjMDAw OXQaB6NulLSmRKupA680CB skXuQ9NXAafjDyR8RxTERy kSfhCjJ3i0T6Jl8vXPGTKE FyczwvdGQ+ DXKmARQ9mNbvNFxzUHLugR 1bAGArL4y9OxSsDiD7CBzx X7ZeJIOnvbmaVz96cB0xCq FpHtP0WLal B2GhduT3JPRfyUSoYEwuJM F8U40wr9C9TXFrZLUzXVG2 wYN4dN9hrAcgpkdhdTAcyV sgdmVydGlj LDkyPFinE908MNRoeSykKr ZFTUFMRTwvdGQ+PHRkIHN0 qKuhXXenBRKaaD4oXACcX6 f1LlPwIhN2 RVuyJ8SvIFUshxekUz21tA 1mGkPkFqI8QGbaG1EfsbL4 EGSvdAStOXqnCRX2H46dl8 G9AQHuGYXa BWR0rVI3dC7rjYmiqbpqzP VmdDsgdmVydGljYWwtYWxp W710NCInaIgqCh1ADG32ME 36K9LaVhfj dGFibGU+PHRhYmxlIHdpZH SmRIydZKQfJaDkzXrpRA5i It8oBSIwJSHszCbmvDVcJx Ica7nlVNQy KJjoSO6idImiC7KicGV9RT Byu6y8Uj93P73zM6IyzTQ+ AQFkjQP6mID5qK0vYlYhDv L7MMcqI765 QpNpaIFlOhemn6rlb4gzdS b6NwUmFYOsrbWojPszDUQ7 z4IvBi73E43bSRugIBErDQ IyMCUiIHZh wOojkb8mkQ7jWj8+PGNvbC W3vCF7xY3sYmUqAgA1GAcd N021ZkUcfNKxYahbD33sC2 JvdXA+PHRy Jnh3AXFeeZasKG7gvEMjNW tkMz0mDZX8JxZjTjFnGWsf P9RuGUFcdixcqewdcXA1UV PuWYEpwS78 Cy8uhVkxHy0eRJAnAGM5HR YqsFYzT7TuwG4kFuNcPDSo USKsR4WfcOSuIJciY976QQ kwTkO9WDZw fcHoH9XtDZWadXglMkX4m8 G6Od2DmBkfkTUnTL2fMqPk KSn9S0WgIoi0WAGdyAiqJW 0ncGFkZGlu Ss0jeDmxkOlfKV0aXGPkkx zuu212KsKme6lkLQMroSZh MZfzRDH5Y28se1Q7LHNnNN LkAUR8pJE0 yI5yrXgthbkbqGXdyLkekr LrkDbsJFhkWUnwO346KTYq qMldTrTMMhm8K7FaPfu6WO PjrHygRO2q eQOeLNpjMp6prEyqaUjtFX 4kBPMxlxadv732LgXvu9np FBVeeNXnNKijYKH0I24ka4 D6HORdOUWe ACC3fKW4lU3xlSmoygmtoA VmdDsgdmVydGljYWwtYWxp X286HGSqzDbuEa4DOhp4T7 YzBas8QOJd gCejZJ5qlUQsKJbgAx1ceQ ufcPfrXI0fKMOqyegva264 QiTet3mdYSSitEEgCGizIT B9H21kb7P7 HGSvHGMxSRD6mKE2vE0cxI lnbjogbGVmdDsgdmVydGlj BFzaLEmaP695VELrcQumRy BheWVyOjwv dGQ+UK71cq32L5FzJotdJd a0ZLQhFSR9qIR3bF6jHYXk CMrhc5J3eYQ3Q7GkobRmmb 9ys3ffQJCs ZTo (more content not included)... Normal [facility] PATHOLOGY REQUEST FOR LAB CO RPon 03-31-2025 PATHOLOGY REQUEST FOR LAB AMBIKA [facility] Comment on above: See report. Scanned copy available in EMR. EMBX [facility] HCG ( test) Ql (U)o n 03-24-2025 Interpretation and review of laboratory results Normal [facility] Preg Test, Ur Negative Negative [facility] Pathology Request for Lab Co rpon 03-24-2025 Pathology Request for Lab Ambika Normal [facility] Comment on above: Order Comment: EMBX Result Comment: See report. Scanned copy available in EMR. PERFORMED BY: [place] [id number] PATHOLOGIST HAND RIGGER MILKA MATTHEWS M.D. Performed By: #### P ATH TO [facility] #### [address] [place] Venous Duplex Lefton 0 03-23-2025 US LE Venous Duplex Left EXAMINATION: US LE [...] Church MD 03/23/25 10:58 a Technologist: DIGNA [facility] Patient Handouton 03-17-2025 Patient Handout Sclerotherapy, Care [...] cannot use soap and water, use hand stoneworking sander. ? Change your bandage. ? Check the [...] safe for you. General instructions ? Take coeo-jwf-hbrlxcv and prescription medicines only as told by [...] provider. Document Revised: 02/14/2023 Document Reviewed: 02/14/2023 [employer] Patient Education ? 2023 [employer]. Radiology Sclerotherapy, Care After After sclerotherapy, it [...] cannot use soap and water, use hand stoneworking sander. ? Change your bandage. ? Check the [...] safe for you. General instructions ? Take rreo-lul-scizvfx and prescription medicines only as told by [...] on the treatment (more content not included)... [facility] Coding Summaryon 03-10-2025 Coding Summary HTMLBase 64 QbercgmeMVt3tFi+PGhlYW Q+KH4PNNLdE84zbKBloZ6s D8GYQLrEBbbnHZFDDBrPUq LaenNmKH4glWJySPSb IC8+RG2fUDCuAtcxgMObw5 E4bOP3P47dwn2qKLxbsKN9 MILxJdZehamuh6ymlGn8XY cuNmluOyBt ZRKpiU40EFJ4sI01Vn81yL FvcMZkm9xwaHj2IpTkMXMi TSI1nRjvNEvlv9FkLHNgZ1 8zpCPqd4E2 DNGapCeyvLQhNuRpfYR2tM 4ePAhtxcnpp4vqvvinWuy3 xo91mTKwt9V2fCO7P6Xqye J0YFGcoHNz SqiotYEQkI8uqdpia6yhwu pxAgDgSQAfOXi5GSr9OHRj lZuqNqGiHV83VCH5CBZhpx MtI2DjAUXv mXbzFlG1v2E4Fw4MQ0EDRz znK4VKBRLJTIdqnIQ+PC90 sv59S9JzIxjyKye5RUVlCH Q0cGT1oM6y CHYrRJnrw6A4sKC2L4Yjkd Yzza6yo6crIWWxEMfaQ72l eKTyp1F5MONspVI4WVFgaX bdWfJrkX59 Oyc+HMFksQctj6OiNrpjt7 vsg9phhOe9XsxpKDQuzpIv tQndYFQ1d0RbPa3kZSMxhP O3jHD9jO0o LsLmErO7HQolB641LhIixR NjYfrbX28fQ7CqmQV+PHRy Buz5BVHnuDqcLK6fA7KhRY RpbmctbGVm uRppQO7dNFNjljpjTDKyfL 3aHQVwF8x5HvBuKuJ9GHdr W9EyFLXnyvxfUj35dQ8jQu RlOeA4NZev P8GrlaS8SXAtfVReWUyzXM I2Z43ku8E2STEvHEWrYDJ1 yMT0sQ0hxIsffhqmkIOjuL sgdmVydGlj IKfmHNaiW967QRNlqLbpHw NvZGluZyBEYXRlOiAgMDQv MTYvMjAyNTwvdGQ+PHRkIH Q6mTliHPSn gMBwNKkrZr7afPhtzGpxHL 8qBTEzciiyTECpnM3vFMZy sLVhfJwmQP6eIWOptajiq6 53AaKfKZZ2 BJAuaATnG7WaaE4oLfEzDY PlTCYkU3UkjYOkCMlqU923 JDqwDnL7EVOshjUqP4VaHN FsaWduOiB0 k4N9Lc3Pe8BdjalyM2AqbC JvNzNaAifzPIh8F3OeXpfz dHI+OL69ZEUlKM70ICc8CL E8tSztAAks IMJpR9PbmC0iOkFlHRCrSX RkOyc+PHRhYmxlIHdpZHRo BKoxFWNnHeXfkFswOM3nZi 9yZGVyLWNv pZtzrHPgRuHrg8vjJJCpNQ qeFE2cgNboK8DylNQ8MMBl k0y0Aa66Q52jH2AziDA+PG FmqCV9jVL2 dT9cLpCiOcV0QTefS813Hq PwvTUuZydoc8zyq2twjWc8 QtR0ZORjicAzoAltTWX0w5 BnKe18U75h IHdpZHRoPSIxNSUiIHZhbG jvcb1yrN1rAv4+PGNvbCB3 dXA6bZ3aXuVfQtV4UZvkZ3 49InRvcCIv Ysxij6nnt3vnqVb1VyFmEZ WzzzRmrXwtSSO6j6NjHv56 Q8IasJbxv6XgGdk1yp51uZ Drx7L5bDG4 X7YaAGOtmcdwqBSwvSejQX 9cYBIaxodlHHFjmM8dQGGi O2t8XdFyQvE7VEzeZ6Lcvb C8NAElfBZl QUUxdZGHyE3soecun2memh zuVbTbXARvRMv6TVf4WXCk oQohLcXiKGF1XeW0RKH1fG MjcQ0zaEbg xrvamZ4aAat+ZFX3yVMgzZ RIFO3fKtatyCE+PHRkIHN0 yJetOFlwLAZduM1kVASwU3 p7CoZdWoR5 XRlmG5EusuM9HDFwgYDdZF JuiUTKgL5rirola1jtvpjp DyNcNQBcSLj0PEf2BZVckD duOiBsZWZ0 KmL9RUD1tEPjvC2fuJiepl eqyL6bVtv+QmlydGggRGF0 STz2K1NnLli0SJYgsRziIE 0ncGFkZGlu Wv3yuChqeFhoPG1vRYNmaf fss042AxQre7oeUKFxuFAd JDfyLUF7L03vh1F3PKRgSU YfSYY0pVT1 wN9anNuomacwyJTinLaqzu JxmRqbTGhgJKmaU860MPMb lVrwWlApPKd0M6QePtu5PE YyvXfqIT2j yZKuGMwhPb1riPzblKzyOR 3pOAKdlsqap741HkKjf8uz ZKUddOIiAVnmEVV5M09ps1 L0LMKjAZRm KCQ8qMT5bK0doOqqthbqrZ VmdDsgdmVydGljYWwtYWxp W895BAIcfJpwQvRuxQr9D6 QtOaq9TTFx oQvjEO5mwIRbGBdoFu5vvI lvgJtmXQ5nSELbofqpx068 VrOaa4hiOHUmnFQqTBvkHF R6T26rv7Z9 KKQsNGAuKIC7tPU6fH9riX lnbjogbGVmdDsgdmVydGlj WUmhSBicK649BVXabZafPa BhdGllbnQg SUueUDt6G9NxKaglzXY+PC 19RSYzUL02gRPffDWpu3ts kMm6NgLoMIQnZMT1aJseVO vti2MiTIPf P83bqKQhj0L9ANKyuXymaT XeMiYmcLS1nZ4nAHvtngtk e8jkpqpvMsyid6oagg16sR 68L25iOSqo ZHRoPSIzMCUiIHZhbGlnbj 6ecY1eDc3+AANiqRZ6wZG7 uN9aSSTuWoV9WHolC972Fh RvcCIvPjxj b9bws6mreHz1XtF1UKHykb BcdHosXQP8b0QpSw74F01n IHdpZHRoPSIyMCUiIHZhbG ixoo5hhT6z Ii8+AXGceHZ2cZP6cV0nCf McEpK6AYviT629EtDexTZs YtofJ56xJ7SivPS+PHRyPj s6QOEvzOxb MR0clQYqVHlxNu4wATV4Nc QlTzVqQQkfK3RwTXOeflui klwdvAR5DIUiCVUjuO81Kg 9udDogMTBw uCZXpK3fjsjzl4cyaassYd CdFDDfCLy9FZm8JRQvhOxv GpArUDV9JtJ6VVE9eWBajY 1hbGlnbjog dM5hG4XtYNVunsqdQt44eV 6qHyZnPjR3PMdxBaq+RU5H OhJZLMYJLBBTI0DCYQNCQu wvdGQ+PHRk UDQ3aRoxOHccRWJvdM6eFU CmP0j3YfOmZzF0GUdoN7Vm XWBonyqoCq85qK8cKgFkQf W6ZQmfA6Wj udY0ZGKyiSLxWTgwVYY8H0 0gv0F4THPaDGPqEKP6wRJ2 aW8ynVqshibhmVQwwYukiz VydGljYWwt LKrlE837FBExsGmbKzIiZx W7KwK1VXK5P8PuReb8ZMLo zHowLS7zfHLcXUqzMm1tuO tdgUwmJM6q CPBaohxrSEWxpY3lRTCxeW IzfClrCU1qBQXydkndt365 OrHxXCH0GTMisPJnT3MwkG 9yOiAjMDAw VNInX2WxfOKdZGdmY781FL jfTyW5YICttlMtQ5ZnWUZd xRjeNxD7m7Q8Vr0lXQTOAY FyczwvdGQ+ TULkDCJ5nHxaQKrkXCUaqO 3zBYMgA8w0MuNwUgZ7EEzp Y0IwZAHgjjvnBf74lR8dDo IaLlK6KRdc O8AnutN5ZSTldXPqUHdcWA S7O88yq8N7EKNkNWAtGVP4 xWP4rI8dbYwevsbgpAGijL sgdmVydGlj QTwbCIzeY802XGXznIcdCs ZFTUFMRTwvdGQ+PHRkIHN0 qIaqNXvaBYDwlK9eLLKdM0 n2ZcZwUgP3 QYirC1OeSSVoocxbZy83jX 3sUvFoCxJ2JToeW1KggbY0 OBRjhNGwHGrbJSK2H24ps4 Q7CMAuHQXq ZOK5pHC2eV9huQumhhntuI VmdDsgdmVydGljYWwtYWxp G243OSIdfGenHm4QOY91PU 68G9QfSrpx dGFibGU+PHRhYmxlIHdpZH NbHXdmIWTfLoKpvIlaIL7t Xh0ySLXaZZItxNlktHUlOh Pkc0iaVTTy ORetZY6ddApcS2WawMA7QG Vzq8c9Hc19F82cP4AyaHC+ MDNqzLZ1aSN1uB2iMlDdJk T9MBtuN933 XhDboADbLcxwq6xvt8euyH c5IjAlZGFjosFfdLjoSLF0 y6CqBc25P65rEUotUMZdAE IyMCUiIHZh yWmyxq8txK1mPg2+PGNvbC A1rYH9yF9iBqHdOnA5NTat V213XnAvgTKvNzjvY01tF8 JvdXA+PHRy Uay8KOIkcQcfYC0wuEMrHY xvAt4lQOX5RjIpQlBgOBpq W9WuLNDihnupjbchiZA2OQ XnRHQydL33 Jk1goTtoPj9oZJSgXRR9VP OilMDcA2QgeS1wCyPlZWEq KMKzI8PtoBAqKPkcS792OJ ttQcQ5ZEDj dcYjF6MqLNJvtTvpKmK0r8 J6Ic3WyGiccMExLS0pCpLr OQi7E5YpDee3QPRgjRzzJZ 0ncGFkZGlu Qx4nkXbuvSnbIW2gNKMrqi tpt425ZsUru4hqFKBsiUNm QNliTTO0Q06rz8E4UZXuEY GnRGF7lMC5 dO0pmAzwpgwcgXWbgVpumh AhsTyrRTpnFUqqT096GFDk eJcpAuYWMgh5E2OzSjv8JM GqkZiuEH5b mNVbKOfjJn5qkDhbjDssLH 9dYSQmzahmt434LeSwm6hx LNFunBSpYCzzNIY6L29ey5 D9KJLlJLAy QMS3uFG4eO1msOdztxdegY VmdDsgdmVydGljYWwtYWxp I028GBSmeLvjCx1QShk8L7 OlHiz4SFDe cUguTU9hxXEbWKurPw7evD zrvIatLK9pWAIayknmf707 WaSxi0pvGYBhiKTrLIfdRK K8M59jb2I8 FUHhXYMiYWO6vGK6gL0viO lnbjogbGVmdDsgdmVydGlj JIfhUCejM210TWJdsKbfPa BheWVyOjwv dGQ+IN45ka19I0BqLinjEj o0XHVySNI6aKX6fR0xDATq UKpmj6D8vPB0T4JjuxPvhb 4eg9szFCDc ZTo (more content not included)... Normal [facility] HEMOGLOBIN A1con 03-03-2025 HEMOGLOBIN A1c 5.3 % [...] diagnosis of diabetes in children. According to [place] Diabetes Association (ADA) guidelines, hemoglobin A1c <7.0% represents optimal control in non- diabetic patients. Different metrics may apply to specific patient populations. Standards of Medical Care in Diabetes(ADA). Performed By: #### 4 96 #### [facility] [address], [address] [place] [address] Rough Rice Tender: Kosta Perdue MD Urinalysis macro (dipstick) panel (U)on 03-01-2025 Bilirubin, UA Negative Negative - 4(70) +++ mg/dL [facility] Blood, UA Negative Negative - 50 Bernardo/mcL [facility] Clarity, UA Clear [facility] Color, UA Yellow [facility] Glucose, UA Negative Negative - 2000(110) ++++ mg/dL [facility] Interpretation and review of laboratory results Normal [facility] Ketones, UA Negative Negative - 160(16) ++++ mg/dL [facility] Leukocytes, UA Negative Negative - 500+++ Matti/mcL [facility] Nitrite, UA Negative Negative - Positive [facility] pH, UA 6.5 5 - 9 [facility] Protein, UA Negative Negative - 2000(20) ++++ mg/dL [facility] Spec Grav, UA 1.02 1 - 1.03 [facility] Urobilinogen, UA 1.0 0.2 - 12 mg/dL [facility] No Panel Informationon 02-25 Type of biopsy: [...] taken Amount of lidocaine used: 0.2 cc [facility] Type of biopsy: tangential Informed consent: discussed [...] taken Amount of lidocaine used: 0.3 cc [facility] LE Venous Duplex Righton 02-25-2025 US LE [...] Brandon Church MD 02/25/25 11:00 a Technologist: [facility] US Endovenous Ablation 1st V love [...] Church MD 02/18/25 10:27 a Technologist: DIGNA [facility] Outside Recordson 01-12-2025 Outside Records [id number]#1.00 [facility] Outside Records [id number]#1.00 [facility] Rad - Other Radiology Report on 01-12-2025 Rad - Other Radiology Report [id number]#1.00 [facility] Rad - Other Radiology Report [id number]#1.00 [facility] US PELVIS TRANSVAGINALon US PELVIS TRANSVAGINAL [...] report is generated using voice recognition reporting (Caperflye). On occasion [employer] erroneously drops words from the report or replaces the spoken word with similar sounding words. Please call with any questions/concerns regarding this report.* Dictated and transcribed 12/10/2024/idalia This report has been electronically signed and approved by the interpreting radiologist. Normal Not Available No Panel InformationOrdered By: Gissell Malagon on 08-25-2024 Quick Strep (POC) [facility] RHOGAM INJECTION ONLYon 10-25 Blood product type Nom (BPU) [facility] Status of Units TRANSFUSED [facility] Transfusion Status OK TO TRANSFUSE B ON [facility] Unit Divison 0 [facility] Unit Number [id number] [facility] CBC with Diffon 11-08-2022 Abs. Basophil 0.03 k/uL Normal 0.00-0.20 [facility] Comment on above: Performed By: #### C DP #### [facility] [address] [place], [place] [id number] Configuration Management Advisor: Brandon Thompson MD Abs. Eosinophil <0.03 Normal 0.00-0.44 [facility] Comment on above: Performed By: #### C DP #### [address] [place] [address] Configuration Management Advisor: Brandon Thompson MD Abs.Imm.Granulocyte 0.06 k/uL Normal 0.00-0.30 [facility] Comment on above: Performed By: #### C DP #### [address] [place], [place] [id number] Configuration Management Advisor: Brandon Thompson MD Abs.Neutrophil (Seg) 8.25 k/uL High 1.50-8.10 [facility] Comment on above: Performed By: #### C DP #### [facility] [address] [place] [address] [place] [address] Configuration Management Advisor: Brandon Thompson MD Basophils/100 WBC (Bld) 0 % Normal 0-2 [facility] Comment on above: Performed By: #### C DP #### [facility] [address] [place] [address] [place] [place], [place] [id number] Configuration Management Advisor: Brandon Thompson MD Eosinophils/100 WBC (Bld) 0 % Low 1-4 [facility] Comment on above: Performed By: #### C DP #### [facility] [address] [place], [facility]83 Configuration Management Advisor: Brandon Thompson MD Erythrocyte distribution width (RBC) [Ratio] 12.6 % Normal 11.8-14.4 [facility] Comment on above: Performed By: #### C DP #### [facility] [address] [place] [address] Dr[address] [place], [facility]83 Configuration Management Advisor: Brandon Thompson MD Hematocrit (Bld) [Volume fraction] 39.9 % Normal 36.3-47.1 [facility] Comment on above: Performed By: #### C DP #### [address] [place], [facility]83 Configuration Management Advisor: Brandon Thompson MD Hemoglobin (Bld) [Mass/Vol] 13.5 g/dL Normal 11.9-15.1 [facility] Comment on above: Performed By: #### C DP #### [facility] [address] [place] [address] Dr[place], [facility]83 Configuration Management Advisor: Brandon Thompson MD Immature granulocytes/100 WBC (Bld) 1 % High 0 [facility] Comment on above: Performed By: #### C DP #### [address] [place], [facility]83 Configuration Management Advisor: Brandon Thompson MD Lymphocytes (Bld) [#/Vol] 1.59 10*3/uL Normal 1.10-3.70 [facility] Comment on above: Performed By: #### C DP #### [facility] [address] [place] [address] Dr[address] [place], [facility]83 Configuration Management Advisor: Brandon Thompson MD Lymphocytes/100 WBC (Bld) 15 % Low 24-43 [facility] Comment on above: Performed By: #### C DP #### [facility] [address] [place] [address] Dr[address] [place], [facility]83 Configuration Management Advisor: Brandon Thompson MD MCH (RBC) [Entitic mass] 32.6 pg Normal 25.2-33.5 [facility] Comment on above: Performed By: #### C DP #### [facility] [address] [place], [place] [address] Configuration Management Advisor: Brandon Thompson MD MCHC (RBC) [Mass/Vol] 33.8 g/dL Normal 28.4-34.8 [facility] Comment on above: Performed By: #### C DP #### [facility] [address] [place], [facility]83 Configuration Management Advisor: Brandon Thompson MD MCV (RBC) [Entitic vol] 96.4 fL Normal 82.6-102.9 [facility] Comment on above: Performed By: #### C DP #### [address] [place], [facility]83 Configuration Management Advisor: Brandon Thompson MD Monocytes (Bld) [#/Vol] 0.74 10*3/uL Normal 0.10-1.20 [facility] Comment on above: Performed By: #### C DP #### [facility] [address] [place], [facility]83 Configuration Management Advisor: Brandon Thompson MD Monocytes/100 WBC (Bld) 7 % Normal 3-12 [facility] Comment on above: Performed By: #### C DP #### [facility] [address] [place], [place] [address] Configuration Management Advisor: Brandon Thompson MD Neutrophil (Seg) 77 % High 36-65 [facility] Comment on above: Performed By: #### C DP #### [facility] [address] [place], [facility]83 Configuration Management Advisor: Brandon Thompson MD NRBC Automated 0.0 per 100 WBC Normal 0.0 [facility] Comment on above: Performed By: #### C DP #### [facility] [address] [place], [facility]83 Configuration Management Advisor: Brandon Thompson MD Platelet mean volume (Bld) [Entitic vol] 13.0 fL Normal 8.1-13.5 [facility] Comment on above: Performed By: #### C DP #### [address] [place], [place] [id number] Configuration Management Advisor: Brandon Thompson MD Platelets (Bld) [#/Vol] 134 10*3/uL Low 138-453 [facility] Comment on above: Performed By: #### C DP #### [address] [place] [address] Configuration Management Advisor: Brandon Thompson MD RBC (Bld) [#/Vol] 4.14 10*6/uL Normal 3.95-5.11 [facility] Comment on above: Performed By: #### C DP #### [address] [place] [address] Configuration Management Advisor: Brandon Thompson MD WBC (Bld) [#/Vol] 10.7 10*3/uL Normal 3.5-11.3 [facility] Comment on above: Performed By: #### C DP #### [address] [place], [place] 1046383 Configuration Management Advisor: Brandon Thompson MD Drug Scr, Abuse, Uron 2021 Amphetamine(s),Ur Negative Normal [facility] Comment on above: Performed By: #### D AU #### [address] [place], [place] [id number] Configuration Management Advisor: Brandon Thompson MD Barbiturate(s),Ur Negative Normal [facility] Comment on above: Performed By: #### D AU #### [address] [place], [place] [id number] Configuration Management Advisor: Brandon Thompson MD Benzodiazepine(s) Negative Normal [facility] Comment on above: Performed By: #### D AU #### [facility] [address] [place], [place] [address] Configuration Management Advisor: Brandon Thompson MD Buprenorphrine, Ur Negative Normal [facility] Comment on above: Performed By: #### D AU #### [facility] [address] [place], [place] [id number] Configuration Management Advisor: Brandon Thompson MD Cannabinoid(s),Ur Negative Normal [facility] Comment on above: Performed By: #### D AU #### [facility] [address] [place], [place] [id number] Configuration Management Advisor: Brandon Thompson MD Cocaine Metabolite Negative Normal [facility] Comment on above: Performed By: #### D AU #### [facility] [address] [place], [place] [id number] Configuration Management Advisor: Brandon Thompson MD Methadone Ql (U) Negative Normal [facility] Comment on above: Performed By: #### D AU #### [facility] [address] [place], [place] [address]83 Configuration Management Advisor: Brandon Thompson MD Methamphetamine, Ur Negative Normal [facility] Comment on above: Performed By: #### D AU #### [facility] [address] [place], [place] [address]83 Configuration Management Advisor: Brandon Thompson MD Opiate(s), Ur Negative Normal [facility] Comment on above: Performed By: #### D AU #### [facility] [address] [place], [place] [address]83 Configuration Management Advisor: Brandon Thompson MD Oxycodone, Urine Negative Normal NEG [facility] Comment on above: Performed By: #### D AU #### [facility] [address] [place], [place] 7695[address] Configuration Management Advisor: Brandon Thompson MD Phencyclidine, Ur Negative Normal [facility] Comment on above: Performed By: #### D AU #### [facility] [address] [place] [address] [place] [address] Configuration Management Advisor: Brandon Thompson MD Propoxyphene,Urine Negative Normal NEG [facility] Comment on above: Performed By: #### D AU #### [facility] [address] [place] [address] [place] [address] Configuration Management Advisor: Brandon Thompson MD Tricyclic antidepressants Screen Ql (U) Negative Normal NEG [facility] Comment on above: Result Comment: Drug screen results are to be used for medical purposes only. All positive results are unconfirmed. Testing for employment or legal uses should be sent to a reference laboratory for confirmation. Performed By: #### D AU #### [address] [place], [facility]83 Configuration Management Advisor: Brandon Thompson MD ROSETTEon 11-08-2022 Kymberly Negative [facility] Rosetteon 11-08-2022 Kymberly Negative Normal [facility] Comment on above: Performed By: #### C FET #### [address] [place], [facility]83 Configuration Management Advisor: Brandon Thompson MD RHIG, Transfuseon 11-08-2022 RHIG, Transfuse Unit Number [id number]/ [id number] Blood Component Type [facility] Unit Division 00 Status of Unit TRANSFUSED Transfusion Status OK TO TRANSFUSE [facility] Comment on above: Performed By: #### T RHIG #### [address] [place] [address] Configuration Management Advisor: Brandon Thompson MD Surgical Pathologyon 022 Surgical [...] SURGICAL PATHOLOGY CONSULTATION Patient Name: STEPHANIE PALENC[address] [facility] Rec: [id number] Path Number: [id number] [facility] ANATOMIC PATHOLOGY [address] [place] [phone] [facility] Comment on above: Performed By: #### P PPVS #### [address] [address] Configuration Management Advisor: Curly Connolly MD TYPE AND SCREENon 11-08-2022 ABO/Rh Negative [facility] Arm Band Number [id number] [facility] Expiration Date 11/10/2022,4228 [facility] Type + Screenon 11-08-2022 Type + Screen Sample Expiration 11/10/2022,6469 Arm Band Number [id number] ABO/Rh(D) O NEGATIVE Antibody Screen NEGATIVE [facility] Comment on above: Performed By: #### T YS #### [facility] [address] [place] [address] Configuration Management Advisor: Brandon Thompson MD CBC auto differentialon 10-25 Absolute Eos # [facility] Absolute Immature Granulocyte 0.06 [facility] Absolute Lymph # 1.59 [facility] Absolute [place] # 0.74 [facility] Basophils (Bld) [#/Vol] 0.03 10*3/uL [facility] Basophils/100 WBC (Bld) 0 % 0 - 2 % [facility] Eosinophils/100 WBC (Bld) 0 % Low 1 - 4 % [facility] Hematocrit (Bld) [Volume fraction] 39.9 % 36.3 - 47.1 % [facility] Hemoglobin (Bld) [Mass/Vol] 13.5 g/dL 11.9 - 15.1 g/dL [facility] Immature granulocytes/100 WBC (Bld) 1 % High 0 [facility] Interpretation and review of laboratory results Abnormal [facility] Lymphocytes/100 WBC (Bld) 15 % Low 24 - 43 % [facility] MCH (RBC) [Entitic mass] 32.6 pg 25.2 - 33.5 pg [facility] MCHC (RBC) [Mass/Vol] 33.8 g/dL 28.4 - 34.8 g/dL [facility] MCV (RBC) [Entitic vol] 96.4 fL 82.6 - 102.9 fL [facility] Monocytes/100 WBC (Bld) 7 % 3 - 12 % [facility] NRBC Automated 0.0 0.0 per 100 WBC [facility] Platelet distribution width (Bld) [Ratio] 12.6 % 11.8 - 14.4 % [facility] Platelet mean volume (Bld) [Entitic vol] 13.0 fL 8.1 - 13.5 fL [facility] Platelets (Bld) [#/Vol] 134 10*3/uL Low [facility] RBC (Bld) [#/Vol] 4.14 10*6/uL 3.95 - 5.1 1 m/uL [facility] Segmented neutrophils/100 WBC (Bld) 77 % High 36 - 65 % [facility] Segs Absolute 8.25 High [facility] WBC (Bld) [#/Vol] 10.7 10*3/uL [facility] DRUG SCREEN MULTI URINEon Amphetamine Screen, Ur Negative NEGATIVE [facility] Barbiturate Screen, Ur Negative NEGATIVE [facility] Benzodiazepine Screen, Urine Negative NEGATIVE [facility] Buprenorphine Urine Negative NEGATIVE [facility] Cannabinoid Scrn, Ur Negative NEGATIVE [facility] Cocaine Metabolite, Urine Negative NEGATIVE [facility] Methadone Screen, Urine Negative NEGATIVE [facility] Methamphetamine, Urine Negative NEGATIVE [facility] Opiates, Urine Negative NEGATIVE [facility] Oxycodone Screen, Ur Negative NEGATIVE [facility] Phencyclidine, Urine Negative NEGATIVE [facility] Propoxyphene, Urine Negative NEGATIVE [facility] Tricyclic Antidepressants, Urine Negative NEGATIVE [facility] Comment on above: Drug screen results are to be used for medical purposes only. All positive results are unconfirmed. Testing for employment or legal uses should be sent to a reference laboratory for confirmation. [facility] OB Growthon 10-17-2022 OB Growth FINDINGS: Comparison made with prior [...] by Elder Farrell on 10/17/2022 1135 Normal [facility] Desktop Support Manager GBS, External Resulton 10-11 GBS, External Result Negative [employer] Phone: [employer] Phone: US OB 2nd/3rd Trimesteron US OB 2nd/3rd Trimester HISTORY: Late care/FMA. COMPARISON: [...] by Leonel Foster on 10/12/2022 1159 Normal [facility] Desktop Support Manager C. Trachomatis, External Res [facility] 05-15-2022 C. Trachomatis, External Result Negative [employer] Phone: N. Gonorrhoeae, External Res [facility] 05-15-2022 N. Gonorrhoeae, External Result Negative [employer] Work Phone: No Panel Informationon 05-15 [employer] Work Phone: Hepatitis B, External Result on 05-01-2022 Hep B, External Result Negative [employer] Work Phone: [employer] Work Phone: ABO, External Resulton 04-30 ABO, External Result o [employer] Work Phone: HIV, External ResultOrdered By: Rizwana Sorto on 04-30-2022 HIV, External Result Negative [employer] Verified ray quigley rn [employer] Hepatitis C Antibody, Scanning Supervisor al Resulton 04-30-2022 Hepatitis C Antibody, External Result Negative [employer] Work Phone: No Panel Informationon 04-30 [employer] Work Phone: RPR, External Labon 04-30-20 RPR, External Result Negative [employer] Work Phone: Rh Factor, External Resulton 04-30-2022 Rh Factor, External Result Negative [employer] Work Phone: Rubella Titer, External Resu lton 04-30-2022 Rubella Titer, External Result Immune [employer] Work Phone: Vital Signs Date Time Vital Sign Value Performing Clinician Facility 03-24-2025 16:16-0400 Body mass index (BMI) [Ratio] 35.96 kg/m2 [employer] Work Phone: [facility] 03-24-2025 16:16-0400 Body weight 101.06 kg [email or web address] Phone: [facility] 03-24-2025 16:16-0400 Diastolic blood pressure 78 mm[Hg] [email or web address] Phone: [facility] 03-24-2025 16:16-0400 Systolic blood pressure 120 mm[Hg] Abel Susie DO Work Phone: [facility] 03-01-2025 09:21-0400 Body mass index (BMI) [Ratio] 36.17 kg/m2 Abel Susie DO Work Phone: [facility] 03-01-2025 09:21-0400 Body weight 101.66 kg Abel Susie DO Work Phone: [facility] 03-01-2025 09:21-0400 Diastolic blood pressure 76 mm[Hg] Abel Susie DO Work Phone: [facility] 03-01-2025 09:21-0400 Systolic blood pressure 114 mm[Hg] Abel Susie DO Work Phone: [facility] 01-26-2025 13:19-0500 Body mass index (BMI) [Ratio] 36.15 kg/m2 Lamberto Floro CNM Work Phone: [facility] 01-26-2025 13:19-0500 Body weight 101.61 kg Lamberto Floro CNM Work Phone: [facility] 01-26-2025 13:19-0500 Diastolic blood pressure 80 mm[Hg] Lamberto Floro CNM Work Phone: [facility] 01-26-2025 13:19-0500 Systolic blood pressure 120 mm[Hg] Lamberto Floro CNM Work Phone: [facility] 11-12-2024 10:35-0500 Body mass index (BMI) [Ratio] 36.15 kg/m2 Lamberto Floro CNM Work Phone: [facility] 11-12-2024 10:35-0500 Body weight 101.61 kg Lamberto Floro CNM Work Phone: [facility] 11-12-2024 10:35-0500 Diastolic blood pressure 80 mm[Hg] Lamberto Floro CNM Work Phone: [facility] 11-12-2024 10:35-0500 Systolic blood pressure 120 mm[Hg] Lamberto Canseco CNM Work Phone: [facility] 08-25-2024 09:17-0400 Body height 167.64 cm [facility] 08-25-2024 09:17-0400 Body mass index (BMI) [Ratio] 34.5 kg/m2 [facility] 08-25-2024 09:17-0400 Body temperature 97.3 [degF] [facility] 08-25-2024 09:17-0400 Body weight 97.06 kg [facility] 08-25-2024 09:17-0400 Diastolic blood pressure 90 mm[Hg] [facility] 08-25-2024 09:17-0400 Heart rate 104 /min [facility] 08-25-2024 09:17-0400 Respiratory rate 18 /min [facility] 08-25-2024 09:17-0400 SaO2% (BldA) [Mass fraction] 97 % [facility] 08-25-2024 09:17-0400 Systolic blood pressure 138 mm[Hg] [facility] 11-09-2022 12:22-0500 Body temperature 98.01 [degF] Lamberto Ptaelo UPPER EXTREMITY SURGEON - CNM Work Phone: [facility] [facility] 11-09-2022 12:22-0500 Diastolic blood pressure 80 mm[Hg] Lamberto Patelo UPPER EXTREMITY SURGEON - CNM Work Phone: [facility] [employer] 11-09-2022 12:22-0500 Heart rate 81 /min Lamberto Amandao UPPER EXTREMITY SURGEON - CNM Work Phone: [facility] [employer] 11-09-2022 12:22-0500 Respiratory rate 16 /min Lamberto Floro UPPER EXTREMITY SURGEON - CNM Work Phone: [facility] [employer] 11-09-2022 12:22-0500 Systolic blood pressure 130 mm[Hg] Lamberto Patelo UPPER EXTREMITY SURGEON - CNM Work Phone: [facility] Encounters Encounter Date Encounter Type Care Provider Facility Start: 04-06-2025 End: 04-06-2025 ambulatory [facility] Facility:[facility] Start: 04-01-2025 ambulatory [facility] Facility: [facility] Start: 03-24-2025 End: 03-24-2025 Departed Referred Abel Susie DO Work Phone: [facility] Start: 03-24-2025 End: 03-24-2025 Patient encounter procedure Abel Susie DO Work Phone: [facility] Comment on above: Pre-op examination; Menorrhagia with regular cycle; Abnormal uterine bleeding; Pelvic pain in female; PCOS (polycystic ovarian syndrome) Start: 03-24-2025 End: 03-24-2025 Preprocedural examination done Abel Susie DO Work Phone: [facility] Start: 03-24-2025 End: 03-24-2025 [facility]: Start: 03-24-2025 End: 03-31-2025 External Result Encounter Abel Susie DO Work Phone: [facility] Unsolicited Start: 03-24-2025 End: 03-31-2025 External Result Encounter Abel Susie DO Work Phone: [facility] Unsolicited Start: 03-23-2025 End: 03-23-2025 ambulatory Omar Marin Facility:[facility] Start: 03-18-2025 End: 03-18-2025 ambulatory Brandon Church Facility:[facility] Start: 03-01-2025 End: 03-01-2025 Bamboo flowsheet Abel [...] End: 02-25-2025 Bamboo flowsheet Mathew A Felter UPPER EXTREMITY SURGEON-MANAGER LSW Work Phone: [facility] Start: 02-25-2025 End: 02-25-2025 Bamboo flowsheet Mathew A Felter UPPER EXTREMITY SURGEON-MANAGER LSW Work Phone: [facility] Start: 02-25-2025 End: 02-25-2025 ambulatory MATHEW A FELTER Not Available Start: 02-25-2025 End: 02-25-2025 Office outpatient visit 15 minutes Mathew A Felter UPPER EXTREMITY SURGEON-MANAGER LSW Work Phone: [facility] Comment on above: Melanocytic nevus of trunk (Primary Dx); Melanocytic nevus of skin of both upper extremities; Angioma of skin; Neoplasm of unspecified behavior of bone, soft tissue, and skin Start: 02-18-2025 ambulatory Brandon Church Facility: [facility] Start: 01-26-2025 End: 01-26-2025 [employer] Lamberto L Floro [facility] Work Phone: [facility] Start: 01-26-2025 End: 01-26-2025 [employer] Lamberto L Floro CN Work Phone: [facility] Start: 01-26-2025 End: 01-26-2025 Office outpatient visit 15 minutes Lamberto L Floro CN Work Phone: [facility] Comment on above: DUB (dysfunctional u terine bleeding) (Primary Dx); Irregular bleeding Start: 01-26-2025 End: 01-26-2025 ambulatory LAMBERTO L FLORO Not Available Start: 12-09-2024 End: 12-09-2024 ambulatory LAMBERTO L FLORO Not Available Start: 12-07-2024 End: 12-28-2024 ambulatory [place] Start: 11-12-2024 End: 11-12-2024 Bamboo flowsheet Lamberto Canesco CNM Work Phone: [facility] Start: 11-12-2024 End: 11-12-2024 Bamboo flowsheet Lamberto Canseco CNM Work Phone: [facility] Start: 11-12-2024 End: 11-12-2024 Gynecological examination normal Lamberto Canseco CNM Work Phone: [facility] Start: 11-12-2024 End: 11-12-2024 Periodic preventive med est patient 18-39 yrs Lamberto Canseco CNM Work Phone: [facility] Comment on above: Menorrhagia with reg ular cycle (Primary Dx); Normal gynecologic examination; Screening for cervical cancer; DUB (dysfunctional uterine bleeding) Start: 11-12-2024 End: 11-12-2024 ambulatory LMABERTO CANSECO Not Available Start: 10-28-2024 End: 10-28-2024 Telephone encounter [facility] Provider Unallocated Work Phone: [facility] Start: 10-26-2024 End: 10-26-2024 Telephone encounter Lamberto Canseco CNM Work Phone: [facility] Start: 08-25-2024 End: 08-25-2024 ambulatory [facility] Work Phone: Start: 08-25-2024 End: 08-25-2024 Patient encounter procedure [facility] Work Phone: Start: 04-12-[address] ABEL RICHARDS . Facili ty:[facility] Start: 04-04-2023 Encounter for other preprocedural examination DR ABEL RICHARDS . [facility] Start: 03-29-2023 End: 03-30-[address] ABEL RICHARDS . Facility:[facility] Start: 03-29-2023 End: 03-30-2023 Encounter for other preprocedural examination DR ABEL RICHARDS . Facility:[facility] Start: 11-07-2022 End: 11-09-2022 Evaluation and management of inpatient LAMBERTO CANSECO [facility] Start: 11-07-2022 End: 11-09-2022 Evaluation and management of inpatient Lamberto Canseco UPPER EXTREMITY SURGEON - CN Work Phone: [facility] Labor and Delivery Procedures Date Procedure Procedure Detail Performing Clinician Start: 03-24-2025 Urine test visual color cmprsn meths Abel Richards DO Work Phone: Start: 03-24-2025 PATHOLOGY REQUEST FO R LAB AMBIKA Abel Richards DO Work Phone: Start: 03-01-2025 Urnls dip stick/tabl et rgnt non-auto w/o micrscp Abel Arriolao DO Work Phone: Start: 02-25-2025 End: 02-25-2025 SKIN / NAIL BIOPSY Mathew Montejo APR N-MANAGER LSW Work Phone: Start: 11-12-2024 Microscopic observat ion [Identifier] in Cervix by Cyto stain Mathew Montejo UPPER EXTREMITY SURGEON-MANAGER LSW Work Phone: Start: 08-25-2024 Quick Strep (POC) Start: 12-26-2022 Microscopic observat ion [Identifier] in Cervix by Cyto stain Nomalice Unallocated Work Phone: Start: 11-08-2022 KYMBERLY Lamberto edwards UPPER EXTREMITY SURGEON - CNM Work Phone: Start: 11-08-2022 Antibody screen Lamberto Canseco UPPER EXTREMITY SURGEON - CN Work Phone: Start: 11-07-2022 Blood count complete auto&auto difrntl wbc Lamberto Canseco UPPER EXTREMITY SURGEON - CNM Work Phone: Start: 11-07-2022 Blood typing serolog ic abo Lamberto Canseco UPPER EXTREMITY SURGEON - CN Work Phone: Start: 11-07-2022 Drug tst prsmv instr mnt chem analyzers pr date Lamberto Canseco UPPER EXTREMITY SURGEON - CNM Work Phone: Start: 10-11-2022 GBS, EXTERNAL RESULT Hi storical Provider Start: 05-15-2022 C. TRACHOMATIS, EXTE RNAL RESULT Historical Provider Start: 05-15-2022 N. GONORRHOEAE, EXTE RNAL RESULT Historical Provider Start: 05-01-2022 HEPATITIS B, EXTERNA L RESULT Historical Provider MD Start: 04-30-2022 ABO, EXTERNAL RESULT Hi storical Provider Start: 04-30-2022 HEPATITIS C ANTIBODY , EXTERNAL RESULT Historical Provider Start: 04-30-2022 HIV, EXTERNAL RESULT Hi storical Provider Start: 04-30-2022 RH FACTOR, EXTERNAL RESULT Historical Provider Start: 04-30-2022 RPR, EXTERNAL RESULT Mt storical Provider Start: 04-30-2022 RUBELLA TITER, EXTER NAL RESULT Historical Provider Plan of Treatment Date Care Activity Detail Author Start: 12-26-2027 Screening for malignant neoplasm of cervix [facility] Start: 11-12-2027 Screening for malignant neoplasm of cervix Pap Smear [facility] Start: 03-14-2026 End: 03-14-2026 Patient encounter procedure 03/14/2026 9:20 AM EDT Office Visit [facility] [address] [place] [phone] Mathew Montejo, UPPER EXTREMITY SURGEON-MANAGER LSW [address] [place] [address] [facility] Start: 02-28-2026 End: 02-28-2026 Patient encounter procedure 02/28/2026 9:35 AM EDT Office Visit [facility] [address] [place] [phone] Mathew Montejo, UPPER EXTREMITY SURGEON-MANAGER LSW [address] [place] [address] [facility] Start: 12-26-2025 Screening for malignant neoplasm of cervix Pap Smear [facility] Start: 07-26-2025 Influenza vaccination Influenza Vaccine (Season Ended) [facility] Start: 03-24-2025 End: 03-24-2025 Patient encounter procedure 03/24/2025 3:30 PM EDT Procedure Visit [facility] [address] [place] [phone] Abel Richards DO [address] [place] [address] [facility] Start: 03-24-2025 End: 03-24-2026 DHEA DHEA Lab Routine PCOS (polycystic ovarian syndrome) Expected: 03/24/2025 (Approximate), Expires: 03/24/2026 [facility] Comment on above: Expected: 03/24/2025 (Approximate), Expi res: 03/24/2026 Start: 03-24-2025 [facility] Start: 03-01-2025 End: 03-01-2025 Patient encounter procedure [facility] Comment on above: DUB (dysfunctional uterine bleeding) Start: 01-26-2025 End: 01-26-2025 Patient encounter procedure 01/26/2025 1:15 PM EST Office Visit [facility] [address] [place] [phone] Lamberto Canseco CNM [address] [place] [address] Arrived [facility] Comment on above: Arrived Start: 12-07-2024 End: 12-07-2024 Patient encounter procedure 12/07/2024 1:10 PM EST Office Visit [facility] [address] [place] [phone] Mathew Montejo APRN-MANAGER LSW [address] [place] [address] [facility] Start: 11-12-2024 End: 11-12-2025 Lipid 1996 panel - Serum or Plasma Lipid panel Lab Routine Normal gynecologic examination Expected: 11/12/2024 (Approximate), Expires: 11/12/2025 [facility] Comment on above: Expected: 11/12/2024 (Approximate), Expi res: 11/12/2025 Start: 11-12-2024 End: 11-12-2025 THINPREP IMAGING PAP AND HPV DNA REFLEX HPV 16,18 THINPREP IMAGING PAP AND HPV DNA REFLEX HPV 16,18 Pathology and Cytology Routine Screening for cervical cancer Expected: 11/12/2024 (Approximate), Expires: 11/12/2025 [facility] Work Phone: Comment on above: Expected: 11/12/2024 (Approximate), Expi res: 11/12/2025 Start: 11-12-2024 End: 11-12-2025 US Pelvis transvaginal US pelvis transvaginal Imaging Routine DUB (dysfunctional uterine bleeding) Expected: 11/12/2024, Expires: 11/12/2025 [facility] Comment on above: Expected: 11/12/2024, Expires: Start: 11-12-2024 End: 11-12-2024 Patient encounter procedure 11/12/2024 10:30 AM EST Office Visit [facility] [address] [place] [address] Lamberto Canseco, RIRIM [address] [place], [place] [phone] Arrived [facility] Comment on above: Arrived Start: 07-26-2024 Influenza vaccination Influenza Vaccine (#1) [facility] Start: 06-25-2022 Influenza vaccination Flu vaccine (#1) [facility] Start: 2009 DTaP/Tdap/Td vaccine (1 - Tdap) DTaP/Tdap/Td vaccine (1 - Tdap) [facility] Start: 03-23-1991 COVID-19 Vaccine (#1) COVID-19 Vaccine (#1) [facility] Biopsy endometrium Biopsy endome trium Procedures Routine Pre-op examination Menorrhagia with regular cycle Abnormal uterine bleeding Ordered: 03/24/2025 [facility] Work Phone: Comment on above: Ordered: 03/24/2025 CBC panel - Blood by Automated count CBC Lab Routine Normal gynecologic examination Ordered: 11/12/2024 [facility] Comment on above: Ordered: 11/12/2024 Comprehensive metabo lic 2000 panel - Serum or Plasma Comprehensive metabolic panel Lab Routine Normal gynecologic examination Ordered: 11/12/2024 [facility] Comment on above: Ordered: 11/12/2024 Dermatopathology exam Dermatopat hology exam Pathology and Cytology Timed Neoplasm of unspecified behavior of bone, soft tissue, and skin Release Upon Ordering for 1 Occurrences starting 02/25/2025 [facility] [employer] Work Phone: Comment on above: Release Upon Ordering for 1 Occurrences starting 02/25/2025 DHEA-sulfate DHEA-sulfate Lab Routine PCOS (polycystic ovarian syndrome) Ordered: 03/24/2025 [facility] Comment on above: Ordered: 03/24/2025 Estradiol Estradiol Lab Ro utine Pre-op examination Menorrhagia with regular cycle Abnormal uterine bleeding PCOS (polycystic ovarian syndrome) Ordered: 03/24/2025 [facility] Comment on above: Ordered: 03/24/2025 Follicle stimulating hormone Follicle stimulating hormone Lab Routine PCOS (polycystic ovarian syndrome) Ordered: 03/24/2025 [facility] Comment on above: Ordered: 03/24/2025 Hemoglobin A1c/Hemoglobin.total in Blood Hemoglobin A1c Lab Routine DUB (dysfunctional uterine bleeding) Ordered: 03/01/2025 [facility] [employer] Work Phone: Comment on above: Ordered: 03/01/2025 Luteinizing hormone Luteinizing hormone Lab Routine PCOS (polycystic ovarian syndrome) Ordered: 03/24/2025 [facility] Comment on above: Ordered: 03/24/2025 Progesterone Progesterone Lab Routine Pre-op examination Menorrhagia with regular cycle Abnormal uterine bleeding PCOS (polycystic ovarian syndrome) Ordered: 03/24/2025 [facility] Comment on above: Ordered: 03/24/2025 End: 11-08-2022 Surgical Pathology Surgical Pathology Lab Routine One Time for 1 Occurrences starting 11/08/2022 until 11/08/2022 MEME DECLAN [employer] Work Phone: Comment on above: One Time for 1 Occurrences starting 10/25 until 11/08/2022 End: 11-08-2022 SURGICAL PATHOLOGY REPORT SURGICAL PATHOLOGY REPORT Lab Routine Once for 1 Occurrences starting 11/08/2022 until 11/08/2022 [employer] Work Phone: Comment on above: Once for 1 Occurrences starting 11/08/20 until 11/08/2022 Thyrotropin [Units/volume] in Serum or Plasma TSH Lab Routine Normal gynecologic examination Menorrhagia with regular cycle Ordered: 11/12/2024 [facility] Comment on above: Ordered: 11/12/2024 [facility] Immunizations Immunization Date Immunization Notes Care Provider Fa tisha 11-08-2022 RHO(D) immune globulin - IM Lamberto Floro UPPER EXTREMITY SURGEON - CNM Work Phone: [employer] Work Phone: 11-08-2022 measles, mumps and rubella virus vaccine Lamberto Floro UPPER EXTREMITY SURGEON - CNM Work Phone: [employer] Work Phone: 03-15-2022 RHO(D) immune globulin- IV or IM Lamberto Floro CNM Work Phone: [facility] 05-12-2020 RHO(D) immune globulin- IV or IM Lamberto Floro CNM Work Phone: [facility] 03-14-2020 tetanus toxoid, reduced diphtheria toxoid, and acellular pertussis vaccine, adsorbed Lamberto Floro CNM Work Phone: [facility] 12-16-2018 RHO(D) immune globulin- IV or IM Lamberto Floro CNM Work Phone: [facility] NEGATED: Highlighted row has not occurred!11-09-2022 tetanus toxoid, reduced diphtheria toxoid, and acellular pertussis vaccine, adsorbed Lamberto Floro UPPER EXTREMITY SURGEON - CNM Work Phone: [employer] Payers Date Payer Category Payer Unknown [employer] rx 2024 Unknown UNKNOWN 2024 Medicaid (Managed Care) [employer] [id number] 2023 Blue Cross Blue Shield BCBS [id number] 2023 Unknown [id number] 2023 Private Health Insurance [facility] MEDICAID [id number] 2021 Department of [facility] ( and others) [id number] 1990 Unknown [id number] [id number] .173 1990 Unknown [id number] 2.16.840.1.653401.3.579.2 .593 1990 Unknown [id number] 2.16.840.1.596978.3.579.2 .593 1990 Unknown [id number] 2.16.840.1.502799.3.579.2 .1259 1990 Unknown [id number] 2.16.840.1.906009.3.579.2 .1259 1990 Unknown [id number] 2.16.840.1.139135.3.579.2 .1259 1990 Unknown [id number] 2.16.840.1.590539.3.579.2 .1259 1990 Unknown [id number] 2.16.840.1.783491.3.579.2 .1259 1990 Unknown [id number] 2.16.840.1.622577.3.579.2 .1259 1990 Unknown [id number] 2.16.840.1.931721.3.579.2 .718 1990 Unknown [id number] 2.16.840.1.591988.3.579.2 .718 1990 Unknown [id number] 2.16.840.1.532568.3.579.2 .718 1990 Unknown [id number] 2.16.840.1.088672.3.579.2 .718 1990 Unknown [id number] 2.16.840.1.448754.3.579.2 .718 1990 Unknown [id number] 2.16.840.1.723690.3.579.2 .718 1959 Medicaid [id number] 1959 Private Health Insurance [id number] Social History Date Type Detail Facility Tobacco smoking stat [facility] Tobacco smoking consumption unknown [facility] [employer] Phone: Start: 1990 Sex Assigned At Not on file [facility] [employer] Phone: Start: 10-28-2022 End: 11-07-2022 Exposure to SARS-CoV-2 (event) Not sure [facility] [employer] Phone: Start: 1990 Sex Assigned At Female F [facility] Start: 12-19-2023 Tobacco smoking stat [facility] Never smoked tobacco [facility] Start: 12-19-2023 [...] to any clubs or organizations such as adventism groups, unions, fraternal or athletic groups, or [...] Only a little [facility] (I/We) worried wheleobardo er (my/our) food would run out before [...] [facility] Start: 03-26-2025 Sex Female (finding) [facility] NEGATED: Highlighted rowStart: MILENA History of tobacco use Passive smoker [facility] Clinical Notes 11-09-2022 to 04-06-2025 Albina Post - 03/24/2025 3:30 PM Musa Monroy NP - 03/01/2025 9:10 AM EDNOHEMY Bal - 02/25/2025 9:10 AM David Canseco CNM [...] including vitamins, herbs, eye drops, creams, and wwjp-ifs-fceixeh medicines. ? Any bleeding problems you have. [...] care provider tells you to. ? Taking hlae-vpw-vozweih medicines, vitamins, herbs, and supplements. Tests ? [...] away. Call 911. (more content not included)... [facility] 04-01-2025 Note PROCEDURE: US Inject ion Varicose [...] Brandon Church MD 04/01/25 10:10 a Technologist: [facility] 03-29-2025 Note Radiology Sclerotherapy Sclerotherapy is [...] including vitamins, herbs, eye drops, creams, and gpmk-ain-crpmupr medicines. ? Any bleeding problems you have. [...] care provider tells you to. ? Taking uxtc-djv-enyxerz medicines, vitamins, herbs, and supplements. Tests ? [...] away. Call 911. (more content not included)... [facility] 03-24-2025 History of Present illness Narrative Reason for Appointment: Patient ID: Stephanie Palencia is a 34 y.o. female who presents for Pre-op Visit and Endometrial Biopsy Patient presents today for Pre Op/Endometrial Biopsy appointment. Patient is scheduled to undergo Endometrial Ablation with Anneliese on 04/22/[address] Richards at [facility]. MEDICATIONS No current outpatient medications ALLERGIES [...] nursing note reviewed. Exam conducted with a drier transfer car operator present. Vitals: Estimated body mass index is 36.17 kg/m as calculated from the following: Height as of 12/8/23: 5' 6 . Weight as of 03/01/25: [...] reviewed, and patient is to proceed to [facility] OR. Follow Up: Patient is to follow up between 1-2 weeks post op to assess proper healing and recovery from procedure. Documented by Brittani Grossman LPN on behalf of: Abel Richards DO documented in this encounter [facility] 03-23-2025 Note Sclerotherapy Sclerotherapy is a [...] including vitamins, herbs, eye drops, creams, and qeyz-kos-frutirs medicines. ? Any bleeding problems you have. [...] care provider tells you to. ? Taking gbxq-dbp-hkxzhee medicines, vitamins, herbs, and supplements. Tests ? [...] Do not wa (more content not included)... [facility] 03-18-2025 Note PROCEDURE: US Inject ion Varicose [...] Omar Marin MD 03/18/25 2:39 pm Technologist: [facility] 03-01-2025 History of Present illness Narrative [...] nursing note reviewed. Exam conducted with a drier transfer car operator present. Vitals: Estimated body mass index is [...] Abel Richards DO documented in this encounter [facility] 02-25-2025 Note Procedures Endovenous Ablation Endovenous [...] including vitamins, herbs, eye drops, creams, and hcxk-rkb-rrhcard medicines. ? Any problems you or family [...] tells you to take them. ? Taking dwqt-asl-fdnwtxq medicines, vitamins, herbs, and supplements. General instructions [...] These stockings help (more content not included)... [facility] 02-25-2025 History of Present illness Narrative Images [...] year, skin check documented in this encounter [facility] 02-18-2025 Note Procedures Endovenous Ablation, Care [...] and water are not available, use hand stoneworking sander. ? Change your dressing as told by [...] are sitting or lying down. ? Take eema-sbs-iddyant and prescription medicines only as told by [...] provider. Document Revised: 04/19/2022 Document Reviewed: 04/19/2022 [employer] Patient Education ? 2023 [employer]. [facility] 01-26-2025 History of Present illness Narrative PROBLEM VISIT Stephanie Palencia is 34 y.o. 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 She has a new PCP at [facility] and she is being worked up [...] 11/12/2024 10:40 AM documented in this encounter [facility] 10-28-2024 Telephone encounter Note Stephanie returned your call to make an appt . She is at work but will try to answer. [facility] 10-28-2024 Miscellaneous Notes Stephanie returned your call to make an appt . She is at work but will try to answer. documented in this encounter [facility] 10-26-2024 Telephone encounter Note Pt would like to schedule with Lisa for her yearly, but is having issues with pain and would like to be seen sooner. Please return call to [phone] [facility] 10-26-2024 Miscellaneous Notes Pt would like to schedule with Lisa for her yearly, but is having issues with pain and would like to be seen sooner. Please return call to [phone] documented in this encounter [facility] 11-09-2022 History of Present illness Narrative Discharge instructions given and AVS. Questions and concerns addressed. Informed pt she will have to call Chris's office on Saturday for follow up appointment. RN attempted to call office for appointment office was closed before pts discharge. Pt discharged via wheelchair with infant in cars eat on lap accompanied by staff . No distress noted on discharge. Received call from Pharmacist stating that the rectal dose for Hydrocortisone cream is 2.5% not the 1% and that the 2.5% is what is in the unit omnicell. Gaming Associate talked to Lisa Canseco CNM, stated okay to switch order to the 2.5%. Department of Obstetrics and Gynecology Progress Note SUBJECTIVE: patient feeling more discomfort from contractions and would like some pain medication OBJECTIVE: Vitals: 11/07/22 2230 11/07/22 2300 11/07/22 2330 11/08/22 0000 Resp: 14 15 16 Temp: 97.5 F (36.4 C) TempSrc: Oral heart rate: Baseline Heart Rate: 130 Accelerations: present Tare Man Variability: moderate Decelerations: absent Contraction frequency: irregular [...] rate: Baseline Heart Rate: 130 Accelerations: present Fdc Variability: moderate Decelerations: absent Contraction frequency: 3-5 minutes Membranes: Intact Cervix: Dilation: 3-4/90/-2 stretchy and very soft Effacement: 90 Station: -2 Position: mid ASSESSMENT & PLAN: Admit for routine labor and delivery Pitocin augmentation Cord blood banking Anticipate [facility] Phone: 11-09-2022 Hospital course Narrative Vaginal Delivery Discharge Summary Gestational Age:39w6d Antepartum complications: none Date of Delivery: Information for the patient's : Engram, Baby Girl Stephanie [[id number]] 11/08/2022 Type of Delivery: Vaginal Labs: CBC [...] Shawn Rod MD [facility] this [facility]: 11-09-2022 Hospital Discharge instructions Re Marie RN - 11/09/2022 9:54 AM EST Follow-up with your OB doctor as specified. [facility] OB Department phone: Dr. Marcel Duron [facility] Dr. Graham Griffin [address] Graham MENEZES [address] [facility] [address] [phone] Lisa Canseco, MSN, UPPER EXTREMITY SURGEON, CNM [facility] [address] [facility] [id number] Stephany Lucas CNM [address] [place] [address] [place] [address] Monique Delacruz CNM [address] [place] [address] [place] [address] [phone] DIET Eat a well balanced diet focusing on foods high in fiber and protein. Drink plenty of fluids especially water. To avoid constipation you may take a mild stool softener as recommended by your doctor or social director. ACTIVITY Gradually increase your activity. Resume exercise regimen only after advice by your doctor or social director. Avoid lifting anything heavier than a gallon of milk for SIX weeks. Avoid driving until your doctor or social director has given their approval. Rise slowly from [...] have thoughts of harming yourself or your . If will not stop crying, contact another adult for help or place infant in their crib on their back and take a break. NEVER shake your infant. BLEEDING Vaginal bleeding will decrease in amount [...] medications as recommended by your doctor or social director for pain If you develop a warm, [...] vitamins as directed by your doctor or social director. Refer to the booklet in the folder/binder for more information. If you feel you need more assistance or have questions, please call Betsy Rodriguez IBCLC, wardrobe image consultant, at or the OB department to [...] they become loose or soiled. If used, [place] should be removed by your care provider. [...] warm, tender area in your calf. Call [facility] office on Saturday for 11/12/2022 for 2 week follow up. The following attachments cannot be sent through Care Everywhere.5 Things You Can Expect With a New Baby: Video (Polish)5 Ways to Prepare for : Video (Polish)Caring for Yourself After Vaginal Delivery: Video (Polish) (Polish)documented in this encounter [employer] Phone: Evaluation note Diagnosis Term - Primary (normal spontaneous vaginal delivery) Normal delivery documented in this encounter [employer] Phone: evaluation noteNo assessment information available [facility] Work Phone: Evaluation note* Diagnosis Menorrhagia [...] tract Dyspareunia, female documented in this encounter [facility] HealthcareEvaluation note* Diagnosis Pre-op examination Menorrhagia with regular cycle Abnormal uterine bleeding Unspecified disorder of menstruation and other abnormal bleeding from female genital tract Pelvic pain in female Unspecified symptom associated with female genital organs PCOS (polycystic ovarian syndrome) Polycystic ovaries documented in this encounter [facility] Healthcare Summary Purpose Family History No Family [...] section and content) DATE CREATED AUTHOR 10/18/2022 [facility] dical Specialist DATE CREATED AUTHOR AUTHOR'S ORGANIZ ATION 11/14/2022 [facility] DATE CREATED AUTHOR AUTHOR'S ORGANIZ ATION 04/10/2023 [facility] DATE CREATED AUTHOR AUTHOR'S ORGANIZ ATION 12/29/2024 [place] DATE CREATED AUTHOR AUTHOR'S ORGANIZ ATION 03/05/2025 [facility] DATE CREATED AUTHOR AUTHOR'S ORGANIZ ATION 03/29/2025 [facility] dical Specialists EPIC DATE CREATED AUTHOR AUTHOR'S ORGANIZ ATION 04/02/2025 [facility] DATE CREATED AUTHOR AUTHOR'S ORGANIZ ATION 04/14/2025 [facility] Reason for Visit (unrecogniz ed section and content) Reason Comments Contractions Specialty Diagnoses / Procedures Referred By Contac t Referred To Contact Diagnoses Term Lamberto Canseco APRN - CNM [address] [place] [address] [facility] [address] [place] [address] Referral ID Status Reason Start Date Expiration Date Visits Re quested Visits Authorized [id number] 1 1 Reason Comments Gynecologic Exam Reason Comments Menstrual Problem Reason Comments Skin Check Reason Comments Vaginal Bleeding Specialty Diagnoses / Procedures Referred By Contac t Referred To Contact Obstetrics and Gynecology Diagnoses DUB (dysfunctional uterine bleeding) Procedures [place] OFFICE/OUTPATIENT NEW HIGH MDM 60 MINUTES Lamberto Canseco, CNM [address] [place] [address] Phone: tel: fax: Abel Richards, [address] [place] [address] Phone: tel: fax: Referral ID Status Reason Start Date Expiration Date V isits Requested Visits Authorized [id number] Closed Specialty Services Required 01/26/2025 07/25/2025 1 [...] not wanting canister, states not really helping )2099 (Due) hydrocortisone (ANUSOL-HC) 2.5 % rectal cream Topical, 2 TIMES DAILY, First dose on Airam 11/08/22 at 0900, Apply to Hemorrhoid. 0849 (Given - Provider: Rizwana Sorto RN - Comment: hemmirroids)2100 (Due) 121 (Not Given - Provider: Re Marie RN - Reason: Other - Comment: Pt not wanting, states not really helping )2099 (Due) ibuprofen (ADVIL;MOTRIN) tablet 800 mg 800 mg, Oral, EVERY 8 HOURS, First dose on Airam 11/08/22 at 0400, Until Discontinued, Give 800 mg q 8 hrs x24 hours and then order can convert to q8 hrs prn, 0411 (Given - Provider: Audrey Vick RN)1232 (Given - Provider: Rizwana Sorto RN)1928 (Given - Provider: Bronwyn Nunez, RN)192 (Given - Provider: Bronwyn Nunez, RN) 0533 (Given - Provider: Bronwyn Nunez, RN)122 (Given - Provider: Re Marie, DALJIT)1999 (Due) [...] (Due) 0900 (Not Given - Provider: Re Marie RN - Reason: Other - Comment: No IV access)2099 (Due) witch luis f-glycerin (TUCKS) pad Topical, 2 TIMES DAILY, First dose (after last modification) on Airam 11/08/22 at 0430, Apply to perineal area. Patient is capable and may self administer at bedside., 0500 (Given - Provider: Audrey Vick RN)2100 (Due) 1218 (Not Given - Provider: Re Marie RN - Reason: Patient/family refused)2099 (Due) Continuous Medication Order 11/07/2022 11/08/2022 11/09/2022 lactated ringers infusion (CANCELED) IntraVENous, at 125 mL/hr, CONTINUOUS, Starting on Sat11/07/22 at 2215, Labor and Delivery 2243 (New Bag - Provider: Audrey Vick RN) [...] every 2-3 minutes with cervical changes or [place] units (MVU) greater than 200 in a [...] Delivery 2245 (New Bag - Provider: Audrey Vick RN)2329 (Rate/Dose Change - Provider: Audrey Vick RN)2359 (Rate/Dose Change - Provider: Audrey Vick RN) 0030 (Rate/Dose Change - Provider: Audery Vick RN)0130 (Rate/Dose Change - Provider: Audrey [...] frequent line interruptions/ long duration, Starting on Airam 11/08/22 at 0341, For piggyback infusion, administer at [...] Oral, EVERY 8 HOURS PRN, Starting on Airam 11/08/22 at 0341, Until Discontinued, Other, Pain (1-10), Give in addition to any other pain medication ordered at same time for any pain indication. Maximum dose of acetaminophen is 4000mg from all sources in 24 hours. Alternate ibuprofen and acetaminophen every 4 hours., 0850 (Given - Provider: Rizwana Sorto RN)1928 (Given - Provider: Bronwyn Nunez, DALJIT) 0307 (Given - Provider: Bronwyn Nunez RN) butorphanol (STADOL) injection 1 mg (CANCELED) 1 mg, IntraVENous, EVERY 3 HOURS PRN, 2 doses, Starting on 11/07/22 at 2154, Until Airam 11/08/22 at 0342, Pain, For moderate pain level 4-6, May repeat times 1 for a total of 2 mg while in labor., Labor and Delivery 0220 (Given - Provider: Audrey Vick, DALJIT) carboprost (HEMABATE) injection 250 mcg 250 mcg, IntraMUSCular, PRN, Starting on Airam 11/08/22 at 0341, Until Discontinued, bleeding, May repeat every 15 minutes up to a cumulative maximum dose of 1000 mcg, at physician's request., docusate sodium (COLACE) capsule 100 mg 100 mg, Oral, 2 TIMES DAILY PRN, Starting on Airam 11/08/22 at 0341, Until Discontinued, Constipation, Do not crush or break., lansinoh lanolin ointment Topical, PRN, Dry Skin, nipple discomfort, Starting on Airam 11/08/22 at 0341, methylergonovine (METHERGINE) injection 200 mcg 200 mcg, IntraMUSCular, PRN, Starting on Airam 11/08/22 at 0341, Until Discontinued, Bleeding, PRN for [...] August 25, 2024 End: August 25, 2024 Dental Chair Assembler Relationship Specialty Start Date End Date Unallocated, Jatin Perez MD [address] [facility] [place] [address] PCP - General Family Medicine 10/26/24 Mirella Thibodeaux NP [address] [place] [address] Nurse Practitioner Family Medicine 10/26/24 Lamberto Canseco CNM [address] [place] [address] Obstetrics and Gynecology 10/26/24 Dental Chair Assembler Relationship Specialty Start Date End Date Unallocated, Jatin Perez MD [address] [place] [address] PCP - General Family Medicine 10/26/24 Mirella Thibodeaux NP [address] [place] [address] Nurse Practitioner Family Medicine 10/26/24 Lamberto Canseco CNM [address] [place] [address] Obstetrics and Gynecology 10/26/24 Dental Chair Assembler Relationship Specialty Start Date End Date Unallocated, Jatin Perez MD [address] [place] [address] PCP - General Family Medicine 10/26/24 Mirella Thibodeaux NP [address] [place] [address] Nurse Practitioner Family Medicine 10/26/24 Lamberto Canseco CNM [address] [facility] [place] [address] Obstetrics and Gynecology 10/26/24 Dental Chair Assembler Relationship Specialty Start Date End Date Unallocated, Jatin Perez MD [address] [place] [address] PCP - General Family Medicine 10/26/24 Mirella Thibodeaux NP [address] [place] [address] Nurse Practitioner Family Medicine 10/26/24 Lamberto Canseco CNM [address] [place] [address] Obstetrics and Gynecology 10/26/24 Dental Chair Assembler Relationship Specialty Start Date End Date Unallocated, Jatin Perez MD [address] [place] [address] PCP - General Family Medicine 10/26/24 Mirella Thibodeaux NP [address] [place] [address] Nurse Practitioner Family Medicine 10/26/24 Lamberto Canseco CNM [address] [place] [address] Obstetrics and Gynecology 10/26/24 Dental Chair Assembler Relationship Specialty Start Date End Date Unallocated, Jatin Perez MD [address] [place] [address] PCP - General Family Medicine 10/26/24 Mirella Thibodeaux NP [address] [facility] [place] [address] Nurse Practitioner Family Medicine 10/26/24 Lamberto Canseco CNM [address] [place] [address] Obstetrics and Gynecology 10/26/24 Dental Chair Assembler Relationship Specialty Start Date End Date Unallocated, Noms ProviderMD [facility] [place] [address] PCP - General Family Medicine 10/26/24 TeresaMirella andres NP [address] [place] [address] Nurse Practitioner Family Medicine 10/26/24 Lamberto Canseco CNM [address] [place] [address] Obstetrics and Gynecology 10/26/24 Dental Chair Assembler Relationship Specialty Start Date End Date Unallocated, Noms ProviderMD [address] [place] [address] PCP - General Family Medicine 10/26/24 [facility] [address] [place] [address] Nurse Practitioner Family Medicine 10/26/24 Lamberto Canseco CNM [address] [facility] [place] [address] Obstetrics and Gynecology 10/26/24 Team Status: Inactive Member Role Status Dates Abel Richards DO Attending Provider Active Start : March 24, 2025 End: March 24, 2025 Dental Chair Assembler Relationship Specialty Start Date End Date Unallocated, Noms Provider, [place] [address] PCP - General Family Medicine 10/26/24 Mirella Thibodeaux NP [address] [place] [address] Nurse Practitioner Family Medicine 10/26/24 Lamberto Canseco CNM [address] [place], [place] [id number] Obstetrics and Gynecology 10/26/24 Goals (unrecognized section [...] BE BASED ON THE PRIMARY CLINICAL RECORDS. [facility] [email or web address] [facility]. provides no warranty or guarantee of the accuracy or completeness of information in this document.
[2025-04-22 06:22] LABS: Basophils Absolute Auto 0.1 10^3/uL (0.0-0.1); Basophils Percent Auto 0.7 % (0.2-2.0); Eosinophils Absolute Auto 0.2 10^3/uL (0.0-0.7); Eosinophils Percent Auto 3.1 % (0.9-7.0); Hematocrit 37.9 % (36.0-48.0); Hemoglobin 12.4 g/dL (12.0-16.0); Immature Granulocytes Abs Auto 0.02 10^3/uL (0.00-0.03); Immature Granulocytes Pct Auto 0.3 % (0.0-0.5); Lymphocytes Absolute Auto 2.3 10^3/uL (1.2-3.8); Lymphocytes Percent Auto 31.9 % (20.5-60.0); Mean Corpuscular HGB Conc 32.7 g/dL (29.9-35.2); Mean Corpuscular Hemoglobin 28.8 pg (26.7-34.0); Mean Corpuscular Volume 88.1 fL (81.0-99.0); Mean Platelet Volume 11.9 fL (9.5-13.5); Monocytes Absolute Auto 0.6 10^3/uL (0.3-0.8); Monocytes Percent Auto 8.1 % (1.7-12.0); Neutrophils Percent Auto 55.9 % (43.0-75.0); Platelet Count 195 10^3/uL (150-450); Red Cell Distribution Width 12.2 % (11.0-15.0); White Blood Count 7.2 10^3/uL (4.0-11.0)
[2025-04-22 06:42] LABS: HCG Quantitative <1 mIU/mL
[2025-04-22] MEDS: LACTATED RINGER'S SOLUTION 1,000 ML 50 ML IV (06:55)
--- NOTE | 2025-04-22 07:31 | PM.ONB ---
Brief Operative Note Date of procedure: 04/22/25 Pre-op diagnosis general: menorrhagia Post-op diagnosis: same as pre-op Procedure: NAME OF PROCEDURE: [ ] Anneliese endometrial ablation with hysteroscopy. PROCEDURE: The patient was taken back to the OR where she was prepped and draped in the normal sterile fashion after being placed in the dorsal lithotomy position, after being placed under general anesthesia without difficulty.? A weighted speculum was placed into the vagina. The anterior lip was grasped with a single tooth tenaculum. The patient was then sounded to approximated 8cm. The patient?s cervix was gently dilated using hegardilators. The hysteroscope was passed through the cervix into the uterus where both ostia were seen. No gross evidence of polyps, fibroids or malignancy. The cervical length was noted to be 4 cm. The total cavity length is 4cm.? The Anneliese ablation apparatus was set to approximately 4cm in length. This was placed through the cervix and into the uterus. After the seal was tested, at that time the total ablation of 120 seconds was performed with the Anneliese withoutdifficulty. All instruments were removed from the vagina. Excellent hemostasis noted.? Sponge and lap count correct times 2.? Patient taken to recovery in stable condition. Anesthesia: MAC Surgeon: Abel Richards Estimated blood loss (mL): 5 Pathology: none sent Condition: stable Disposition: PACU
--- NOTE | 2025-04-22 08:30 | PC.NURSE ---
patient states not really pain just pressure in the rectum area
[2025-04-22] MEDS: HYDROCODONE/ACET 5-325 MG TABLET 1 TAB PO (08:45)
== END 2025-04-22 09:25 | disposition home or self-care (01) ==
PROVIDERS: PCP Internal Medicine; Visit Provider Obstetrics & Gynecology
PROC: (CPT 952; principal; 2025-04-22 07:30)
DX: N92.0 Excessive and frequent menstruation with regular cycle (principal); N93.9 Abnormal uterine and vaginal bleeding, unspecified; R10.2 Pelvic and perineal pain; Z98.51 Tubal ligation status; K21.9 Gastro-esophageal reflux disease without esophagitis
CPT/HCPCS: 58563; 36415; 84702; 85025; J0131; J1100; J1885; J2250; J2405; J2704

== ENCOUNTER 2025-11-23 08:58 | Outpatient (OUT) | payer OTHER, SELFPAY ==
--- OUTSIDE RECORDS SUMMARY | 2024-10-01 04:30 | XMS_ITS ---
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 Social History Sex Assigned At : Social History Observation Description Sex Assigned At Female Encounters Encounter Location Date Provider Diagnosis Main [address] [place] [id number] 10/01/2024 Glenna Light Plan Of Treatment No Information Progress Notes * Elva PALENCIADOB: 0 (35 yo F)Acc No.[id number]:10/01/2024 Progress Notes Patient: Elva Weir :?Glenna Light, MDDOB:1990???Age:34 Y???Sex: FemaleDate:10/01/2024hone:[phone][facility] [facility] [id number] Subjective: * Chief Complaints: * N P Wellness Billing Information: * Procedure Codes: * Electronic signature of Glenna Ligth MD on 11/23/2025 at 09:00 AM ESTSign off status: Pending * Provider: Pat Light MD Date: 12/01/2023 Generated for Printing/Faxing/eTransmitting on:?11/23/2025 09:00 AM EST
--- OUTSIDE RECORDS SUMMARY | 2025-08-30 04:15 | XMS_ITS ---
Author Organization [facility] Address [address] [place] [place] [id number] Care Team Providers Care Junior Sales Representative Name Role Phone Glenna Light Primary Care Provider REASON FOR VISIT abdominal pain and asthma Social History Sex Assigned At : Social History Observation Description Sex Assigned At Female Encounters Encounter Location Date Provider Diagnosis Main [address] [place] [id number] 08/30/2025 Glenna Light Plan Of Treatment No Information Progress Notes * Elva PALENCIADOB: 0 (35 yo F)Acc No.[id number]:08/30/2025 Medical Note Patient: Elva Weir :?Glenna Light MDDOB:1990???Age:34 Y???Sex: FemaleDate:08/30/2025Phone:[phone]:[address] [id number] Subjective: * Chief Complaints: * A bdominal pain and asthma Billing Information: * Procedure Codes: * Electronic signature of Glenna Light MD on 11/23/2025 at 09:00 AM ESTSign off status: Pending * Provider: Pat Light MD Date: 1 Generated for Printing/Faxing/eTransmitting on:?11/23/2025 09:00 AM EST
--- OUTSIDE RECORDS SUMMARY | 2025-09-03 09:32 | XMS_ITS | CCD ---
Author Organization [facility] CliniSyin Care Team Providers Care Business Intern Name Role Phone Unavailable Primary Care Provider UnavailVALERIE ChowE Admitting Unavailable LAMBERTO CANSECO Attending Unavailable SUSIE ., DR BROWN Admitting Unavailable SUSIE ., DR BROWN Attending Unavailable SUSIE ., DR BROWN Consulting Unavailable SUSIE ., DR BROWN Attending Unavailable SUSIE ., DR BROWN Admitting Unavailable Hackendmitry [employer]SEMBL[employer] MACHINE ADJUSTER, Mirella A Unavailable Harleen CNValerie Mcgowane L Unavailable Unallocated MD, Noms Provider Primary Care Provi mitchell Abel Richards DO Attending Provider [phone] Abel Richards Attending Unavailable Abel Richards Admitting Unavailable Brandon Church V. Attending Unavailable Bruno, Chuck Jac Primary Care Unavailable Brandon Church V. Admitting Unavailable Brandon Church V. Attending Unavailable Bruno, Chuck Jac Primary Care Unavailable Brandon Church V. Admitting Unavailable Brandon Church V. Admitting Unavailable Bruno, Chuck Jac Primary Care Unavailable Brandon Church V. Attending Unavailable Bruno, Chuck Jac Primary Care Unavailable Omar Marin Attending Unavailable Omar Marin Admitting Unavailable Brandon Church V. Attending Unavailable Bruno, Chuck W Primary Care Unavailable Brandon Church V. Admitting Unavailable Omar Marin Admitting Unavailable Carr, Chuck W Primary Care Unavailable Omar Marin Attending Unavailable Brandon Church V. Admitting Unavailable Carr, Chuck W Primary Care Unavailable Brandon Church V. Attending Unavailable Carr, Chuck W Primary Care Unavailable Omar Marin Attending Unavailable Omar Marin Admitting Unavailable [place] [employer] SHE[employer] ASSEMBL[employer] MACHINE ADJUSTER, Mirella A Unavailable LAMBERTO CANSECO Attending Unavailable MATHEW MONTEJO Attending Unavailable ABEL RICHARDS Attending Unavailable LAMBERTO CANSECO Referring Unavailable ABEL RICHARDS Attending Unavailable VIKY CARRION Attending Unavailable ABEL RICHARDS Attending Unavailable LAMBERTO CANSECO Attending Unavailable LAMBERTO CANSECO Referring Unavailable Allergies Allergy Classification Reported Allergen(s) Allergy Type Date of Onset Reaction(s) Facility (1 source) Iodine (And Iodine Containting Drugs) Drug allergy (disorder) 2 [facility] Repository (20 sources) Iodine; Translations: [iodine] Drug Allergy 3 [facility] Work Phone: (20 sources) Iodinated Contrast Media Drug Intolerance 0 Hives, Itching [facility] (10 sources) Other Propensity to adverse reactions 5 [facility] Medications Current Medications Medication Drug [...] Start: 11-08-2022 acetaminophen (TYLENOL) tablet 1,000 mg [id number] 200 actuat albuterol 0.09 mg/actuat metered dose inhaler (4 sources) beta2-Adrenergic Agonist Start: 08-25-2024 take 1 puff(s) by inhalation every four hours Albuterol Sulfate 90 mcg/actuation HFA aerosol inhaler Active 2 PUFF INHALATION Q4H 1 August 25, 2024 12:00am take 2 puff(s) by mouth every fo ur hours albuterol HFA 90 mcg/act inhaler INHALE 2 PUFFS BY MOUTH EVERY 4 HOURS FOR 14 DAYS Inhalation; Duration: 17 Days Active benzocaine 200 mg/ml / menthol 5 mg/ml topical spray (1 source) Standardized Chemical Allergen Start: 11-08-2022 benzocaine-menthol (DERMOPLAST) 20-0.5 % spray 60 actuat budesonide 0.08 mg/actuat / formoterol fumarate 0.0045 mg/actuat metered dose inhaler (2 sources) Corticosteroid, beta2-Adrenergic Agonist Start: 07-29-2025 take 1 puff(s) by inhalation once Symbicort 80-4.5 MCG/ACT inhaler 1 puff every 12 (twelve) hours 07/29/2025 Active 1 ml carboprost 0.25 mg/ml injection (1 source) Prostaglandin Analog Start: 11-08-2022 carboprost (HEMABATE) injection 250 mcg desogestrel 0.15 mg / ethinyl estradiol 0.03 mg oral tablet (2 sources) Progestin, Estrogen Start: 08-03-2025 End: 08-03-2026 desogestrel-ethinyl estradiol (Apri) 0.15-30 MG-MCG tablet Indications: Dysmenorrhea , Abnormal uterine bleeding (AUB) Take 1 tablet by mouth Daily 28 tablet 12 08/03/2025 08/03/2026 Active dextromethorphan hydrobromide 15 mg / guaiFENesin 400 mg / pseudoephedrine hydrochloride 60 mg oral tablet (2 sources) alpha-Adrenergic Agonist, Uncompetitive W-zmhlym-O-aspart[place] te Receptor Antagonist, Sigma-1 Agonist Start: 08-25-2024 take 4 tablets by mouth every twenty-four hours as needed Ujpeatfgcxswucg-Ve-Op aifenesin (Capmist Dm) 60-15-400 mg tablet Active 1 [...] mg/ml medicated pad (1 source) Start: 11-08-2022 witch luis f-gl ycerin (CK) pad Completed/Discontinued Medications Medication Drug Class(es) Dates [...] Date Documented Da te Episodic/Chronic Abdominal pain (5 sources) Pain in female pelvis; Translations: [Pelvic and perineal pain] 03-24-2025 Episodic Anxiety disorders (4 sources) Post-traumatic stress disorder, unspecified; Translations: [Anxiety disorder, unspecified] Onset: 5 Chronic Attention-deficit, conduct, and disruptive behavior disorders (2 sources) Attention-deficit hyperactivity disorder, predominantly inattentive type; Translations: [Attention-deficit hyperactivity disorder. predominantly inattentive type] Onset: 5 Chronic Menstrual disorders (7 sources) Menorrhagia; Translations: [Excessive and frequent menstruation with regular cycle] 11-12-2024 Chronic Neoplasms of unspecified nature or uncertain behavior (2 sources) Neoplastic disease; Translations: [Neoplasm of unspecified behavior of bone, soft tissue, and skin] 02-25-2025 Episodic Other aftercare (2 sources) Surgical follow-up; Translations: [Encounter for follow-up examination after completed treatment for conditions other than malignant neoplasm] 05-13-2025 Episodic Other and unspecified benign neoplasm (2 [...] syndrome] 03-24-2025 Chronic Other female genital disorders (10 sources) Abnormal uterine bleeding; Translations: [Other specified abnormal uterine and vaginal bleeding] 11-12-2024 Chronic Other female genital disorders (1 source) Pain in female genitalia on intercourse; Translations: [Unspecified dyspareunia] 03-01-2025 Chronic Other gastrointestinal disorders (4 sources) Abdominal bloating; Translations: [Abdominal distension (gaseous)] 08-08-2025 Episodic Other gastrointestinal disorders (4 sources) Constipation; Translations: [Constipation, unspecified] 08-08-2025 Episodic Other screening for suspected conditions (not mental [...] Date Documented Date Episodic/Chronic Cancer of cervix (20 sources) Atypical squamous cells of undetermined significance on cervical Papanicolaou smear; Translations: [Atypical squamous cells of undetermined significance on cytologic smear of cervix (ASC-US)] Onset: 04-08-2017 11-01-2023 Episodic Other complications of ; puerperium affecting management of mother (20 sources) heart echogenicity on obstetric ultrasound scan; Translations: [Echogenic focus of heart of fetus affecting management of mother in dexter , antepartum] Onset: 10-29-2018 11-01-2023 Episodic Other complications of (20 sources) RhD negative; Translations: [Other specified related conditions, unspecified trimester] Onset: 09-16-2018 11-01-2023 Episodic Other complications of (20 sources) Thrombocytopenic disorder; Translations: [Other diseases of the blood and blood-forming organs and certain disorders involving the immune mechanism complicating , unspecified trimester] Onset: 01-27-2019 11-01-2023 Episodic Other female genital disorders (20 sources) Vaginal odor; Translations: [Other specified noninflammatory disorders of vagina] Onset: 11-01-2023 11-01-2023 Episodic Other and delivery including normal (20 sources) Term ; Translations: [Encounter for supervision of normal , unspecified, unspecified trimester] Onset: 03-10-2019 Episodic Residual codes; unclassified (20 sources) Genetic disorder carrier; 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] Onset: 02-21-2020 11-01-2023 Episodic Residual codes; unclassified (20 sources) Family history of hereditary disease; Translations: [Family history of other specified conditions] Onset: 02-21-2020 11-01-2023 Episodic Results Test Name Value Interpretation Reference Range Facility Coding Summaryon 05-21-2025 Coding Summary HTMLBase 64 WnyanizhOCr0oEl+PGhlYW Q+HK9PBFOxK60klWPpfP5r L5NETSdWDlalLMACMQoGPd DzwiKgHO2cuPZsVAHv IC8+VT7bPDIeGffuxDGcl1 L4tNC2I23zap4aDNyxaXI7 MKVpTnQsrwkfm1fzkSq1NX cuNmluOyBt XVCzyM21GHM8zC58De59lX CfuPXpj7hhyZu5AsJjRUVc YIK6yUorYVjcd9QcPPXlS2 2wgDZaz4U5 UKOmzPiilCVaGfMwuQU0lA 4hVVhninvva3eisqyqDvz1 il21eMMpv3K7aNV1D3Yltm P5HQCgyXZi VrfejJIXxC7lbjmly4hjmm koThUfGRUqPXs2LIn0BVIa xSicBkViKY49FTG4KBHsrh PlQ6OqVRJg qWkhPvQ8t0M9Ac9UB6CGPm uiC1LOBPCBFVzxcLQ+PC90 gk25B6KpOqslDwy2AMXyVU E5kRO6xX6s GHLzQZnnp2L9sRJ6I9Nymg Qaxf2dq2rgIBYbAChxJ12d pQTma0Z3TIVrhOH4OUSpuA ylJrItkB01 Oyc+RXCvhYvaq6AdLkovf2 woo1kquNr2SrrzFPGaqiRt bRmiBMD3g1DlYg8mGXOdtL E3wTF4xT9j NlCvIqJ1HIoxI903NfZunG XwYnheE27tC0PqbHJ+PHRy Jup0IRDwrKtxBS5rB4SiDM RpbmctbGVm bYziJL4wSAZpyxgmUXFqkP 0eRUHbB6d5ZlPiSzY2FLhp Q9CdBMSgtfgkIy90tP4cDr XeUhL6KAew A6RuqhL6MWEufROyYXxlDG Y0M06fq5V1JNNvFGYjMDL8 cER7eL7kyRkegdjqaYNdzB sgdmVydGlj RLuzHCxuJ198BKAqiGekMm NvZGluZyBEYXRlOiAgMDYv MjcvMjAyNTwvdGQ+PHRkIH A8aDbwMXQa yONyRQtfJx2ugUhjvRgpEF 8cLXEvyklvWKFdzG6gZZJc iWYmnTutUB7aICHhstcil2 43CcGsPRF1 MKLdtNVpF4WsnG3kGzOjHO RcKSSbN2UuaFPkFOhtH671 YFkkJsB6JXQlivRlR5PhVX FsaWduOiB0 j5H1Xv0Vq6BzgvjvS4XjqM GmEaZvUsavSXy4U6RoDamx dHI+XD03MSJqWV41YIu7RY N0pWevERns PVYeO6NtwN9pEwFdITFhCW RkOyc+PHRhYmxlIHdpZHRo NIskCRIaMeGqySueKP3zCz 9yZGVyLWNv xYkxgREeZrXfo4lmGZHlIK ciMW3gwRnrT0NcbWL5STTr t7f3Vm05K74bE0CcpIO+PG AhqFA8jYJ5 zW3wRjVaJaZ6MMbxK634Cv AvlGGrMxfmp5fmp6eieZu4 VzO5KXDuxwIvaQkqPAX0l2 IfFn36D78i IHdpZHRoPSIxNSUiIHZhbG weul3maF2cSv9+PGNvbCB3 kGP2iG6vDcYjYoL6UNijH6 49InRvcCIv Fhcic0pwv8ezhDb6XsPwIX AeerMyiFdwZWM6b4PsLl08 S4FjySklg8LpEix4fr26zZ Ywj9G6wUJ0 P7OjYCYggapnqXOhsTgeMX 8aAILzbtswTJSryI2lJBZi Q6c8OmRkVwB8NPmpG9Odmd D1QONgcOIy KQOakEJXyP4ivsewe2scdn ysOwNtTQUwFJo9ELp3REId yRrsRfQuEYL3VrF8XSG2mA FnuW0boYhj aggouF5xIcd+AIY1hAVmbL LGCD3sMkmndLA+PHRkIHN0 cGplTEpnLYYwmB4bQRBjL7 f3LrEfNrF3 LTcyB6GgnkO7QLCeaQFtKI YisGTWzW3jmwwik1irzzqy LiCnHRUlHDv2DFd2EUClvC duOiBsZWZ0 AeX0NKF5gQVdtT3vyOxkfg ohtE5lDrm+QmlydGggRGF0 SQg2Z8HyLth0LTEccZgaSQ 0ncGFkZGlu Gk9onKbcpTwnLG7eOXUron dhm798KvAfk6egXOUwjBIa IVktCWL7Z10vi8U9KIOgHR DuFTW2uPO0 mF5ltJagbhrtaXJuyCefsd FdfMhfXGanUWyuO198HAEx xZktYlQgKVq5E2FyYuf8OX SntXwoAU6a oBLmZKigUp8wgLatrWvlDO 2eAZIuaxadi161KbGau2gd MOCwnVQfCEtzKLU2O70ha4 K1JKJxUSUh XAT8fSD9dG8vxSlwhetlfW VmdDsgdmVydGljYWwtYWxp R117WKAvjCuvIlRopYm3B3 WaWxm2EVRn kHgvDZ1toPLjGXvzSa8ocP jbtIirCE1oOAGfuwnir729 RtToz1epGBAerAClYQdnLQ B6K77ge7R2 QOEoNQWxKUG8jUD6dJ7rpC lnbjogbGVmdDsgdmVydGlj MQlkONrzJ550AVEtlLmdOx BhdGllbnQg KUryARa2R7ElMshosTF+PC 49TINlUU22mSEkmTSpm4vx aKp5ZhXrLZScJYV6iFljKQ dpa5AfCKMl X94ztNEwc5Y9NAXzrWitsR EiIeOhmIZ8tA2dBOieivkb a4ijqwayYjysh7ablg08pW 69H77aNVrf ZHRoPSIzMCUiIHZhbGlnbj 4huU2dBj3+GGSqrLF7oFC5 eD0hSNOyJuC8UYhvH947Wv RvcCIvPjxj d7exq7tmtGo9UmW6YGLvcc MmaMpaDPN3c8YqMe29G95u IHdpZHRoPSIyMCUiIHZhbG izej3iyG8e Ii8+QSCczQG3zOL0bZ4uUj QyRiI5BIuqC068VcRnbKTz WbzrM86bW7UadKD+PHRyPj b6QVEbhTdy PI9xnCPqSAmhPk7rEHG6Ag WeTkKqSFlbL9VfXGCvnsir koypzTL1ACQkJQSciY20Zz 9udDogMTBw gTSEsC3czvybb5jbfcxgOi LxAYFqUGx7RTn7WBHcgCbf GxZuWAZ4OzT3WUR3kWFtlP 1hbGlnbjog lY1kD6GzMGNcdyaiFh29sV 0hZwImPsN5TJocDwc+RU5H JkQYJXTGZAVTK2HNCWSUGk wvdGQ+PHRk ZGD7fRckVMstQMAbqU9sIQ JqN3s0YvBcPkN0SMmxT9Dy FTRoroelQu28cW7mJiRdZu M2TRtwW0Fd xuU5KCVjbCRqELfnLIN1Y9 5eq6T4HWXpDXAbFWX1vQQ3 dK6ucIsdkxtqlAEycQrlpc VydGljYWwt MHzqW965YMNtgTqjXbFyJb W5IeM5HSO4Y5MiEbn4OERz pJbuMG6eqZNmCKjyKf2gbY fddBdaZO1j BYYsfejxJBEftH6zKSEwyZ TqxRhkFU5mERXbyecin752 AvBoPRM8CMQccHTvU9EeoN 9yOiAjMDAw XJOhJ7HkiRHxDVeyZ207KM gpTtT9FSAwmaCpE7IyEBWi vReiDtV6u1V8Ir7bUOFUTW FyczwvdGQ+ MPWqOJD4nGsnDFxhBICmhU 5xFVAyK3g6YeDzOhX4EXwc C3QnVWXngoljAi93xT6bWa SlQyK1GKrp M3FxudQ1EIJlaFQoKMjuYK Q5T82kx7M9NAKlPDVtSYG9 qYV6rD5dsUfllbgatVIqpB sgdmVydGlj NVseJDezM913DJMkwDzuNl ZFTUFMRTwvdGQ+PHRkIHN0 nThgZZdmDAMstE7kQZMqL4 o6HsTfZsE5 TEcuV5AuASXoojakKq68kV 1mGjNxGmN2TGnmN1LgpkT9 VKBceZLoUSaeNEV3S66mh5 C0YCCnYZRi LZQ4cPX4oV8ftByzgmsmdX VmdDsgdmVydGljYWwtYWxp J038KCTrmWebSy3DHK25JW 91N8HaHofh dGFibGU+PHRhYmxlIHdpZH IlPUckZHCqKwIxlPvqSA6s Yp6bYKErDLEqeNplzCPeIh Yck9erTHEy MEwnVO2nrEkgE3ZutKC6XP Aae1m8Md72G79iK5LiiQL+ QMZzjEO8hZS1hD3rMtVkHa K6PAidW005 IoLzhFLsCjjmb5elq1xzaU u2LcVhHFAftzHaeGntLTE3 f0OwEc12T45lGOsdSMSwQI IyMCUiIHZh xRxwvq1xfY4kWi7+PGNvbC V1zYN8eW5tLkTmRgQ4XAaj W168GgVxbWQhWrczQ96uW8 JvdXA+PHRy Fyu1ZUFvpBgoMV0viCMvZO hkZi3mSIX3NyYkFhDmQXiz W9BhTJBqpkjooaoklVG5EY KfLSOufH84 Pb6epUigJm1iLOQuLWL8AK IpyTGaZ1YdtX4vDaDwFDOi YMFmU5OcyQFzBLzoX250YR feNeI3TWNn wwTvF2SoMUHkrDliZoQ5t6 N2Ue5EsRedsDFqVQ3vDqOh HGn3W2StVcz1LUMblCloWB 0ncGFkZGlu Cb1keQapdIkpTM3dEANlqk ykd688BaMmk7abKVOvcHGo NHcnWHS9H40qx5T9SWWkAS ToUGN0wMW4 wX3vhUhwsdymgNIcbBdqsl KwfGyeEVhaFVvvV255FWJg iYcjXmUTUwj7R4QgUqt5CX DrnRjsTP6y dQRiYIhpMy1nbPqvqNrsFT 5rPJVbsnmtd482CaYdf2ub USMvjADbOAzvYGC8W54jo3 M4RQFxAZNm NOE0lZY8uZ7cePieendvdH VmdDsgdmVydGljYWwtYWxp J953OHKbaOfxZx1ZFyg6C0 XzPam6URHz mIjfOX4mbSVtQRakUo7ihD crxJchQA9tFOEujtzsv382 AaNbk9gkHCEfrHQhSKcxLQ D5G62wh8W4 RIElRAWpIHG3iUF6wC7fyW lnbjogbGVmdDsgdmVydGlj BTrtTNocH200PJUvjWzmCf BheWVyOjwv dGQ+MI90jb66V9HtHklyPx u0BIKjYRA6lMS0xC5rAIHh CZonr7F0fCX9A1IieySpyn 6ty7zgBCJe ZTo (more content not included)... [facility] US LE Venous Duplex Lefton 0 05-13-2025 US LE Venous Duplex Left EXAMINATION: US LE Venous Duplex Left HISTORY: Phlebitis and thrombophlebitis of superficial vessels of left lower extremity COMPARISON: None. TECHNIQUE: Venous duplex examination performed using B-mode, color flow and spectral analysis. 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 No deep vein thrombus is observed. 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 Final Dictated by: Brandon Church MD Dictated DT/TM: 05/13/25 1:20 Signed (Electronic Signature): Brandon Church MD 05/13/25 1:21 pm Technologist: [facility] Coding Summaryon 05-12-2025 Coding Summary HTMLBase 64 LumqyhxlQCn4yQy+PGhlYW Q+KF3WKJFlN84mxAHbsB9c X7PHPDhODsohLDPOPAmRTt VwciRiKE8eoZWrVPNm IC8+UE5zWJYyGkaonMVhf7 N5ySI0Z75una6vJFfdxID1 UKAsJtRelidqn1fxnQn4JS cuNmluOyBt VDRfqK39VEU6oU67Yd83kB UrzFVah6aewFs7LgKiXQGz EHE2cEfdBSayv5JoMNNoU4 9hjAVzq4W8 IMTmiBzyxDRhIlNhlUY5gL 8eDCekazefq9slenwxYmw9 az39vZByv6G8bVU9P2Nifz C4ZIMkcJOz KixktNHRdH5sjqhsz6sxzc jgYcTjHCZtXAi4CJf0KFOd lTsaRoJmZJ26QUE2TLMapw VlY3AjZTUi pIhdYgM9q2F7Rq0HZ4EGBx dtK1BLXNUAMMwagPZ+PC90 hl09G2LhIcejCco4YMWbAB N0nLZ9mV0l SRGpVGffi6B2nTW7L5Lmsv Paub8kc6snVVWsPJbsX21x zAWof2N7JFSqoSF1VLMjwU qkHkOtlM07 Oyc+CCRnvUvob4LtLoykr6 yug7zthRs6KdqdLZPadeWl jKygFUE0n7GwHm8zBTMbwH K6uKT1yC0z GmYeLxF6POdfV728OkOkeF PmRqrrY23dC3CfpOU+PHRy Fbu5WDUupFxqGQ3lC4CfQZ RpbmctbGVm qRoiDZ5yBNPyetomWBAuaZ 5eKJOxL0i7EqGaGuU4NPtp L5UlRMZtwmbgFx64rM6pNp AmAoM7YQqi W1KhnxN1BAMflXDuRUdcFZ R2H26gl1S6FAYgOADyWRH5 dFR3oD3ygLfvsunejFCnsP sgdmVydGlj WCpuLIpzQ097PTAaxOsnYn NvZGluZyBEYXRlOiAgMDYv MTgvMjAyNTwvdGQ+PHRkIH M3xEqiUWCi dTPtUDswQp1uxScrpUydKD 6bGNKxdyweEUQheZ0vKZVu uVJxrMclHJ5lQKOqkyxgl1 61DcMnYKM9 HVYgoGXmH5ZghP6fYbKcNU CrHKUoR6KeuNKxFCjcB675 AGfcPbT4XSXnjcMzQ9EqRJ FsaWduOiB0 a5J1Gs9Ea2ZbhxplK4UhfB IbRzPwQequLVz4U8FuMkje dHI+PY75GWLzMG42KHe1VS U9rErvJMsw GNSiT3JrwD4eJoIvLQXfCN RkOyc+PHRhYmxlIHdpZHRo OYwsEZXyHcTnoUdrQH1lOu 9yZGVyLWNv fUhctYQpAzUrk3kdPVHaGY rmMW3oiGduM0OpuOJ4VBVz s9q1Zm88K40jB0PqfLT+PG VpmFM1bAE1 yQ3mVtHhCrD1OZbbY770Wa EtzDZxFygki9kva2dvuZh0 LpL3ATUsppLylIcwAIC3q2 MrSy62R36v IHdpZHRoPSIxNSUiIHZhbG ujyo3veI9tOs6+PGNvbCB3 kYI3fG3lXwIsOsD4SWqpC4 49InRvcCIv Xoeje8npv2bzuCr7WuNaDF XcrkGqeHtfGXI6q2KwUb64 G6HulNdej3JoVbw2ev37oH Ccr8H0xEF9 C8TkLHTldvqmbBRikCimBI 0jXFNkqbgcKWEafD9jTAEu H5t1XnYaUzT3BFtnX8Fzas L8HHOauVMy BOYzkQHBxQ7glmurn4xtgg otFjKgSOMrRHu9DTt9WZYi nFmfOuCyXRW3GnP5IZE0sE WfhP8hfVeb poomcE3gOjc+QQF9bWHdhA ZWIQ2yNzwazNO+PHRkIHN0 cZsjDAgwQUJusG3sZCAtJ8 x6VuSeLoR8 EEljQ3LfuiJ3TDNnvFBzLQ RlpMLUxJ5uugnpl7cfoubb NgUbVKSzLDy6ELy7APFtrA duOiBsZWZ0 HuC2VDK6bRQxaM0gkWficr syxO4zFny+QmlydGggRGF0 TOv8C6CxLnj8PFYflXtfQN 0ncGFkZGlu Sm5dkWrhdCkvLI3cDFXczb fsg118ZcNrb1weIFCejWQw UHrzATD3Y09qi4L8CSMnML QzUQY5kLB3 aB6klZioqojckMVjcAchvs AsrBwgXSrlENyfF060YPJa pEwoEiXlUGb0F4YsZff4JT LkrSnbUB9c rANzZKjwJd0toEzclUbsRT 8hCXGecjotf620HhXoa0ff EIKljAGqKRiaFKX1G10or7 X8VLGmZTEw TKO8cFM2zJ2lrYqnnsyjsV VmdDsgdmVydGljYWwtYWxp D588SJDduNjmZvInjKz0N0 RmSgi2GRIa uHcwHU2xlMKuRGpbVb5hzO adrQlmOY1qKWRofnjpm234 RaCfh6xwDLQihRKpFEvoCU S4M68tb2V7 DJCnYDIwNWS3pVD7yQ0hpJ lnbjogbGVmdDsgdmVydGlj CUksRLtmY740HXSyhNndLn BhdGllbnQg NEwcLJs6N6QpJvwaeBO+PC 87EHNxCB50nWPeiTJju8ly fEw9IlMyERIuUGR1lPxkSZ dzh0SaLNMv V06vmGVcs0N1IBJefNsawR EdLkYfqLS0oJ4qZCskikss b8yxsnjrAtdrs0rblz27hZ 78T82jTXbx ZHRoPSIzMCUiIHZhbGlnbj 2fzR9lUz9+WNBjeKZ5fFV5 gK0mFVBxLsG6EPueX942Jt RvcCIvPjxj t3ayw4crsOe0MmZ0SCVqlt WlqUdaHEP1u6VgLw78F97e IHdpZHRoPSIyMCUiIHZhbG ctpy4waO1w Ii8+TDNmrXB1tBF3zX0gHk QvKpG3DPltH064AxAgsEBj PvvxN59lT9OgmVE+PHRyPj y6EAMicMno US2awLIsAKgxNu8uVNA0Ra ZyXwYiPRqbG7HhHXPtdvmq vcmujDK8DLOmOYBfiV14Eb 9udDogMTBw uPUGnT5evjaff6qkojalSu NxCQApXNu3KTx5CUSccFan SgXgWWK9LiX7ENR7zDGrpG 1hbGlnbjog bM7yD2HvAUUqiexwQp68xJ 6aHhChFfB9JHptRly+RU5H GbIQNVPTHEHYF8RXKYLSUd wvdGQ+PHRk IQV8kFfrGZryQRAuwP8lYJ IwM3o5HhAfZuK9YQuhL3Wc VZCerclkFp67pC3oYcFtJa M2NWhlP7Iv btE8LERivGRfWPzqTLV1F4 2ic6S7YDUoKCJlMBV2uSO0 mC6wgEifeaoggOSswUgwqq VydGljYWwt IOaaK987XZMcpShaPaVsYx J5JhA0PNW6Z0WoOlh5XTUo jFrxER3oqWNpLCsvOr1zsS bxrNzhSM4n ULLehqnxEZSdaO6aFUHzdW FypZmdTY5iZXQxstxbj901 XlXqAQS5YRVdbLOdO8XbiF 9yOiAjMDAw NRBjP2PwqJBwNTwyT875DT gmBwW6TZYhrcRcW1BqUEKx sPglFxR2z9R4Xb7fCHCXTW FyczwvdGQ+ OXYnOBI2bJvkNFytJMMoyV 5lGCGfE3t5SmXhQyP1XNke Q3MiVZKtokaaXz88oV6kVd WpKgZ9PLmv L5IrpsU6MZVcfRWaNGflTW B0M92tl7P9KOMsPNWwCKR5 lMN1yM4vtPtyziurzRRurX sgdmVydGlj GTssEPzvM412FZYvvRiqTn ZFTUFMRTwvdGQ+PHRkIHN0 lYwqQKblSBSlfZ3uTGQhI6 u2AzVuBtN2 GBogW1HgBXNsflzaZq48oF 9nSzNrEvA7LVesZ9GpkcJ0 ZKSfcGOvUQilBYU2B27ql8 F7WBGaAADd QEQ4aLJ4sV7mlJwvrdbhzB VmdDsgdmVydGljYWwtYWxp J868TQHhbXlbZk2VUR14PR 79Q5MvTvmt dGFibGU+PHRhYmxlIHdpZH CdKVerAADtVjOekYqrPG1d Sl6wMXSrUUQbnRyfuRLbJh Wht1meHLDj MBwhSG3wtFtkO9LiuKU4AZ Cqi1h6Ut99F09qA2QwsFC+ BSExgKR3cWY5wT2tWlKgNr Z9XLbgH856 JiUuhSHsGohar8cpb0nlcI w6LzCyXJDbnlTyzOhhJVB7 f5NxPy77F69zTEcxKVBhDP IyMCUiIHZh gZajyb1jdF5vMx6+PGNvbC M2hRH0uW5pAkOuJlK5LZne E039BiSnuMViKrqaI89lV7 JvdXA+PHRy Ddu4WYPsgHmhPN8dvKLhOF ouCu8zLQY0MwYmNjBlHOiw B4NyXZFxgsasczrsfJU1VK VaBQVviN41 Ts2ohHigPy1yFHXyXHM7FH IzoTBkJ9QjyA5wUbLkHFCf ESUtN5LweZKsVUwvC426ZZ uhSbR5FXMq heKtJ0LgSFDibGbsLsW0e3 P8Fc3LtPovdJGhAT3cEkLs KPl9U7YmUpu4UOFowTvhNR 0ncGFkZGlu Fo7adCmmfYjfSW3cVLJgti oxd037JlXzn4vyCWUzfNIq MVsaZIZ7K68sh8I3JVCzMW IbPHQ3gMS0 aZ8yzKffmcqtxSWvdMialk FplFgbGLygDQwsC564UOGi fKquPwEFKca9M7ObVzz5UZ ClrBneUN6t wQTeZCtgPl1gjSvkdDdmXD 8vBVDltcezd738OxSvw8ez DYPjgBNrWPtaVBK6M74fy1 S0YTPmFXTf HEH8rDZ0pX5kbYozopfleI VmdDsgdmVydGljYWwtYWxp P748EXCuwLbhNo7ADxr1V5 EyLnh0WYLt vGiiEM7xzHQtWZogIp8neF ppmWlkEW1yHARutjese587 AjHcz2wqSVKelWDaCYbxEC Z4J43aq4K6 FJVwWULoBOD9qYW1uD0jpC lnbjogbGVmdDsgdmVydGlj RYjaLMyfF897ELSdzIssJv BheWVyOjwv dGQ+LG79dq21A5RaJbomSa s5IIMwGNB9hEK3bM0cDHVb BXrgd0Z1iSK4T8CyltCkgt 0cz8cuLPWv ZTo (more content not included)... Normal [facility] US Endovenous Ablation 1st V love 05-06-2025 US Endovenous Ablation 1st Vein EXAMINATION: US Endovenous Ablation 1st Vein HISTORY: Varicose veins of bilateral lower extremities with pain The risks and benefits of the procedure had been previously discussed, and were rediscussed at length. Informed written consent was obtained. Carlos Jordan RN and Huyen Bauer RDMS assisted. Time out procedure was performed. The left lower extremity was prepared and draped in the usual sterile fashion to allow knee flexion in the sterile field. Duplex ultrasound probe was draped in a sterile cover; sterile transmission gel was used. Venous mapping was performed with the areas of dilation and large tributaries marked. The total length was 2 cm from the entry posterior to the knee to 3 cm below the Saphenopopliteal junction. The diameter of the accessory small saphenous vein ranged from 11.4 mm. A 30 gauge needle and 1% [...] the needle and dilator were removed. A guide wire was inserted through the micro-set and guided through the saphenous vein to the saphenofemoral or saphenopopliteal junction. The dilator was removed and an introducer sheath was inserted over the wire until the end of the sheath entered the saphenofemoral or saphenopopliteal junction. The dilator and wire was removed and the 600 micron fiber was introduced and placed and positioned so that it extended beyond the sheath and was 3 cm distal to the saphenofemoral or saphenopopliteal junction. Final position of the fiber was determined by ultrasound guidance and duplex imaging. Tumescent anesthetic was delivered by ultrasound guidance. 10 cc of buffered lidocaine was delivered along the short accessible course of the accessory small saphenous vein. A final positioning check was made. The energy source was turned on by means of the foot pedal and the fiber and sheath were withdrawn appropriately. The total number of Joules delivered was 240. The laser was active for 30 seconds under continuous pulse; average laser use of 8 J. Laser start time: 1:31 PM Laser stop time: 1:32 PM Date: 05/06/2025. A duplex ultrasound revealed compressibility and flow at the saphenofemoral or saphenopopliteal junction immediately after the procedure. Hemostasis at the access site was achieved. The skin incision of the saphenous vein was closed with a 4 x 4. A compression stocking was applied. Postop instructions were given. A follow up appointment was recommended and scheduled. The patient tolerated the procedure well. Final Dictated by: Omar Marin MD Dictated DT/TM: 05/06/25 2:56 Signed (Electronic Signature): Omar Marin MD 05/06/25 3:02 pm Technologist: [facility] Coding Summaryon 05-04-2025 Coding Summary HTMLBase 64 PxwjsatuIBz8bKs+PGhlYW Q+TG3HSLUdD99jlCYohB1i H8YHRQoKFnpkFAGFCJyLIo AecxIrCW2uyFXsHLXe IC8+LL4nOIOePnmslDFah1 L7zVA7E37tkz0vPYtykGR7 OMOiSmFqjnblo1qbiZk3RW cuNmluOyBt IVBueH43PSB3bB91Nw11eJ UxuUUbr8lrhDj6MnJkIXDj DAC1eSevSOmac5KvMCMeR0 1jzNEws6P0 CCJecPrpzDKyThLfeDE1lD 9yPLtlerigq4skymljCux3 pk96fCTmb5Q2jNS9C1Ilxw A1VGQpiJEp XdiunVSKmY2clvrtg6fykg ipPoTqIJWrSYi8KEx4LKJy oKwxOgPcWD33NEY5ERBhdg RrB6CjFOFg bTplMcK0b3C1Gm5MZ0JREz coM1LDVGUGNUnkqZE+PC90 kv32L9WjYkvmAav4LXVgAU K6oHU0uR6a RXWlGPboc7U6pHV1N1Tjuf Jbsv8op5ucMJHuYBitY55s iFQku8L3UCDcgXR5VEDwkY vzJwQmsI25 Oyc+FRRwtCqqk6VmNpbwc6 ihv6sspHt9WjtnHQEbqwGg zSevLYL2b4XpFf7sNUImgQ Q1uZK5rA8e HaEhTzQ3KTvyV777VvHgeZ TfFyetC45uG4VuuLR+PHRy Wmq7WSKnsNcqVH3fX0AmDX RpbmctbGVm eEmmKE4jAWLijeluOGUbyI 3sFLUwV0p5WcTxMkU3RNvz G9ZtSLIkbggvPw35fU1sTc ClJpY5EBtt F5NdezZ8OHGrzIGzLRttHF P4O40ik0A0NNFyPJIxIIF6 dAU1nW5scSkqkygfgBJelG sgdmVydGlj HMcqFNcrV008BYKlbDrnTl NvZGluZyBEYXRlOiAgMDYv MTAvMjAyNTwvdGQ+PHRkIH I1dBiaTVKr wLGdWLymYu6pdUpsnLmmBI 1yWGHfyvjxDHWzrO7lIHHp hBZfpFyxZV4mXPAdiyqib7 09MzBnQGH9 EFSnuJOiA9QikM6lHtAwBK AyHPEwG1SezXQhOWlcJ244 ILgaQaN5YJDwodBiX9MxKX FsaWduOiB0 b0Y8Bp0Ee6NrgmasD7PwyG WvDpVbVwynXSd4H8BzZmtj dHI+YK84WROzLT99GTo5RT W0vTsrMHox WWEfV4KfgM8rZkApUQHtXK RkOyc+PHRhYmxlIHdpZHRo WSlfFAMjTcKzmNhzNR8uHo 9yZGVyLWNv xEosoSRlBrQvg7taIZDvRV bzYG0niKhdD6XdkOU2ARLh x6u0Zr80R59yS9JpqVU+PG AppUB3xOS6 uC0bLtLhDnX6EJjcM408Ou WtzOWoLdvub2ffp2hnjAu3 HaZ6FEZeqwRuqYrfIEO9o5 XxQv30A14u IHdpZHRoPSIxNSUiIHZhbG zyqw4rxA1yAj0+PGNvbCB3 lTN5dH0nZrUqLgG3GJrdY1 49InRvcCIv Rnklz6oav7trjGz0GrEvFN WgogMoyZxeZBN0e0EyGs63 D3UxwCgpo9RzNkr6vy74qR Nrh2Q4fTR3 H0PxFDRxzizhdHYehNpsQQ 5vZNUyylvhMDZvzO4gZQCg M0a3YpUtTbX3USbuE9Tybs T2WSJnkCLa IQHnsQMJwI6xumghq3bgdb olDgPaWLFbHJq6HPw5WERq yHqoFdAmHDT2UoF8RNI4tQ WnnE1zoQdd mxjbnA5mZlc+GOF1sCUbvW SYKZ1bUrelqEL+PHRkIHN0 vImhJUezQKCwqG8kUMCpQ3 b5WnYoJrY3 FVzsH0KqjvH7UCPbcTMyOV CzuZVCfD8omatbq4rkqbqb JnJzSWQbLVx0UCe4VJDaxN duOiBsZWZ0 CcH0WAJ3cHKfzB9mfZvomj eywQ5aUfn+QmlydGggRGF0 VOc3X6ToZtp5PDOpyEbrWQ 0ncGFkZGlu Ty6ncQjddJeyXP4qCBTlmy vjd725SyKfy0fvBCYekPLm KLdhWGY8K11uu4R1ABPdXI KqNNU3zTR2 kH0ohRqhbrujzACikInkas DflFqoUIlhPOmrH614HITd rQnoVlPnVCg3W3MmYbw3YE AfuPwqSY6t bYXcBWeuYs2mlCbsfAzfLL 1jFXFpwsuoy325UyJxv2xg SHWswOTuXRyaXGU9T49qm2 U1NHZlBEZo URI3oCL0vA1xqVnmmvosfY VmdDsgdmVydGljYWwtYWxp E707WELvpYggBbMqbSt2V5 CuGvs9HTUr oGzpUH6nmJIhKBhsYu6suH jykJkeJR8rWFOxaquxm811 EmXtc5apTHXlhOFcXBnrGF H4F03vx1J9 XIWbJPUeGYY1lLF2mM3zfN lnbjogbGVmdDsgdmVydGlj FXsmSUfoG932ARSnoLbnAt BhdGllbnQg UDsgVUg2E5NrKnlgjVF+PC 16ISSjJG53eACjmDLkw6kc nGb9CfOnUODrLNR5lJrpOM kra9GsFZTe M05dnCVnr3Y2AEKwkYufnV GkBjVlcHJ7vX0uMEclhjui u8pvareyEmymd6cklb40hI 46E68vJSja ZHRoPSIzMCUiIHZhbGlnbj 6ggY3fYg6+KJAblEF9cLV4 eQ8pLWMvHdB7LNjrF495Dv RvcCIvPjxj f8hct7smkSj2AoB2QNCzuy DagLztKLI4k2PjSf25S45y IHdpZHRoPSIyMCUiIHZhbG pdvo1ytZ9r Ii8+UQJawLV5kCO3kT0zEr LtRrU4EIktB988GtPwkKDz XddeO48tY8VwvQV+PHRyPj o8PNVsbWov MY4afDTuBBlcGe6mDOU7Au YsRuAeNFqhZ8JxOOHywjnu lgnljDW1ACBySJThlV18Yv 9udDogMTBw kCGFxA5ehezrs0qtjvznFi CoGEOyHYq8ZPf0FLKihNjo BqEeHSL0YwV3MMB1vZJogB 1hbGlnbjog iI1wN0BrRAJfizvbCh97uL 2rAcNaUmZ8INtjWbd+RU5H AiDAMZIJMZIEG4OKLWBOVu wvdGQ+PHRk HWU1aMahCKtmKSIkcW0nOY WoQ6c4XdAaIxD7RFvcC1Ys VQGkrubnPl73jC2aWhUyLr D1JDyoT7Jh mgU0UNPdvGPwOGsqGAL6T4 4pv2F0NLAnUTIbCFL7aSL4 yZ0msCbbkuqzjEKtnZrjjv VydGljYWwt PLlnJ643EFAfbTkkBiOeYw T8DyH7XSL5N5YxUqq4OAMi yUigQI4asJXsQNdbRx9hsW esmGhbUU5f HKEymfoyCMWlzI2iUDEyjF YonPnbXM6tJVIkmbyob371 WfGkPOJ7MSWxhAMgX4GpgK 9yOiAjMDAw KHFzY8DprIVuZUsaQ468SN xbQiT0VMRslpGoY7DfMADe gVpvIyG0q8Z3Jq5lESGFDG FyczwvdGQ+ DWJjMSV0bKvtVMniKHJmsK 2tECZzV1g0PoKtUpN6MRie B7WeNSDcqmvkRr45uH5qCt AaApE2FTjz G8AuigF4HLYeoLGiZJerHY F0L40ec6V1YJUbRUQsRXU2 gJZ4zQ4ddLaeirqluOHlqL sgdmVydGlj KLroJTiqX181LREynNylJi ZFTUFMRTwvdGQ+PHRkIHN0 mXwuTEpcSXFmlU7bKLSmU8 e0JkRcKvE7 YDjbE0CuZKAqcqpkOd43kZ 1pCnBcSkW4YJbrV1CiaeS9 JVIjxMHvIYrqGVL7R36wa7 H2NIFaQWRj CNG7fNE6uH3jxWejoyrwpH VmdDsgdmVydGljYWwtYWxp C549XOGcfQvrEo3SVA14SN 88B9ZjVdqm dGFibGU+PHRhYmxlIHdpZH DyEIfpGBIdOnBgqMnfTJ9f Wa1zGYGzTOXnfFfbaAMjWu Aqr8mtZFFv FLakUI0xlZyxW8EovRR3FG Vut2d5Ts31U25jX3CjaWJ+ IRIhvSN3cRE3pB0tNmIvRb U5MQfsH123 AjScvXEjHpmjw6pse5iriV j1NyTkICNkhpJvbLleKWX3 o0IrGf82N22lWXykCBXcDP IyMCUiIHZh tTdzfu4rgS4uNq8+PGNvbC C2zBQ7bX9kMoVjQfF5VSbt W384XgWyvZZaQoucC96eN2 JvdXA+PHRy Hgm5EESusPzoOF6ztSKtQE czDj7gNZW9LwBvMkUyQFbr X0OzFWQseipkzeqvhSH4HC PpPJEjvW22 Yl6doMvjOn4vODMfWTQ1NW XfmXWnM1FpkZ1qYmNvBOZw STGnI3NuoDPoAOnqZ437RN xzGqF4EFTe ynQkO2QgSBNxwPgzAlZ7j5 A6Qg3FiNwcyYKqDQ1qJjHf AYc8U5RmBxg4GDEeeIuyRS 0ncGFkZGlu Lw4tvSvgsVlsKM4sLYOnpu abg152NaZpl0oaQFZzmAKh YOeaWKP1I67nk7S3CDAuTZ IxZEC7cSN4 hA3fzLcxevuokFUhwZzwxo YhlLhaKQwuDEdqA084LVOe dKvyIrCYCbn5M0OjXbk0KT CkqRjoCU1w iMZlFLfsNt9jkTvhnOnvDC 3qTHVhutmxy228GcQyo2rm ALNczPPjKDsdLDW6D63gk9 Q7FHRvYWWa SHY4dOK2vB6mkVxxcqogqM VmdDsgdmVydGljYWwtYWxp I047BJKkzDzzOb9VTzs4U9 BbDjn5JBLi wJuqKV8hpKKkWGmzTk1mpK znjOuqBQ3zRAPklhxvj890 RhTts9mcRANtsRUxAGltOY R4I26kw7Z1 NVLvKJLwMKS0dBZ2uB9oqA lnbjogbGVmdDsgdmVydGlj UEkhGBdmO271BQSvyRgmKa BheWVyOjwv dGQ+QU08bg36I0WfZyafLc h3XPBfZUF6cGN5fD4xPGSl FWmps4H9rRO0Q8UhmwYzci 0lv2tiTBOc ZTo (more content not included)... [facility] Coding Summary HTMLBase 64 MawsevkhJUq9ySg+PGhlYW Q+EF4BOCTtP63ymHTyjG9e M1HNIObEKyixIDBTYLeQPd PlxtZhLT7viERkTYVq IC8+ZZ5rFQRdRujdhWNfj8 Q4bQT8T75ytw7fUNawkUZ8 JZTgJjOxbcqxj3ocmKf6EW cuNmluOyBt PQUdjE05IHF9uW38Ij43tN WrkBKzu1sulZu0UxIjUBQu IVQ7qTzbVBqsl5DrJYDpZ9 4weCWeg3N1 EDYnoOgutJBnEzGeqAD3rW 5wFYulcdurs4qntfovMsd7 ec35xMZtk7U6jNY3Q2Zama M8AZPwxQCf QgjigWWVfU7zitttw4yxbn kwCqGtDABaVIw3WCs4XIKa mRjvNjTqLT11JBX9PWDryn SnZ0VwJCRs uOszFaD0e4V8Tt3YS3KJWl gpL0QQMEKJCXpgiYZ+PC90 mt93U8RwItrtYtk2NXDvJY P2gVU7gC1h AWBiAMkng8N2bDZ9B6Hwpb Jwth7bw3atQCNpEKpoX37c bBCon4U5NCZzvFQ7DELgpO saRdLuvN10 Oyc+DEFixSqcf9WxXevhx2 xvo6poqDr8DiepRYGtrpCo mAwoLCD9p1QcPl5nOKKemJ S2iRA7jQ3e DzTqLyJ9MKimO902CuQfkT VqWiqaM55jP6XrjHX+PHRy Qkd6ZKNlbAunGM0fJ7YxAM RpbmctbGVm iEakKE3eCDChwyjoWLDiaB 2oECPyF1m3RgPxMiK8ZYlr Y3BmJKHkwukvIa72sO9aCl LfYfR7PJny C5RxniE7PSSjtBHoPNrcVW A7Q31rt0X4BWSfMLUmENA0 dSJ4tS7mzUjkgncwcMRddQ sgdmVydGlj DHwzKMceF115TVFwcBuqOx NvZGluZyBEYXRlOiAgMDYv MTAvMjAyNTwvdGQ+PHRkIH E4eSpjCADu tNIoZRejPj4wyNzerNtiGT 0lDFUvoigdJNUcsJ5lNBYx kBMbxCnqDK4cUSMfndjrm1 25OjFrPWM4 KBQqxKRgY3NfvQ7tDdCnLF NgXNLqQ2BwmJQyJIgmP888 PJneWvD0FHXcfrVdT6CyIG FsaWduOiB0 b2N9Aw2Lg5LkxfoyW9FlpK WqIrKiMawbNSj9T0NiFmfa dHI+WZ55GBGiSD60VBy7RS N4pQjcRLwm PBDjU3CoyQ2iSbBfBOVuDZ RkOyc+PHRhYmxlIHdpZHRo ZVbfVINhPhUtaCccUL0zVa 9yZGVyLWNv zUrbwOPqZqZrt0uiCHBjGK liDD4omUirV7JmbPJ6WVGk z2b4Nq19E72oG9GpvRZ+PG JoxSC8hSH5 mG6lGzAlIbD0EYetC344Ky SeyISmXktvy5naa5rnqNc8 IjD7UJCpqiZvkFtpSOK3r1 PtTn74B27i IHdpZHRoPSIxNSUiIHZhbG gksf1qoR7jZd0+PGNvbCB3 vJW5zY4tZjHuRwI2CPxpV3 49InRvcCIv Mtids2glt7cacRk2PpYsXG ZrnaGphAzuCZC3p5DtIy47 E4SatPzyi4WzLql9nx40lV Ldv1O7cRV0 B5BvBZAyxfvuhRQbtCuzKA 8jWUOpdzwgNGJgsW1qHKAr G1o3CkMrIbV4WPrjU2Snsr P9XGIkgOWs IOPnaFXOtO9qnvzvs7gizs mvGpCgTETxUSk7TTc4TOWj xAwtGaMqKMZ4CmF3OVC2bP JenV5puEjy tdpguF6kBms+GLP9mDLtoO STYT2pPiglsIZ+PHRkIHN0 yDtuWJxdZGUphN1xXFPiL7 t3UuOjKjV7 THhaO8CexfV1FWSnoKIbPB AowPSJoG1weotsa6yuoxbj YxBiQUCnXWd9SEq2ZEVfqA duOiBsZWZ0 GyT8ZXE2uNZoxR4ehYzvke bkiV2kFmk+QmlydGggRGF0 XMp7D9FjFoi0EQQrzZmnIA 0ncGFkZGlu Wd6smQqkuYhhVC1aASHkhq dlr744LfYzg0cfIEYyhQAv QAnbODQ3D85xv8D7YAGePN VfANY8eXF1 wQ0fjXjwrhqfoBJkuHahct QkgIfwZJyjBOoyN626YZQj cOyzUoIeVWv3O9ZlFwo4OC WehCibST9s fYZtJHxsBa4bxEpwnBfhRO 5oNRIoruazn793MbLpr8hp RLBucUBcILwbRYF9P30yb6 F8DCMnZTKh BRS4bPG4qV9olBmkcvufuQ VmdDsgdmVydGljYWwtYWxp C808DHUkfBvgNtBqlEc7T7 YtEap7DMGc nBtrWB4wfHIaPXzvDr1ppQ izrXmrQB1yKAKckxokc163 AlAbb3naYUGpdHRdQVhyGD H9H94pc4M2 OJYsOOMfGHF7gYP9oK0vdX lnbjogbGVmdDsgdmVydGlj IWbaJUqmJ710RKUtvLcmQd BhdGllbnQg EYwjFHh2W3YuTjlvcLF+PC 10UZDkLP23yEMswXOpc2rs dWd2NbWxJUQbRMF5cAxzIL xks9OuTGUq K14xxXRvo1J2PYTcrJvqiM DsEuOkmHM8dJ3hNWnqhzla k8wnhhloVqpwn2gfog22nM 99J74yPPjs ZHRoPSIzMCUiIHZhbGlnbj 9sdR5uTd3+MGLolHV7sAJ6 hK5kSSYuAdT1XZymC491Am RvcCIvPjxj u9zob7dhyKg9LsW3TATndv QncTvzAFR7m7TxCj70A65h IHdpZHRoPSIyMCUiIHZhbG riqi5jxN0j Ii8+VSUbvBX7aDP1gM8dXp ScWwJ1YOxpV805ToGorEEi WpitA84gF5PjfYB+PHRyPj u2CWAoaCha DF8apCZpIAmuZs4gQIP5Sh CdRpZmIHigD9MuBXVlgbun cpkwdOF7UAZmKCChbS43Pb 9udDogMTBw dISVoD6gjswts7sbjwhcMm JsLUWgGJa7NFk3JKBztMev HrQyNFU8NtP9WMQ1mPJkjP 1hbGlnbjog gW6eB9UjERRoumncOn04hL 4pSdAcYdZ6WHllCvj+RU5H HrTTZQIIFIXNA2ZJDARCPc wvdGQ+PHRk PLB1mPxeJNqaSILszS9sAL MkT3u0TcBuRaN7ZEgmR8Ly SOHlmljoQp25mC3mOzUiDv X3BJdnF1Eg axS7HTBreKIxDRmdRIM3R3 0af2W0LPHvULGoMGZ6mCT1 aH6rvEltonxzhQSsiNbsvt VydGljYWwt BGkcI361UTFsdQlbCkYmVe U4BhR8BPZ7I2FtRys3EXUe zWrnQQ1kqVHcFTsbQa6aaY owcJkyPJ7u ZJVqshhlIICukV6uWLUiwY TefXwgCA4oQMYrnxztt540 IwQdDQX6LCZgnKOiV9DfeP 9yOiAjMDAw BBJvF4MzzCOvVHytL624DH sxNnD8ZVDfnfQuH5PrFLKu fMsiAfM9z7B1Bk5gEULFSS FyczwvdGQ+ MCDjTTW5lJhdFYkbVWKgdY 7bJKJpA1p4VsPdMpP7DSmq M1BzXIUrcfxyNs33xU4lEj VwQvP7CChe D1TgsgO7XBGnxOIlOBcuFT X2C47wf7O5KBLcVJGxQBF0 tSD9xI5tkRudbrrxjRWgmH sgdmVydGlj ZIhuJCznJ436TAWnjLsuLq ZFTUFMRTwvdGQ+PHRkIHN0 aJmyMBikTQMbhZ6eQOMpZ4 l1AwVjAiW1 HVdrB2QcJANkxognEz84yY 8hEmUpUrY3EQpdZ3RfyyJ8 NITgeWXpFNtqFDQ5C89do9 V6SIRlDCEv KDS9lTQ3gO8qfHczqfnxdL VmdDsgdmVydGljYWwtYWxp U060ZRWnhHmgDo1OOU57GY 48N1CrChhq dGFibGU+PHRhYmxlIHdpZH MxSQijIGWtEhHsyTyoTW2r Ch4qFIKwMNPmfDwjbNTfZg Ttv9duTSJt MMciJB8ibDshE6MhuYN9SD Oxi5z8Hg27M20uM5GwdVO+ OQZvrOC7fBN3rD2sTzIgEx U6ZTabM764 MoLweTSmArqtg0lko9xhtJ v7StMeHEYvxuGzeAunZAA3 a4KiEb97C31mHCzpZFPtPY IyMCUiIHZh hFpmol7rkC1bQc8+PGNvbC S4yLC1jR5bMdVnWaX4TEgj N277NmVbyQMkWardX79zF5 JvdXA+PHRy Zlb8YJShqQylFW4eiSDkNH obIq0qJSF7ZkZeBjHvPJlu F7WrUDLygozumsgjsHH4AP WgPVLsxA59 Qx6cjVziAd5kZHBlGUJ9RP JsgHKzJ6QgqZ1fWdIeATQm OYZsZ2FeeUMfOZbvZ780JF jlKsE7BQMw rlXnG5GpSMWsySimMjH2f7 Z1Qs8NcAjkuBOhME7mSeLx CKi6P1KrGgn8OSTttUpkAO 0ncGFkZGlu Ob5piDtscRitEQ7fRYYqjt bwe945BcWwu6gvHXIviDKs VHiwIUA7M19mp6K8GCAxHZ NmACX0gGZ2 nV4zrPccikaebTNdxLqwqa OblNbvIDyvWNxtU927NFIv dMqvXcDBIjj1X5YmHae1IG SccOudKX9r qOVmPHsqVi7xfTatqOvaFT 3mBRNdvzwoo868KePht5ff HBThjHKuNNnkVPX7Z91gx1 K8GJQkDEZb MJL8nXT3fM1dsDhhxakhzK VmdDsgdmVydGljYWwtYWxp I024PRIgyKzkRm1CQfn9D2 KkPlg2WCOe xDpsYZ5duANyTIqtDd6uaK heyOyxQX9zZLDxfnpdh793 DjZqc1mrIMVmzEWcQLlzSG J3T35kx2V4 OZDqCLQlERJ9aMH1dJ3bhE lnbjogbGVmdDsgdmVydGlj QSyvDErrN977IKOtcMzvYe BheWVyOjwv dGQ+FA33pw02W3DxJtzbSy v3ZQQvUZW6qEK7eE2aPODy QXdwt0N5yTV5Y9ShxkOcse 4gp8zrDTKz ZTo (more content not included)... [facility] ALL CBC WITH AUTO DIFFon BASOPHILS ABSOLUTE AUTO 0.1 [facility] Basophils/100 WBC (Bld) 0.7 % 0.2 - 2.0 % [facility] Eosinophils/100 WBC (Bld) 3.1 % 0.9 - 7.0 % [facility] Erythrocyte distribution width (RBC) [Ratio] 12.2 % 11.0 - 15.0 % [facility] Hematocrit (Bld) [Volume fraction] 37.9 % 36.0 - 48.0 % [facility] Hemoglobin (Bld) [Mass/Vol] 12.4 g/dL 12.0 - 16.0 g/dL [facility] IMMATURE GRANULOCYTES ABS AUTO 0.02 [facility] Immature granulocytes/100 WBC (Bld) 0.3 % 0.0 - 0.5 % [facility] LYMPHOCYTES ABSOLUTE AUTO 2.3 [facility] Lymphocytes/100 WBC (Bld) 31.9 % 20.5 - 60.0 % [facility] MCH (RBC) [Entitic mass] 28.8 pg 26.7 - 34.0 pg [facility] MCHC (RBC) [Mass/Vol] 32.7 g/dL 29.9 - 35.2 g/dL [facility] MCV (RBC) [Entitic vol] 88.1 fL 81.0 - 99.0 fL [facility] MONOCYTES ABSOLUTE AUTO 0.6 [facility] Monocytes/100 WBC (Bld) 8.1 % 1.7 - 12.0 % [facility] NEUTROPHILS ABSOLUTE AUTO 4 [facility] Neutrophils/100 WBC (Bld) 55.9 % 43.0 - 75.0 % [facility] Platelet mean volume (Bld) [Entitic vol] 11.9 fL 9.5 - 13.5 fL [facility] TBH EO # 0.2 [facility] TBH PLT 195 [facility] TBH RBC 4.3 [facility] TBH WBC 7.2 [facility] Coding Summaryon 04-13-2025 [facility] PqtukiezFSr7aVs+PGhlYW Q+AY2DJVPlO31xxUEgdE9i L2CZQAaISazuSJZEISeMYl PitjKhMD0kfQWgGDQf IC8+CN4yWYWcRqmgyIGys0 K2uUT9S51dua8qAJrdqQO4 TJMzTqQwridun9sntNq3GH cuNmluOyBt MSMgvR14XAX8nF29Km01yG CucOAsv9bbxKu9BpGrHBKf NRT1kWvsTPpbv6JhWXSuM8 4vwOEfp4W8 HANndBrrzYCzDhKqyVX2sX 4nEZfqjsdis3puutlsXcy6 ah07vNKxi1S7lYC6C9Svax V8JAXmuPLv JofipFIYqV8lykzgw8ivlh xrFsGqNHPiSAz4BRt5IWNg bYdhDqXoLW96HHX3VQAlms HnG6PaCIGc mBgbFxC6o3C4Zs7KV9DXQs uzC6KUZBSVKEclcJT+PC90 to76L3XdBucuEao1DNNgCT Z5pCE9nU3n NTUpCVmof1Y7iLE3Z4Tasz Mvpf2no3peCKBoFAatV92f oHYsl8V7GBEpxDC5WGOvuA omAsEcgL39 Oyc+CFMzjAzxr6ScNzuec0 zpw2yudBx0IxohLYYpcsTx kIifHGK6t6FnQi5aBZQwyL H6vIV2vQ5a BlAkKaD8AHxpV348KbVynE WeWolcE00sE7FseYV+PHRy Bfy4HEHvlWylLJ0tT1ZxJW RpbmctbGVm iUqySQ2vLTXmphjcZXHoxG 9eEWElD7u8WlHqOaT3NLrb I5OpHQXqbdyvBf36yR3jLh BdKfA7PCvp H6OxxbK1JIFgtDUlEIxaYH L4L54tr9H1GAShJKRrIBK1 kGS0wJ8amCpjyokltOAhsK sgdmVydGlj CDboZEliT047BIWznOruAy NvZGluZyBEYXRlOiAgMDUv MjAvMjAyNTwvdGQ+PHRkIH M3xHwbBJNw vTMfPGfbOj0ncExrfOerZC 8xYAEwuhsbGUBbgM0tGVGj nUGdnFopFT8pVKWajirbu0 50KjQhZEG3 SQMuvJYvE0KhhX6wFgZuVG SoTCHfI1XdaSZtGKjaO367 NUryLpM4UMTvriYdP5JiRG FsaWduOiB0 l2T5Rq2Ap7SakevmS3YecW GyLvVsJdqmGSq2L4EqHvbr dHI+QJ83EWDaSJ76ZBb9NI P6xIcxOQsn HFXaI5ZelO0vRaVeRYIkTP RkOyc+PHRhYmxlIHdpZHRo NYiaZVPuSsPvzEkjTI4pZe 9yZGVyLWNv iCyqbMQjOkFva4rpXARaOB klXR1bcGpzW9VrzLC8FHDn w1c8Ju00M78tO4BafLK+PG OsbDP2vSA2 iE1qCjBvExM9CWngU490Hx GdbXCoOjmln9stc9bwcDf6 BuK0FVBbwmSpfKzxZER0c7 ThVi25Q43u IHdpZHRoPSIxNSUiIHZhbG kqts0viR4cPd5+PGNvbCB3 yJD5pI3tCeMdBrQ3ZXqnI5 49InRvcCIv Dobmg7ogo2ttvFj8BdMvZM JobkBceOvtUOX5k3XgUc57 Q9YnuOlyf5KhZft5op13jE Ysn9E8sVN5 H6YoTHMhbdkiiKOeoMczXT 2fHEPyefyzBNUwmS6bSVBw I9t3WvZvHhT3JTknD4Fido A1KDBfwJLw IGUidYPUxS6favjrx6pflx hzPtRbHGRvBMr7YUh2LHOm sFxrFzQtAYX3CqM3QBM9eX IblZ7zsJci ekywcF3iRzm+VZX5vEOzzY JQRL8jCniqyVW+PHRkIHN0 nVcfMEmoCDXufY6jZPMmL7 p9VgEuAuG4 ETmiE5KxbyZ8SICiwOSjJT PbqJAQxG0szpiix6lhsnfp BvImAVMfHJz0PQl4HSTkuE duOiBsZWZ0 PqE7OUJ0vQVrpQ3tsNgrdv ieqY4jRld+QmlydGggRGF0 IFh4D2YlAgn1GJJndAlnSP 0ncGFkZGlu Sx6hvUrctBdoOA2xSUVhcs gum162RdDdl1mnHSKqvGAl UYddJXU1N85xy5P6UHPoMG KoLRN4jKQ2 tU8faJzhajapiNHidRcwur RqgMieLSpoQDdcC177AADe vAwnHwHzONq7I7QhEnn2DF HmoSrpBY3n tOJgZMmcTw4sbLykjAaeVN 6vGFFveojks397NaRbe5wy CMZmzVUqSEufZBA7K51xk1 Q2VQIaPVEx DXL3hXX7dU9uvQykostslI VmdDsgdmVydGljYWwtYWxp X546ZJTluBtwPbPwgQc8T9 QnGzw1DFXg pKfwYH5paXPbUXrfVg7cwP uadXnxHW8sKVYljfgfe102 SlEbq8eeGNWeoXHpHBfxZE T1P31je5C5 JYTzBTFhSBZ9hZM5zQ9kqA lnbjogbGVmdDsgdmVydGlj RDskGGqfL747DIAquLgyIm BhdGllbnQg LLymNMj6G6GeBcaqsPN+PC 79FLGzOX23iXSsxNHkm7jj hSv8WlNuEJKyJWW3fJniOT ukp3KoIPIw Q37iuEEox8U3DSDuxIkipE TfBdFrcSQ7rZ2jKFjwdxbk a2yegebeWdusz0lfnw88pR 63D98pWYin ZHRoPSIzMCUiIHZhbGlnbj 3ovY8gYh0+FYGwrQI5uXK0 kW7wUVCiKmM2CLdfX930Zz RvcCIvPjxj d3uus8bpmUt3ByZ4NDFurb TqeKifKID5m4BsPp72J85u IHdpZHRoPSIyMCUiIHZhbG wwii1joL5d Ii8+RKNovSQ4xVG1pM7qOe OcGpJ6EYtoC377RjCncVHy OzwzE70bW2WrjXO+PHRyPj s0ENFyfDgu AC5bpRQiACieBh4cGWH4Al CzWoVrNFxhE7EnVNZpxwmh fsfhfFU1AIPrZKVkmJ23Yy 9udDogMTBw hWPOpW5lewzjq1atjrblNp MpBMCkNPb2QKw0ETRkuXya WdAoIOW6StB4HIK8tSQssG 1hbGlnbjog iI6cR5PgJXScsrsiYd52oU 8eMdQjHrF5RXpbYzm+RU5H PsIYIFEPWKMQH0YTUMOUZc wvdGQ+PHRk NNM0kDvePJocAYAbnF6xTD EjP5p9UpZoVoV4UTbxH1Rj HCPamvwaOq85oQ0lZhMbWo P2ANjuG7Hp foA5HKWqlHVpTDqyPYC4K0 9fa6L8FYWxJTEnLYZ6kDB8 pG4anYeaaetgtBQthVsdmr VydGljYWwt RGvfV879KJWxvAmhQnAkIr M4PxG3LCY8I2WvZgc6QENy uQkeOK3ggLEuHOxaDr2zyA zhtQnbED2j TIQkhqjgKYCamV2yOPXunT QfoRzlOT9pYTInvleko157 RiJnBMJ2HTOvnUPtA3UsoX 9yOiAjMDAw SLAjR0DqnQQiIAgrV369NK umKkH1MBPernPtM7PtQSWo uYvcQlL3j0D6Jr4cFGZNFO FyczwvdGQ+ ZZXdHNX6kKnnHNevJHRqyP 3vDEGxW3l7SkIaSxK0PKow C7TcPLZatizvPs16cQ7kWj OrQgA8RRrp J9VqfbM8ONAgaZVkMDmiEN R6O64yz4Y9MHJbTOVfMVU6 vPS8mR3reNqykxqtdNVjlK sgdmVydGlj BLytDPxcZ378ROGalKsqQj ZFTUFMRTwvdGQ+PHRkIHN0 nIvkTEveYYElxJ7qUKTvF8 g2SqZwYfX7 YVsjP5LkYXYxxqbfJd39yL 8nRrYoHpE1BLpaG9NzwzR3 WFXvoNVmQIlnOUV6F77lk4 K0KNIeXFFn GZA4cFW5jL0vnSvvixwffR VmdDsgdmVydGljYWwtYWxp G884JEIwlTmxMr1DPV37VO 62Y9NnOwhr dGFibGU+PHRhYmxlIHdpZH YoQJkoFTGxTcXvwUtlLC5m Md1oSVTeIOAtjBartMZxDv Ech7tnNBWl WHotCG6gqXrzM7MjyBX3DZ Cpy0m1Bn33K72cT4RkeST+ GTTxtRP5oNG9hT9kYiPoUp S9FDmxF948 MjBrfEOwYnlda1hnp3lvjX z2MsOwGYFrosUylKfdQDR8 r6GlXk42C40yWXouHCTqES IyMCUiIHZh qMyfbj9cmP6tQy3+PGNvbC C5sDS1kZ2kPiByUsF9LAvz P513AwCgaVNlFwvpW31aS9 JvdXA+PHRy Tcd8EQYdhNkgVP8dcTRmLT tfKo2eLNM5UzFoOxBxVOto Y1WlIBLsdyrgqlcdnIQ6AY CoHFAffP69 Rc8gxPwxRr6oIKWcBGY9FD NniVLlR9PytZ8wQfAzYFIy OCBiO8YbrKSgNCppU278XG moUaA9WAAp emMfX6VnSGRqoBveZuU3l0 P7Ug1JmKkykCIrKN9uUrTb TBu7Z6FlPcl8FKJvrErkKP 0ncGFkZGlu Sn4fzHbheZcrLH0jHQUabo jma028XnIfb9nkUNDpySIq HUydHAJ0Q29vx2K6FBQtNV AcMJI5pTW6 zU1iaPoktpvavZWylClpow ZstWwiJFojVQiiU075EVJo wQtbPcPHUqp3R3BsPcm9RF AawWtoIV1k bXFlMQqoDk8wdYqtlSsmTN 4tDFFotvbzy797FyNug2bb VLWaoYNmGSnfCTF1S02je6 B1XVRiCXFb EPI0mDF8oD6noIqqcgfqwF VmdDsgdmVydGljYWwtYWxp K170XIEvuCccNv9LXai5Q1 DdPhp7XNKl bMboXO8ijXRlDGkxIq6zbQ vfxCjbFA8cAFHsnpnmj848 EbFsl5yvMJZlcIUdVDozQC Q4A13lq6V3 PZTpGJKkQMA9jAK4uE5pyY lnbjogbGVmdDsgdmVydGlj MBprVOjtI570HSCyiIwwXd BheWVyOjwv dGQ+HV42sj73W5NbGsrsZd d0OXVxVWC3pNL4lR4hEGRa SChxf1W2wZX0H4PxwzBwyd 9rf3keZLWe ZTo (more content not included)... [facility] Coding Summary HTMLBase 64 PykectpiKMp8hTv+PGhlYW Q+GT4KKAPkA39mxXPreA3q T8HLFPmMUjobROMOPEnKIz ZakiAePD6mhCJvNHUc IC8+OH8fOYQbZkkscWFvy5 T9zJE7V74spq7gZBaecLN0 MYXkNlPbuozrg7sdwOt8EK cuNmluOyBt ZFBuwT52FMX9hC51Gi65qI KfzPHqu8ycoOv3PtUnSYDk XGE8pXiiSTihy3BoPBDaR5 4jqVAgq5A8 YIVawKgblCJoZdMzsSJ2zU 9gEMottspyl4qfzdfcMoj3 jn87tFGjg4F5cST5E0Bsjw T5YOJsiMIl ZpchzTCFmC3tdougb8mqjl fiNcQaDKGuVQc3RVx8TTTr bDjxAkMtGS32BMQ4DALocb NcJ5XhOFZg dXipPlW9d9G3Jr1XU1DHQo zdR4KBJKIGEVkojMH+PC90 wt99B0CaNrpkUuo9TICiHZ Y6pVF1mR8n QNLfFDlwu1O2hMW5Y8Ramd Ndyr2kg2rvNRHeUJgoQ70j gTWqg1N1NKMcrZQ1SZIjtY vjSaGpdK67 Oyc+UKXgsOygt0MpNjxuf6 vmr0dyhVy5XqtmGUBtpkOy hEzlEPE5q5CoLj2jHKMxeL V4gRQ0gR9x AaFxZaD4QKhnZ847FfRrmE OyKzpnA77wR7AyiSW+PHRy Tih6PGStlPldOW7xT4BdJA RpbmctbGVm eHzfRL2yBXNcckxgQNEszX 1kSNZvW2b7UnFgMtN1CNzu U1SoTIZzbgbeLt92yW7pIp IlUmT8CMcc N2CqawS6UWOekQFlKRieUN A0Z31mz7F6JORkXADoCZN0 aXE0vR2tkTjgxhzhaMIozJ sgdmVydGlj NAgrNCtqT402BBArgLloWt NvZGluZyBEYXRlOiAgMDUv MjAvMjAyNTwvdGQ+PHRkIH R1hUzeGBQw tUZuJEinZi8tzXiidAjeIY 5hOWUwgaywOZArsP0wIMOg qTPizWrhKH8wOZZbizeqh6 86DtLtLBK6 HSFugVOgU2UcaA0yIoEhGY HrBKLlX5EaoYCcZKfmQ318 IKglHnG1CTFxkiJzO1PqHF FsaWduOiB0 a5J3Kq1Pz3EidpcvG1LvdH MxQwCqDxxlSNu5N8QyGbay dHI+HG23SKZmYB23JAb9VV L6eCmyDZqj ZKXoK7OyeQ3wJjHjXQMqVP RkOyc+PHRhYmxlIHdpZHRo WGciCZUzHnVnjHdpUY5xIb 9yZGVyLWNv pKekePWaGjEiz5xiZNTfEQ rtWB1jxKefO3EqcUP7JMFq l9x3Ag59T04pV8PaqED+PG IglVH7cZC3 lL6mBbTfDaG9TIouS423Kd PjuRDcBbczr9okd7opiSe9 EuY5QLNkulPgcXpiNGB3s4 GmWc78W66c IHdpZHRoPSIxNSUiIHZhbG hzxm0lhG2cTw7+PGNvbCB3 pLA4cW3lWpVxLhU8XUedI8 49InRvcCIv Jpcyn6lri5nbdLt0HjUwNS ZiqcUkiQxfWXG0q0VzIa76 I2OerPjlx7ZrRre7nb19vU Bgd1I5cZS3 L1NhCZHhsrximJUmkUnhHB 6rBMXviezoDSIyvD5kZRHr Z6g3DaIaIzR6WYtlG4Kqwb D0HRYmfJVa UKGidJNMwQ8rruufi4wagt lzRdSpAZZkDLu8HIq1LKOu fAysZlWjHWO0PiQ3DFP9qN OufU6qzLmw eqfeyX3fWty+HNO9sAEnkD EKFK9bLbmshJI+PHRkIHN0 cQtiAMvuGVSmhS7cXQOeV7 j5OzUdIzE2 IQhmD8UecpX4TUFcfRLaQB HmbALVwK0pcpmdi5glzjyl ZdJwGCCfDPi3EFd6BMZaiD duOiBsZWZ0 XeV8IZL7qLBwsH8njUggym gpnO3fDnm+QmlydGggRGF0 ZQd4F2QrEdd6CYBozVobTW 0ncGFkZGlu Fm7pvXztnGchJT8dQYXkjp dsa932OsQfe8zaECNnwLVt IVihVYO2M81ok8L1VPMqIL HrSZC9zRJ5 zE4jzShcnmyvfFVenKlylh NlnAfxGJziLAkuI019HKGr jSpbJyHfLYq4U4ToSql4ZV NczVfdPJ4m hXQmINocKx3mjBbqaNxcYQ 4eOWZcftcnu552MrDek0pl SPVyaMUxWHlxOUO8V49ja4 A9RNQoJYXg FVF7mND2hT1ztQmcesftaM VmdDsgdmVydGljYWwtYWxp Y174NSDtsYelMkAenTm0W0 WaKdn9YDPz oQcjUO6cmHEyRKzfHo4bkQ jrgNaxHY4rVPWqhjuei992 WuRjf9deTRUfeUIkYBtaMQ Y2R07wf3Q9 RDEyWOApIDJ3aIU6wH8dkU lnbjogbGVmdDsgdmVydGlj AWecKHbiI098ZJLraNooXt BhdGllbnQg QCbqXGk7P6MeNiqutUB+PC 05AEYjLV64iAVhpINkg9fj ySl6BiCbGJMpZHK7vVxhVZ zgk9RlNURv E38ygZVzy4Q2DBAqvYcuoQ VgQgEzzHC0fF5rLHnasita e8thuoggLyavh6okwe10lU 98M20eTScg ZHRoPSIzMCUiIHZhbGlnbj 2iyB2tZq1+GDDlhVV9rBT7 gY9gEYRkBeC8XVwlL296Dd RvcCIvPjxj x4ubh7bwxWt0DtE6XYVnvt LsqIefUUF9u2EyRg47I49n IHdpZHRoPSIyMCUiIHZhbG jvfm9bdS7v Ii8+CGIgpUF1pJM4qV7lUz QlNtH1EHbrS710EiBkpVCx VlyaD51qM5UhfLC+PHRyPj s8YLSgvNwm FV2qfGQgAYehRi5wAYZ7Ib GoFkIvDBihB6IiNORsuibt oyoklLO0YAXaPTCjkH68Pe 9udDogMTBw gRTNwT8zesrht2gsfihsWl YsKCAnAWq8LPc1YTGzxJmq YsJhVEU3RuA2TMC0mZUppA 1hbGlnbjog aS4pR1VwTQGlgdgpIg79dL 3cYlKeJtQ0JQzeFnd+RU5H LsPIGDVEOBKQQ3ULDICAMk wvdGQ+PHRk FFK9rZmqGObcEOQhsW2eME OzV0n2XwPgNxG6EXndC8Eh HAUkjzbzEx49hA7gMaQlYy R6DQorE2Py ikK7DCCycCCfIYfxZYN1D2 0su9S3FLLkMESaUSP9sTV1 rZ9uaImdyqxhaQDgvThakh VydGljYWwt KLynO731SIOhhNdqCyZvCs T7JyA6NVK0S4PnUkx7FLVl cDtaYI8byXElZGhxCp4ntU gppCxjZS0c DYLtwcnsCSMzfD9cRHMumJ ElxLniWF3jKMUwtefxh041 IpEfJSC1UGExwHXiD6LljC 9yOiAjMDAw PGEjV6YrxTDxXTfnI808FE ulFqF5FCYyprMqT0QsCPVn jQosAiE2e7V4Kk9sKLOFYZ FyczwvdGQ+ UJHuNHA7cJnvMRpjOMEjwG 4cKAQpT2o9MaXyOkY0TZpr K1KjOJCqhcvhHt39uF8eBo PoJkK4QYyo A6IxlzU5WMSokAAvLUoyYJ K3H02wa8Q8IRDsPEYoGIS9 fQI3lF4etDqxiqbnpFUcwW sgdmVydGlj IXxsSErgX552DYVrjCsjPr ZFTUFMRTwvdGQ+PHRkIHN0 qUpbHChzTEVvkG6dNJHuZ2 l4QtEyCtJ3 BUrrL4JeDTNohbodSf63tU 0tVbJtFkX5RZrwW6UwglQ8 FGMskQXsHEgeQOV4G21le5 K4MQDzMUDc PSW9iQL0xD1sjOfjlcwqtE VmdDsgdmVydGljYWwtYWxp R982RZPpmKxvPw3DNU19DZ 25T0CcOdjp dGFibGU+PHRhYmxlIHdpZH KrDOenRABgPcWefOxlQM3k Gd5fVTZzWNIhzExizQVyPg Zns7syKRIc TLxcHK9riFysU5MxlMV5BG Yux2b1Bx24I78aE6XmeWZ+ JDZyvJB0cRY3aZ7bSuGlMz T1DUujR638 LcLjkQCiBnwek9icb0xdyR k5EgLoJVIczuOcvYppBRW7 z7YtLn79M72cARgeIJIpIE IyMCUiIHZh pAqxxl8shE2pDo2+PGNvbC E2qZP9fU2fXkBuMrD9SGsy I873RsKxaIGxQhtcA07kA3 JvdXA+PHRy Zcs1YEGghJkdFW6xcLLlTZ fjIf8uVSQ0HjZbGuFvZZct S1PkAIQmnyhrqfvtcVD0RE XsBBLkeO45 Mj2axZbiJo1xJDTwKWF6UV RoxGYaW2XoaC2xCwTqILBp EQOwN3KywMOeLEvaA937JS jmGgH3OQJw tsDiY5BbBUTotHurMiI1o4 G2Nb0YkHxvuOZbVH7oVnQw ONg6P3GfJug5YKJqxNbmSQ 0ncGFkZGlu Qk6bjEjvmPrqXU2iANAytw wdr608FmCsl5zuMTZxvYXz PJmiDEZ9M68tv8F6PXLuXC SfKZS8fAH8 jE6xeJccmktzvZQztGhugd FtkJcpLVmxQLddP236AFUu iFkmUiVWMtv5S2TkPqb0HK UeeOamZC9d wCNeODgbAl0yjKpwoKhlQJ 4eGCZiytxqm839WzGkp0ja AHXizHLkJZkpZUT8U22bc9 M6BZWdYNLt MYT0aLP5uI6jcFgrdbklrU VmdDsgdmVydGljYWwtYWxp I564XVTxsSneNy6FLlp2O1 SgXsl3QAUx nKyoNO2ykGAsFBkgPy4bsG qpnEgwRN8xUWEzcyeki531 ZnFnx4vmFAIacBMtTTjaPG G9Z44ge8G6 FXAdQAXqPWS1cPE4bJ4rwR lnbjogbGVmdDsgdmVydGlj MLldHPwtK907IBRvtPpaYn BheWVyOjwv dGQ+JS79tp43R9VhSenbEs x8OBYuCSM9tCX5iX1dHUOt AEtkw9J9eFE3L4YagfYjru 8kw0hiACKt ZTo (more content not included)... [facility] US LE Venous Duplex Righton 04-06-2025 US [...] Church MD 04/06/25 9:27 am Technologist: [employer] [facility] Coding Summaryon 04-01-2025 Coding Summary HTMLBase 64 RqpzrokqIIm9cUc+PGhlYW Q+EU7ONTItW16elQSjcQ2i H2FWMVoSNeggZLIZCTjNYh WrdfXbGF1wbXYoZULz IC8+VF4oGSFnPledwSSyl2 O2vFJ0A22bji6oNQfukSR6 ZCToRkYcwsdpd1tmzSn5BR cuNmluOyBt GDRvsJ73QKQ8eL11Pz78fL AkhUCvu8xcnPq1PzTjNNAg LQC3eYuyNOtcj4VoOZYyY6 3zvGWzd6Z3 RSHpgGmatOFzOyBdwYH9gX 0ySTxrngjih5ozsqqfSql0 kh42cSZbr0A9tED5X9Oszu K1YBCjyUIy LdxxyKQYlU4udnaio9ausg tyWaCzSFBpSBc5WBe0IZMp wLviXqFoGV22DJQ1FQQnbh YfQ9HvKZDw cWphAwZ1e3R4Aq1HD5LIYt btP3HHMPJLDXdhnJJ+PC90 al81M6LcHispKol9UNOfXV L4yBO6qQ6x NEPlVTuhl7F7pKT0K2Gpfb Yong0bq6stPJXbADroE65i kTSob9L8RCPejER7LEGoqQ hcIuGmzN74 Oyc+KJZanZbxm1QhEsxif9 onf1mtvEw6BxreACLtjmMa nJsdAVA2c9JbCx9vSSCsoF N0zDM7xJ5h CfXaUiP7UOitS768OgTaxJ FjUtqnK59fB5NeoSO+PHRy Kev9UEXriLsoZY8iM4JmOK RpbmctbGVm eHawNN7nWJUcmyljBSUpcH 0lLUQdV7t0HrEmDnW5PQkr H6IgFNGrvmkzHp50aS6iPp VpRzU2VHbx H3IyfgB8YHThxVObULbxDJ V2J03zq4G0NTRyGKQgAKQ4 iQD0bG5tcSntfconrWUctC sgdmVydGlj SIxfNMavZ993XLVqtSimXq NvZGluZyBEYXRlOiAgMDUv MDgvMjAyNTwvdGQ+PHRkIH I4aCjqJURh xLRsBCthTv4rdRtnkEkeRM 5tIORopvorOCZlhZ8ySPJb wFIqsTxfMR0tVMKncoeey6 00QoFcDPO2 GVWleOLvV0BohO8yHzErPB WfZQQdS4XyrIDkIJluJ598 HAryBgZ7UKTwqnSsW4EiVV FsaWduOiB0 l2V1Yq9Te8BotatmU5XqsN BaTcJkCqjtBQk7X1DyZaaj dHI+LZ80DZOtMQ99ZAu9VH Q2fPwhVAbi TXZaO3XnlR3jCdFdMVQhTO RkOyc+PHRhYmxlIHdpZHRo XDvlCGPxVwPycEfbCY1hJo 9yZGVyLWNv qEaspOLeKkXce8xyVBUkCD idOJ5lwRnjF8RazPV0RCFh h1j6Be15Z96zV5OokLB+PG XqgAJ5rTO2 fG8aLlOgNbF1TMelL617Zf AhdXRfDavuj8hic6zllUk8 ThI8JIRipxOkuRimMXB0x6 AqSg71W12q IHdpZHRoPSIxNSUiIHZhbG olth9asD3kZz7+PGNvbCB3 aYN0mV6wXnRrJeP3TEmwK7 49InRvcCIv Qiqgc8ltc3zevBs5MsDbXQ XjdhPhxCktUVD7s4DbIp45 M0PgyDcmb4JgRno2sj13wI Skw7C2fCZ3 R5SyOJJunhanfZFscKteDK 5iYVPjivwaUUAgfX6fYPJt J0s3VjLmNdX7DNzbK6Afck Z4TUHwnRMk HIHcuJBBwV4ujigge4srnc tuTlKxFLOkESq9TFo7ULUp qGqwZdAiKTC6BjX3IBP1nJ UozA5xtVef kdkgtU1cSjz+OSI1lQZrkJ PKYW6wYjqhqVD+PHRkIHN0 eTbvKZfrRIQfyE2oZODvA7 j2QmSdZeZ9 ADspT4UnwxF6RLYimQYoTY QjsIEZzC2pvdtoc3uzkxjm AwVgYEGcPKy1NJt9SUUdzB duOiBsZWZ0 JrF1BFM8lJPmhD9auPkbux xboC5cFbl+QmlydGggRGF0 PDh4F8WvJjn2EGAmuHooAB 0ncGFkZGlu Ea9buElbxIuuHB4hGELrbm ssr585QfMhl9fmNMAtkDJc YJmvELJ2M12zu8D6VPVpVW JmUZV1nOO5 pJ8haJntrmjaaWYbdOajjx GysRlfHWicGVmqF317JOJs gEzmUwUwELd2F5DuQqn1HR RgyFugBN9f jFBgWYdmAm7ppVleeIrpQC 3fBDExzciea633PtLie6nn UDUptWAeAIwrLUV4K28hk8 C3TSSuZMFc KFO5bQC5lK3zxFsvsocciW VmdDsgdmVydGljYWwtYWxp L628XYRefIiiLsRsxSa5Y6 OjNnj1MZBn oXsxHD8naUJfRYspMk2gbY jydHdjGZ9iOJBkvzlee714 OlGsr1neCSBjaMLeBRrpAN J1I70ln2T0 FPUyOBOrHFD2jKO6gL8irU lnbjogbGVmdDsgdmVydGlj LJhaPAfxZ607NPUdvIogOh BhdGllbnQg UVbtDAk7M6ZwRohxhNR+PC 52XHSzKV78cNQugZMvi9on jYo1OwUlZKIvEXJ1gUqtOU lfl5KpPQRo W38fqCBso2N3YACgrFynxJ BmTqYonJH8lK7kMYxcxszc z4psgijoWckyj6nodr00lI 35X97hCAwt ZHRoPSIzMCUiIHZhbGlnbj 0eoS0hMk7+ITWnfJD2lMI8 gM8xFZMpFiC8KNheB172Cg RvcCIvPjxj o7ijr4kfsXj1IaH9SUNouh KczVwyMWD7k9EcMh54M48u IHdpZHRoPSIyMCUiIHZhbG xgti7rbN5b Ii8+FZBbgXB3xPF2dW9tEu JeWdN6EPazQ609IwHohNYz KmqfW74iZ3FimKT+PHRyPj t3HJMzuRns OH5ewRNeUQswEj9sNAH6Cu ZcVoLoQEgoA0YpZFXjyitj vxppmWI3BBEsOKApcM84Rh 9udDogMTBw eXKQfO9fcriwf2rwfawcRe WwJFNsHAv9PPm3QBUvmTqk EhJnXXX5JpJ8DYR6eHWerQ 1hbGlnbjog zW6cD7JyZKMjufnxTt49sE 0gBdTcKfH8AXqmXid+RU5H QbYBTQFJWKWPO8KFONCOLy wvdGQ+PHRk PLQ9jYdzOVagRHQxgN6tYJ FxM6w0IrTxPsY3JPjaW8Sh YBIxgwinCd94jW1fVyShCf U0CZjqF0Jg chG5GNJnhZKvFFcvIGA1I7 8yq7Z2WNZqLRPdZEF4oXJ7 hB4knSlnovfiuBVxoErxrh VydGljYWwt SPdzX952EVVfiPthQbUjDs E0QvQ1RHV3T1SaVhx9VWPp dUjsRH3qtLFrTNmyHd5ixC udqNauON7w UQMykwuwXBXlkJ7oIANehT ErwCneVD1pMWLwohuen189 RjIoAAD6TCSnqHSeO7OdwR 9yOiAjMDAw DUWqR7UoiYVaYPurO667UW wdKtN5JJGhpyFjO6DmHTHf sSbzGuS2h1R0Fh9zUYRWOC FyczwvdGQ+ CGEyZUA0tSovSJbxQDHzgJ 2vNMWbA0i0QyJvNmC0CQbx B8AqJPZhloojXn06lY9mWu EcGpH0DWwr I3FyyiE0HMFszAXbZNyfRR T3U11xe6G7BGMvKTJrWVF1 bPZ7gQ8kkJlpdmmoxCIvfX sgdmVydGlj VFumJTsgD920AEUynLdbQh ZFTUFMRTwvdGQ+PHRkIHN0 zKzmXVanJJNcwT6mSRFrW7 z3XaFnLjD2 VGboC4MpYIRbzpgvZx54lT 8gAkUeDrB0CKeyV9GvycJ0 RHPwqQAmPBhkMIW8N61vl9 S7SNFeHHWd CFF0oOS9oV6zqEimsbpicD VmdDsgdmVydGljYWwtYWxp U294COSaePlfMr8ZRJ00NS 48O8RkGtbx dGFibGU+PHRhYmxlIHdpZH IeLQecJUUqYtUoyXzeLM5k Iv2oJVYkHYOfqLypmFApRw Vcl2ldYLXf GGuvIH3maOjdI4XzvOO4NC Miz9c4Gc06F29mK3HqbFA+ VMJphDA9zTR4eE7zVpTmDt B9JLliU914 WgEmnZPlLbvwp1rpj6vwsH y9PcTdTLWzizNfhCukAYP1 l6TyXk79A92oTPxvHNKqWV IyMCUiIHZh aZkfsp6amS8iWm9+PGNvbC C3lKR4bG9wZgWhKoZ4OXbi P517IuFgzDDtMctyG62sL2 JvdXA+PHRy Nrs7ZBVcdKiyFM6rwXMpDK rtZn9qCNM4SwOjRwYvDMgx L7TgVSFvdrfbwnbxmNC7PZ QdXFKtfY26 Pp6oqHhtYs6rKFBzMGH1ZK AnbXAaM5DtsO0lKdBaWUTg NGDdI3ExoJVxNXmlH232SH puNbN9DMIx exOuN3ZjWXZwmWixBlF1d6 L4Rg1GaGnisIVkIN3xUtXq WMl8F0ZcCqs8MYKccKkyXA 0ncGFkZGlu Um6ilCainZqmYL9cKFFwhd qvh949VyIes2xeWROgcSVu UPjlSLY0P03rv5T4DSXrYG LuALQ0uVK4 mE8thQzkriqzbHBiqDbqnj QlcErxNTkeTAtbV548DOEy vScgZsXOGgn7L4HiCpm1RD PjjJceNX2a mNCgQCauUr2kpTiobLvuFV 1wJQLcsqovd830KzEjn5wh TBKywMZtTRzvCUF2B19kx5 K7AEUjCMUq TOO1nTO2nT9yiDniwrrkjR VmdDsgdmVydGljYWwtYWxp G496YWJmtJvoDk8FOee5D0 VaHja7RMVw rLirGT5huOYbZSnqCz9npH bczIyhMB6oOCExkucby509 OfZkj9fuXKDggAAoDIpzMB M4M12vi7M8 INVjOHUvKBI4oDO7qT4miX lnbjogbGVmdDsgdmVydGlj DRkgTBogY082MQOmpVpwAm BheWVyOjwv dGQ+MO84vq00K0YqVoukIl b9XEEqNWZ4rAF0hU5lLMFl UEjus5P4tGQ9F8JmtfMzyt 9nx6yeFWKn ZTo (more content not included)... Normal [facility] PATHOLOGY REQUEST FOR LAB CO RPon 03-31-2025 PATHOLOGY REQUEST FOR LAB AMBIKA [facility] Healthcare Comment on above: See report. Scanned copy available in EMR. EMBX [facility] HCG ( test) Ql (U)o n 03-24-2025 Interpretation and review of laboratory results Normal [facility] Preg Test, Ur Negative Negative [facility] Pathology Request for Lab Co rpon 03-24-2025 Pathology Request for Lab Ambika Normal [facility] Comment on above: Order Comment: EMBX Result Comment: See report. Scanned copy available in EMR. PERFORMED BY: [facility] [address] [place] [address] PATHOLOGIST SOFTWARE QUALITY ANALYST MILKA MATTHEWS M.D. Performed By: #### P ATH TO [facility] #### [facility] [address] [place] LE Venous Duplex Lefton 0 [...] Church MD 03/23/25 10:58 a Technologist: [facility] Patient Handouton 03-17-2025 Patient Handout Sclerotherapy, [...] cannot use soap and water, use hand puppet maker. ? Change your bandage. ? Check the [...] safe for you. General instructions ? Take nwuv-byc-wonoboa and prescription medicines only as told by [...] provider. Document Revised: 02/14/2023 Document Reviewed: 02/14/2023 [employer] Patient Education ? 2023 [employer]. Radiology Sclerotherapy, Care After After sclerotherapy, it [...] cannot use soap and water, use hand puppet maker. ? Change your bandage. ? Check the [...] safe for you. General instructions ? Take gnzf-zlm-cqyvbmn and prescription medicines only as told by [...] on the treatment (more content not included)... [facility] Coding Summaryon 03-10-2025 Coding Summary HTMLBase 64 JgoavmvoKPs3sTm+PGhlYW Q+VC9JUTGiA55hwEMolI4i U7RDQNsNRuezYGHWKQdYNg XthqLiAG5rvDAhBKJw IC8+ZC6bWFHdEzfctSKxs2 V0rCI8R09rkc7fWDoeoMU3 JAQmVoEgxrokr2hvyVf6CW cuNmluOyBt SAHeoZ63FXT1kQ92Bk69aT VedRNcg4wnzXu2RvWxWXZq VRF9uGfdGSbru1DdIQLgB1 7erZZtq4Z5 OTYwcQaqjKZtMeTroKZ8fI 0cEQgrsesjo5maqlhnKch8 eh64pIKgk6F3yEP8B3Ywzs D3SIUxyXTg LrsyxQVPtR2rmokyh3cirm aiLpXaWZOqYMk8OMy7ASUd gGmnSiLeCI09EIZ9FZQgsj OeY1XrSSUv tXjxInY3n3E9Al5TD2OIUr kjU7KLANJQYOeliOI+PC90 dx58U5GeZbhmWno1IMXiQO W9wIM8sH4q TPUkYCjgi8N6bUY4O6Eile Hdaa1vt8iaAYMtMSvhU33x mCHqn1A9XNNnzUJ3ZPPuwC jcNgDopB76 Oyc+UKJzgEltl5NeAnvel6 nss1oijZc9BfmaTXSgdhKg xUfuNPY0i5KeXs4tUDLkvZ C9hZF4mG7u RePhIfF5FGpcZ881HpGlhM NgWsayO19uA7WxnEP+PHRy Loo4LYUpaWjvYJ8nL9GfOE RpbmctbGVm gVboVB9sAWItevioYKFniN 6iCJJfR5i8DhLuSdA5WUyi T0BxOUJjyyyeOu66tY4iDd IhZxC2JMos I8QcwcC0IAKdvELlGBvcVL S3I05lv0K8DDOxPEVrVRP5 qNU9xZ6jwVoqrqfriFGdcR sgdmVydGlj BSkaEIjcB916XNZqeXayUc NvZGluZyBEYXRlOiAgMDQv MTYvMjAyNTwvdGQ+PHRkIH W2tKkkYTHs gXXpBPjjXd8cdZnldBliFO 8iWMBjlpnlDZGhdR2uLQLb yHTypKicLF5cVTNyehpav9 05DkNdSZY1 YJAtsKSpX7StaK4fBkAxLJ JwZSFpE2RfpUNxJFbmF162 SRegDfB2ZVNigrWnY3VfNO FsaWduOiB0 k2K6Dd0Da8DtsztyT8ZdpH ZpMfLpUgmpRMu6K4IaYfvg dHI+BQ25AMRqQL12KHq4XV C1nGraRAjf WVJwF2JptJ4kGsWbICWyQJ RkOyc+PHRhYmxlIHdpZHRo JAwnKYRxYqWnrVquZF2iMy 9yZGVyLWNv fLfurMAjPdFee6xmCSAsZA nrAZ3itUeiF3IzvAV9TOYm r1w8Tj44M79vH7YivFZ+PG VkzEX1nES5 mC0uMvAmRtF9OGegF522Ix RraYAmAlfoh1fie2ewoTj7 InD2AUGocpTtrWwfVJP6t1 OiEb43S03q IHdpZHRoPSIxNSUiIHZhbG wuen1shM7nEi6+PGNvbCB3 bVM7jO1mRjYwLwJ2VJchJ7 49InRvcCIv Inorc9zfc1ksdTj1GpTfPN WjcbSmeCfaUXT8w4LiOg30 X6CvpRgkd5NrKnz7tt24vP Yap0O3gTF6 C6EoFRDubsuldWTyrWhzLF 5cXMVlzlyzKHXjsH3tBKDh X9k6NkKdOmA6SHojK6Afcg V7XVCsuYNj CDHfoBCLnX2cxerru8xoin xwEgXzNBYxTYh8VRe4XOYp zJsuJbDfBON9TfH8EHA5vY TqlI8njJed qfvirH7hJnr+KOH0kCKcyC PZAX9vNwefuOS+PHRkIHN0 tFhoMZygQPThpK8mKMUaO4 l7ExFjLlF3 BSmlA9DjfsF6OQJhtFKiYA PnqDDFtJ7jemwop9omwvfe GpNxITZsDYj8TBv5YHQpnP duOiBsZWZ0 HgI7NEG8iHZsvG7jqVocli xyiI6wDra+QmlydGggRGF0 VMn1T7NvHme5SOCnlRujUQ 0ncGFkZGlu Bd1qhCclgQveDG8mBIVuqj bca213HjZse1ahXWNcvPJb VMcnJQH7H77ly8X1PJNhED NkCBI8fIA4 wZ1zxMtnmnhryOWmwImwav CvmPzlPAmkSQfyC521HTSq iRoiTkTaTGp0B9XvRsf7SD UifVtbVD4y gPJhSIciMz8pbNaeeOhnOO 7wZXXelmeea583HoOqi5ca TFJccCNlKHqwKQZ2L67yu6 I0TWMqLPSk EHH8pYH4aL0fqJwqrzrlaG VmdDsgdmVydGljYWwtYWxp H455GMYhdRinIgZdoVs5Q2 KhUpl7GNLv pQqpZA8zhSKpZIqnYb3svT emtYvfWI6pMSPtkhsfc263 EnOhg0flVBNqxZEaDDajIK L8A71ob2L7 ILUtTHAeZGU1xCN1fB8esK lnbjogbGVmdDsgdmVydGlj MXqbTIpnS290NXKdeDllJs BhdGllbnQg GMmtHCs8B4GbHugzgVL+PC 89JTYgFP97kMIxiFHtf0ml eEg1HnDyPBSdSAT2sYfeNI nlh7OwYELf K16ukAQjr2G3FVTyfHgceG McStEotSS3cC8dJChvpybu q1skzsifXpxiy5pqpk77eP 50B56pWAep ZHRoPSIzMCUiIHZhbGlnbj 0bvI5rCb1+FXImsHF7kYS3 kU1dNAEzUbU0XZvpI028Gg RvcCIvPjxj q4het0xpdVq9RoD4SIRruj VzzFpuPUX9l0EyJp11L91h IHdpZHRoPSIyMCUiIHZhbG hbgy0klY3q Ii8+JWPpsIW9cVA4kN2hWt DwDdO7EDamZ894HcJytHQb GttpP32xZ1UliQZ+PHRyPj p6CZMhrIhn JT3apXHfCDoyVk9aTEF4Mi DcFiQfLOzpI5ExSTHfbpbn vlibyWV8QEMpTADbwI46Kx 9udDogMTBw sWWYiP1xqvqou2tiamblEh DwHUJiCPj7VXz9PTZzyAqg DyFaWFM6BsE2EBF1cFFlrX 1hbGlnbjog jB0rI1ByBVOsgwkgNz03xU 2kCyIwClL1NGjvNbl+RU5H TmHEMLGUUYZUY6WPHYMWMw wvdGQ+PHRk WHR3uKkpMTniRYKhjY2eJH MyQ7m6WwPnLfL2RPmdS7Cd TLHlmsfyOi70oU7vTpZeRv G6DSwjA0Zm hgU7CNKwxJVfXXdxOJF2W2 5ym8Z1BMTbBTTcRND0gHF7 cT4gtTxfxvijfHYupBhfis VydGljYWwt XJpzS567XHVgsJrdQwWrUl C6EtC1PDY0N5OcElq2KFSr zVcvMM7fcRDtPFviWc2oiY awcFgiBT4b WUUbbmzwUZUukZ5bMMQbzP TwwDnjHC5qAWWhtsoxn192 NsXaTYT0ODTvgZIiB1HjuH 9yOiAjMDAw DJVwT1DitBIeDNaqO436FP pgPkM6AAYuzpJvX3RbCARg uGlmRrU2w9Q7Zz7sHOYDWL FyczwvdGQ+ JZAeVLP7nNguCPtaHIGkuX 3cESOfA2o2KdYdDuT8LBax P8UdLGLjjnxdQx24nS2yTe MnYtY9WFra I2ZoheR4MUTrdAPnWKhrDP O2M51wi2J1FJDuSUAdHIO5 pSP2mQ7ngGdgczyyoFLblQ sgdmVydGlj MIfmAVxwH715NFEpeDmvNj ZFTUFMRTwvdGQ+PHRkIHN0 nKatCLirWLKbjI6sPBSyO6 s2JpCcRiR6 SVitZ3OyPNJvjbroXq75hT 3iHpCvVmA3YVqqA3VtsgM1 YABflUEgSCjeRMD7T85kj2 Z7KSQhLTZs AUC4pRL1hV3xsRncmbqxgI VmdDsgdmVydGljYWwtYWxp C144GSJljIzmXl8KWN49KF 93P7GtFrva dGFibGU+PHRhYmxlIHdpZH LbUAwaSEUrRyBkmFicOF0h Zo4kGMFsUYPmdYxaePNgGv Lcl1rrWYYk QNrzDO5dlWlnI6MxxBZ0QZ Ukg5o1Tp52H77kM8TnsWK+ TTEcvDR9zFL7hE5kYqJvUl D5QJzdU928 OcAnaNFmUikke4dnn3bhaA i3ZvTxJTIvusMssRapZAW1 k1EuEs88W09eIAuhLKHnQD IyMCUiIHZh cXthyt2aeV8mIz3+PGNvbC W6vCW3tZ2xCkIjLgX1KYbw J050UwNjzKRoZmsmQ79uS5 JvdXA+PHRy Qso2ZPNjqLzpYJ1prXObIG cvSo3tGGO6OpSgKwPeSIcg H8SeZZYkqgguzgryiBX8XU KfTOEkuN08 Nu4nqJveCc6wKYGmAMC6US HqoRXiW6ApbU7rExXpASNq EQVpN5CryGBpRMqhN510JK coIgB6ASWu rdEvI1YzELTluUjqFzZ6v1 D1Sg7AwLcgvBYjNI3oFjPf OPp7L1SkLss3HYFiiTjlJB 0ncGFkZGlu On9xiJalrXwbWY1xRCOxby ind522TjPle5wuJQRbkEWq TRwqHUL8X20el7Z4GUOhKM GtPGA2qPD7 wY2ohNdokxpguFTebQzxar LkvMauNJsoOLoqK219UFPb sCkuFcZEUoy0A6RjDun1XY CerCmyLN2d nXIePIucEx4kbEnldGcvEL 6cHUOwiktab666SlIqg1yl EFXpcSLlMPuiMPY3L38xq0 J6KHNhFTJf SLF5tBY9tR2gzIxpdfsfxS VmdDsgdmVydGljYWwtYWxp T585ZKSafJavRf0XKvw4V4 MhLgb9MPCu dOsyLR1gvNMvVJbmXh7nbP rhtVddTQ6hEAPbpnopy022 ClRis0glRXIgwUYiVEotLE B8C50hs3H5 DOKcYYQhFFF6gEW4pM4ofQ lnbjogbGVmdDsgdmVydGlj DZwmCUtnI576KWRumMdcAv BheWVyOjwv dGQ+OH75qg35U0VbQmwiMa o1UMPbEBC7uKC8oS2qLLHg WBuxt3W7iTQ1K6MyewAoim 5ok6cwAHRm ZTo (more content not included)... Normal [facility] HEMOGLOBIN A1con 03-03-2025 HEMOGLOBIN A1c 5.3 % [...] By: #### 4 96 #### [facility] [address] [facility], [address] [place] [address] Mobility Architect: Kosta Perdue MD Urinalysis macro (dipstick) panel (U)on 03-01-2025 Bilirubin, UA Negative Negative - 4(70) +++ mg/dL [facility] Blood, UA Negative Negative - 50 Bernardo/mcL [facility] Clarity, UA Clear [facility] Color, UA Yellow [facility] Glucose, UA Negative Negative - 2000(110) ++++ mg/dL [facility] Interpretation and review of laboratory results Normal [facility] Ketones, UA Negative Negative - 160(16) ++++ mg/dL [facility] Leukocytes, UA Negative Negative - 500+++ Matti/mcL [facility] Nitrite, UA Negative Negative - Positive [facility] pH, UA 6.5 5 - 9 [facility] Protein, UA Negative Negative - 2000(20) ++++ mg/dL [facility] Spec Grav, UA 1.02 1 - 1.03 [facility] Urobilinogen, UA 1.0 0.2 - 12 mg/dL [facility] No Panel Informationon 02-25 Type of biopsy: [...] taken Amount of lidocaine used: 0.2 cc [facility] [employer] [facility] Type of biopsy: tangential Informed consent: discussed [...] taken Amount of lidocaine used: 0.3 cc [facility] [employer] [facility] LE Venous Duplex Righton 02-25-2025 US LE [...] Brandon Church MD 02/25/25 11:00 a Technologist: [facility] US Endovenous Ablation 1st V love [...] Church MD 02/18/25 10:27 a Technologist: [facility] Outside Recordson 01-12-2025 Outside Records [id number]#[facility] [id number]#1.00 [facility] Rad - Other Radiology Report on 01-12-2025 Rad - Other Radiology Report [id number]#1.00 [facility] Rad - Other Radiology Report [id number]#1.00 [facility] US PELVIS TRANSVAGINALon US PELVIS TRANSVAGINAL [...] report is generated using voice recognition reporting (Razient). On occasion Power[employer] erroneously drops words from the report or replaces the spoken word with similar sounding words. Please call with any questions/concerns regarding this report.* Dictated and transcribed 12/10/2024/jf This report has been electronically signed and approved by the interpreting radiologist. Normal Not Available No Panel InformationOrdered By: Gissell Malagon on 08-25-2024 Quick Strep (POC) [facility] RHOGAM INJECTION ONLYon 12- Blood product type Nom (BPU) [facility] Status of Units TRANSFUSED [facility] Transfusion Status OK TO TRANSFUSE B ON [facility] Unit Divison [facility] Unit Number [id number] [facility] CBC with Diffon 11-08-2022 Abs. Basophil 0.03 k/uL Normal 0.00-0.20 [facility] Comment on above: Performed By: #### C DP #### [facility] [address] [place] [address] [place] [address] Reel Man: Brandon Thompson MD Abs. Eosinophil <0.03 Normal 0.00-0.44 [facility] Comment on above: Performed By: #### C DP #### [facility] [address] [place] [address] [place] [address] Reel Man: Brandon Thompson MD Abs.Imm.Granulocyte 0.06 k/uL Normal 0.00-0.30 [facility] Comment on above: Performed By: #### C DP #### [facility] [address] [place] [address] [place] [address] Reel Man: Brandon Thompson MD Abs.Neutrophil (Seg) 8.25 k/uL High 1.50-8.10 [facility] Comment on above: Performed By: #### C DP #### [facility] [address] [place] [address] [place] [address] Reel Man: Brandon Thompson MD Basophils/100 WBC (Bld) 0 % Normal 0-2 [facility] Comment on above: Performed By: #### C DP #### [facility] [address] [place] [id number] Reel Man: Brandon Thompson MD Eosinophils/100 WBC (Bld) 0 % Low 1-4 [facility] Comment on above: Performed By: #### C DP #### [facility] [address] [place], [facility]83 Reel Man: Brandon Thompson MD Erythrocyte distribution width (RBC) [Ratio] 12.6 % Normal 11.8-14.4 [facility] Comment on above: Performed By: #### C DP #### [address] [place] [id number] Reel Man: Brandon Thompson MD Hematocrit (Bld) [Volume fraction] 39.9 % Normal 36.3-47.1 [facility] Comment on above: Performed By: #### C DP #### [address] [place] [id number] Reel Man: Brandon Thompson MD Hemoglobin (Bld) [Mass/Vol] 13.5 g/dL Normal 11.9-15.1 [facility] Comment on above: Performed By: #### C DP #### [address] [place] [address] Reel Man: Brandon Thompson MD Immature granulocytes/100 WBC (Bld) 1 % High 0 [facility] Comment on above: Performed By: #### C DP #### [address] [place] [id number] Reel Man: Brandon Thompson MD Lymphocytes (Bld) [#/Vol] 1.59 10*3/uL Normal 1.10-3.70 [facility] Comment on above: Performed By: #### C DP #### [address] [place] [id number] Reel Man: Brandon Thompson MD Lymphocytes/100 WBC (Bld) 15 % Low 24-43 [facility] Comment on above: Performed By: #### C DP #### [facility] [address] [place], [place] [id number] Reel Man: Brandon Thompson MD MCH (RBC) [Entitic mass] 32.6 pg Normal 25.2-33.5 [facility] Comment on above: Performed By: #### C DP #### [facility] [address] [place], [place] [id number] Reel Man: Brandon Thompson MD MCHC (RBC) [Mass/Vol] 33.8 g/dL Normal 28.4-34.8 [facility] Comment on above: Performed By: #### C DP #### [facility] [address] [place] [address] Dr. [place], [facility]83 Reel Man: Brandon Thompson MD MCV (RBC) [Entitic vol] 96.4 fL Normal 82.6-102.9 [facility] Comment on above: Performed By: #### C DP #### [address] [place], [place] [id number] Reel Man: Brandon Thompson MD Monocytes (Bld) [#/Vol] 0.74 10*3/uL Normal 0.10-1.20 [facility] Comment on above: Performed By: #### C DP #### [facility] [address] [place] [address] Dr. [place], [place] [id number] Reel Man: Brandon Thompson MD Monocytes/100 WBC (Bld) 7 % Normal 3-12 [facility] Comment on above: Performed By: #### C DP #### [facility] [address] [place], [place] [id number] Reel Man: Brandon Thompson MD Neutrophil (Seg) 77 % High 36-65 [facility] Comment on above: Performed By: #### C DP #### [facility] [address] [place], [place] [id number] Reel Man: Brandon Thompson MD NRBC Automated 0.0 per 100 WBC Normal 0.0 [facility] Comment on above: Performed By: #### C DP #### [address] [place], [facility]83 Reel Man: Brandon Thompson MD Platelet mean volume (Bld) [Entitic vol] 13.0 fL Normal 8.1-13.5 [facility] Comment on above: Performed By: #### C DP #### [address] [place], [place] [id number] Reel Man: Brandon Thompson MD Platelets (Bld) [#/Vol] 134 10*3/uL Low 138-453 [facility] Comment on above: Performed By: #### C DP #### [address] [place], [place] [id number] Reel Man: Brandon Thompson MD RBC (Bld) [#/Vol] 4.14 10*6/uL Normal 3.95-5.11 [facility] Comment on above: Performed By: #### C DP #### [address] [place], [place] [id number] Reel Man: Barndon Thompson MD WBC (Bld) [#/Vol] 10.7 10*3/uL Normal 3.5-11.3 [facility] Comment on above: Performed By: #### C DP #### [address] [place], [facility]83 Reel Man: Brandon Thompson MD Drug Scr, Abuse, Uron 2021 Amphetamine(s),Ur Negative Normal NEG [facility] Comment on above: Performed By: #### D AU #### [address] [place], [place] [id number] Reel Man: Brandon Thompson MD Barbiturate(s),Ur Negative Normal [facility] Comment on above: Performed By: #### D AU #### [facility] [address] [place], [place] [phone] Reel Man: Brandon Thompson MD Benzodiazepine(s) Negative Normal [facility] Comment on above: Performed By: #### D AU #### [facility] [address] [place], [place] [id number] Reel Man: Brandon Thompson MD Buprenorphrine, Ur Negative Normal NEG [facility] Comment on above: Performed By: #### D AU #### [facility] [address] [place] [address] Dr. [place], [place] [id number] Reel Man: Brandon Thompson MD Cannabinoid(s),Ur Negative Normal [facility] Comment on above: Performed By: #### D AU #### [facility] [address] [place] [address] Dr. [place], [place] [id number] Reel Man: Brandon Thompson MD Cocaine Metabolite Negative Normal [facility] Comment on above: Performed By: #### D AU #### [facility] [address] [place] [address] Dr. [place], [place] [phone] Reel Man: Brandon Thompson MD Methadone Ql (U) Negative Normal NEG [facility] Comment on above: Performed By: #### D AU #### [facility] [address] [place], [place] [id number] Reel Man: Brandon Thompson MD Methamphetamine, Ur Negative Normal [facility] Comment on above: Performed By: #### D AU #### [facility] [address] [place], [place] [id number] Reel Man: Brandon Thompson MD Opiate(s), Ur Negative Normal [facility] Comment on above: Performed By: #### D AU #### [facility] [address] [place], [place] [id number] Reel Man: Brandon Thompson MD Oxycodone, Urine Negative Normal NEG [facility] Comment on above: Performed By: #### D AU #### [facility] [address] [place], [place] [id number] Reel Man: Brandon Thompson MD Phencyclidine, Ur Negative Normal NEG [facility] Comment on above: Performed By: #### D AU #### [facility] [address] [place], [place] [id number] Reel Man: Brnadon Thompson MD Propoxyphene,Urine Negative Normal NEG [facility] Comment on above: Performed By: #### D AU #### [facility] [address] [place] [address] Dr. [place], [place] [id number] Reel Man: Brandon Thompson MD Tricyclic antidepressants Screen Ql (U) Negative Normal NEG [facility] Comment on above: Result Comment: Drug screen results are to be used for medical purposes only. All positive results are unconfirmed. Testing for employment or legal uses should be sent to a reference laboratory for confirmation. Performed By: #### D AU #### [facility] [address] [place] [address] [place] [place], [place] [id number] Reel Man: Brandon Thompson MD ROSETTEon 11-08-[address] [facility] Rosetteon 11-08-2022 Kymberly Negative Normal [facility] Comment on above: Performed By: #### C FET #### [facility] [address] [place] [address] [place] [address] Reel Man: Brandon Thompson MD RHIG, Transfuseon 11-08-2022 RHIG, Transfuse Unit Number [id number] Blood Component Type RHIG Unit Division 00 Status of Unit TRANSFUSED Transfusion Status OK TO TRANSFUSE [facility] Comment on above: Performed By: #### T RHIG #### [facility] [address] [place] [address] Reel Man: Brandon Thompson MD Surgical Pathologyon 022 Surgical [...] SURGICAL PATHOLOGY CONSULTATION Patient Name: STEPHANIE PALENCIA [facility] Rec: [id number] Path Number: [id number] [facility] [employer] [employer] ANATOMIC PATHOLOGY [address] [place] [id number] [facility] Comment on above: Performed By: #### P PPVS #### [address] [address] Reel Man: Curly Connolly MD TYPE AND SCREENon 11-08-2022 ABO/Rh Negative [facility] Arm Band Number [id number] [facility] Expiration Date 11/10/2022,[address] [facility] Type + Screenon 11-08-2022 Type + Screen Sample Expiration 11/10/2022,2359 Arm Band Number [id number] ABO/Rh(D) O NEGATIVE Antibody Screen NEGATIVE Normal [facility] Comment on above: Performed By: #### T YS #### [facility] [address] [place] [address] Reel Man: Brandon Thompson MD CBC auto differentialon 10-25 Absolute Eos # [facility] Absolute Immature Granulocyte 0.06 [facility] Absolute Lymph # 1.59 [facility] Absolute Sharkey # [facility] Basophils (Bld) [#/Vol] 0.03 10*3/uL [facility] Basophils/100 WBC (Bld) 0 % 0 - 2 % [facility] Eosinophils/100 WBC (Bld) 0 % Low 1 - 4 % [facility] Hematocrit (Bld) [Volume fraction] 39.9 % 36.3 - 47.1 % [facility] Hemoglobin (Bld) [Mass/Vol] 13.5 g/dL 11.9 - 15.1 g/dL [facility] Immature granulocytes/100 WBC (Bld) 1 % High 0 [facility] Interpretation and review of laboratory results Abnormal [facility] Lymphocytes/100 WBC (Bld) 15 % Low 24 - 43 % [facility] MCH (RBC) [Entitic mass] 32.6 pg 25.2 - 33.5 pg [facility] MCHC (RBC) [Mass/Vol] 33.8 g/dL 28.4 - 34.8 g/dL [facility] MCV (RBC) [Entitic vol] 96.4 fL 82.6 - 102.9 fL [facility] Monocytes/100 WBC (Bld) 7 % 3 - 12 % [facility] NRBC Automated 0.0 0.0 per 100 WBC [facility] Platelet distribution width (Bld) [Ratio] 12.6 % 11.8 - 14.4 % [facility] Platelet mean volume (Bld) [Entitic vol] 13.0 fL 8.1 - 13.5 fL [facility] Platelets (Bld) [#/Vol] 134 10*3/uL Low [facility] RBC (Bld) [#/Vol] 4.14 10*6/uL 3.95 - 5.1 1 m/uL [facility] Segmented neutrophils/100 WBC (Bld) 77 % High 36 - 65 % [facility] Segs Absolute 8.25 High [facility] WBC (Bld) [#/Vol] 10.7 10*3/uL [facility] DRUG SCREEN MULTI URINEon Amphetamine Screen, Ur Negative NEGATIVE [facility] Barbiturate Screen, Ur Negative NEGATIVE [facility] Benzodiazepine Screen, Urine Negative NEGATIVE [facility] Buprenorphine Urine Negative NEGATIVE [facility] Cannabinoid Scrn, Ur Negative NEGATIVE [facility] Cocaine Metabolite, Urine Negative NEGATIVE [facility] Methadone Screen, Urine Negative NEGATIVE [facility] Methamphetamine, Urine Negative NEGATIVE [facility] Opiates, Urine Negative NEGATIVE [facility] Oxycodone Screen, Ur Negative NEGATIVE [facility] Phencyclidine, Urine Negative NEGATIVE [facility] Propoxyphene, Urine Negative NEGATIVE [facility] Tricyclic Antidepressants, Urine Negative NEGATIVE [facility] Comment on above: Drug screen results are to be used for medical purposes only. All positive results are unconfirmed. Testing for employment or legal uses should be sent to a reference laboratory for confirmation. [facility] US OB Growthon 10-17-2022 US OB Growth FINDINGS: [...] by Elder Farrell on 10/17/2022 1135 Normal [facility] [employer] GBS, External Resulton 10-11 GBS, External Result Negative [employer] Phone: [employer] Phone: US OB 2nd/3rd Trimesteron US OB [...] by Leonel Foster on 10/12/2022 1159 Normal [facility] [employer] C. Trachomatis, External Res [facility] 05-15-2022 C. Trachomatis, External Result Negative [employer] Work Phone: N. Gonorrhoeae, External Res [facility] 05-15-2022 N. Gonorrhoeae, External Result Negative [employer] Work Phone: No Panel Informationon 05-15 [employer] Work Phone: Hepatitis B, External Result on 05-01-2022 Hep B, External Result Negative TOAN Chumbak Work Phone: [employer] Work Phone: ABO, External Resulton 04-30 ABO, External Result o [employer] Work Phone: HIV, External ResultOrdered By: Rizwana Sorto on 04-30-2022 HIV, External Result Negative [employer] Verified ray quigley rn [employer] Hepatitis C Antibody, Shop Repairer al Resulton 04-30-2022 Hepatitis C Antibody, External Result Negative [employer] Work Phone: No Panel Informationon 04-30 [employer] Work Phone: RPR, External Labon 04-30-20 RPR, External Result Negative [employer] Work Phone: Rh Factor, External Resulton 04-30-2022 Rh Factor, External Result Negative [employer] Work Phone: Rubella Titer, External Resu lton 04-30-2022 Rubella Titer, External Result Immune [employer] Work Phone: Vital Signs Date Time Vital Sign Value Performing Clinician Facility 08-03-2025 13:05-0400 Body mass index (BMI) [Ratio] 35.15 kg/m2 Abel Susie DO Work Phone: [facility] 08-03-2025 13:05-0400 Body weight 98.77 kg Abel Susie DO Work Phone: [facility] 08-03-2025 13:05-0400 Diastolic blood pressure 84 mm[Hg] Abel Susie DO Work Phone: [facility] 08-03-2025 13:05-0400 Systolic blood pressure 116 mm[Hg] Abel Susie DO Work Phone: [facility] 03-24-2025 16:16-0400 Body mass index (BMI) [Ratio] 35.96 kg/m2 Abel Susie DO Work Phone: [facility] 03-24-2025 16:16-0400 Body weight 101.06 kg Abel Susie DO Work Phone: [facility] 03-24-2025 16:16-0400 Diastolic blood pressure 78 mm[Hg] Abel Susie DO Work Phone: [facility] 03-24-2025 16:16-0400 Systolic blood pressure 120 mm[Hg] Abel Susie DO Work Phone: [facility] 03-01-2025 09:21-0400 Body mass index (BMI) [Ratio] 36.17 kg/m2 Abel Susie DO Work Phone: [facility] 03-01-2025 09:21-0400 Body weight 101.66 kg Abel Susie DO Work Phone: [facility] 03-01-2025 09:21-0400 Diastolic blood pressure 76 mm[Hg] Abel Susie DO Work Phone: [facility] 03-01-2025 09:21-0400 Systolic blood pressure 114 mm[Hg] Abel Susie DO Work Phone: [facility] 01-26-2025 13:19-0500 Body mass index (BMI) [Ratio] 36.15 kg/m2 Lamberto Floro CNM Work Phone: [facility] 01-26-2025 13:19-0500 Body weight 101.61 kg Lamberto Floro CNM Work Phone: [facility] 01-26-2025 13:19-0500 Diastolic blood pressure 80 mm[Hg] Lamberto Floro CNM Work Phone: [facility] 01-26-2025 13:19-0500 Systolic blood pressure 120 mm[Hg] Lamberto Floro CNM Work Phone: [facility] 11-12-2024 10:35-0500 Body mass index (BMI) [Ratio] 36.15 kg/m2 Lamberto Floro CNM Work Phone: [facility] 11-12-2024 10:35-0500 Body weight 101.61 kg Lamberto Floro CNM Work Phone: [facility] 11-12-2024 10:35-0500 Diastolic blood pressure 80 mm[Hg] Lamberto Floro CNM Work Phone: [facility] 11-12-2024 10:35-0500 Systolic blood pressure 120 mm[Hg] Lamberto Floro CNM Work Phone: [facility] 08-25-2024 09:17-0400 Body height 167.64 cm [facility] 08-25-2024 09:17-0400 Body mass index (BMI) [Ratio] 34.5 kg/m2 [facility] 08-25-2024 09:17-0400 Body temperature 97.3 [degF] [facility] 08-25-2024 09:17-0400 Body weight 97.06 kg [facility] 08-25-2024 09:17-0400 Diastolic blood pressure 90 mm[Hg] [facility] 08-25-2024 09:17-0400 Heart rate 104 /min [facility] 08-25-2024 09:17-0400 Respiratory rate 18 /min [facility] 08-25-2024 09:17-0400 SaO2% (BldA) [Mass fraction] 97 % [facility] 08-25-2024 09:17-0400 Systolic blood pressure 138 mm[Hg] [facility] 11-09-2022 12:22-0500 Body temperature 98.01 [degF] Lamberto Canseco PARTNER MANAGEMENT CONSULTANT - CNM Work Phone: [employer] 11-09-2022 12:22-0500 Diastolic blood pressure 80 mm[Hg] Lamberto Patelo PARTNER MANAGEMENT CONSULTANT - CNM Work Phone: [employer] 11-09-2022 12:22-0500 Heart rate 81 /min Lamberto Canseco PARTNER MANAGEMENT CONSULTANT - CNM Work Phone: [employer] 11-09-2022 12:22-0500 Respiratory rate 16 /min Lamberto Canseco PARTNER MANAGEMENT CONSULTANT - CNM Work Phone: [employer] 11-09-2022 12:22-0500 Systolic blood pressure 130 mm[Hg] Lamberto Canseco PARTNER MANAGEMENT CONSULTANT - CNM Work Phone: [employer] Encounters Encounter Date Encounter Type Care Provider Facility Start: 08-03-2025 End: 08-03-2025 Bamboo flowsheet Abel Susie DO Work Phone: [facility] Start: 08-03-2025 End: 08-03-2025 Bamboo flowsheet Abel Susie DO Work Phone: [facility] Start: 08-03-2025 End: 08-03-2025 Office outpatient visit 15 minutes Abel Susie DO Work Phone: [facility] Comment on above: Dysmenorrhea; Abnormal uterine bleeding (AUB); Bloating; Right upper quadrant pain; Constipation, unspecified constipation type Start: 08-03-2025 End: 08-03-2025 ambulatory ABEL SUSIE Not Available Start: 05-13-2025 End: 05-13-2025 ambulatory VIKY CARRION Not Available Start: 05-13-2025 End: 05-13-2025 Postop follow up visit related to original px Viky URBINA Work Phone: [facility] Comment on above: Postoperative follow -up Start: 05-13-2025 End: 05-13-2025 Bamboo flowsheet Viky URBINA Work Phone: [facility] Start: 05-13-2025 End: 05-13-2025 Bamboo flowsheet Viky URBINA Work Phone: [facility] Start: 05-13-2025 End: 05-13-2025 ambulatory Brandon Church Facility:[facility] Start: 05-06-2025 [facility]ulatory [facility] Start: 04-22-2025 End: 04-22-2025 Clinisync Result Encounter Abel Susie DO Work Phone: [facility] External Department Unsolicited Start: 04-22-2025 End: 04-22-2025 Clinisync Result Encounter Abel Susie DO Work Phone: [facility] External Department Unsolicited Start: 04-06-2025 End: 04-06-2025 ambulatory [place] Tim Greeley Facility:[facility] Start: 04-01-2025 ambulatory [facility] Facility: [facility] Start: 03-24-2025 End: 03-24-2025 Departed Referred Abel Susie DO Work Phone: [facility] Start: 03-24-2025 End: 03-24-2025 Patient encounter procedure Abel Susie DO Work Phone: [facility] Comment on above: Pre-op examination; Menorrhagia with regular cycle; Abnormal uterine bleeding; Pelvic pain in female; PCOS (polycystic ovarian syndrome) Start: 03-24-2025 End: 03-24-2025 Preprocedural examination done Abel Susie DO Work Phone: [facility] Start: 03-24-2025 End: 03-24-2025 ambulatory Abel Susie [facility] Work Phone: Start: 03-24-2025 End: 03-31-2025 External Result Encounter Abel Susie DO Work Phone: [facility] External Department Unsolicited Start: 03-24-2025 End: 03-31-2025 External Result Encounter Abel Susie DO Work Phone: [facility] External Department Unsolicited Start: 03-23-2025 End: 03-23-2025 ambulatory [facility] Facility:[facility] Start: 03-18-2025 End: 03-18-2025 ambulatory [facility] Facility:[facility] Start: 03-01-2025 End: 03-01-2025 Bamboo flowsheet Abel [...] End: 02-25-2025 Bamboo flowsheet Mathew A Felter PARTNER MANAGEMENT CONSULTANT-[employer] Work Phone: [facility] Start: 02-25-2025 End: 02-25-2025 Bamboo flowsheet Mathew A Felter PARTNER MANAGEMENT CONSULTANT-[employer] Work Phone: [facility] Start: 02-25-2025 End: 02-25-2025 ambulatory Brandon Church Facility:[facility] Start: 02-25-2025 End: 02-25-2025 Office outpatient visit 15 minutes Mathew A Felter PARTNER MANAGEMENT CONSULTANT-[employer] Work Phone: [facility] Comment on above: Melanocytic nevus of trunk (Primary Dx); Melanocytic nevus of skin of both upper extremities; Angioma of skin; Neoplasm of unspecified behavior of bone, soft tissue, and skin Start: 02-18-2025 ambulatory Brandon Church Facility: [facility] Start: 01-26-2025 End: 01-26-2025 Bamboo flowsheet Lamberto [...] Not Available Start: 12-07-2024 End: 12-28-2024 ambulatory Dunn Loring Start: 11-12-2024 End: 11-12-2024 Bamboo flowsheet Lamberto [...] [facility] Start: 10-26-2024 End: 10-26-2024 Telephone encounter aLmberto Canseco CNM Work Phone: [facility] Start: 08-25-2024 End: 08-25-2024 ambulatory [facility] Work Phone: Start: 08-25-2024 End: 08-25-2024 Patient encounter procedure [facility] Work Phone: Start: 04-12-[address] ABEL RICHARDS . Facili ty:[facility] Start: 04-04-2023 Encounter for other preprocedural examination DR ABEL RICHARDS . [facility] Start: 03-29-2023 End: 03-30-[address] ABEL RICHARDS . Facility: Start: 03-29-2023 End: 03-30-2023 Encounter for other preprocedural examination DR ABEL RICHARDS . Facility: Start: 11-07-2022 End: 11-09-2022 Evaluation and management of inpatient LAMBERTO CANSECO [facility] Start: 11-07-2022 End: 11-09-2022 Evaluation and management of inpatient Lamberto Canseco PARTNER MANAGEMENT CONSULTANT - CNM Work Phone: [facility] Labor and Delivery Procedures Date Procedure Procedure Detail Performing Clinician Start: 04-22-2025 ALL CBC WITH AUTO DIFF Abel Richards DO Work Phone: Start: 03-24-2025 Urine test visual color cmprsn meths Abel Richards DO Work Phone: Start: 03-24-2025 PATHOLOGY REQUEST FO R LAB AMBIKA Abel Richards DO Work Phone: Start: 03-01-2025 Urnls dip stick/tabl et rgnt non-auto w/o micrscp Abel Arriolao DO Work Phone: Start: 02-25-2025 End: 02-25-2025 SKIN / NAIL BIOPSY Mathew Montejo APR [facility] Work Phone: Start: 11-12-2024 Microscopic observat ion [Identifier] in Cervix by Cyto stain Mathew Montejo PARTNER MANAGEMENT CONSULTANT-[facility] Work Phone: Start: 08-25-2024 Quick Strep (POC) Start: 12-26-2022 Microscopic observat ion [Identifier] in Cervix by Cyto stain Diya Unallocated Work Phone: Start: 11-08-2022 KYMBERLY Lamberto edwards [facility] Work Phone: Start: 11-08-2022 Antibody screen Lamberto Canseco [facility] Work Phone: Start: 11-07-2022 Blood count complete auto&auto difrntl wbc Lamberto Canseco [facility] Work Phone: Start: 11-07-2022 Blood typing serolog ic abo Lamberto Canseco [facility] Work Phone: Start: 11-07-2022 Drug tst prsmv instr mnt chem analyzers pr date Lamberto Canseco [facility] Work Phone: Start: 10-11-2022 GBS, EXTERNAL RESULT Mi neemaical Provider Start: 05-15-2022 C. TRACHOMATIS, EXTE RNAL RESULT Historical Provider Start: 05-15-2022 N. GONORRHOEAE, EXTE RNAL RESULT Historical Provider Start: 05-01-2022 HEPATITIS B, EXTERNA L RESULT Historical Provider Start: 04-30-2022 ABO, EXTERNAL RESULT Mi neemaical Provider Start: 04-30-2022 HEPATITIS C ANTIBODY , EXTERNAL RESULT Historical Provider Start: 04-30-2022 HIV, EXTERNAL RESULT Mi prakash Provider Start: 04-30-2022 RH FACTOR, EXTERNAL RESULT Historical Provider Start: 04-30-2022 RPR, EXTERNAL RESULT Mi neemaical Provider Start: 04-30-2022 RUBELLA TITER, EXTER NAL RESULT Historical Provider Plan of Treatment Date Care Activity Detail Author Start: 12-26-2027 Screening for malignant neoplasm of cervix [facility] Start: 11-12-2027 Screening for malignant neoplasm of cervix Pap Smear [facility] Start: 03-14-2026 End: 03-14-2026 Patient encounter procedure [facility] Start: 02-28-2026 End: 02-28-2026 Patient encounter procedure 02/28/2026 9:35 AM EDT Office Visit [facility] [address] [place] [address] Nydiawets Mathew THOMAS DanielsN-CHIN STRAP SEWER [address] [place] [address] [facility] Start: 12-26-2025 Screening for malignant neoplasm of cervix Pap Smear [facility] Start: 11-29-2025 End: 11-29-2025 Patient encounter procedure 11/29/2025 10:40 AM EST Procedure Visit [facility] [address] [place] [address] Abel Richards DO [address] [place] [address] [facility] OBENED[facility] Start: 08-03-2025 End: 08-03-2026 CT Abdomen and Pelvis WO and W contrast IV CT abdomen pelvis w and wo IV contrast Imaging Routine Bloating Right upper quadrant pain Constipation, unspecified constipation type Expected: 08/03/2025, Expires: 08/03/2026 [facility] Work Phone: Comment on above: Expected: 08/03/2025, Expires: Start: 08-03-2025 End: 08-03-2025 Patient encounter procedure 08/03/2025 1:00 PM EDT Office Visit [facility] IBS[facility] [address] [place] [address] Abel Richards, DO [address] [place] [address] Arrived [facility] Comment on above: Arrived Start: 07-26-2025 Influenza vaccination [facility] Start: 03-24-2025 End: 03-24-2025 Patient encounter procedure 03/24/2025 3:30 PM EDT Procedure Visit [facility] [address] [place] [id number] Abel Richards, DO [address] [place] [address] [facility] Start: 03-24-2025 End: 03-24-2026 DHEA DHEA Lab Routine PCOS (polycystic ovarian syndrome) Expected: 03/24/2025 (Approximate), Expires: 03/24/2026 [facility] Comment on above: Expected: 03/24/2025 (Approximate), Expi res: 03/24/2026 Start: 03-24-2025 [facility] Start: 03-01-2025 End: 03-01-2025 Patient encounter procedure [facility] Comment on above: DUB (dysfunctional uterine bleeding) Start: 01-26-2025 End: 01-26-2025 Patient encounter procedure 01/26/2025 1:15 PM EST Office Visit [facility] [address] [place] [phone] Lamberto Canseco, CNM [address] [place] [address] Arrived [facility] Comment on above: Arrived Start: 12-07-2024 End: 12-07-2024 Patient encounter procedure 12/07/2024 1:10 PM EST Office Visit [facility] [address] [place] [phone] Mathew Montejo, PARTNER MANAGEMENT CONSULTANT-[employer]IN [employer]ER [address] [place] [address] [facility] Start: 11-12-2024 End: 11-12-2025 Lipid 1996 panel - Serum or Plasma Lipid panel Lab Routine Normal gynecologic examination Expected: 11/12/2024 (Approximate), Expires: 11/12/2025 [facility] Comment on above: Expected: 11/12/2024 (Approximate), Expi res: 11/12/2025 Start: 11-12-2024 End: 11-12-2025 THINPREP IMAGING PAP AND HPV DNA REFLEX HPV 16,18 THINPREP IMAGING PAP AND HPV DNA REFLEX HPV 16,18 Pathology and Cytology Routine Screening for cervical cancer Expected: 11/12/2024 (Approximate), Expires: 11/12/2025 [facility] Work Phone: Comment on above: Expected: 11/12/2024 (Approximate), Expi res: 11/12/2025 Start: 11-12-2024 End: 11-12-2025 US Pelvis transvaginal US pelvis transvaginal Imaging Routine DUB (dysfunctional uterine bleeding) Expected: 11/12/2024, Expires: 11/12/2025 [facility] Comment on above: Expected: 11/12/2024, Expires: Start: 11-12-2024 End: 11-12-2024 Patient encounter procedure 11/12/2024 10:30 AM EST Office Visit [facility] [address] [place] [address] Lamberto Canseco, ELIAS [address] [place] [address] Arrived [facility] Comment on above: Arrived Start: 07-26-2024 Influenza vaccination Influenza Vaccine (#1) [facility] Start: 06-25-2022 Influenza vaccination Flu vaccine (#1) [facility] Start: 2009 DTaP/Tdap/Td vaccine (1 - Tdap) DTaP/Tdap/Td vaccine (1 - Tdap) [facility] Start: 03-23-1991 COVID-19 Vaccine (#1) COVID-19 Vaccine (#1) [facility] Biopsy endometrium Biopsy endome trium Procedures Routine Pre-op examination Menorrhagia with regular cycle Abnormal uterine bleeding Ordered: 03/24/2025 [facility] [email or web address] Work Phone: Comment on above: Ordered: 03/24/2025 CBC panel - Blood by Automated count CBC Lab Routine Normal gynecologic examination Ordered: 11/12/2024 [facility] [email or web address] Comment on above: Ordered: 11/12/2024 Comprehensive metabo lic 2000 panel - Serum or Plasma Comprehensive metabolic panel Lab Routine Normal gynecologic examination Ordered: 11/12/2024 [facility] [email or web address] Comment on above: Ordered: 11/12/2024 Dermatopathology exam Dermatopat hology exam Pathology and Cytology Timed Neoplasm of unspecified behavior of bone, soft tissue, and skin Release Upon Ordering for 1 Occurrences starting 02/25/2025 [facility] Work [facility]: Comment on above: Release Upon Ordering for 1 Occurrences starting 02/25/2025 DHEA-sulfate DHEA-sulfate Lab Routine PCOS (polycystic ovarian syndrome) Ordered: 03/24/2025 [facility] [email or web address] Comment on above: Ordered: 03/24/2025 Estradiol Estradiol Lab Ro utine Pre-op examination Menorrhagia with regular cycle Abnormal uterine bleeding PCOS (polycystic ovarian syndrome) Ordered: 03/24/2025 [email or web address] Comment on above: Ordered: 03/24/2025 Follicle stimulating hormone Follicle stimulating hormone Lab Routine PCOS (polycystic ovarian syndrome) Ordered: 03/24/2025 [facility] [email or web address] Comment on above: Ordered: 03/24/2025 Hemoglobin A1c/Hemoglobin.total in Blood Hemoglobin A1c Lab Routine DUB (dysfunctional uterine bleeding) Ordered: 03/01/2025 [facility] Work Phone: Comment on above: Ordered: 03/01/2025 Luteinizing hormone Luteinizing hormone Lab Routine PCOS (polycystic ovarian syndrome) Ordered: 03/24/2025 [email or web address] Comment on above: Ordered: 03/24/2025 Progesterone Progesterone Lab Routine Pre-op examination Menorrhagia with regular cycle Abnormal uterine bleeding PCOS (polycystic ovarian syndrome) Ordered: 03/24/2025 [facility] [email or web address] Comment on above: Ordered: 03/24/2025 End: 11-08-2022 Surgical Pathology Surgical Pathology Lab Routine One Time for 1 Occurrences starting 11/08/2022 until 11/08/2022 [facility] [employer] Work Phone: Comment on above: One Time for 1 Occurrences starting 10/25 until 11/08/2022 End: 11-08-2022 SURGICAL PATHOLOGY REPORT SURGICAL PATHOLOGY REPORT Lab Routine Once for 1 Occurrences starting 11/08/2022 until 11/08/2022 [employer] [facility] Work Phone: Comment on above: Once for 1 Occurrences starting 11/08/20 until 11/08/2022 Thyrotropin [Units/volume] in Serum or Plasma TSH Lab Routine Normal gynecologic examination Menorrhagia with regular cycle Ordered: 11/12/2024 [facility] Comment on above: Ordered: 11/12/2024 [facility] Immunizations Immunization Date Immunization Notes Care Provider Ynes giles 11-08-2022 RHO(D) immune globulin - IM Lamberto Floro PARTNER MANAGEMENT CONSULTANT - CNM Work Phone: Birthday [employer] [facility] Work Phone: 11-08-2022 measles, mumps and rubella virus vaccine Lamberto Floro PARTNER MANAGEMENT CONSULTANT - CNM Work Phone: Birthday Gor[employer] [facility] Work Phone: 03-15-2022 RHO(D) immune globulin- IV or IM Almberto Floro CNM Work Phone: [facility] 05-12-2020 RHO(D) immune globulin- IV or IM Lamberto Floro CNM Work Phone: [facility] 03-14-2020 tetanus toxoid, reduced diphtheria toxoid, and acellular pertussis vaccine, adsorbed Lamberto Floro CNM Work Phone: [facility] 12-16-2018 RHO(D) immune globulin- IV or IM Lamberto Floro CNM Work Phone: [facility] NEGATED: Highlighted row has not occurred!11-09-2022 tetanus toxoid, reduced diphtheria toxoid, and acellular pertussis vaccine, adsorbed Lamberto Floro PARTNER MANAGEMENT CONSULTANT - CNM Work Phone: [facility] Payers Date Payer Category Payer Unknown [employer] rx 2024 Unknown UNKNOWN 2024 Medicaid (Managed Care) [facility] MEDICAID [id number] 2023 [facility] er [id number] 2023 Unknown [id number] 2023 Private Health Insurance [facility] MEDICAID [id number] 2021 [facility] ( and others) [id number] 1990 Unknown [id number] 2.16.840.1.725191.3.579.2 .173 1990 Unknown [id number] 2.16.840.1.110915.3.579.2 .593 1990 Unknown [id number] 2.16.840.1.240792.3.579.2 .593 1990 Unknown [id number] 2.16.840.1.789422.3.579.2 .718 1990 Unknown [id number] 2.16.840.1.458423.3.579.2 .718 1990 Unknown [id number] 2.16.840.1.004107.3.579.2 .718 1990 Unknown [id number] 2.16.840.1.976320.3.579.2 .718 1990 Unknown [id number] 2.16.840.1.861495.3.579.2 .718 1990 Unknown [id number] 2.16.840.1.997876.3.579.2 .718 1990 Unknown [id number] 2.16.840.1.305496.3.579.2 .718 1990 Unknown [id number] 2.16.840.1.015464.3.579.2 .718 1990 Unknown [id number] 2.16.840.1.314669.3.579.2 .1259 1990 Unknown [id number] 2.16.840.1.148726.3.579.2 .1259 1990 Unknown [id number] 2.16.840.1.294765.3.579.2 .1259 1990 Unknown [id number] 2.16.840.1.514660.3.579.2 .1259 1990 Unknown [id number] 2.16.840.1.152441.3.579.2 .1259 1990 Unknown [id number] 2.16.840.1.553135.3.579.2 .1259 1990 Unknown [id number] 2.16.840.1.287615.3.579.2 .9 1990 Unknown [id number] 2.16.840.1.843553.3.579.2 .1259 1959 Medicaid [id number] .[id number] 1959 Private Health Insurance [id number] Social History Date Type Detail Facility Tobacco smoking stat [facility] Tobacco smoking consumption unknown [employer] Phone: Start: 1990 Sex Assigned At Not on file [employer] Phone: Start: 10-28-2022 End: 11-07-2022 Exposure to SARS-CoV-2 (event) Not sure [employer] Phone: Start: 1990 Sex Assigned At Female F [facility] Start: 12-19-2023 [facility] [facility] Never smoked tobacco [facility] Start: 12-19-2023 Tobacco use and exposure Smokeless tobacco non-user [facility] Start: 12-19-2023 End: 05-13-2025 Alcoholic beverage intake Current drinker of alcohol [...] to any clubs or organizations such as oriental orthodox groups, unions, fraternal or athletic groups, or [...] [facility] Start: 03-26-2025 Sex Female (finding) [facility] NEGATED: Highlighted rowStart: NINF History of tobacco use Passive smoker [facility] Clinical Notes 11-09-2022 to 08-03-2025 Brittani Grossman LPN - 08/03/2025 1:00 PM CIARA Keen - 05/13/2025 2:20 PM Erickson Post - 03/24/2025 3:30 PM Musa Monroy NP - 03/01/2025 9:10 AM EDTDisisaiah InstructionsAttachments Note Date & Type Note Facility 08-03-2025 History of Present illness Narrative Reason for Appointment: Patient ID: Stephanie Palencia is a 34 y.o. female who presents for Issues Since Ablation Patient presents today for Consult appointment. 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 Echogenic focus of heart of fetus affecting management of mother in dexter , antepartum ([facility]) 10/29/2018 Family history of genetic disease 02/21/2020 Normal labor ([facility]) 03/10/2019 (normal spontaneous vaginal delivery) ([facility]) 11/09/2022 state ([facility]) 05/12/2020 Rh negative state in antepartum period ([facility]) 09/16/2018 Term ([facility]) 11/07/2022 Thrombocytopenia affecting ([facility]) 01/27/2019 Vaginal odor 11/01/2023 Resolved Ambulatory Problems Diagnosis Date Noted No Resolved Ambulatory Problems Past Medical History: Diagnosis Date Brain tumor (HCC) Personal history of medical treatment HISTORY PAST MEDICAL HISTORY SOCIAL HISTORY Past Medical History: Diagnosis Date Brain tumor (HCC) age 12 Personal history of medical treatment [...] BRAIN SURGERY Age 11-- benign tumor removed ENDOMETRIAL ABLATION 04/22/2025 EYE SURGERY Age 14- Tumor removed SALPINGECTOMY Bilateral 04/12/2023 assisted by [employer] REVIEW OF SYSTEMS Review of Systems: Review of Systems Constitutional: Negative. HENT: Negative. Eyes: Negative. Respiratory: Negative. Cardiovascular: Negative. Gastrointestinal: Negative. Genitourinary: Positive for menstrual problem. Musculoskeletal: Negative. Skin: Negative. Neurological: Negative. All [...] nursing note reviewed. Exam conducted with a central supply manager present. Vitals: Estimated body mass index is 35.15 kg/m as calculated from the following: Height as of 11/01/23: 5' 6 . Weight as of this encounter: 217 lb 12 oz. BP: 116/84 Patient's last menstrual period was 07/17/2025. ASSESSMENT & PLAN ICD-10-CM 1. Dysmenorrhea N94.6 2. Abnormal uterine bleeding (AUB) N93.9 Pt has complaints of bloating and AUB and dysmenorrhea, pt has right upper quadrant pain, pt has complaints of constipation. Pt given CT order to have obtained. Rx for apri faxed to pharmacy to aid in aub. Pt states all these symptoms started shortly after ablation. Pt to return in October for annual exam Documented by Brittani Grossman LPN on behalf of: Abel Richards DO documented in this encounter [facility] 05-13-2025 History of Present illness Narrative Reason for Appointment: Patient ID: Stephanie Palencia is a 34 y.o. female who presents for No chief complaint on file. 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 Echogenic focus of heart of fetus affecting management of mother in dexter , antepartum ([facility]) 10/29/2018 Family history of genetic disease 02/21/2020 Normal labor ([facility]) 03/10/2019 (normal spontaneous vaginal delivery) ([facility]) 11/09/2022 state ([facility]) 05/12/2020 Rh negative state in antepartum period ([facility]) 09/16/2018 Term ([facility]) 11/07/2022 Thrombocytopenia affecting ([facility]) 01/27/2019 Vaginal odor 11/01/2023 Resolved Ambulatory Problems Diagnosis Date Noted No Resolved Ambulatory Problems Past Medical History: Diagnosis Date Brain tumor (HCC) Personal history of medical treatment HISTORY PAST MEDICAL HISTORY SOCIAL HISTORY Past Medical History: Diagnosis Date Brain tumor (HCC) age 12 Personal history of medical treatment [...] Respiratory: Negative. Cardiovascular: Negative. Gastrointestinal: Negative. Genitourinary: Negative. Musculoskeletal: Negative. Skin: Negative. Neurological: Negative. All [...] nursing note reviewed. Exam conducted with a central supply manager present. Vitals: Estimated body mass index is 35.96 kg/m as calculated from the following: Height as of 11/01/23: 5' 6 . Weight as of 03/24/25: 222 lb 12.8 oz. BP: No LMP recorded. ASSESSMENT & PLAN Patient presents today for post operative appointment, patient had Anneliese Endometrial Ablation with Hysteroscopy on 04/22/25. Patient voiced she had a cycle about a week after her procedure and only had to use a panty liner. Patient voiced that she had labs drawn a few weeks prior to surgery and had not received results at this time. Nursing called [facility] lab and spoke with Zoie and it shows that results went to the [facility] DOCTOR OF NURSING PRACTICE area. Results were not visible for ordering provider to view. Called [facility] and results will be sent. Patient was advised that she is able to use diva cup if needed for future cycles. Patient will be notified on Saturday after PA and Provider review results once received. Patient to ensure she returns to office for routine Annual appointment. Documented by Stephany Riggs LPN on behalf of: CIARA Fletcher documented in this encounter [facility] 05-05-2025 Note Procedures Endovenous Ablation, Care After The [...] and water are not available, use hand puppet maker. ? Change your dressing as told by [...] are sitting or lying down. ? Take mtts-lcr-msmwbuz and prescription medicines only as told by [...] provider. Document Revised: 04/19/2022 Document Reviewed: 04/19/2022 [employer] Patient Education ? 2023 [facility] 04-06-2025 Note Radiology Sclerotherapy Sclerotherapy is a [...] including vitamins, herbs, eye drops, creams, and iudf-edd-pcugukm medicines. ? Any bleeding problems you have. [...] care provider tells you to. ? Taking azju-iwg-zqtmvex medicines, vitamins, herbs, and supplements. Tests ? [...] away. Call 911. (more content not included)... [facility] 04-01-2025 Note PROCEDURE: US Inject ion Varicose [...] Brandon Church MD 04/01/25 10:10 a Technologist: [facility] 03-29-2025 Note Radiology Sclerotherapy Sclerotherapy is [...] including vitamins, herbs, eye drops, creams, and dbry-xte-qmenwus medicines. ? Any bleeding problems you have. [...] care provider tells you to. ? Taking iiqs-nmh-ziekgob medicines, vitamins, herbs, and supplements. Tests ? [...] away. Call 911. (more content not included)... [facility] 03-24-2025 History of Present illness Narrative Reason for Appointment: Patient ID: Stephanie Palencia is a 34 y.o. female who presents for Pre-op Visit and Endometrial Biopsy Patient presents today for Pre Op/Endometrial Biopsy appointment. Patient is scheduled to undergo Endometrial Ablation with Anneliese on 04/22/[address] Richards at [facility]. MEDICATIONS No current outpatient medications ALLERGIES Allergies [...] nursing note reviewed. Exam conducted with a central supply manager present. Vitals: Estimated body mass index is [...] reviewed, and patient is to proceed to [facility] OR. Follow Up: Patient is to follow up between 1-2 weeks post op to assess proper healing and recovery from procedure. Documented by Brittani Grossman LPN on behalf of: Abel Richards DO documented in this encounter [facility] 03-23-2025 Note Sclerotherapy Sclerotherapy is [...] including vitamins, herbs, eye drops, creams, and kfah-mcr-zftkwre medicines. ? Any bleeding problems you have. [...] care provider tells you to. ? Taking qihb-yqr-uetgvic medicines, vitamins, herbs, and supplements. Tests ? [...] Do not wa (more content not included)... [facility] 03-18-2025 Note PROCEDURE: US Inject ion Varicose [...] Omar Marin MD 03/18/25 2:39 pm Technologist: [facility] 03-01-2025 History of Present illness Narrative [...] nursing note reviewed. Exam conducted with a central supply manager present. Vitals: Estimated body mass index is [...] Abel Richards DO documented in this encounter [facility] 02-25-2025 Note Procedures Endovenous Ablation [...] including vitamins, herbs, eye drops, creams, and ygzj-rbk-uljxqme medicines. ? Any problems you or family [...] tells you to take them. ? Taking mbyb-cbp-ynmohvs medicines, vitamins, herbs, and supplements. General instructions [...] These stockings help (more content not included)... [facility] 02-25-2025 History of Present illness Narrative Images [...] year, skin check documented in this encounter [facility] 02-18-2025 Note Procedures Endovenous Ablation, [...] and water are not available, use hand puppet maker. ? Change your dressing as told by [...] are sitting or lying down. ? Take ictm-zyz-fuuegpd and prescription medicines only as told by [...] provider. Document Revised: 04/19/2022 Document Reviewed: 04/19/2022 [employer] Cloud Patient Education ? 2023 [employer]. [facility] 01-26-2025 History of Present illness Narrative PROBLEM VISIT Stephanie Palencia is 34 y.o. a patient of [facility] DOCTOR OF NURSING PRACTICE Here for Last pap: 11/12/24 Last mammogram: [...] MA,01/26/2025 1:26 PM documented in this encounter 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 10-28-2024 Telephone encounter Note Stephanie returned your call to make an appt . She is at work but will try to answer. [facility] 10-28-2024 Miscellaneous Notes Stephanie returned your call to make an appt . She is at work but will try to answer. documented in this encounter [facility] 10-26-2024 Telephone encounter Note Pt would like to schedule with Lisa for her yearly, but is having issues with pain and would like to be seen sooner. Please return call to [phone] [facility] 10-26-2024 Miscellaneous Notes Pt would like to schedule with Lisa for her yearly, but is having issues with pain and would like to be seen sooner. Please return call to [phone] documented in this encounter [facility] 11-09-2022 History of Present illness [...] is what is in the unit omnicell. Facsimile Operator talked to Lisa Canseco CNM, stated okay to switch order to the 2.5%. Department of Obstetrics and Gynecology Progress Note SUBJECTIVE: patient feeling more discomfort from contractions and would like some pain medication OBJECTIVE: Vitals: 11/07/22 2230 11/07/22 2300 11/07/22 2330 11/08/22 0000 Resp: Temp: 97.5 F (36.4 C) TempSrc: Oral heart rate: Baseline Heart Rate: 130 Accelerations: present Stitcher Utility Variability: moderate Decelerations: absent Contraction frequency: irregular [...] rate: Baseline Heart Rate: 130 Accelerations: present Care Home Variability: moderate Decelerations: absent Contraction frequency: 3-5 minutes Membranes: Intact Cervix: Dilation: 3-4/90/-2 stretchy and very soft Effacement: 90 Station: -2 Position: mid ASSESSMENT & PLAN: Admit for routine labor and delivery Pitocin augmentation Cord blood banking Anticipate documented in this encounter [employer] Phone: 11-09-2022 Hospital course Narrative Vaginal Delivery Discharge Summary Gestational Age:39w6d Antepartum complications: none Date of Delivery: Information for the patient's : Slime, Baby Girl Stephanie [[id number]] 11/08/2022 Type of Delivery: Vaginal Labs: CBC [...] Shawn Rod MD documented in this encounter [facility] Work Phone: 11-09-2022 Hospital Discharge instructions Re Marie RN - 11/09/2022 9:54 AM EST Follow-up with your OB doctor as specified. [facility] OB Department phone: Dr. Marcel Duron [facility] Dr. Graham Griffin [facility] [address] [facility] [address] [address] Graham Romo [facility] [address] [facility] [id number] [phone] Lisa Canseco, MSN, PARTNER MANAGEMENT CONSULTANT, CNM [facility] [address] [facility] [address] Stephany Lucas CN [address] [place] [address] Monique Delacruz CN [address] [place] [address] [place] [address] [phone] DIET Eat a well balanced diet focusing on foods high in fiber and protein. Drink plenty of fluids especially water. To avoid constipation you may take a mild stool softener as recommended by your doctor or brake linings coater. ACTIVITY Gradually increase your activity. Resume exercise regimen only after advice by your doctor or brake linings coater. Avoid lifting anything heavier than a gallon of milk for SIX weeks. Avoid driving until your doctor or brake linings coater has given their approval. Rise slowly from [...] of harming yourself or your . If infant will not stop crying, contact another adult [...] medications as recommended by your doctor or brake linings coater for pain If you develop a warm, red, tender area on your breast or develop a fever contact your OB provider. For moms: If you become engorged, feeding may be more difficult or painful for 1-2 days. You may find it helpful to hand express some milk so that the infant can latch on more easily. While , continue to take your vitamins as directed by your doctor or brake linings coater. Refer to the booklet in the folder/binder for more information. If you feel you need more assistance or have questions, please call Betsy Rodriguez IBCLC, loss prevention consultant, at or the OB department to [...] they become loose or soiled. If used, [place] should be removed by your care provider. [...] tender area in your calf. [facility] for 11/12/2022 for 2 week follow up. The following attachments cannot be sent through Care Everywhere.5 Things You Can Expect With a New Baby: Video ([place]guillan)5 Ways to Prepare for : Video (Anguillan)Caring for Yourself After Vaginal Delivery: Video (Anguillan) ([place]gu[place]an)documented in this encounter [facility] [employer] Work Phone: Evaluation note Diagnosis Term - Primary (normal spontaneous vaginal delivery) Normal delivery documented in this encounter [facility] [employer] Work Phone: evaluation noteNo assessment information available [facility] Work Phone: Evaluation note* Diagnosis Menorrhagia with regular cycle- Primary Normal gynecologic examination Screening for cervical cancer Screening for malignant neoplasm of the cervix DUB (dysfunctional uterine bleeding) Other disorder of menstruation and other abnormal bleeding from female genital tract documented in this encounter [facility] HealthcareEvaluation note* Diagnosis DUB (dysfunctional uterine bleeding)- Primary Other disorder of menstruation and other abnormal bleeding from female genital tract Irregular bleeding Irregular menstrual cycle documented in this encounter [facility] HealthcareEvaluation note* Diagnosis Melanocytic nevus of trunk- [...] Polycystic ovaries [facility] Diagnosis Postoperative follow-up Follow-up examination, following unspecified surgery [facility]* Diagnosis Dysmenorrhea Abnormal uterine bleeding (AUB) Bloating Flatulence, eructation, and gas pain Right upper quadrant pain Abdominal pain, right upper quadrant Constipation, unspecified constipation type documented in this encounter [facility] Healthcare Summary Purpose Family History No Family History Records FoundNo Family History Records FoundNo Family History Records FoundNo Family History Records FoundNo Family History Records FoundNo Family History Records FoundNo Family History Records FoundNo Family History Records Found Advance Directives Latest Code Status on File Code Status Date [...] section and content) DATE CREATED AUTHOR 10/18/2022 [facility] dical Specialist DATE CREATED AUTHOR AUTHOR'S ORGANIZ ATION 11/14/2022 [facility] DATE CREATED AUTHOR AUTHOR'S ORGANIZ ATION 04/10/2023 [facility] DATE CREATED AUTHOR AUTHOR'S ORGANIZ ATION 12/29/2024 [facility] DATE CREATED AUTHOR AUTHOR'S ORGANIZ ATION 03/05/2025 [facility] DATE CREATED AUTHOR AUTHOR'S ORGANIZ ATION 04/02/2025 [facility] DATE CREATED AUTHOR AUTHOR'S ORGANIZ ATION 05/22/2025 [facility] DATE CREATED AUTHOR AUTHOR'S ORGANIZ ATION 08/05/2025 [facility] dical Specialists EPIC Reason for Visit (unrecogniz ed section and content) Reason Comments Contractions Specialty Diagnoses / Procedures Referred By Mike pope Referred To Contact Diagnoses Term Lamberto Canseco APRN - CNM [address] [place] [address] [facility] [address] [place] [address] Referral ID Status Reason Start Date Expiration Date Visits Re quested Visits Authorized [id number] 1 1 Reason Comments Gynecologic Exam Reason Comments Menstrual Problem Reason Comments Skin Check Reason Comments Vaginal Bleeding Specialty Diagnoses / Procedures Referred By Mike pope Referred To Contact Obstetrics and Gynecology Diagnoses DUB (dysfunctional uterine bleeding) Procedures [place] OFFICE/OUTPATIENT [facility] MDM 60 MINUTES Lamberto Canseco, CNM [address] [place] [address] Phone: tel: fax: Abel Richards, [address] [place] [address] Phone: tel: fax: Referral ID Status Reason Start Date Expiration Date V isits Requested Visits Authorized [id number] Closed Specialty Services Required 01/26/2025 07/25/2025 1 1 Reason Comments Pre-op Visit Endometrial Biopsy Reason Comments Post-op Visit Endometrial Ablation 04/22/25 Reason Comments Issues Since Ablation Scheduled Active and Recently Administ ered Medications (unrecognized section and content) Medication Order 11/07/2022 11/08/2022 11/09/2022 benzocaine-menthol (DERMOPLAST) 20-0.5 % spray Topical, 2 TIMES DAILY, First dose (after last modification) on Airam 11/08/22 at 0430, Apply to perineal area. Patient is capable and may self administer at bedside., 0652 (Not Given - Provider: Audrey Vick RN - Reason: Patient/family refused)2100 (Due) 1216 (Not Given - Provider: Re Marie RN - Reason: Other - Comment: Pt not wanting canister, states not really helping )2100 (Due) hydrocortisone (ANUSOL-HC) 2.5 % rectal cream Topical, 2 TIMES DAILY, First dose on Airam 11/08/22 at 0900, Apply to Hemorrhoid. 0849 (Given - Provider: Rizwana Sorto RN - Comment: hemmirroids)2099 (Due) 1216 (Not Given - Provider: Re [...] Rizwana Sorto RN)1928 (Given - Provider: Bronwyn Nunez RN)192 (Given - Provider: Bronwyn Nunez, RN) 0533 (Given - Provider: Bronwyn Nunez RN)122 (Given - Provider: Re Marie, DALJIT)1999 [...] Provider: Re Marie RN - Reason: Patient/family refused)2100 (Due) Continuous Medication [...] every 2-3 minutes with cervical changes or Lyle units (MVU) greater than 200 in a [...] doses, Starting on Sat11/07/22 at 2154, Until Airam 11/08/22 at 0342, Pain, For moderate pain level 4-6, May repeat times 1 for a total of 2 mg while in labor., Labor and Delivery 219 (Given - Provider: Audrey Vick, DALJIT) carboprost [...] August 25, 2024 End: August 25, 2024 Nelly Mcgowan NP-C Primary Care Provider Active Start: August 25, 2024 End: August 25, 2024 Business Intern Relationship Specialty Start Date End Date Unallocated, Diya Perez MD [address] [place] [address] PCP - General Family Medicine 10/26/24 Mirella Thibodeaux NP [address] [place] [address] Nurse Practitioner Family Medicine 10/26/24 Lamberto Canseco CNM [address] [place] [address] Obstetrics and Gynecology 10/26/24 Business Intern Relationship Specialty Start Date End Date Unallocated, Diya Perez MD [address] [place] [address] PCP - General Family Medicine 10/26/24 Mirella Thibodeaux NP [address] [place] [address] Nurse Practitioner Family Medicine 10/26/24 Lamberto Canseco CNM [address] [place] [address] Obstetrics and Gynecology 10/26/24 Business Intern Relationship Specialty Start Date End Date Unallocated, Diya Perez MD [address] [place] [address] PCP - General Family Medicine 10/26/24 Mirella Thibodeaux NP [address] [place] [address] Nurse Practitioner Family Medicine 10/26/24 Lamberto Canseco CNM [address] [place] [address] Obstetrics and Gynecology 10/26/24 Business Intern Relationship Specialty Start Date End Date Unallocated, Diya Perez MD [address] [place] [address] PCP - General Family Medicine 10/26/24 Mirella Thibodeaux NP [address] [place] [address] Nurse Practitioner Family Medicine 10/26/24 Lamberto Canseco CNM [address] [place] [address] Obstetrics and Gynecology 10/26/24 Business Intern Relationship Specialty Start Date End Date Unallocated, Diya Perez MD [address] [place] [address] PCP - General Family Medicine 10/26/24 Mirella Thibodeaux NP [address] [place] [address] Nurse Practitioner Family Medicine 10/26/24 Lmaberto Canseco CNM [address] [place] [address] Obstetrics and Gynecology 10/26/24 Business Intern Relationship Specialty Start Date End Date Unallocated, Diya Perez MD [address] [place] [address] PCP - General Family Medicine 10/26/24 Mirella Thibodeaux NP [address] [place] [address] Nurse Practitioner Family Medicine 10/26/24 Lamberto Canseco CNM [address] [place] [address] Obstetrics and Gynecology 10/26/24 Business Intern Relationship Specialty Start Date End Date Unallocated, Noms ProviderMD [address] [facility] [place] [address] PCP - General Family Medicine 10/26/24 Mirella Thibodeaux NP [address] [place] [address] Nurse Practitioner Family Medicine 10/26/24 Lamberto Canseco CNM [address] [place] [address] Obstetrics and Gynecology 10/26/24 Business Intern Relationship Specialty Start Date End Date Unallocated, [place] [address] PCP - General Family Medicine 10/26/24 Mirella Thibodeaux NP [address] [place] [address] Nurse Practitioner Family Medicine 10/26/24 Lamberto Canseco CNM [address] [place] [address] Obstetrics and Gynecology 10/26/24 Team Status: Inactive Member Role Status Dates Abel Richards DO Attending Provider Active Start : March 24, 2025 End: March 24, 2025 Business Intern Relationship Specialty Start Date End Date Unallocated, Noms MD [facility] [place] [address] PCP - General Family Medicine 10/26/24 Mirella Thibodeaux NP [address] [place] [address] Nurse Practitioner Family Medicine 10/26/24 Lamberto Canseco CNM [address] [place] [address] Obstetrics and Gynecology 10/26/24 Business Intern Relationship Specialty Start Date End Date Unallocated, Diya Perez MD [address] [place] [address] PCP - General Family Medicine 10/26/24 Mirella Thibodeaux NP [address] [place] [address] Nurse Practitioner Family Medicine 10/26/24 Lamberto Canseco CNM [address] [place] [address] Obstetrics and Gynecology 10/26/24 Business Intern Relationship Specialty Start Date End Date Unallocated, Diya Perez MD [address] [place] [address] PCP - General Family Medicine 10/26/24 Mirella Thibodeaux NP Nurse Practitioner Family Medicine 10/26/24 Lamberto Canseco CNM [address] [place] [address] Obstetrics and Gynecology 10/26/24 Business Intern Relationship Specialty Start Date End Date Unallocated, Diya Perez MD [address] [facility] [facility] [place] [address] PCP - General Family Medicine 10/26/24 Mirella Thibodeaux NP Nurse Practitioner Family Medicine 10/26/24 Lamberto Canseco CNM [address] [place] [address] Obstetrics and Gynecology 10/26/24 Goals (unrecognized section [...] BE BASED ON THE PRIMARY CLINICAL RECORDS. [facility] [employer] provides no warranty or guarantee of the accuracy or completeness of information in this document.
--- OUTSIDE RECORDS SUMMARY | 2025-11-23 09:00 | XMS_ITS | Clinical Summary ---
Author Organization [facility] Address [address], [address] [place] [address] Care Team Providers Care Chief Lifestyle Officer Name Role Phone Unavailable Primary Care Provider Unavailabl e Allergies No known active allergies Active Problems ProblemNoted DateDiagnosed DateNSVD (normal spontaneous vaginal delivery) 11/09/2022Term hgdepidfa62/14/2022 Immunizations ImmunizationAdministration DatesNext DueTDaP, ADACEL (age 10y-64y), BOOSTRIX (age 10y+), IM, 0.5mL11/09/2022() Social History Tobacco UseTypesPacks/DayYears UsedDateSmoking Tobacco: Never AssessedEdinburgh Depression ScaleAnswerDate RecordedLast EPDS Total ScoreNot on file 11/09/2022The thought of harming myself has occurred to me.Never11/09/2022 CommentsNoSex and Gender InformationValueDate RecordedSex Assigned at BirthNot on fileLegal GugCppwsj68/10/2013 6:46 PM ESTGender IdentityNot on file Sexual OrientationNot on file Last Filed Vital Signs Vital SignReadingTime TakenCommentsBlood Zddqpymr456/80101/10/2022 12:22 PM EST Vaqih076111/09/2022 12:22 PM EHYLypgjqbomoz02.7 ??C (98 ??F)11/09/2022 12:22 PM ESTRespiratory Ekxt941001/10/2022 12:22 PM ESTOxygen Saturation--Inhaled Oxygen Concentration--Weight--Height--Body Mass Index-- Plan [place] [id number] Advance Directives * Full Code (Latest Code Status on File) Date ActivatedDate OtkerkbixeeTdxxtult50/14/2022 9:59 PM11/08/2022 3:42 AM
--- OUTSIDE RECORDS SUMMARY | 2025-11-23 09:00 | XMS_ITS | Clinical Summary ---
Author Organization [facility] Healthcare Address [address] [place] [address] Care Team Providers Care Automatic Buffing Wheel Former Name Role Phone Mirella Thibodeaux BEADING SAWYER Unavailable [phone] HarleenYue CNM Unavailable [phone] Unallocated, [facility] Provider MD Primary Care Provi mitchell Allergies Active AllergyReactionsCriticalityNoted DateCommentsIodinated Contrast Media Hives,Eeixsfd1404/12/2020 Other Reaction(s): Unknown Yvsttm2504/18/20232706Pqqpl96/07/2025 Contrast dye Medications MedicationSigDispense QuantityRefillsLast FilledStart DateEnd DateStatus Symbicort 80-4.5 MCG/ACT inhaler 1 puff every 12 (twelve) hours5Active albuterol HFA 90 mcg/act inhaler INHALE 2 PUFFS BY MOUTH EVERY 4 HOURS FOR 14 DAYS Inhalation; Duration: 17 Days Active diphenhydrAMINE (BENADryl) 50 MG capsule Indications:Contrast media allergyTake 1 tablet (50mg) 1 hour prior to procedure. 1 capsule 5Active predniSONE (Deltasone) 50 MG tablet Indications:Contrast media allergyTake 1 tablet PO 13 hours, 7 hours and 1 hour prior to procedure 3 tablet 5Active norethindrone-ethinyl estradiol (Junel FE 12/14) 1-20 MG-MCG tablet Indications:Uses controlTake 1 tablet by mouth Daily Take 1 tablet by mouth daily 28 tablet /ctive desogestrel-ethinyl estradiol (Apri) 0.15-30 MG-MCG tablet Indications:Dysmenorrhea,Abnormal uterine bleeding (AUB)Take 1 tablet by mouth Daily 28 tablet Discontinued(Side effects) Active Problems ProblemNoted DateDiagnosed DateVaginal odor11/01/2023NSVD (normal spontaneous vaginal delivery) ([facility])11/09/2022Term ([facility])11/07/2022 state ([facility])05/12/2020 Overview (11/01/2023): Last Assessment & Plan: PPD1 PainControl: well controlled Rh Status: NEG, s/p Rhogam Rubella: immune Tdap Vaccine: UTD Contraception: wait until 6 w visit EPDS: pending nursing, will follow up prior to discharge Feeding: breast PNC: [facility] Anticipate discharge PPD1, today Continue routine postpartumcare based on evidence based protocol Carrier of genetic fatjqejz05/29/2020 Overview (11/01/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 from cord blood at time of delivery Last Assessment & Plan: 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) Family history of genetic evwdnly6202/21/2020 Overview (11/01/2023): Daughter with Spinal Muscular Atrophy(Kiley) G2 daughter is a carrier Last Assessment & Plan: Family hx w/ SMA, pt and partner presumed carriers Draw cord blood in purple top (EDTA)x2 and page Abbe Lazo (genetic counselor) [phone] Normal labor ([facility])03/10/2019Thrombocytopenia affecting ([facility]) 01/27/2019 Overview (11/01/2023): Does not want an epidural Echogenic focus of heart of fetus affecting management of mother in dexter , antepartum([facility])10/29/2018 Overview (11/01/2023): Offer cell free DNA- negative Rh negative state in antepartum period ([facility])09/16/2018 Overview (11/01/2023): Received 2-5-19 ASCUS with positive high risk HPV wnuravsx73/15/2017 Overview (11/01/2023): Pap done 08/11/18 Encounters DateTypeDepartmentCare DdhoJhosunazlio09/15/2025bstract [facility] [address] [place] [address] Abel Richards DO 11/02/2025Telephone [facility] [address] [place] [address] Bessie Freedman MA 10/29/2025Telephone [facility] [address] [place] [address] Prachi Posada MA 09/03/2025Refill [facility] [address] [place] [address] Stephany Riggs LPN Contrast media allergyfrom Last 3 Months Immunizations ImmunizationAdministration DatesNext DueRho(D)-IG03/15/2022,05/12/2020, 12/16/2018Tdap03/14/2020 Family History Medical HistoryRelationNameCommentssmaDaughter 1HyperlipidemiaFatherHypertension OyfobwDlwnkznhZdeaOpufnaBgevscahNxsrzhvy1Olbcbxdl 1AliveDaughter 2AliveDaughter 1CymlmDxcwtzIopkpScilkuPhseoQsglhhe1 Social History Tobacco UseTypesPacks/DayYears UsedDateSmoking Tobacco: NeverPassive Smoke Exposure: NeverSmokeless Tobacco: Never Tobacco Cessation:Counseling Given: No Alcohol UseStandard Drinks/WeekCommentsYes0 (1 standard drink = 0.6 oz pure alcohol)Caffeine intake: 1-2 cups per mjtO0118 Health LiteracyAnswerDate RecordedHow often do you need to have someone help you when you read instructions, pamphlets, or other written material from your doctor or pharmacy? Never06/23/2024Social Connection and Isolation PanelAnswerDate RecordedIn a typical week, how many times do you talk on the phone with family, friends, or neighbors?More than three times a week06/23/2024How often do you get together with friends or relatives?Once a week06/23/2024How often do you attend jewish or evangelical services?Never06/23/2024o you belong to any clubs or organizations such as jewish groups, unions, fraHighScore House or athletic groups, or school groups?No 06/23/2024How often do you attend meetings of the clubs or organizations you belong to?Patient vctxwypi82/30/2024re you , , , , never , or living with a partner?Rtlycph6206/23/2024UDIT-C AnswerDate RecordedQ1: How often do you have a drink containing alcohol?Monthly or less06/23/2024Q2: How many drinks containing alcohol do you have on a typical day when you are drinking?3 or Q3: How often do you have six or more drinks on one occasion?Less than fqrecuc6906/23/2024Overall Financial Resource Strain (CARDIA)AnswerDate RecordedHow hard is it for you to pay for the very basics like food, housing, medical care, and heating?Hard06/23/2024HQ-2Answer Date RecordedPatient Health Questionnaire-2 Hlrzs176[facility] - Occupational Stress QuestionnaireAnswerDate RecordedDo you feel stress - tense, restless, nervous, or anxious, or unable to sleep at night because yourmind is troubled all the time - these days?Only a ifdwcl8406/23/2024 Exercise Vital SignAnswerDate RecordedOn average, how many days per week do you engage in moderate to strenuous exercise (like a brisk walk)?2 days06/23/2024On average, how many minutes do you engage in exercise at this level?30 min 06/23/2024Hunger Vital SignAnswerDate RecordedWithin the past 12 months, you worried that your food would run out before you got the money to buymore. Sometimes true06/23/2024Within the past 12 months, the food you bought just didn't last and you didn't have money to get more.Sometimes true06/23/2024 PRAPARE - TransportationAnswerDate RecordedIn the past 12 months, has lack of transportation kept you from medical appointments or from getting medications?No 06/23/2024In the past 12 months, has lack of transportation kept you from meetings, work, or from getting things needed for daily living?Yes06/23/2024 Housing Stability Vital SignAnswerDate RecordedIn the last 12 months, was there a time when you were not able to pay the mortgage or rent on time?Yes06/23/2024 In the past 12 months, how many times have you moved where you were living?0 06/23/2024t any time in the past 12 months, were you homeless or living in a penitentiary (including now)?No06/23/2024CommentsNoSex and Gender Information ValueDate RecordedSex Assigned at BirthNot on fileLegal SzsMvpdem53/15/2023 11:47 PM EDTGender IdentityNot on fileSexual OrientationNot on file Last Filed Vital Signs Vital SignReadingTime TakenCommentsBlood Ydacytvj053/8409 1:05 PM EDT Lprzc6539 11:36 AM JBLNmxwdkgtnww49.1 ??C (96.9 ??F)12/02/2023 11:36 AM ESTRespiratory Rate--Oxygen Vnblopsaor90%12/02/2023 11:36 AM ESTInhaled Oxygen Concentration--Oohrdg50.8 kg (217 lb 12 oz)08/03/2025 1:05 PM FKAHfrgkw943.6 cm (5' 6 )11/01/2023 12:57 PM ESTBody Mass Index35.15101/02/2023 12:57 PM EST Plan of Treatment DateTypeDepartmentCare Team (Latest Contact Info)Ssadxdsgvua15/28/2026 2:20 PM ESTProcedure Visit [facility] [address] [place] [phone] Abel Richards DO [address] [place] Richards, [place] [address] 03/14/2026 9:20 AM EDTOffice Visit [facility] [address] [place] [id number] Karen Montejo, AIRCRAFT ARMAMENT MECHANIC-SERVICE DESK TECHNICIAN [address] [place] [address] Health MaintenanceDue DateLast DoneCommentsPneumococcal Vaccine: Pediatrics (0 to 5 Years) and At-Risk Patients (6 to 64 Years) (1 of 2 - PCV)2009 Influenza Vaccine (#1)2025Pap Smear, 11/12/2024, 12/26/2022, Additional history existsCervical Cancer Yowhdisyl03/01/2028 HPV/Xqcxkn578012/26/2022, 08/11/2018, 04/07/2018 Procedures Procedure NamePriorityDate/TimeAssociated DiagnosisCommentsPAP SMEARRoutine 11/12/2024 12:00 AM ESTTHINPREP PAP AND HPV MRNA E6/E7 REFLEX HPV 16,18/45 Soytlhq4212/26/2022 from Last 3 Months or Most Recently Relevant to Health Maintenance Results * Pap Smear (11/12/2024 12:00 AM EST)Specimen (Source)Anatomical Location / LateralityCollection Method / VolumeCollection TimeReceived TimeSwabCervical swab / Unknown Narrative Authorizing ProviderResult TypeResult StatusFazio Nurse Noms Bcp ObLAB CYTOLOGY ORDERABLESFinal ResultPerforming OrganizationAddressCity/State/ZIP CodePhone Number EXTERNAL LAB * THINPREP PAP AND HPV MRNA E6/E7 REFLEX HPV 16,18/45 (12/26/2022)ComponentValue Ref RangeTest MethodAnalysis TimePerformed AtPathologist SignatureCLINICAL INFORMATION:None givenNOMS LEGACY EXTERNAL LABLMP:NONE GIVENNOMS LEGACY EXTERNAL LABPREV. PAP:NONE GIVENNOMS LEGACY EXTERNAL LABPREV. BX:NONE GIVEN [facility] EXTERNAL LABSOURCE:None givenNOMS LEGACY EXTERNAL LABSTATEMENT OF ADEQUACY:SEE COMMENTNOMS LEGACY EXTERNAL LABComment: Satisfactory for evaluation. Endocervical/transformation zone component present. INTERPRETATION/RESULT:Negative for intraepithelial lesion or malignancy.[facility] EXTERNAL LABCYTOTECHNOLOGIST:SEE COMMENTNOMS LEGACY EXTERNAL LABComment: LLT, CT(ASCP) CT screening location: [place] [address]. REVIEW CONSTRUCTION OR LEAK GANG LABORER:SEE COMMENTNOMS LEGACY EXTERNAL LABComment: [facility], CT(ASCP) CT screening location: [place] [address]. COMMENTSEE COMMENTNOSC LEGACY EXTERNAL LABComment: EXPLANATORY NOTE: The Pap is a screening test for cervical cancer. It is not a diagnostic test and is subject to false negative and false positive results. It is most reliable when a satisfactory sample, regularly obtained, is submitted with relevant clinical findings and history, and when the Pap result is evaluated along with historic and current clinical information. HPV MRNA E6/E7Not DetectedNot DetectedNOMS LEGACY EXTERNAL LABComment: Methodology: Preform Machine Operator-Mediated Amplification This assay detects E6/E7 viral messenger RNA (mRNA) from 14 high-risk HPV types (16,18,31,33,35,39,45,51,52,56,58,59,66,68). Cervical sources are required for HPV testing. If a vaginal source from a patient who has had a total hysterectomy with removal of cervix was submitted, please contact the testing laboratory for alternative testing options. For additional information, please refer to http://education.Justworks.SundaySky/faq/LJZ057n8 (This link if provided for information/ educational purposes only.) Specimen (Source)Anatomical Location / LateralityCollection Method / Volume Collection TimeReceived Time12/26/2022 Narrative Authorizing ProviderResult TypeResult StatusYue Canseco CNMECW LABSFinal ResultPerforming OrganizationAddressCity/State/ZIP CodePhone Number [facility] from Last 3 Months or Most Recently Relevant to Health Maintenance Insurance Care Teams Team MemberRelationshipSpecialtyStart DateEnd Date Unallocated, Noms Provider, [address] [place] [address] PCP - GeneralFamily Nlwjoejx16/2/24 Mirella Thibodeaux NP [address] [address] Nurse PractitionerFamily Ltlifrwh56/2/24 Yue Canseco CNM [address] [place], [place] [id number] Obstetrics and Avgxuorwaw91/2/24
--- OUTSIDE RECORDS SUMMARY | 2025-11-23 09:01 | XMS_ITS | Patient Health Record ---
Author Organization [facility] vices Address [address] [place], [place] [id number] Care Team Providers Care Notereader Name Role Phone KuldeepGlenna young Primary Care Provider [phone] Audrey Bob Unavailable [phone] Kenia Aragon Unavailable [phone] Josy Luo Unavailable [phone] Allergies Allergen (clinical drug ingredient) Drug/Non Drug Allergy documented on EMR Reaction Allergy Type Onset Date Status Iodinated contrast media (substance) Iodinated Contrast Media Contrast Dye Drug Allergy Active Reason For Referral No Information Medications Medication SIG (Take, Route, Frequency, Duration) Notes Start Date End Date Status MiraLax 17 GM/SCOOP Powder 1 scoop Orally daily; Duration: 30 days 5ActivePantoprazole Sodium 40 MG Tablet Delayed Release1 tablet 1/2 to 1 hour before morning meal Orally Once a day; Duration: 30 day(s)07/29/2025 ActiveSymbicort 80-4.5 MCG/ACT Aerosol1 puff Inhalation twice a day; Duration: 30 days5ActiveAlbuterol Sulfate HFA 108 (90 Base) MCG/ACT Aerosol SolutionINHALE 2 PUFFS BY MOUTH EVERY 4 HOURS FOR 14 DAYS Inhalation; Duration: 17 DaysprnActive Social History Tobacco Use: Social History Observation Description Date Details (start date - stop date) Never Smoker NA - NA Sex Assigned At : Social History Observation Description Sex Assigned At Female Social History Social DeterminantsSocial InfoQuestionAnswerNotesPRAPAREDate Completed/Updated: 07/29/2025patient entered dataWhat is your current housing situation?I have housingpatient entered dataAre you worried about losing your housing?No patient entered dataWhat is the highest level of school that you have finished?More than high schoolpatient entered dataWhat is your 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 Check all that applyI do not have problems meeting my needsHas lack of transportation kept you from medical appointments, meetings, work or from getting things needed for daily living?NoHow often do you see or talk to people that you care about and feel close to? (For example: talkingto friends on the phone, visiting friends or family, going to lutheran or club meetings)More than 5 times a weekpatient entered dataHow stressed are you? Stress is when someone feels tense, nervous, anxious, or can't sleep at nightbecause their mind is troubledA little bitpatient entered dataIn the past year have you spent more than 2 nights in a row in a skilled nursing, correction, long-term center, orjuvenile correctional facility?Nopatient entered dataAre you a refugee?Nopatient entered dataWhat country are you from?[place] patient entered dataDo you feel physically and emotionally safe where you currently live?Yespatient entered dataIn the past year, have you been afraid of your partner or ex-partner?Nopatient entered dataPRAPARE Score:3Sexual History:Social InfoQuestionAnswerNotesFamily PlanningAre you or your partner planning on becoming in the next year if not already ?NoPCMH and UDS DemographicsSocial InfoQuestionAnswerNotesPrimary Care Medical Home QuestionsDo you have any barriers to learning?Nonepatient entered dataWhat is your preferred method of learning?Watching a videopatient entered dataHow often do you need to have someone help you read instructions?Neverpatient entered dataDrugs/Alcohol/Caffeine:Social InfoQuestionAnswerNotesCAGE-AID Questionnaire (2018 Edition)Have you ever felt that you ought to cut down on your drinking or drug use?Nopatient entered dataHave people annoyed you by criticizing your drinking or drug use?Nopatient entered dataHave you ever felt bad or guilty about your drinking or drug use?Nopatient entered dataHave you ever had a drink or used drugs first thing in the morning to steady your nerves or to get rid of a hangover?Nopatient entered dataCAGE-AID Score0 InterpretationNegativeTobacco Use:Social InfoQuestionAnswerNotesTobacco Control (Standard)Tobacco use:NonsmokerAdditional Findings: Tobacco non-userCurrent nonsmokerTobacco Use/SmokingTobacco use:nonsmokerpatient entered data Problems Problem Type SNOMED Code ICD Code Onset Dates Problem Status W/U Status Risk Notes Problem Exacerbation of asthma (982339817) Asthma exacerbation, mild (J45.901) ActiveconfirmedProblemVaricose vein (95035345)Varicose vein (I86.8)Active confirmedProblemUnable to concentrate (finding) (83951671)Difficulty concentrating (R41.840)Activeconfirmed Vital Signs Heart Rate 84 /min 02/17/2025 Hxpwtprewwd71.2 degrees Yeqioiyymi43/04/2025, 07/29/2025 10:38:56 AM EDT >Respiratory Rate18 /min07/29/2025, 07/29/2025 10:38:56 AM EDT >Blood pressure vjxdptaeg50 mm Hg07/29/2025, 07/29/2025 10:38:56 AM EDT >Height-cm167.64 cm07/29/2025, 07/29/2025 10:38:56 AM EDT >Weight-kg99.43 kg07/29/2025, 07/29/2025 10:38:56 AM EDT > Arejwl24 in07/29/2025, 07/29/2025 10:38:56 AM EDT >Blood pressure mm Hg07/29/2025, 07/29/2025 10:38:56 AM EDT >Weight 219.2 lbs07/29/2025Lynsey robert 07/29/2025 10:38:56 AM EDT >BMI35.38 kg/m2 07/29/2025oung, Lynsey 07/29/2025 10:38:56 AM EDT > Encounters Encounter Location Date Provider Diagnosis [facility] [address], [place] [id number] 02/01/2025 Josydayana Nashrickie Dental caries into d entine K02.62 ; Encounter for screening for dental disorders Z13.84 and Encounter for dental examination and cleaning with abnormal findings Z01.21 [facility] [address] [place], [place] [id number] 02/17/2025 Josy Nashrickie Obesity, Class II, B NM 35-39.9 E66.812 ; Encounter for dental examination and cleaning with abnormal findings Z01.21 ; Dietary counseling Z71.3 and Exercise counseling Z71.82 [address] [place], [place] [id number] 07/29/2025 Glenna Kuldeep Abdominal discomfort R10.9 ; Asthma exacerbation, mild J45.901 ; Screening for HIV (human immunodeficiency virus) Z11.4 and Screening for cardiovascular condition Z13.6 Assessments Encounter Date Diagnosis (ICD Code) Assessment Notes Treatment Notes Treatment Clinical Notes Section Notes 07/29/2025 Abdominal discomfort (ICD-10 - R 10.9) differentials considered: GERD, gastritis, liver etiology, IBS, constipation. I will get basic labs. Start protonix and miralax. f/u in 4 weeks. IF symptoms not improving will consider pcczibstn34/10/2025Dental caries into dentine (ICD-10 - K02.62)02/17/2025Obesity, Class II, BMI 35-39.9 (ICD-10 - E66.812)07/29/2025 Asthma exacerbation, mild (ICD-10 - J45.901)On exam she was wheezing, reports rash as a side effects with prednisone and want to avoid. I will start symbicort and advise rescue inhaler as needed. Discussed reassuring vs non reassuring symptomsand when to call the office or go to ER. PVU02/01/2025Encounter for screening for dental disorders (ICD-10 - Z13.84)02/17/2025Encounter for dental examination and cleaning with abnormal findings (ICD-10 - Z01.21)02/01/2025 Encounter for dental examination and cleaning with abnormal findings (ICD-10 - Z01.21)02/17/2025Dietary counseling (ICD-10 - Z71.3)07/29/2025Screening for HIV (human immunodeficiency virus) (ICD-10 - Z11.4)07/29/2025Screening for cardiovascular condition (ICD-10 - Z13.6)02/17/2025Exercise counseling (ICD-10 - Z71.82) Plan Of Treatment No Information Insurance Providers Payer Name Payer Address Payer Phone Subscriber Number Group Number Insured Name Patient Relationship to Insured Coverage Start Date Coverage End Date [facility] [address] [place] [address] [id number] Engram, RebeccaSelf - patient is the [id number] [address] [facility] [address] [place] [phone], RebeccaSelf - patient is the [id number] 2023Medicaid [facility] after [place] [employer] [address] [place], [place] [id number], RebeccaSelf - patient is the [id number] 2023[employer]icaid [facility] [address] [place] [address] [id number], RebeccaSelf - patient is the [id number] 2022 Medical (General) History Medical History History ICD Code asthma Surgical History Surgery Date(Month/Year) brain surgery 2001 precancerous eye surgery 2013 salpingectomy 2022 uterine ablation spring 2024 Hospitalization History Reason Date(Month/Year) see above
--- OUTSIDE RECORDS SUMMARY | 2025-11-23 09:04 | XMS_ITS | CCD ---
Author Organization [facility] CliniSywv Care Team Providers Care Window Dresser Name Role Phone Unavailable Primary Care Provider UnavailVALERIE ChowE Admitting Unavailable LAMBERTO CANSECO Attending Unavailable SUSIE ., DR BROWN Admitting Unavailable SUSIE ., DR BROWN Attending Unavailable SUSIE ., DR BROWN Consulting Unavailable SUSIE ., DR BROWN Attending Unavailable SUSIE ., DR BROWN Admitting Unavailable Hackendmitry WATER MAIN INSPECTOR, Mirella A Unavailable Harleen CNValerie Mcgowane L Unavailable [phone] Unallocated MD, Noms Provider Primary Care Provi mitchell Abel Richards DO Attending Provider [phone] Abel Richards Attending Unavailable Abel Richards Admitting Unavailable Brandon Church V. Attending Unavailable Bruno, Chuck Jac Primary Care Unavailable Brandon Church V. Admitting Unavailable Brandon Church V. Attending Unavailable Bruno Chuck Jac Primary Care Unavailable Brandon Church [...] Attending Unavailable Omar Marin Admitting Unavailable Morelia WATER MAIN INSPECTOR, Mirella A Unavailable LAMBERTO CANSECO Attending Unavailable MATHEW MONTEJO Attending Unavailable ABEL RICHARDS Attending Unavailable LAMBERTO CANSECO Referring Unavailable ABEL RICHARDS Attending Unavailable VIKY CARRION Attending Unavailable ABEL RICHARDS Attending Unavailable LAMBERTO CANSECO Attending Unavailable LAMBERTO CANSECO Referring Unavailable Allergies Allergy ClassificationReported Allergen(s)Allergy TypeDate of OnsetReaction(s) Facility (1 source)Iodine (And Iodine Containting Drugs)Drug allergy (disorder)11-25-2001 [facility] Repository (20 sources)Iodine; Translations: [iodine]Drug Guugbiw87-33-4952[facility] Work Phone: (20 sources)Iodinated Contrast MediaDrug Rgmxlgpmttw89-79-0860Elovo, ItchingNOCenterPointe Hospital (10 sources)OtherPropensity to adverse pbhhaloco54-33-5403[facility] Medications Current Medications MedicationDrug Class(es)DatesSig (Normalized)Sig (Original)acetaminophen 500 mg oral tablet (3 sources)Start: 18-68-2815dgfs 2 tablets by mouth every eight hours as needed for feverAcetaminophen (Tylenol Extra Strength) 500 mg tablet Active 1000 MG PO Every 8 hours as needed for fever 42 7 August 25, 2024 12:00amStart: 97-38-5669bgrpywtcdtrpy (TYLENOL) tablet 1,000 [id number] 200 actuat albuterol 0.09 mg/actuat metered dose inhaler (4 sources)beta2-Adrenergic AgonistStart: 42-45-5407vkau 1 puff(s) by inhalation every four hoursAlbuterol Sulfate 90 mcg/actuation HFA aerosol inhaler Active 2 PUFF INHALATION Q4H 1 14 August 25, 2024 12:00amtake 2 puff(s) by mouth every four hoursalbuterol HFA 90 mcg/act inhaler INHALE 2 PUFFS BY MOUTH EVERY 4 HOURS FOR 14 DAYS Inhalation; Duration: 17 Days Activebenzocaine 200 mg/ml / menthol 5 mg/ml topical spray (1 source)Standardized Chemical AllergenStart: 76-54-0864kbfkhzviln-menthol (DERMOPLAST) 20-0.5 % spray60 actuat budesonide 0.08 mg/actuat / formoterol fumarate 0.0045 mg/actuat metered dose inhaler (2 sources)Corticosteroid, beta2-Adrenergic AgonistStart: 61-33-0187zfqu 1 puff(s) by inhalation onceSymbicort 80-4.5 MCG/ACT inhaler 1 puff every 12 (twelve) hours 07/29/2025 Active1 ml carboprost 0.25 mg/ml injection (1 source)Prostaglandin AnalogStart: 95-07-3697lgetocdwca (HEMABATE) injection 250 mcgdesogestrel 0.15 mg / ethinyl estradiol 0.03 mg oral tablet (2 sources)Progestin, EstrogenStart: 08-03-2025 End: 57-26-5554veojmdyzibe-ethinyl estradiol (Apri) 0.15-30 MG-MCG tablet Indications: Dysmenorrhea , Abnormal uterine bleeding (AUB) Take 1 tablet by mouth Daily 28 tablet 12 08/03/2025 08/03/2026 Activedextromethorphan hydrobromide 15 mg / guaiFENesin 400 mg / pseudoephedrine hydrochloride 60 mg oraltablet (2 sources)alpha-Adrenergic Agonist, Uncompetitive G-pyvhcb-Q-aspartate Receptor Antagonist, Sigma-1 AgonistStart: 13-51-0633xpej 4 tablets by mouth every twenty-four hours as agaagoUuannanqwfesykf-Oh-Roayifhstex (Capmist Dm) 60-15-400 mg tablet Active 1 TAB PO EVERY 4-6 HOURS as needed for cold symptoms August 25, 2024 12:00am do not exceed 4 doses per 24 hrsdocusate sodium 100 mg oral capsule (1 source)Start: 19-65-3540tfmjgaod sodium (COLACE) capsule 100 mgdoxycycline hyclate 100 mg oral capsule (1 source)Tetracycline-class DrugStart: 03-01-2025 End: 47-48-2924aiablqlbmfg (Vibramycin) 100 MG capsule Indications: DUB (dysfunctional uterine bleeding) Take 1 capsule (100 mg) by mouth in the morning and 1 capsule (100 mg) before bedtime. Do all this for 7 days. Take with at least 8 ounces (large glass) of water, do not lie down for 30 minutes after. 14 capsule 03/01/2025 03/08/2025 Activehydrocortisone 25 mg/ml rectal cream (1 source)CorticosteroidStart: 36-96-1628dcgntkvzauadot (ANUSOL-HC) 2.5 % rectal creamibuprofen 800 mg oral tablet (1 source)Nonsteroidal Anti-inflammatory DrugStart: 89-79-9327zhytpuocs (ADVIL;MOTRIN) tablet 800 mglanolin 1000 mg/ml topical cream (1 source)Start: 33-64-4030kwuensqq lanolin ointment1 ml methylergonovine maleate 0.2 mg/ml injection (1 source)Ergot DerivativeStart: 93-73-5760japlvfjtprejxlpw (METHERGINE) injection 200 mcgmiSOPROStol 0.1 mg oral tablet (1 source)Prostaglandin E1 AnalogStart: 69-75-6026siGUBTCKqru (CYTOTEC) tablet 800 mcgpredniSONE 20 mg oral tablet (2 sources)Start: 92-88-8761euiw 1 tablet by mouth twice dailyPrednisone 20 mg tablet Active 20 MG PO Twice daily 08 29August 25, 2024 12:00amPrenatal 28-0.8 MG tablet (5 sources) End: 61-63-4077Gzfkwtes 28-0.8 MG tablet 1 (one) time each day at the same time 11/12/2024 Discontinued (Therapy completed) 28-0.8 MG tablet 1 (one) time each day at the same time Active5 ml sodium chloride 9 mg/ml injection (3 sources)Start: .9 % sodium chloride infusionStart: 11-08-2022 sodium chloride flush 0.9 % injection 5-40 mLwitch luis f 500 mg/ml medicated pad (1 source)Start: 47-61-4613iucky luis f-glycerin (TUCKS) pad Completed/Discontinued Medications MedicationDrug Class(es)DatesSig (Normalized)Sig (Original)2 ml butorphanol tartrate 2 mg/ml injection (1 source)Opioid Agonist/AntagonistStart: 11-07-2022 End: 18-64-2172jfqgdptxvmc (STADOL) injection 1 mgcalcium chloride 0.0014 meq/ml / potassium chloride 0.004 meq/ml / sodium chloride 0.103 meq/ml / sodium lactate 0.028 meq/ml injectable solution (1 source)Start: 11-07-2022 End: 11-03-3517rglaesom ringers infusionoxytocin (PITOCIN) 30 units in 500 mL infusion (1 source)Start: 11-07-2022 End: 27-99-7380qsxyghci (PITOCIN) 30 units in 500 mL infusionrho(d) immune globulin, human 1500 unt prefilled syringe (1 source)Human Immunoglobulin GStart: 11-08-2022 End: 07-26-4230eod(D) immune globulin (HYPERRHO S/D) injection 300 mcg Problems Active Problems Problem ClassificationProblemDateDocumented DateEpisodic/ChronicAbdominal pain (5 sources)Pain in female pelvis; Translations: [Pelvic and perineal pain] 49-22-9298LoappdtqIgbxjyp disorders (4 sources)Post-traumatic stress disorder, unspecified; Translations: [Anxiety disorder, unspecified]Onset: 47-60-7764UdvqgqsRtnrifzba-deficit, conduct, and disruptive behavior disorders (2 sources)Attention-deficit hyperactivity disorder, predominantly inattentive type; Translations: [Attention-deficit hyperactivity disorder. predominantly inattentive type]Onset: 98-54-0937JjrwbgbFknnnnhyn disorders (7 sources)Menorrhagia; Translations: [Excessive and frequent menstruation with regular cycle]54-96-2618RfnsbmsCyjqdbqnq of unspecified nature or uncertain behavior (2 sources)Neoplastic disease; Translations: [Neoplasm of unspecified behavior of bone, soft tissue, and skin]68-04-7762MiaplbyoEfgkd aftercare (2 sources)Surgical follow-up; Translations: [Encounter for follow-up examination after completed treatment for conditions other than malignant neoplasm]85-95-3323JtcwrxulMqgtv and unspecified benign neoplasm (2 sources)Melanocytic nevus of trunk; Translations: [Melanocytic nevi of trunk] 13-74-7249VjkdfhjsZxlri and unspecified benign neoplasm (2 sources)Melanocytic nevi of right upper limb, including shoulder; Translations: [Benign neoplasm of skin ofupper limb, including shoulder] 29-62-0008XyxwcdffChxtb and unspecified benign neoplasm (2 sources)Skin lesion; Translations: [Hemangioma of skin and subcutaneous tissue]59-94-1287JpgbsfphYbmwb endocrine disorders (1 source)Polycystic ovary syndrome; Translations: [Polycystic ovarian syndrome] 79-59-0990DzkzpuoQyzce female genital disorders (10 sources)Abnormal uterine bleeding; Translations: [Other specified abnormal uterine and vaginal bleeding]73-39-0353JntsfvcAfeyp female genital disorders (1 source)Pain in female genitalia on intercourse; Translations: [Unspecified dyspareunia]58-14-0576FnpplknTilvt gastrointestinal disorders (4 sources)Abdominal bloating; Translations: [Abdominal distension (gaseous)] 76-91-5011ZmrcohmeBqitv gastrointestinal disorders (4 sources)Constipation; Translations: [Constipation, unspecified]08-08-2025 EpisodicOther screening for suspected conditions (not mental disorders or infectious disease) (2 sources)Cancer cervix screening status; Translations: [Encounter for screening for malignant neoplasm of cervix]16-62-9138QhzzhltoMcxxfyrjg; thrombophlebitis and thromboembolism (1 source)Phlebitis and thrombophlebitis of superficial vessels of left lower extremity; Translations: [Phlebitis and thrombophlebitis of superficial vessels of left lower extremity]Onset: 52-53-1842DyvihfsnFpdfdeer veins of lower extremity (1 source)Varicose veins of bilateral lower extremities with pain; Translations: [Varicose veins of bilaterallower extremities with pain]Onset: 04-28-2025 Episodic Past or Other Problems Problem ClassificationProblemDateDocumented DateEpisodic/ChronicCancer of cervix (20 sources)Atypical squamous cells of undetermined significance on cervical Papanicolaou smear; Translations: [Atypical squamous cells of undetermined significance on cytologic smear of cervix (ASC-US)]Onset: EpisodicOther complications of ; puerperium affecting management of mother (20 sources) heart echogenicity on obstetric ultrasound scan; Translations: [Echogenic focus of heart of fetus affecting management of mother in dexter , antepartum]Onset: 443574-89-7299OnqojaiyAvhjj complications of (20 sources)RhD negative; Translations: [Other specified related conditions, unspecified trimester]Onset: 481772-45-7495YxiiuupbUppks complications of (20 sources)Thrombocytopenic disorder; Translations: [Other diseases of the blood and blood-forming organs and certain disorders involving the immune mechanism complicating , unspecified trimester]Onset: 01-27-2019 82-06-8613OctkkhfeJkoyg female genital disorders (20 sources)Vaginal odor; Translations: [Other specified noninflammatory disorders of vagina]Onset: 227434-63-7505RtxqrvjbNbhdc and delivery including normal (20 sources)Term ; Translations: [Encounter for supervision of normal , unspecified, unspecified trimester]Onset: 02-70-5219DgujgxktNacwhygi codes; unclassified (20 sources)Genetic disorder carrier; 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]Onset: 772138-39-6420IfjolecyVlkxkqgs codes; unclassified (20 sources)Family history of hereditary disease; Translations: [Family history of other specified conditions]Onset: 614112-29-8031Yujvinsb Results Test NameValueInterpretationReference RangeFacilityCoding Summaryon 05-21-2025 Coding SummaryHTMLBase 64 VwotljxnJFc8mJb+PGhlYWQ+XE7NPOGjL11ieGVldV3vN7QSIGjUIjedTVNHKLzPIpAewdGnPB8spHXx ZXJu [file] ZTo (more content not included)...[facility] HospitalUS LE Venous Duplex Lefton 88-47-4720YX LE Venous Duplex LeftEXAMINATION: US LE Venous Duplex Left HISTORY: Phlebitis [...] Brandon Church MD 05/13/25 1:21 pm Technologist: [facility] Summaryon 54-84-0580Qxaiba Summary HTMLBase 64 VuuldjyjASh7rIe+PGhlYWQ+JO2EOZHuI28vjNZnvE0cA3VTIKdTEzxuFJCVBUaUHnQnpvJmKA3ynFJf ZXJu [file] ZTo (more content not included)...[facility] Endovenous Ablation 1st Veinon 05-61-1824HN Endovenous Ablation 1st VeinEXAMINATION: US Endovenous Ablation 1st Vein HISTORY: Varicose [...] Omar Marin MD 05/06/25 3:02 pm Technologist: [facility] Summaryon 84-86-3289Apnjfi Summary HTMLBase 64 XmojwijoUJh9oJh+PGhlYWQ+HO9NSNZiS22gtPYpyN4zR0EEHRjXWotcDGIXKZmXByWozbYgZL7tzZOh ZXJu [file] ZTo (more content not included)...NormalUniversity Hospitals Geneva [facility] Center HospitalCoding SummaryHTMLBase 64 VcmhdkcxVSv0pPv+PGhlYWQ+RU8KMSOrO29ldUJilW2eJ5IMVZzNLrjuUTFPDOhUTwGswhInKY3heAJn ZXJu [file] ZTo (more content not included)...[facility] CBC WITH AUTO DIFF on 15-87-6899VMYKJLFGA ABSOLUTE AUTO0.1NOMS HealthcareBasophils/100 WBC (Bld)0.7 %0.2 - 2.0 %NOMS HealthcareEosinophils/100 WBC (Bld)3.1 %0.9 - 7.0 %NOMSaint Mary'S Health CenterErythrocyte distribution width (RBC) [Ratio]12.2 %11.0 - 15.0 %NOMS HealthcareHematocrit (Bld) [Volume fraction]37.9 %36.0 - 48.0 %[facility] Hemoglobin (Bld) [Mass/Vol]12.4 g/dL12.0 - 16.0 g/dLHawthorn Children's Psychiatric HospitalIMMATURE GRANULOCYTES ABS AUTO0.02NOMS HealthcareImmature granulocytes/100 WBC (Bld)0.3 % 0.0 - 0.5 %[facility] Psychiatric HospitalLYMPHOCYTES ABSOLUTE AUTO2.3[facility] Lymphocytes/100 WBC (Bld)31.9 %20.5 - 60.0 %[facility] NetworkH (RBC) [Entitic mass]28.8 pg26.7 - 34.0 pgNOThe Rehabilitation InstituteHC (RBC) [Mass/Vol]32.7 g/dL29.9 - 35.2 g/dLHawthorn Children's Psychiatric HospitalMCV (RBC) [Entitic vol]88.1 fL81.0 - 99.0 fLHawthorn Children's Psychiatric HospitalMONOCYTES ABSOLUTE AUTO0.6NOIL HealthcareMonocytes/100 WBC (Bld)8.1 % 1.7 - 12.0 %NOMSaint Mary'S Health CenterNEUTROPHILS ABSOLUTE ICJP1ZURJ Healthcare Neutrophils/100 WBC (Bld)55.9 %43.0 - 75.0 %[facility] Psychiatric HospitalPlatelet mean volume (Bld) [Entitic vol]11.9 fL9.5 - 13.5 fLNOCenterPointe HospitalTBH EO #0.2[facility] TBH ISB067NRDQ [facility] HospitalTB RBC4.3NOMS [facility] HospitalTB WBC7.2[facility] CLINISYNCNOIL HealthcareCoding Summaryon 34-44-2693Hdbrdp SummaryHTMLBase 64 FknwtsfxYEz6sYj+PGhlYWQ+XT2GEWAhQ61ryBHodC1mC6PUDZpGHoexBMJAWExILmMmqzJeUN3zeFZf ZXJu [file] ZTo (more content not included)...NormalUniversity Hospitals Geneva Medical Center HospitalCoding SummaryHTMLBase 64 DeregpdtRKv2gIi+PGhlYWQ+HB3KQTGrZ03pxMSaiG6kI1ZXLKhCIqanSRLNBFsORuApbeKfEM3ckDGp ZXJu [file] ZTo (more content not included)...[facility] LE Venous Duplex Righton 81-04-1938HQ LE Venous Duplex RightEXAMINATION: US LE Venous Duplex Right HISTORY: Phlebitis [...] Brandon Church MD 04/06/25 9:27 am Technologist: [facility] HospitalCoding Summaryon 35-52-3431Oocgoi Summary HTMLBase 64 StynhqycTMr5lMf+PGhlYWQ+GM9DKUQfS33nyUNhuT6vI1GZEMrOBxytYJHOUDfKAiAywaSuPY5bsJMd ZXJu [file] ZTo (more content not included)...[facility] HospitalPATHOLOGY REQUEST FOR LAB CORPon 75-25-5717PSJXMZJSV REQUEST FOR LAB CENTERPOINTE [facility]OS[facility]ITAL HealthcareComment on above:See report. Scanned copy available in EMR.[facility] ( test) Ql (U)on 95-98-4851Rfjoytjejsadlf and review of laboratory resultsNoalHawthorn Children's Psychiatric HospitalPre Test, UrNegativeNegativeUNC Health WaynePathology Request for Lab Corpon 08-70-2570Rewtupqhq Request for Lab CorpHCA Florida [facility] Hospital Physician GroupComment on above:Order Comment: EMBX Result Comment: See report. Scanned copy available in EMR. PERFORMED BY: [place] [address] PATHOLOGIST SOCCER COMMENTATOR MILKA MATTHEWS M.D.Performed By: #### [facility] #### [place] [address] USAUS LE Venous Duplex Lefton 72-33-3907HB LE Venous Duplex LeftEXAMINATION: US LE Venous Duplex Left HISTORY: Phlebitis [...] Brandon Church MD 03/23/25 10:58 a Technologist: [facility] HospitalPatient Handouton 01-31-7900Thacawp HandoutSclerotherapy, Care After After sclerotherapy, it is common [...] how to take care of your injection site.Make sure you: ? Wash your hands with soap and water for at least 20 seconds before and after you change your bandage. If you cannot use soap and water, use hand sawsmith. ? Change your bandage. ? Check the area around any injection sites (injection areas) every day for signs of infection. Check for: ? More redness, swelling, or pain. ? More fluid or blood. ? Warmth. ? Pus or a bad smell. Activity ? Do light exercise every day, as told by your health care provider. Walking or riding a stationarybike may be good options for you. ? Return to your normal activities when your health care provider says that it is safe. Ask what activities are safe for you. General instructions ? Take ovpl-uve-mlkwhxr and prescription medicines only as told by [...] provider. Document Revised: 02/14/2023 Document Reviewed: 02/14/2023 [employer] Patient Education ? 2023 [employer] Radiology Sclerotherapy, Care After After sclerotherapy, [...] how to take care of your injection site.Make sure you: ? Wash your hands with soap and water for at least 20 seconds before and after you change your bandage. If you cannot use soap and water, use hand sawsmith. ? Change your bandage. ? Check the area around any injection sites (injection areas) every day for signs of infection. Check for: ? More redness, swelling, or pain. ? More fluid or blood. ? Warmth. ? Pus or a bad smell. Activity ? Do light exercise every day, as told by your health care provider. Walking or riding a stationarybike may be good options for you. ? Return to your normal activities when your health care provider says that it is safe. Ask what activities are safe for you. General instructions ? Take xdez-jyt-nvujjql and prescription medicines only as told by [...] treatment (more content not included)... [facility] Summaryon 23-39-7320Lhxtmx SummaryHTMLBase 64 LvbtmsdoVPt0fFk+PGhlYWQ+XW3ALCSuT40xrZNplL4tG1LMGPyLDrbjDEGOVRkTMnQwzeGeIV6ccHXj ZXJu [file] ZTo (more content not included)...[facility] HospitalHEMOGLOBIN A1con 09-75-6372EMFJYZGOEL A1c5.3 % of total HgbNormal<5.7Quest DiagnosticsComment on above:Result Comment: For the purpose of screening for the presence of diabetes: <5.7% Consistent with the absence of diabetes 5.7-6.4% Consistent with increased risk for diabetes (prediabetes) > or =6.5% Consistent with diabetes This assay result is consistent with a decreased risk of diabetes. Currently, no consensus exists regarding use of hemoglobin A1c for diagnosis of diabetes in children. According to [place] Diabetes Association (ADA) guidelines, hemoglobin A1c <7.0% represents optimal control in non- diabetic patients. Different metrics may apply to specific patient populations. Standards of Medical Care in Diabetes(ADA).Performed By: #### 496 #### [facility] [address], [address] [place] [address] Highway Maintenance Crew Worker: Kosta Perdue MDUrinalysis macro (dipstick) panel (U)on 97-34-7809Rfbxxkxxg, UANegativeNegative - 4(70) +++ mg/dLNOMS HealthcareBlood, UANegativeNegative - 50 Bernardo/mcLNOMS HealthcareClarity, UAClearNOMS Healthcare Color, UAYellowNOMS HealthcareGlucose, UANegativeNegative - 1999(110) ++++ mg/dL [facility] HealthcareInterpretation and review of laboratory resultsNormalNOMS HealthcareKetones, UANegativeNegative - 160(16) ++++ mg/dLNOMS Healthcare Leukocytes, UANegativeNegative - 500+++ Matti/mcLNOMS HealthcareNitrite, UA NegativeNegative - PositiveNOMS HealthcarepH, UA6.55 - 9NOMS HealthcareProtein, UANegativeNegative - 2000(20) ++++ mg/dLNOMS HealthcareSpec Grav, UA1.021 - 1.03 NOMS HealthcareUrobilinogen, UA1.00.2 - 12 mg/dLNOMS HealthcareNOMS HealthcareNo Panel Informationon 33-20-0654Pfic of biopsy: tangential Informed consent: discussed and [...] Photo taken Am[facility] of lidocaine [facility]: 0.2 [facility]Type [facility] Informed consent: discussed and [...] Photo taken Amount of lidocaine used: 0.3 [facility] HospitalUS LE Venous Duplex Righton 27-94-1736QU LE Venous Duplex RightEXAMINATION: US LE Venous Duplex Right HISTORY: Phlebitis [...] Brandon Church MD 02/25/25 11:00 a Technologist: [facility] Endovenous Ablation 1st Veinon 63-29-4358WT Endovenous Ablation 1st VeinEXAMINATION: US Endovenous Ablation 1st Vein , right [...] Brandon Church MD 02/18/25 10:27 a Technologist: [facility] Recordson 58-99-3856Zoxbudn [id number]#1.00OTGTSuburban Community Hospital & [facility] [id number]#1.00OTThe University of Toledo Medical CenterRad - Other Radiology Reporton 44-40-7017Yhe - Other Radiology [id number]#1.00OTAdams [facility] Hospital Rad - Other Radiology [id number]#1.00OTGTCincinnati VA Medical CenterUS PELVIS TRANSVAGINALon 22-53-5745LK PELVIS TRANSVAGINAL EXAM: Pelvic Ultrasound, Endovaginal: REASON [...] report is generated using voice recognition reporting ([employer]). On occasion [employer] erroneously drops words from the report or replaces the spoken word with similar sounding words. Please call with any questions/concerns regarding this report.* Dictated and transcribed 12/10/2024/jf This report has been electronically signed and approved by the interpreting radiologist.NormalNot AvailableNo Panel InformationOrdered By: Gissell Malagon on 74-17-0813Ufnbn Strep (POC)[facility]erm[facility] HospitalRHOGAM INJECTION ONLYon 95-17-6160Jbgzd product type Nom (BPU)RHIGCENTRA VIRGINIA BAPTIST HOSPITALStatus of UnitsTRANSFUSEDBON ADENA PIKE MEDICAL CENTERTransfusion StatusOK TO TRANSFUSEBON [facility] Nrzwcbn0XQZ [facility] WuhuunLN48Y34/32 [facility]URSING HOMECB with Diffon 05-55-8883Vpf. Basophil0.03 k/uLNormal0.00-0.20[facility] HospitalComment on above:Performed By: #### CDP #### [facility] [address] [place] [address] Entry Writer: Anjali Mcneill. Eosinophil<0.02Byflxu6.00-0.44MerSumma Health Wadsworth - Rittman Medical Center HospitalComment on above:Performed By: #### CDP #### [address] [place] [address] Entry Writer: MDAbs. OsitoImm.Granulocyte0.06 k/uLNormal0.00-0.30MerSumma Health Wadsworth - Rittman Medical Center HospitalComment on above:Performed By: #### CDP #### [address] [place], [facility] Entry Writer: MDAbs. OsitoNeutrophil (Seg)8.25 k/uLHigh1.50-8.10MerSumma Health Wadsworth - Rittman Medical Center HospitalComment on above:Performed By: #### CDP #### [address] [place] [address] Entry Writer: Brandon Thompson MDBasophils/100 WBC (Bld)0 %Normal0-2[facility] HospitalComment on above:Performed By: #### CDP #### [address] [place], [place] [id number] Entry Writer: Brandon Thompson MDEosinophils/100 WBC (Bld)0 %Low1-4MerSumma Health Wadsworth - Rittman Medical Center HospitalComment on above:Performed By: #### CDP #### [address] [place], [place] [address] Entry Writer: Brandon Thompson MDErythrocyte distribution width (RBC) [Ratio]12.6 % Wbohaq58.8-14.4[facility] HospitalComment on above:Performed By: #### CDP #### [address] [place], [place] [address] Entry Writer: Brandon Thompson MDHematocrit (Bld) [Volume fraction]39.9 %Normal 36.3-47.1[facility] HospitalComment on above:Performed By: #### CDP #### [address] [place], [place] [id number] Entry Writer: Brandon Thompson MDHemoglobin (Bld) [Mass/Vol]13.5 g/dLNormal 11.9-15.1[facility] HospitalComment on above:Performed By: #### CDP #### [address] [place], [place] [id number] Entry Writer: Brandon Thompson MDImmature granulocytes/100 WBC (Bld)1 %Ofrg3Mkjfe [facility]iffin HospitalComment on above:Performed By: #### CDP #### [address] [place], [place] [id number] Entry Writer: Brandon Thompson MDLymphocytes (Bld) [#/Vol]1.59 10*3/uLNormal 1.10-3.70[facility] HospitalComment on above:Performed By: #### CDP #### [address] [place], [place] [id number] Entry Writer: Malika Mcneillmphocytes/100 WBC (Bld)15 %Npu14-88Cryny [facility]iffin HospitalComment on above:Performed By: #### CDP #### [address] [place] [address] Entry Writer: JOSÉ LUIS McneillCH (RBC) [Entitic mass]32.6 xfOmjssl70.2-33.5 [facility] HospitalComment on above:Performed By: #### CDP #### [address] [place], [place] [id number] Entry Writer: TAYLOR McneillC (RBC) [Mass/Vol]33.8 g/sECqmful07.4-34.8[facility] HospitalComment on above:Performed By: #### CDP #### [address] [place], [place] [address]183 Entry Writer: JOSÉ LUIS McneillCV (RBC) [Entitic vol]96.4 oNYaouqm40.6-102.9 [facility] Medical CenterComment on above:Performed By: #### CDP #### [address] [place] [address] Entry Writer: JOSÉ LUIS Mcneillonocytes (Bld) [#/Vol]0.74 10*3/uLNormal0.10-1.20 [facility] HospitalComment on above:Performed By: #### CDP #### [address] [place] [address] Entry Writer: JOSÉ LUIS Mcneillonocytes/100 WBC (Bld)7 %Normal3-12[facility]ittman Medical CenterComment on above:Performed By: #### CDP #### [address] [place], [facility]83 Entry Writer: Romie Mcneillutrophil (Seg)77 %Autq62-07TmojpSumma Health Wadsworth - [facility] Center Comment on above:Performed By: #### CDP #### [address] [place] [address] Entry Writer: Brandon Thompson MDNRBC Automated0.0 per 100 WBCNormal0.0[facility]itt[facility] Medical CenterComment on above:Performed By: #### CDP #### [address] [place], [facility]83 Entry Writer: SCOTT Mcneilllatelet mean volume (Bld) [Entitic vol]13.0 fL Normal8.1-13.5[facility]itt[facility] Medical CenterComment on above:Performed By: #### CDP #### [address] [place] [address] Entry Writer: SCOTT Mcneilllatelets (Bld) [#/Vol]134 10*3/cKVuv983-524Ajdvs Athens HospitalComment on above:Performed By: #### CDP #### [address] [place] [address] Entry Writer: MELINA Mcneill ([facility]) [#/Vol]4.14 10*6/uLNormal3.95-5.11[facility] HospitalComment on above:Performed By: #### CDP #### [address] [place] [address] Entry Writer: BUBBA Mcneill ([facility]) [#/Vol]10.7 10*3/uLNormal3.5-11.3[facility] HospitalComment on above:Performed By: #### CDP #### [address] [place] [address] Entry Writer: [place] Mcneillrug Scr, Abuse, Uron 12-45-9150Vjxsdlnfdzf(s),Ur NegativeNormalNEGMercy Athens HospitalComment on above:Performed By: #### MAGDY #### [address] [place] [address] Entry Writer: Brandon Thompson MDBarbiturate(s),UrNegativeNormalNEGMercy Athens HospitalComment on above:Performed By: #### MAGDY #### [address] [place] [address] Entry Writer: Brandon Thompson MDBenzodiazepine(s)NegativeNormalNEGMercy Athens HospitalComment on above:Performed By: #### MAGDY #### [address] [place] [address] Entry Writer: Brandon Thompson MDBuprenorphrine, UrNegativeNormalNEGMercy Athens HospitalComment on above:Performed By: #### MAGDY #### [address] [place] [address] Entry Writer: BRANDIN Mcneillannabinoid(s),UrNegativeNormalNEGMercy Athens HospitalComment on above:Performed By: #### MAGDY #### [facility] [address] [place] [address] [place], [place] [id number] Entry Writer: BRANDIN Mcneillocaine MetaboliteNegativeNormalNEGMercy Athens HospitalComment on above:Performed By: #### MAGDY #### [facility] [address] [place] [address] [place], [place] 9610083 Entry Writer: JOSÉ LUIS Mcneillethadone Ql (U)NegativeNormalNEGMercy Athens HospitalComment on above:Performed By: #### MAGDY #### [facility] [address] [place] [address] [place], [place] 7[address]8083 Entry Writer: JOSÉ LUIS Mcneillethamphetamine, UrNegativeNormalNEGMercy Athens HospitalComment on above:Performed By: #### MAGDY #### [facility] [address] [place] [address] [place], [place] [id number] Entry Writer: Brandon Thompson MDOpiate(s), UrNegativeNormalNEGMercy Athens HospitalComment on above:Performed By: #### MAGDY #### [facility] [address] [place] [address] Dr. [place], [facility]83 Entry Writer: Brandon Thompson MDOxycodone, UrineNegativeNormalNEGMercy Athens HospitalComment on above:Performed By: #### MAGDY #### [facility] [address] [place] [address] Dr. [place], [place] 8755383 Entry Writer: SCOTT Mcneillhencyclidine, UrNegativeNormalNEGMercy Athens HospitalComment on above:Performed By: #### MAGDY #### [facility] [address] [place] [address] Dr. [place], [place] 7570983 Entry Writer: SCOTT Mcneillropoxyphene,UrineNegativeNormalNEGSumma Health Wadsworth - Rittman Medical CenterComment on above:Performed By: #### MAGDY #### [address] [place] [address] Entry Writer: Brandon Thompson MDTricyclic antidepressants Screen Ql (U)Negative NormalNEGSumma Health Wadsworth - Rittman Medical CenterComment on above:Result Comment: Drug screen results are to be used for medical purposes only. All positive results are unconfirmed. Testing for employment or legal uses should be sent to a reference laboratory for confirmation.Performed By: #### MAGDY #### [address] [place] [id number] Entry Writer: Brandon Thompson MDFEBETH [facility] 57-54-8642StefmThedaCare Medical Center - [facility] Rose 22-45-5936VkaszRevere Memorial HospitaliveNSalem City HospitalComment on above:Performed By: #### CFET #### [address] [place] [address] Entry Writer: NICKIE Mcneill, Transfuseon 63-93-8528LLKX, TransfuseUnit Number [id number]/32 Blood Component Type RHIG Unit Division 00 Status of Unit TRANSFUSED Transfusion Status OK TO TRANSFUSENSalem City HospitalComment on above: Performed By: #### TRHIG #### [address] [place] [id number] Entry Writer: TALYA Mcneillurgical Pathologyon 26-72-9829Xtfckwsv Pathology (NOTE) -- Diagnosis -- PLACENTA, CORD AND MEMBRANES, DELIVERY: - MILD ACUTE CHORIOAMNIONITIS. 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 Oscar Aguilera M.D. Electronically Signed Out 11/12/2022 Clinical Information Operative Findings: PLACENTA Source of Specimen A: PLACENTA Gross Description STEPHANIE ENGRAM, UNDESIGNATED Placenta with attached membranes and umbilical [...] SURGICAL PATHOLOGY CONSULTATION Patient Name: STEPHANIE PALENCIA [facility] Rec: [id number] Path Number: [id number] [facility] ANATOMIC PATHOLOGY [address] [place] [phone] NoMagruder HospitalComment on above:Performed By: #### PPPVS #### [address] [address] Entry Writer: Curly Connolly MDTYPE AND SCREENon 58-46-3413JVU/RhNegativeBON ADENA PIKE MEDICAL CENTERArm Band [id number] A[facility] PIKE MEDICAL CENTERExpiration Date11/10/2022,2359BON [facility] NURSING HOMEType + Screen on 82-45-1477Kzjd + ScreenSample Expiration 11/10/2022,2359 Arm Band Number [id number] ABO/Rh(D) O NEGATIVE Antibody Screen NEGATIVENoMagruder HospitalComment on above:Performed By: #### TYS #### [facility] [address] [place] [address] Entry Writer: BRANDIN McneillBC auto differentialon 26-06-5644Uvnyjktw Eos # [facility] MERCY HEALTHAbsolute Immature Granulocyte0.06B[facility] HEALTHAbsolute Lymph #1.59B[facility]ENTERY HEALTHAbsolute Shackelford #0.74B[facility] SEC[facility] HEALTHBasophils (Bld) [#/Vol]0.03 10*3/uLBON SECOURS [facility] HEALTH Basophils/100 WBC (Bld)0 %0 - 2 %[facility] HEALTHEosinophils/100 WBC (Bld)0 %Low1 - 4 %BON SECMERCY HEALTH ST. VINCENT MEDICAL CENTERHematocrit (Bld) [Volume fraction]39.9 %36.3 - 47.1 %BON SECOUACHITA AND MOREHOUSE PARISHES HEALTHHemoglobin (Bld) [Mass/Vol]13.5 g/dL11.9 - 15.1 g/dLBON SECMERCY HEALTH ST. VINCENT MEDICAL CENTERImmature granulocytes/100 WBC (Bld)1 %Xtzi5RGP SECOUACHITA AND MOREHOUSE PARISHES HEALTHInterpretation and review of laboratory resultsAbnormalBON SECMERCY HEALTH ST. VINCENT MEDICAL CENTERLymphocytes/100 WBC (Bld)15 %Low24 - 43 %BON [facility] HOSPITALH (RBC) [Entitic mass]32.6 pg25.2 - 33.[address] CHARLES HOSPITALHC (RBC) [Mass/Vol]33.8 g/dL28.4 - 34.8 g/dLBON SECMERCY HEALTH ST. ELIZABETH BOARDMAN HOSPITALV (RBC) [Entitic vol]96.4 fL82.6 - 102.9 fLBON SECPAT C[facility] HEALTHMonocytes/100 WBC (Bld)7 %3 - 12 %[facility] SECMERCY HEALTH ST. VINCENT MEDICAL CENTERNRBC Automated0.00.0 per 100 WBCBON SECOURS [facility] CENTERY HEALTHPlatelet distribution width (Bld) [Ratio]12.6 %11.8 - 14.4 % [facility] CENTERY HEALTHPlatelet mean volume (Bld) [Entitic vol]13.0 fL8.1 - 13.5 fLBON SECOURS METROHEALTH [facility] MEDICAL CENTERY HEALTHPlatelets (Bld) [#/Vol]134 10*3/uLLowBON SECOURS [facility] HEALTHRBC (Bld) [#/Vol]4.14 10*6/uL3.95 - 5.11 m/uLBON SECMERCY HEALTH ST. VINCENT MEDICAL CENTERSegmented neutrophils/100 WBC (Bld)77 %High36 - 65 %[facility] HEALTHSegs Absolute8.25HighBON SECOURS MERCY HEALTHWBC (Bld) [#/Vol]10.7 10*3/uL [facility] HEALTHB[facility] MERCY HEALTHDRUG SCREEN MULTI URINEon 35-42-2689Tkoxmakcpoh Screen, UrNegativeNEGATIVEB[facility] HEALTH Barbiturate Screen, UrNegativeNEGATIVEBON SECOURS MERCY HEALTHBenzodiazepine Screen, UrineNegativeNEGATIVEBON [facility] MERCY HEALTHBuprenorphine UrineNegative NEGATIVEBON SECOURS MERCY HEALTHCannabinoid Scrn, UrNegativeNEGATIVEBON SECOURS MERCY HEALTHCocaine Metabolite, UrineNegativeNEGATIVEB[facility] Methadone Screen, UrineNegativeNEGATIVEBON [facility] MERCY HEALTHMethamphetamine, UrineNegativeNEGATIVEBON SECOURS MERCY HEALTHOpiates, UrineNegativeNEGATIVEBON [facility]OU[facility] MERCY HEALTHOxycodone Screen, UrNegativeNEGATIVEB[facility] Phencyclidine, UrineNegativeNEGATIVEBON [facility]OURS MERCY HEALTHPropoxyphene, Urine NegativeNEGATIVEBON SECOURS MERCY HEALTHTricyclic Antidepressants, UrineNegative NEGATIVEBON SECOURS MERCY HEALTHComment on above:Drug screen results are to be used for medical purposes only. All positive results are unconfirmed. Testing for employment or legal uses should be sent to a reference laboratory for confirmation. [facility]US OB Growthon 40-33-0560ET OB GrowthFINDINGS: Comparison made with prior examination October 11, [...] and signed by Elder Farrell on 10/17/2022 1135NoDayton Osteopathic HospitalGBS, External Resulton 73-55-2497OBZ, External Result NegativeBON [employer] Phone: bon [employer] Phone: us OB 2nd/3rd Trimesteron 35-68-0894SG OB 2nd/3rd TrimesterHISTORY: Late care/FMA. COMPARISON: None Findings: Transabdominal imaging [...] and signed by Leonel Foster on 10/12/2022 1159NoDayton Osteopathic HospitalC. Trachomatis, External Resulton 05-15-2022. Trachomatis, External ResultNegativeBON [employer] Phone: N. Gonorrhoeae, External Resulton 05-15-2022N. Gonorrhoeae, External ResultNegativeBON [employer] Phone: No Panel Informationon 98-10-8128BDK [employer] Phone: Hepatitis B, External Resulton 27-04-5707Egv B, External ResultNegativeBON [employer] Phone: bON [employer] Phone: aBO, External Resulton 38-64-2125AMP, External Resulto BON [employer] Phone: HIV, External ResultOrdered By: Rizwana Sorto on 77-73-6645UVF, External ResultNegativeBON [email or web address] l quigley rnBARROW NEUROLOGICAL INSTITUTE [email or web address] C Antibody, External Resulton 04-30-2022 Hepatitis C Antibody, External ResultNegativeBON [employer] Phone: No Panel Informationon 13-03-8164MAM [employer] Phone: rPR, External Labon 78-63-0024DMQ, External Result NegativeBON [employer] Phone: rh Factor, External Resulton 31-05-8725Yb Factor, External ResultNegativeBON [employer] Phone: Rubella Titer, External Resulton 67-74-2996Shzuuog Titer, External ResultImmuneBON [employer] Phone: Vital Signs Date TimeVital SignValuePerforming YuddtjmxbDjbikhen46-41-2132 13:05-0400Body mass index (BMI) [Ratio]35.15 kg/t4Phhin Yadio Phone: NOCenterPointe HospitalPthrbcjtxw56-73-9009 13:05-0400Body .77 kgCore [employer] Work Phone: [facility] HospitalNojrgqmobj84-99-7963 13:05-0400Diastolic blood lcscorsy67 mm[Hg]Abel Susie DO Work Phone: [facility] HospitalJolxjwrkmg36-30-1648 13:05-0400Systolic blood mm[Hg]Abel Susie DO Work Phone: 1([phone] [place], [place] [address]Ddztumemdq34-65-1674 16:16-0400Body mass index (BMI) [Ratio]35.96 kg/s9Nnppu Susie DO Work Phone: [facility] HospitalKmoqbsmdqc21-28-7443 16:16-0400Body vmthte771.06 kgCorey Susie DO Work Phone: [facility] HospitalLdljsscakw22-19-4579 16:16-0400Diastolic blood vytiumvq33 mm[Hg]Abel Susie DO Work Phone: [phone] [place], [place] [address]Anjngcqaoy61-59-9445 16:16-0400Systolic blood bqgyoxlq049 mm[Hg]Abel Susie DO Work Phone: [phone] [place], [place] [address]Gxdpdedglr83-98-2366 09:21-0400Body mass index (BMI) [Ratio]36.17 kg/k3Msztx Susie DO Work Phone: [facility] HospitalRvfhtqlsfx03-73-5541 09:21-0400Body ucysgm641.66 kgCorey Susie DO Work Phone: [phone] [place], [place] [address]Ccmzzgpvao49-40-4479 09:21-0400Diastolic blood lkmwskoj85 mm[Hg]Abel Susie DO Work Phone: [facility] HospitalCydfesclxy53-26-1921 09:21-0400Systolic blood slprqnuk816 mm[Hg]Abel Susie DO Work Phone: [facility] HospitalCpiyetexjl38-06-7343 13:19-0500Body mass index (BMI) [Ratio]36.15 kg/f8Jkufvgithelma MENEZES Work Phone: [facility] HospitalPkpfqpflph51-52-2245 13:19-0500Body xcnest953.61 kgValerie Floro CNM Work Phone: [facility] HospitalFewakqyews09-41-6790 13:19-0500Diastolic blood mrqavgfn29 mm[Hg]Lambetro Canseco CNM Work Phone: [facility] HospitalJclbrodwbh06-73-2497 13:19-0500Systolic blood mm[Hg]Lamberto Patelo CNM Work Phone: [facility] HospitalDtlcgmojho53-25-4751 10:35-0500Body mass index (BMI) [Ratio]36.15 kg/t6LsfqqrqLamberto Canseco CNM Work Phone: [facility] HospitalSvuwtspgsp23-59-7415 10:35-0500Body dxkock193.61 kgLamberto Canseco CNM Work Phone: [facility] HospitalYfkngfsrpo50-99-9162 10:35-0500Diastolic blood dhgeenaq08 mm[Hg]Lamberto Canseco CNM Work Phone: [phone] HospitalRgicqlpfgy46-97-5240 10:35-0500Systolic blood ukcoxmzm265 mm[Hg]Lamberto Patelo CNM Work Phone: [facility] HospitalVwdoagwquo30-95-7693 09:17-0400Body xxpcby847.64 cmMercy Health [facility]10-01-2024 09:17-0400Body mass index (BMI) [Ratio]34.5 kg/k8NdqqqsxenMercy Health Clermont Hospital10-01-2024 09:17-0400Body qxjcyzqbwth75.3 [degF][facility]10-01-2024 09:17-0400Body ehppvy45.06 kgMercy Health [facility] Hospital10-01-2024 09:17-0400Diastolic blood zardlfoa45 mm[Hg][facility]10-01-2024 09:17-0400 Heart utgo929 /[facility]10-01-2024 09:17-0400 Respiratory rate18 /[facility]10-01-2024 09:17-0400 SaO2% (BldA) [Mass fraction]97 %[facility]10-01-2024 09:17-0400Systolic blood nzwxqyih955 mm[Hg][facility] 11-09-2022 12:22-0500Body ytbfbysozkg42.01 [degF]Lamberto Canseco APRN - CN Work Phone: [employer] ERUJNW70-52-2094 12:22-0500Diastolic blood yskqraog65 mm[Hg]Lamberto Canseco INSPECTOR REPAIRER [employer] - CN Work Phone: BON [email or web address] FSHUOP48-94-2635 12:22-0500Heart rate81 /minLamberto Patel INSPECTOR REPAIRER [employer] - CN Work Phone: [employer]12-16-2022 12:22-0500 Respiratory rate16 /minValethelma Canseco INSPECTOR REPAIRER [employer] - CN Work Phone: bon [email or web address] LJOGZK94-87-7108 12:22-0500Systolic blood fysynbng076 mm[Hg]Lamberto Canseco INSPECTOR REPAIRER [employer] - [facility] Work Phone: [employer] [facility] Encounters Encounter DateEncounter TypeCare ProviderFacilityStart: 08-03-2025 End: 43-87-3031Qzpkrw flowsheetCorey Susie DO Work Phone: noms [place] OBGYNStart: 08-03-2025 End: 79-60-8541Vraiku flowsheetCorey Susie DO Work Phone: NOUI [place] OBGYNStart: 08-03-2025 End: 97-61-4547Cpckaa outpatient visit 15 minutesCorey Susie DO Work Phone: noms Maurice OBGYNComment on above:Dysmenorrhea; Abnormal uterine bleeding (AUB); Bloating; Right upper quadrant pain; Constipation, unspecified constipation typeStart: 08-03-2025 End: 70-01-8636doteuaahdyWNKZB FAZIONot AvailableStart: 05-13-2025 End: 43-66-3351igpjslnyukYBP RAMEYNot AvailableStart: 05-13-2025 End: 03-59-5505Brmypa follow up visit related to original moreViky URBINA Work Phone: noms [facility] OBComment on above:Postoperative follow-up Start: 05-13-2025 End: 24-72-6641Zmxgsv vanesaCarolina URBINA Work Phone: noms BCP OBStart: 05-13-2025 End: 78-84-1702Rsqspt vanesaCarolina URBINA Work Phone: noms BCP OBStart: 05-13-2025 End: 95-02-3271irlspbszkyBmbbn V. WestFacility:[facility] Hospitaltart: 61-21-8620gxaqxkzgwuPclkua Kirsten MairnFacility:[facility] HospitalStart: 04-22-2025 End: 33-87-1915Uynrhliyd Result EncounterCorey Susie DO Work Phone: noms External Department UnsolicitedStart: 04-22-2025 End: 92-37-5578Vqbrqscyr Result EncounterCorey Susie DO Work Phone: noms External Department UnsolicitedStart: 04-06-2025 End: 21-44-6850xkfauljxekZisap V. WestFacility:[facility] Hospitaltart: 95-57-4791ccrawrjjhuAztdn V. RanjitFacility:[facility] Hospitaltart: 03-24-2025 End: 90-88-6751Kqsarwnp ReferredCorey Susie DO Work Phone: [facility] Path Spec [place] HospStart: 03-24-2025 End: 66-58-3549Zjnjwrg encounter procedureCorey Susie DO Work Phone: noms [facility] OBComment on above:Pre-op examination; Menorrhagia with regular cycle; Abnormal uterine bleeding; Pelvic pain in female; PCOS (polycystic ovarian syndrome)Start: 03-24-2025 End: 50-13-0116Sqlxhgxpxafiu examination doneCorey Susie DO Work Phone: noMS HealthcareStart: 03-24-2025 End: 33-40-4860otrkswmwrkMjnhf FazioFiSumma Health [facility] Campus Work Phone: Start: 03-24-2025 End: 00-25-0521Aljyfion Result EncounterCorey Susie DO Work Phone: noms External Department UnsolicitedStart: 03-24-2025 End: 56-43-6375Jflwgyzv Result EncounterCorey Susie DO Work Phone: noms External Department UnsolicitedStart: 03-23-2025 End: 68-74-0826pktuenzjaeQrvk W SteeleFacility:[facility] HospitalStart: 03-18-2025 End: 15-32-3780lardhtwkcgRjoc W SteeleFacility:[facility] HospitalStart: 03-01-2025 End: 95-56-2195Gmuzzy flowsheetCorey Susie DO Work Phone: noms BCP OBStart: 03-01-2025 End: 94-59-2152Arcsmk flowsheetCorey Susie DO Work Phone: noms BCP OBStart: 03-01-2025 End: 52-93-9235Rmfsvl outpatient visit 15 minutesCorey Susie DO Work Phone: noms BCP OBComment on above:DUB (dysfunctional uterine bleeding) (Primary Dx); Dyspareunia, femaleStart: 03-01-2025 End: 23-18-1516bfcjwfefomTWHTB FAZIONot AvailableStart: 02-25-2025 End: 87-54-5023Hhyygo flowsheetNatalie A Felter INSPECTOR REPAIRER [employer]-F[employer]NESS CENTRE MANAGER Work Phone: noms SWS DERMStart: 02-25-2025 End: 42-96-1503Bpxiph flowsheetNatalie A Felter INSPECTOR REPAIRER [employer]NESS CENTRE MANAGER Work Phone: noms SWS DERMStart: 02-25-2025 End: 46-62-9485heoxfblftnSsdsv V. WestFacility:[facility] HospitalStart: 02-25-2025 End: 30-10-6571Ftimqn outpatient visit 15 minutesNatalie A Felter INSPECTOR REPAIRER [employer]-FITNESS CENTRE MANAGER Work Phone: noms SWS DERMComment on above:Melanocytic nevus of trunk (Primary Dx); Melanocytic nevus of skin of both upper extremities; Angioma of skin; Neoplasm of unspecified behavior of bone, soft tissue, and skinStart: 02-18-2025 ambulatoryDavid VSara Churchcility:[facility] Hospitaltart: 01-26-2025 End: 76-89-0294Ilbcbn flowsheetValerie Ana Luisa Patelo CNM Work Phone: noms FNR OBStart: 01-26-2025 End: 70-33-9714Qvtfuv flowsheetValerie Ana Luisa Patelo CNM Work Phone: noms FNR OBStart: 01-26-2025 End: 21-33-7920Ogwwuq outpatient visit 15 minutesValerie Ana Luisa Patelo CNM Work Phone: noms FNR OBComment on above:DUB (dysfunctional uterine bleeding) (Primary Dx); Irregular bleedingStart: 01-26-2025 End: 50-65-5427qoyypvbyjwMKKXKJN L FLORONot AvailableStart: 12-09-2024 End: 44-99-9316jyqufsoqhoTLVMFET L FLORONot AvailableStart: 12-07-2024 End: 41-12-7990xpfrnpyahyUlqbrxKphza: 11-12-2024 End: 01-59-4939Bfkuur flowsheetValerie Ana Luisa Patelo CNM Work Phone: noms FNR OBStart: 11-12-2024 End: 38-40-6732Xourci flowsheetValerie Ana Luisa Patelo CNM Work Phone: noms FNR OBStart: 11-12-2024 End: 26-89-3486Vsytxwgfedcey examination normalValerie Ana Luisa Patelo CNM Work Phone: noms HealthcareStart: 11-12-2024 End: 83-99-0692Mfdhrlzn preventive med est patient 18-39 yrsValerie Ana Luisa Patelo CNM Work Phone: NOIB FNR OBComment on above:Menorrhagia with regular cycle (Primary Dx); Normal gynecologic examination; Screening for cervical cancer; DUB (dysfunctional uterine bleeding)Start: 11-12-2024 End: 32-21-4472bbckckxwoyVHEBAKB Ana Luisa PATELONot AvailableStart: 10-28-2024 End: 31-06-7559Nnvgiegos encounterNoms Provider Unallocated MD Work Phone: NOEM FNR FMStart: 10-26-2024 End: 00-09-2812Bwoowixus encounterValerie Ana Luisa Patelo CNM Work Phone: noms FNR FMStart: 08-25-2024 End: 76-47-1915ygrddoujstEjhtepnur [facility] Work Phone: Start: 08-25-2024 End: 60-02-8191Euixicn encounter procedureAtrium Health [facility] [place] Work Phone: Start: 74-65-2999qwkblbniyvGR ABEL SUSIE .Facility:H1 Start: 66-21-2374Ffowatbdx for other preprocedural examinationDR ABEL SUSIE . [facility] HospitalStart: 03-29-2023 End: 05-47-8676buyipcflvoZZ ABEL SUSIE .Facility:C0Wjmef: 03-29-2023 End: 41-41-8592Kmtdkinou for other preprocedural examinationDR ABEL SUSIE . Facility:R1Oulrb: 11-07-2022 End: 80-70-4067Xzwxxhrwag and management of inpatientVALERIE FLOROMercy Athens HospitalStart: 11-07-2022 End: 13-25-6988Vwlgzgqfar and management of inpatientValerie Floro INSPECTOR REPAIRER [employer] - CNM Work Phone: M[facility] Labor and Delivery Procedures DateProcedureProcedure DetailPerforming ClinicianStart: 85-39-8606ZLB CBC WITH AUTO DIFFCorey Susie DO Work Phone: Start: 92-20-4467Ueodh test visual color cmprsn methsCorey Susie DO Work Phone: Start: 15-03-0759SRYATCWFU REQUEST FOR LAB CORPCorey Susie DO Work Phone: Start: 01-43-1528Bbjsr dip stick/tablet rgnt non-auto w/o micrscpCorey Susie DO Work Phone: Start: 02-25-2025 End: 73-33-5262RZFH / NAIL BIOPSYNatalie A NydiaMemorial Medical CenterN-[facility] Work Phone: Start: 57-56-2509Uhruehhwmcj observation [Identifier] in Cervix by Cyto stainNatalie Nikia INSPECTOR REPAIRER [employer]-[facility] Work Phone: Start: 00-31-5747Adcjm Strep (POC)Start: 12-26-2022 Microscopic observation [Identifier] in Cervix by Cyto stainNoms Unallocated Work Phone: Start: 87-15-6565EQQZF ROSETTEValerijl Patel INSPECTOR REPAIRER [employer] - CN Work Phone: Start: 73-39-6222Bwxopxkj screenValerijl Patel INSPECTOR REPAIRER [employer] - CN Work Phone: Start: 23-25-3442Qvsae count complete auto&auto difrntl wbcValerijl PatelSaint Joseph Hospital of KirkwoodN - CN Work Phone: Start: [id number] typing serologic aboValerijl [facility] [employer] - CN Work Phone: Start: [id number] tst prsmv instrmnt chem analyzers pr dateValerijl Patel [employer] - CN Work Phone: Start: [phone], EXTERNAL RESULTHistorical Provider MDStart: 2C. TRACHOMATIS, EXTERNAL RESULTHistorical Provider MDStart: 05-15-2022N. GONORRHOEAE, EXTERNAL RESULTHistorical Provider MDStart: [id number], EXTERNAL RESULTHistorical Provider MDStart: 04-30-2022 ABO, EXTERNAL RESULTHistorical Provider MDStart: 55-71-2296OGUGXCWMP C ANTIBODY, EXTERNAL RESULTHistorical Provider MDStart: 88-61-6564NGS, EXTERNAL RESULT Historical Provider MDStart: 44-91-6484CI FACTOR, EXTERNAL RESULTHistorical Provider MDStart: 63-81-3950WSB, EXTERNAL RESULTHistorical Provider MDStart: 18-15-1141OPJYTNN TITER, EXTERNAL RESULTHistorical Provider Plan of Treatment DateCare ActivityDetailAuthorStart: 37-84-7633Cihxwowum for malignant neoplasm of cervixNOMS HealthcareStart: 75-08-1870Rxabmushk for malignant neoplasm of cervixPap SmearNOMS HealthcareStart: 03-14-2026 End: 46-37-1276Gtcbyzj encounter procedureNOMS [facility] DERMStart: 02-28-2026 End: 65-24-6774Upupokd encounter /06/2026 9:35 AM EDT Office Visit [facility] [address] [place] [address] Mathew Montejo, INSPECTOR REPAIRER [employer] [address] [place] [address] [facility] DERMStart: 46-03-8376Rdtsogvqh for malignant neoplasm of cervixPap SmearNOMS HealthcareStart: 11-29-2025 End: 78-41-8515Ojpqeka encounter nuifapqty48/05/2026 10:40 AM EST Procedure Visit [facility] Maurice BISWAS [address] [place], [id number] Abel Richards DO [address] [place] [address] NOMJose SCHULTENStart: 08-03-2025 End: 77-74-2281FK Abdomen and Pelvis WO and W contrast IVCT abdomen pelvis w and wo IV contrast Imaging Routine Bloating Right upper quadrant pain Constipation, unspecified constipation type Expected: 08/03/2025, Expires: 08/03/2026[facility] Work Phone: comment on above:Expected: 08/03/2025, Expires: 08/03/2026Start: 08-03-2025 End: 75-11-0132Tnbwflg encounter veqdywifs67/09/2025 1:00 PM EDT Office Visit [facility] Maurice OBGYN [address] [address] Abel Richards, DO [address] [place], [facility] ArrivedFILLMORE [facility] Maurice OBGYNComment on above:ArrivedStart: 30-67-5045Lginsqawq vaccinationFILLMORE COMMUNITY MEDICAL CENTER HealthcareStart: 03-24-2025 End: 88-12-0439Afdwlki encounter cdphsisko58/30/2025 3:30 PM EDT Procedure Visit [facility] OB [address] [address] Abel Richards, DO [address] [place] [address] NOMS BCP OBStart: 03-24-2025 End: 12-30-6137SQKASRPM Lab Routine PCOS (polycystic ovarian syndrome) Expected: 03/24/2025 (Approximate), Expires: 03/24/2026NOIL HealthcareComment on above: Expected: 03/24/2025 (Approximate), Expires: 03/24/2026Start: 03-24-2025 [facility] 03-01-2025 End: 74-82-3364Mkvrtvn encounter procedureNOLAKEWO[facility] OBComment on above:DUB (dysfunctional uterine bleeding)Start: 01-26-2025 End: 67-80-2703Aflfbwl encounter oklmsnwmr28/04/2025 1:15 PM EST Office Visit [facility] OB [address] [place] [address] Lamberto Canseco, RIRIM [address] [place] [address] ArrivedNOMS FNR OBComment on above:ArrivedStart: 12-07-2024 End: 34-11-4748Ycvphqs encounter sezgjhvmm99/13/2025 1:10 PM EST Office Visit [facility] DERM [address] [place] [address] Mathew Montejo, INSPECTOR REPAIRER [employer] [address] [place] [address] NOMS SWS DERMStart: 11-12-2024 End: 52-30-6402Inaoz 1996 panel - Serum or PlasmaLipid panel Lab Routine Normal gynecologic examination Expected: 11/12/2024 (Approximate), Expires:11/12/2025 NOMS HealthcareComment on above:Expected: 11/12/2024 (Approximate), Expires: 11/12/2025Start: 11-12-2024 End: 79-24-8255PNWVVQFE IMAGING PAP AND HPV DNA REFLEX HPV 16,18THINPREP IMAGING PAP AND HPV DNA REFLEX HPV 16,18 Pathology and Cytology Routine Screening for cervical cancer Expected: 11/12/2024 (Approximate), Expires: 11/12/2025[facility] Work Phone: Comment on above:Expected: 11/12/2024 (Approximate), Expires: 11/12/2025Start: 11-12-2024 End: 66-55-7146BD Pelvis transvaginalUS pelvis transvaginal Imaging Routine DUB (dysfunctional uterine bleeding) Expected: 11/12/2024, Expires: 11/12/2025NOIL HealthcareComment on above:Expected: 11/12/2024, Expires: 11/12/2025Start: 11-12-2024 End: 16-30-6657Alucepr encounter ggpwkmliu83/19/2024 10:30 AM EST Office Visit [facility] OB [address] [place] [address] Lamberto Canseco, ELIAS [address] [place], [place] [id number] [facility] FNR OBComment on above:ArrivedStart: 94-23-4941Qclkahvtb vaccinationInfluenza Vaccine (#1)NOMS HealthcareStart: 80-60-4694Tycstugso vaccinationFlu vaccine (#1)[facility]Start: 37-06-6724CEuH/Tdap/Td vaccine (1 - Tdap)DTaP/Tdap/Td vaccine (1 - Tdap)[facility]ITALStart: 04-07-0197ITAGB-19 Vaccine (#1)COVID-19 Vaccine (#1)[facility] Biopsy endometriumBiopsy endometrium Procedures Routine Pre-op examination Menorrhagia with regular cycle Abnormal uterine bleeding Ordered: 03/24/2025[facility] Healthcare Work Phone: comment on above:Ordered: 03/24/2025BC panel - Blood by Automated countCBC Lab Routine Normal gynecologic examination Ordered: 11/12/2024IL HealthcareComment on above:Ordered: 11/12/2024omprehensive metabolic 2000 panel - Serum or PlasmaComprehensive metabolic panel Lab Routine Normal gynecologic examination Ordered: 11/12/2024IL HealthcareComment on above:Ordered: 11/12/2024ermatopathology examDermatopathology exam Pathology and Cytology Timed Neoplasm of unspecified behavior of bone, soft tissue, and skin Release Upon Ordering for 1 Occurrences starting 02/25/2025[facility] Healthcare Work Phone: comment on above:Release Upon Ordering for 1 Occurrences starting 02/25/20253975ROHB-gzdcyhqTKVH-kakqesf Lab Routine PCOS (polycystic ovarian syndrome) Ordered: 03/24/2025[facility] HealthcareComment on above:Ordered: 03/24/2025EstradiolEstradiol Lab Routine Pre-op examination Menorrhagia with regular cycle Abnormal uterine bleeding PCOS (polycystic ovarian syndrome) Ordered: 03/24/2025[facility] HealthcareComment on above:Ordered: 03/24/2025Follicle stimulating hormoneFollicle stimulating hormone Lab Routine PCOS (polycystic ovarian syndrome) Ordered: 03/24/2025[facility] HealthcareComment on above:Ordered: 03/24/2025Hemoglobin A1c/Hemoglobin.total in BloodHemoglobin A1c Lab Routine DUB (dysfunctional uterine bleeding) Ordered: 03/01/2025RippleFunction Work Phone: comment on above:Ordered: 03/01/2025Luteinizing hormoneLuteinizing hormone Lab Routine PCOS (polycystic ovarian syndrome) Ordered: 03/24/2025[facility] HealthcareComment on above:Ordered: 03/24/2025 ProgesteroneProgesterone Lab Routine Pre-op examination Menorrhagia with regular cycle Abnormal uterine bleeding PCOS (polycystic ovarian syndrome) Ordered: 03/24/2025[facility] HealthcareComment on above:Ordered: 03/24/2025 End: 71-13-9609Jzhhlexc PathologySurgical Pathology Lab Routine One Time for 1 Occurrences starting 11/08/2022 until 11/08/2022[email or web address] Work Phone: comxnec on above:One Time for 1 Occurrences starting 11/08/2022 until 11/08/2022 End: 91-18-6515FTXGJDTY PATHOLOGY REPORTSURGICAL PATHOLOGY REPORT Lab Routine Once for 1 Occurrences starting 11/08/2022 until 11/08/2022[employer] Phone: comsyun on above:Once for 1 Occurrences starting 11/08/2022 until 11/08/2022Thyrotropin [Units/volume] in Serum or PlasmaTSH Lab Routine Normal gynecologic examination Menorrhagia with regular cycle Ordered: 11/12/2024[facility] HealthcareComment on above:Ordered: 11/12/2024[facility] Immunizations Immunization DateImmunizationNotesCare TdeewvjaNbwdripr44-03-3314FSH(D) immune globulin - IMValerie Amandao INSPECTOR REPAIRER [facility] Work Phone: [email or web address] Work Phone: [phone], mumps and rubella virus vaccine Lamberto Amandao INSPECTOR REPAIRER [facility] Work Phone: [email or web address] Work Phone: [phone](D) immune globulin- IV or IMValerie Floro [facility] Work Phone: [facility] HospitalQbmfdmbrfo21-84-7033FOB(D) immune globulin- IV or IMValerie Floro CNM Work Phone: CPIL Hxwlrvhqgy54-81-4126ndfxcfs toxoid, reduced diphtheria toxoid, and acellular pertussis vaccine, adsorbedValerie Floro CNM Work Phone: XJIL Tldwfadgou88-98-9906ANM(D) immune globulin- IV or IMValerie Floro CNM Work Phone: noIL HealthcareNEGATED: Highlighted row has not occurred!59-87-3732ltizlix toxoid, reduced diphtheria toxoid, and acellular pertussis vaccine, adsorbedValerie Floro INSPECTOR REPAIRER [employer] [facility] CNM Work Phone: [facility] Payers DatePayer CategoryPayerPolicy [id number] [id number] UNKNOWN2024Medicaid (Managed Care)[facility] [id number] Member Subscriber Plan / Payer (Effective 2023-Present) Name: Stephanie Palencia Relation to Subscriber: Spouse Name: TABATHADALIAEMELY Date ofBirth: 1992 Address: [address] [place] [address] [place] [address] Payer ID: Not on file Type: Not on file Address: [address] [place] [id number] [id number] Health InsuranceCARESOURCE MEDICAID [id number] of Defense ( and others)[id number] 1.2.840.604915.1.13.239.2.7.3.298577. [id number] 2..1.784507.3.57[id number] 2..1.095280.3.57[id number] 2..1.508515.3.57[id number] 2..1.863356.3.57[id number] 2..1.939494.3.57[id number] 2..1.897341.3.57[id number] 2..1.933029.3.579.[id number] 2.16.840.1.776203.3.579.[id number] 2.16.840.1.190284.3.57[id number] 2.16.840.1.136221.3.579.[id number] 2.16.840.1.549863.3.57[id number] 2.16.840.1.534835.3.57[id number] 2.16.840.1.654931.3.579.2.[id number] 2.16.840.1.972133.3.579.2.781550-66-2293Lomfvyz9865165 2.16.840.1.862918.3.579.[id number] 2.16.840.1.549075.3.579.[id number] 2.16.840.1.943310.3.579.2.91[id number] 2.16.840.1.437405.3.579.2.529573-10-8132Brttzts9117725 2.16.840.1.444704.3.579.2.1259 [id number] 1.2.840.791859.1.13.239.2.7.3.428685.30178-21-4471Lzbqckz Health Insurance [id number] Social History DateTypeDetailFacilityTobacco smoking status NHISTobacco smoking consumption unknownC[facility] [employer] Work Phone: start: 33-16-0934Nmj Assigned At BirthNot on fileMEME MANRIQUEZ [employer] Work Phone: start: 10-28-2022 End: 39-96-7732Arcrnzkj to SARS-CoV-2 (event)Not sureMEME MANRIQUEZ [employer] Work Phone: start: 52-41-6248Vgb Assigned At BirthAkron Children's Hospitaltart: 60-18-6628Hjakrkf smoking status NHISNever smoked tobaccoNOMS HealthcareStart: 80-92-9732Ihoipvc use and exposureSmokeless tobacco non-userNOMS HealthcareStart: 12-19-2023 End: 26-08-1312Desdcjvmm beverage intakeCurrent drinker of alcohol (finding)NOMS HealthcareStart: 12-02-2023 End: 30-01-4754Alzpoum of Social functionNOMS HealthcareStart: 12-02-2023 End: 38-05-3943C0717 Health LiteracyNOMS HealthcareHow often do you need to have someone help you when you read instructions, pamphlets, or other written material from your doctor or pharmacy [SILS]NeverNOMS HealthcareDo you belong to any clubs or organizations such as lutheran groups, unions, fraternal or athletic groups, or school groups?NoNOMS HealthcareAre you now , , , , never or living with a partner?MarriedNOMS HealthcareHow often to you have a drink containing alcohol?Monthly or lessNOMS HealthcareHow many standard drinks containing alcohol do you have on a typical day?3 or 4NOMS HealthcareHow often do you have 6 or more drinks on 1 occasion? Less than monthlyNOMS HealthcareHow hard is it for you to pay for the very basics like food, housing, medical care, and heatingHardNOMS HealthcareDo you feel stress - tense, restless, nervous, or anxious, or unable to sleep at night because yourmind is troubled all the time - these days [OSQ]Only a littleNOMS Healthcare(I/We) worried whether (my/our) food would run out before (I/we) got money to buy more.Sometimes trueNOMS HealthcareIn the past 12 months, was there a time when you were not able to pay the mortgage or rent on time?YesNOIL HealthcareStart: 13-76-8292Vyhnrma CommentCaffeine intake: 1-2 cups per dayNOIL HealthcareHow often do you need to have someone help you when you read instructions, pamphlets, or other written material from your doctor or pharmacy [SILS]NeverFILLMORE COMM[facility] HealthcareStart: 59-25-8234PyyEbhfks (finding)[facility] HospitalNEGATED: Highlighted rowStart: NINFHistory of tobacco usePassive smokerHawthorn Children's Psychiatric Hospital Clinical Notes 11-09-2022 to 08-03-2025 Note Date & IgvwYtuqLpoftckr65-81-0567 History of Present illness Narrative* Brittani Grossman, ALY - 08/03/2025 1:00 PM EDT Reason for Appointment: Patient ID: Stephanie Palencia [...] affecting management of mother in dexter , antepartum([facility]) 10/29/2018 Family history of genetic disease 02/21/2020 Normal labor ([facility]) 03/10/2019 (normal spontaneous vaginal delivery) ([facility]) 11/09/2022 state ([facility]) 05/12/2020 Rh negative state in antepartum period ([facility]) 09/16/2018 Term ([facility]) 11/07/2022 Thrombocytopenia affecting ([facility]) 01/27/2019 Vaginal odor 11/01/2023 Resolved Ambulatory Problems [...] nursing note reviewed. Exam conducted with a personnel and payroll technician present. Vitals: Estimated body mass index is [...] of: Abel Richards DO documented in this encounterHawthorn Children's Psychiatric HospitalIdcvavmwtt52-58-8046 History of Present illness Narrative* CIARA Fletcher - 05/13/2025 2:20 PM EDT Reason for Appointment: Patient ID: Stephanie Palencia [...] affecting management of mother in dexter , antepartum([facility]) 10/29/2018 Family history of genetic disease 02/21/2020 Normal labor ([facility]) 03/10/2019 (normal spontaneous vaginal delivery) ([facility]) 11/09/2022 state ([facility]) 05/12/2020 Rh negative state in antepartum period ([facility]) 09/16/2018 Term ([facility]) 11/07/2022 Thrombocytopenia affecting ([facility]) 01/27/2019 Vaginal odor 11/01/2023 Resolved Ambulatory Problems [...] nursing note reviewed. Exam conducted with a personnel and payroll technician present. Vitals: Estimated body mass index is [...] about a week after her procedure and onlyhad to use a panty liner. Patient voiced that she had labs drawn a few weeks prior to surgery and had not received results at this time. Nursing called [facility] lab and spoke with Zoie and mathew that results went to the [facility] [employer] area. Results were not visible for ordering provider to view. Called [facility] and results will be sent. Patient was advised that she is able to use diva cup ifneeded for future cycles. Patient will be notified on Brendan after PA and Provider review results once received. Patient to ensure she returns to office for routine Annual appointment. Documented by Stephany Riggs LPN on behalf of: CIARA Fletcher documented in this encounterHawthorn Children's Psychiatric HospitalFsyggqheef71-24-0113 NoteProcedures Endovenous Ablation, Care After The following information [...] and water are not available, use hand sawsmith. ? Change your dressing as told by [...] take short walks every 1?2 hours. This isimportant to improve blood flow. Ask for help [...] are sitting or lying down. ? Take febt-skj-ddtlijx and prescription medicines only as told by [...] provider. Document Revised: 04/19/2022 Document Reviewed: 04/19/2022 [employer] Patient Education ? 2023 IQuum.[facility] SystemEjdwdjgs39-18-5746 Note Radiology Sclerotherapy Sclerotherapy is a procedure that is done to make varicose veins and spider veins look better and it helps to relieve aching, swelling, cramping, and pain in the legs. Varicose veins are veins that have become enlarged, bulging, and twisted due to a damaged valve that causes blood to collect (pool)in the veins. Spider veins are small varicose [...] You may need more than one treatment toclose a vein all the way. The number of veins treated in one session depends on the size and location of the veins, and on your overall medical condition. Tell a health care provider about: ? Any allergies you have. ? All medicines you are taking, including vitamins, herbs, eye drops, creams, and fxwv-lwf-flodwsk medicines. ? Any bleeding problems you have. [...] care provider tells you to. ? Taking poiv-qxd-nbftkdt medicines, vitamins, herbs, and supplements. Tests ? [...] taken to help prevent infection. These steps mayinclude: ? Removing hair at the injection site. [...] right away. Call 911. (more content not included)...[facility] SystemScakkydw93-02-3667 NotePROCEDURE: US Injection Varicose Vein Multiple COMPARISON: None. HISTORY: Varicose [...] Brandon Church MD 04/01/25 10:10 a Technologist: [facility]05-05-2025 NoteRadiology Sclerotherapy Sclerotherapy is a procedure that is done to make varicose veins and spider veins look better and it helps to relieve aching, swelling, cramping, and pain in the legs. Varicose veins are veins that have become enlarged, bulging, and twisted due to a damaged valve that causes blood to collect (pool)in the veins. Spider veins are small varicose [...] You may need more than one treatment toclose a vein all the way. The number of veins treated in one session depends on the size and location of the veins, and on your overall medical condition. Tell a health care provider about: ? Any allergies you have. ? All medicines you are taking, including vitamins, herbs, eye drops, creams, and pgku-csb-lfhxpxn medicines. ? Any bleeding problems you have. [...] care provider tells you to. ? Taking xkxe-tre-gtgqkgo medicines, vitamins, herbs, and supplements. Tests ? [...] taken to help prevent infection. These steps mayinclude: ? Removing hair at the injection site. [...] right away. Call 911. (more content not included)...[facility] SystemWwczlmei30-12-5090 History of Present illness Narrative* Albina Post - 03/24/2025 3:30 PM EDT Reason for Appointment: Patient ID: Stephanie Palencia is a 34 y.o. female who presents for Pre-op Visit and Endometrial Biopsy Patient presents today for Pre Op/Endometrial Biopsy appointment. Patient is scheduled to undergo Endometrial Ablation with Anneliese on 04/22/[address] Richards at [facility]. 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 Exam conducted with a personnel and payroll technician present. Vitals: Estimated body mass index is [...] reviewed, and patient is to proceed to [facility] OR. Follow Up: Patient is to follow up between 1-2 weeks post op to assess proper healing and recovery from procedure. Documented by Brittani Grossman LPN on behalf of: Abel Richards DO documented in this encounterHawthorn Children's Psychiatric HospitalHevgoahzvu23-72-8090 NoteSclerotherapy Sclerotherapy is a procedure that is done to make varicose veins and spider veins look better and it helps to relieve aching, swelling, cramping, and pain in the legs. Varicose veins are veins that have become enlarged, bulging, and twisted due to a damaged valve that causes blood to collect (pool)in the veins. Spider veins are small varicose [...] You may need more than one treatment toclose a vein all the way. The number of veins treated in one session depends on the size and location of the veins, and on your overall medical condition. Tell a health care provider about: ? Any allergies you have. ? All medicines you are taking, including vitamins, herbs, eye drops, creams, and crdn-ogh-avnzgle medicines. ? Any bleeding problems you have. [...] care provider tells you to. ? Taking kcrr-xle-jxeqzif medicines, vitamins, herbs, and supplements. Tests ? [...] taken to help prevent infection. These steps mayinclude: ? Removing hair at the injection site. [...] ? Do not wa (more content not included)...[facility] SystemMklvkcli19-37-5269 Note PROCEDURE: US Injection Varicose Vein Multiple HISTORY: Varicose veins of [...] Dictated DT/TM: 03/18/25 2:37 Signed (Electronic Signature): Omra Marin MD 03/18/25 2:39 pm Technologist: [facility]04-07-2025 History of Present illness Narrative * Lynsey Monroy, NURIS - 03/01/2025 9:10 AM EDT Reason for Appointment: Patient ID: Stephanie Palencia [...] affecting management of mother in dexter , nlefwffgus65/05/2018 Family history of genetic disease 02/21/2020 Normal [...] nursing note reviewed. Exam conducted with a personnel and payroll technician present. Vitals: Estimated body mass index is [...] of: Abel Richards DO documented in this encounterHawthorn Children's Psychiatric HospitalKactonrzoo52-94-0270 NoteProcedures Endovenous Ablation Endovenous ablation is a procedure [...] including vitamins, herbs, eye drops, creams, and mngd-hzh-bvjcpxb medicines. ? Any problems you or family [...] tells you to take them. ? Taking zavl-lss-fwgumao medicines, vitamins, herbs, and supplements. General instructions [...] stockings. These stockings help (more content not included)...[facility] SystemFxdiojrj88-48-2212 History of Present illness Narrative* Mathew Montejo APRN-MANSOOR - 02/25/2025 9:10 AM EDT Images from the original note were not included. Skin Check Location: Patient requests a skin examination from the waist up Dermatologic history: no history of skin cancer, no history of atypical moles, no family history ofmelanoma Last visit: 1 year ago Established patient [...] of skin Mid Tip of Nose Scattered braxotn-red papule(s). The patient was informed that angiomas [...] 1 year, skin check documented in this encounterHawthorn Children's Psychiatric HospitalKwpqiueucy03-49-7592 NoteProcedures Endovenous Ablation, Care After The following information [...] and water are not available, use hand sawsmith. ? Change your dressing as told by [...] take short walks every 1?2 hours. This isimportant to improve blood flow. Ask for help [...] are sitting or lying down. ? Take yeha-dzs-yponkiu and prescription medicines only as told by [...] provider. Document Revised: 04/19/2022 Document Reviewed: 04/19/2022 [employer] Patient Education ? 2023 IQuum.[facility] SystemYhwntonx76-92-6225 History of Present illness Narrative* Lamberto Canseco CNM - 01/26/2025 1:15 PM EST PROBLEM VISIT Stephanie Palencia is 34 y.o. a patient of [facility] [employer] Here for Last pap: 11/12/24 Last mammogram: [...] discussed referral to Dr Richards for consult forendometrial ablation, she states My mom had to [...] [place]o MA,01/26/2025 1:26 PM documented in this encounterHawthorn Children's Psychiatric HospitalLidlnvclgf07-66-5760 History of Present illness Narrative* Lamberto Canseco CNM - 11/12/2024 10:30 AM EST YEARLY HPI: This is a established patient. 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 She has a new PCP at [facility] and she is being worked up for ADHD and with the bleeding changes I asked her ifthey ran any labs and she stated no. [...] MA, 11/12/2024 10:40 AM documented in this encounterHawthorn Children's Psychiatric [id number] Telephone encounter Note* Telephone Encounter - Miguelito Barton - 10/28/2024 2:25 PM EST Stephanie returned your call to make an appt . She is at work but will try to answer. [facility] [id number] Miscellaneous Notes* Telephone Encounter - Miguelito Barton - 10/28/2024 2:25 PM EST Stephanie returned your call to make an appt . She is at work but will try to answer. documented in this [facility]12-02-2024 Telephone encounter Note* Telephone Encounter - Irene Vasquez - 10/26/2024 11:53 AM EST Pt would like to schedule with Lisa for her yearly, but is having issues with pain and would like esther seen sooner. Please return call to [phone] [facility] [id number] Miscellaneous Notes* Telephone Encounter - Irene Vasquez - 10/26/2024 11:53 AM EST Pt would like to schedule with Lisa for her yearly, but is having issues with pain and would like esther seen sooner. Please return call to [phone] documented in this [facility]12-16-2022 History of Present illness Narrative* Re Marie RN - 11/09/2022 1:00 PM EST Discharge instructions given and AVS. Questions and concerns addressed. Informed pt she will have to call Chris's office on Saturday for follow up appointment. RN attempted to call office for appointment office was closed before pts discharge. Pt discharged via wheelchair with infant in cars eat on lap accompanied by staff . No distress noted on discharge. * Sophy Blank RN - 11/08/2022 4:02 AM EST Received call from Pharmacist stating that the rectal dose for Hydrocortisone cream is 2.5% not the1% and that the 2.5% is what is in the unit omnicell. Hair Designer talked to Lisa Canseco CNM, stated okay to switch order to the 2.5%. * GLEN Ch CNM - 11/08/2022 2:33 AM EST Department of Obstetrics and Gynecology Progress Note SUBJECTIVE: patient feeling more discomfort from contractions and would like some pain medication OBJECTIVE: Vitals: 11/07/22 2230 11/07/22 2300 11/07/22 2330 11/08/22 0000 Resp: 16 Temp: 97.5 F (36.4 C) TempSrc: Oral heart rate: Baseline Heart Rate: 130 Accelerations: present Group Home Variability: moderate Decelerations: absent Contraction frequency: irregular Membranes: Ruptured clear fluid, AROM performed with sterile amniohook with return of small amount of clear, odorless fluid. heart tones 130's before, during and after rupture of membranes Cervix: Dilation: 5 cm Effacement: 90 Station: -1 Position: mid ASSESSMENT & PLAN: Continue routine labor orders Continue pitocin orders Pain management as patient desires * GLEN Ch CNM - 11/07/2022 10:04 PM EST Department of Obstetrics and Gynecology Progress Note SUBJECTIVE: patient states the contractions are a little stronger and she feels the pressure OBJECTIVE: There were no vitals filed for this visit. heart rate: Baseline Heart Rate: 130 Accelerations: present Wet Process Assistant Head Miller Variability: moderate Decelerations: absent Contraction frequency: 3-5 minutes Membranes: Intact Cervix: Dilation: 3-4/90/-2 stretchy and very soft Effacement: 90 Station: -2 Position: mid ASSESSMENT & PLAN: Admit for routine labor and delivery Pitocin augmentation Cord blood banking Anticipate documented [facility] [place] Phone: [phone]) 143-735412-16-2022 Hospital course Narrative* Shawn Rod MD - 11/09/2022 12:16 PM EST Vaginal Delivery Discharge Summary Gestational Age:39w6d Antepartum complications: none Date of Delivery: Information for the patient's : Slime, Baby Girl Stephanie [[id number]] 11/08/2022 Type of Delivery: Vaginal Labs: CBC [...] week(s) Shawn Rod MD documented in this encounterDICKENSON COMMUNITY HOSPITALVerisim Phone: [phone] Hospital Discharge instructions* Discharge Instructions* Re Marie RN - 11/09/2022 9:54 AM EST Follow-up with your OB doctor as specified. [facility] OB Department phone: Dr. Marcel MENEZES Dr. Graham Griffin [facility] [address] [facility] [address] [place] [address] Graham Romo [facility] [address] [facility] [place] [address] [phone] Lisa Canseco, MSN, INSPECTOR REPAIRER [place], CNM [facility] [address] [facility] [address] Stephany Lucas CN [address] [place] [address] [place] [address] Monique Delacruz CN [address] [place] [address] [place] [address] [phone] DIET Eat a well balanced diet focusing on foods high in fiber and protein. Drink plenty of fluids especially water. To avoid constipation you may take a mild stool softener as recommended by your doctor or manager semiconductor. ACTIVITY Gradually increase your activity. Resume exercise regimen only after advice by your doctor or manager semiconductor. Avoid lifting anything heavier than a gallon of milk for SIX weeks. Avoid driving until your doctor or manager semiconductor has given their approval. Rise slowly from [...] of harming yourself or your infant. If infant will not stop crying, contact another adult for help or place in their crib on their back and take a break. NEVER shake your . BLEEDING Vaginal bleeding will decrease in amount over the next few weeks. You will notice that as your activity increases, your flow may increase. This is your body's way oftelling you, you need to take things easier and rest more often. Call your care provider if you are saturating more than one maxi pad in an hour & resting does not help. BREAST CARE Take medications as recommended by your doctor or manager semiconductor for pain If you develop a warm, [...] vitamins as directed by your doctor or manager semiconductor. Refer to the booklet in the folder/binder for more information. If you feel you need more assistance or have questions, please call Betsy Rodriguez IBCLC, technical healthcare consultant, at or the OB department to [...] the dressing at your one week incisional check.You may shower with your DORINDA dressing, however [...] they become loose or soiled. If used, Eric should be removed by your care provider. [...] warm, tender area in your calf. [facility] for 11/12/2022 for 2 week follow up. * Attachments The following attachments cannot be sent through Care Everywhere. * 5 Things You Can Expect With a New Baby: Video (Nepalese) * 5 Ways to Prepare for : Video (Nepalese) * Caring for Yourself After Vaginal Delivery: Video (Nepalese) * (Nepalese) documented in this encounterSALEM HOSPITALSyncurity Work Phone: evaluation note* Diagnosis Term - Primary (normal spontaneous vaginal delivery) Normal delivery documented in this encounter [facility] [employer] Work Phone: evaluation noteNo assessment information available [facility] Work Phone: Evaluation note* Diagnosis Menorrhagia with [...] tract Dyspareunia, female documented in this encounter [facility] HealthcareEvaluation note* Diagnosis Pre-op examination Menorrhagia with regular cycle Abnormal uterine bleeding Unspecified disorder of menstruation and other abnormal bleeding from female genital tract Pelvic pain in female Unspecified symptom associated with female genital organs PCOS (polycystic ovarian syndrome) Polycystic ovaries documented in this encounter [facility] HealthcareEvaluation note* Diagnosis Postoperative follow-up Follow-up examination, following unspecified surgery documented in this encounter [facility] HealthcareEvaluation note* Diagnosis Dysmenorrhea Abnormal uterine bleeding (AUB) Bloating Flatulence, eructation, and gas pain Right upper quadrant pain Abdominal pain, right upper quadrant Constipation, unspecified constipation type documented in this encounter [facility] Healthcare Summary Purpose Family History No Family History Records FoundNo Family History Records FoundNo Family History Records FoundNo Family History Records FoundNo Family History Records FoundNo Family History Records FoundNo Family History Records FoundNo Family History Records Found Advance Directives Code StatusDate ActivatedDate InactivatedCommentsFull Code11/07/2022 9:59 PM 11/08/2022 3:42 AM Advance Directive Response Recorded Date/ Time Advance Directives No August 25, 2024 9:09am Chief Complaint and Reason for Visit Chief Complaint Cough, sinus congest ion Chief Complaint Admit Date Unknown March 24, 2025 4:0 0pm Additional Source Comments INFORMATION SOURCE (unrecogn ized section and content) DATE CREATED AUTHOR 10/18/2022 [facility] [employer] DATE CREATED AUTHOR AUTHOR'S ORGANIZ ATION 11/14/2022 [facility] DATE CREATED AUTHOR AUTHOR'S ORGANIZ ATION 04/10/2023 [facility] DATE CREATED AUTHOR AUTHOR'S ORGANIZ ATION 12/29/2024 [facility] DATE CREATED AUTHOR AUTHOR'S ORGANIZ ATION 03/05/2025 [facility] DATE CREATED AUTHOR AUTHOR'S ORGANIZ ATION 04/02/2025 [facility] DATE CREATED AUTHOR AUTHOR'S ORGANIZ ATION 05/22/2025 [facility] DATE CREATED AUTHOR AUTHOR'S ORGANIZ ATION 08/05/2025 [facility] EPIC Reason for Visit (unrecogniz ed section and content) ReasonCommentsContractionsSpecialtyDiagnoses / ProceduresReferred By Contact Referred To Contact Diagnoses Term Harleen GLEN Turner - CNM [address] [place] [address] [facility] [address] [place] [address] Referral IDStatusReasonStart DateExpiration DateVisits RequestedVisits [id number] ExamReasonCommentsMenstrual ProblemReasonCommentsSkin CheckReasonCommentsVaginal BleedingSpecialtyDiagnoses / ProceduresReferred By ContactReferred To ContactObstetrics and Gynecology Diagnoses DUB (dysfunctional uterine bleeding) Procedures [facility] 60 MINUTES HarleenLamberto, CNM [address] [place] [address] Phone: tel: fax: Abel Richards, [address] [place] [address] Phone: tel: fax: Referral IDStatusReasonStart DateExpiration DateVisits RequestedVisits [id number] Specialty Services Required [id number]-du VisitEndometrial BiopsyReasonComments Post-op VisitEndometrial Ablation 04/22/25ReasonCommentsIssues Since Ablation Scheduled Active and Recently Administ ered Medications (unrecognized section and content) Medication Order// benzocaine-menthol (DERMOPLAST) 20-0.5 % spray Topical, 2 TIMES DAILY, First dose (after last modification) on Sat11/08/22 at 0430, Apply to perineal area. Patient is capable and may self administer at bedside., * 0652 (Not Given - Provider: Audrey Vick RN - Reason: Patient/family refused) * 2100 (Due) * 1216 (Not Given - Provider: Re Marie RN - Reason: Other - Comment: Pt not wanting canister, states not really helping ) * 2100 (Due) hydrocortisone (ANUSOL-HC) 2.5 % rectal cream Topical, 2 TIMES DAILY, First dose on Sat11/08/22 at 0900, Apply to Hemorrhoid. * 0849 (Given - Provider: Rizwana Sorto RN - Comment: hemmirroids) * 2100 (Due) * 1216 (Not Given - Provider: Re Marie RN - Reason: Other - Comment: Pt not wanting, states not really helping ) * 2100 (Due) ibuprofen (ADVIL;MOTRIN) tablet 800 mg 800 mg, Oral, EVERY 8 HOURS, First dose on Sat11/08/22 at 0400, Until Discontinued, Give 800 mg q 8 hrs x24 hours and then order can convert to q8 hrs prn, * 0411 (Given - Provider: Audrey Vick RN) * 1232 (Given - Provider: Rizwana Sorto RN) * 1928 (Given - Provider: Bronwyn Nunez, RN) * 192 (Given - Provider: Bronwyn Nunez RN) * 0533 (Given - Provider: Bronwyn Nunez RN) * 1220 (Given - Provider: Re Marie, DALJIT) * 2000 (Due) measles, mumps & rubella vaccine (MMR) injection 0.5 mL 0.5 mL, SubCUTAneous, PRIOR TO DISCHARGE, 1 dose, Starting on Sat11/08/22 at 0341, Until Discontinued, sodium chloride flush 0.9 % injection 5-40 mL 5-40 mL, IntraVENous, EVERY 12 HOURS SCHEDULED (2 times per day), First dose on Sat11/08/22 at 0900, Until Discontinued, For Line Patency: Peripheral IV = 5 mL; Midline or Central Line = 10 mL/lumen. If following IV push medication, administer flush at same rate as the IV push. Flush volume is determined by type of infusion therapy being given. For non-viscous solutions use: Peripheral IV = 5 mLMidline or Central Line = 10 mL/lumen For viscous solutions (i.e. blood components, parenteral nutrition, contrast media, or after obtaining blood sample) use: Peripheral IV = 10 mL Midline or Central Line = 20 mL/lumen, * 0851 (Given - Provider: Rizwana Sorto RN) * 2100 (Due) * 0900 (Not Given - Provider: Re Marie RN - Reason: Other - Comment: No IV access) * 2100 (Due) witch luis f-glycerin (TUCKS) pad Topical, 2 TIMES DAILY, First dose (after last modification) on Sat11/08/22 at 0430, Apply to perineal area. Patient is capable and may self administer at bedside., * 0500 (Given - Provider: Audrey Vick RN) * 2100 (Due) * 1218 (Not Given - Provider: Re Marie RN - Reason: Patient/family refused) * 2100 (Due) Medication Order11/07/20211126// lactated ringers infusion (CANCELED) IntraVENous, at 125 mL/hr, CONTINUOUS, Starting on Sat11/07/22 at 2215, Labor and Delivery * 2244 (New Bag - Provider: Audrey Vick RN) oxytocin (PITOCIN) 30 units in 500 mL infusion (CANCELED) 1-24 jamie-units/min (1-24 mL/hr), IntraVENous, CONTINUOUS, Starting on Sat11/07/22 at 2215, UntilSat11/08/22 at 0342, Begin infusion at 1 jamie-unit/min (1 jamie-unit per min = 1 mL per hour) andincrease by 2 jamie-units/min as needed, every 30 minutes, until labor is achieved. Labor is defined as contractions every 2-3 minutes with cervical changes or [place] units (MVU) greater than 200in a 10-minute window. Maximum infusion rate: 24 jamie-unit/min. Contact provider if maximum rate does not achieve desired response. Provider may order alternative titration goal or other clinically appropriate goal of titration rate (s). If staff does not increase pitocin at ordered rate, or if pitocin is turned down or off notify provider., Labor and Delivery * 2245 (New Bag - Provider: Audrey Vick, DALJIT) * 2329 (Rate/Dose Change - Provider: Audrey Vick RN) * 2359 (Rate/Dose Change - Provider: Audrey Vick RN) * 0030 (Rate/Dose Change - Provider: Audrey Vick RN) * 0130 (Rate/Dose Change - Provider: Audrey Vick RN) * 0203 (Rate/Dose Change - Provider: Audrey Vick RN) * 0313 (Rate/Dose Change - Provider: Audrey Vick RN) * 0326 (Rate/Dose Change - Provider: Audrey Vick RN) * 0523 (Stopped - Provider: Audrey Vick RN) * 0524 (Stopped - Provider: Audrey Vick RN) Medication Order11/07/20211126// 0.9 % sodium chloride infusion IntraVENous, at 5-250 mL/hr, PRN, if patient receiving piggyback infusions and maintenance fluids are not ordered OR KVO fluids to protect IV site / prevent frequent line interruptions/ long duration, Starting on Airam 11/08/22 at 0341, For piggyback infusion, administer at same rate as piggyback fora total of 25 mL. Enter 25 mL [...] Alternate ibuprofen and acetaminophen every 4 hours., * 0850 (Given - Provider: Rizwana Sorto, RN) * 1928 (Given - Provider: Bronwyn Nunez, RN) * 0307 (Given - Provider: Bronwyn Nunez, RN) butorphanol (STADOL) injection 1 mg (CANCELED) 1 mg, IntraVENous, EVERY 3 HOURS PRN, 2 doses, Starting on Sat11/07/22 at 2154, Until Sat11/08/22at 0342, Pain, For moderate pain level 4-6, May repeat times 1 for a total of 2 mg while in labor.,Labor and Delivery * 0220 (Given - Provider: Audrey Vick, DALJIT) [...] mcg, Rectal, PRN, 1 dose, Starting on Sat11/08/22 at 0341, Until Discontinued, Post- Hemorrhage, Notify Physician prior to administration., rho(D) immune globulin (HYPERRHO S/D) injection 300 mcg (COMPLETED) 300 mcg, IntraMUSCular, PRN, 1 dose, Starting on Sat11/08/22 at 0341, Until Discontinued, if mom negative and baby positive, * 1232 (Given - Provider: Rizwana Sorto, RN) sodium chloride flush 0.9 % injection 5-40 mL 5-40 mL, IntraVENous, PRN, Starting on Sat11/08/22 at 0341, Until Discontinued, Line Care, After [...] Team Status: Active Member Role Status Dates Nelly Mcgowan NP-C Primary Care Provider Active Team Status: Inactive Member Role Status Dates Gissell Malagon APRN Attending Provider Active Start: August 25, 2024 End: August 25, 2024Hisandra Mcgowan NP-[facility] Care ProviderActiveStart: August 25, 2024 End: August 25, 2024Team MemberRelationshipSpecialtyStart DateEnd Date Unallocated, Jatin Perez MD [address] [place] [address] [facility] - [facility] Jcjnkmld59/2/24 Mirella Thibodeaux NP [address] [place] [address] Nurse PractitionerBay[facility] Hospital Zhquubjd56/2/24 Lamberto Canseco CNM [address] [place] [address] Obstetrics and Drmxkxdjrp54/2/24Team MemberRelationshipSpecialtyStart DateEnd Date Unallocated, Jatin Perez MD [address] [place] [address] PCP - [facility]10/26/24 [facility] InstituteMirella NP [address] [place] [address] Nurse PractitionerFamily Bqhxyqqp34/2/24 Lamberto Canseco CNM [address] [place] [address] Obstetrics and Thythuamah77/2/24Team MemberRelationshipSpecialtyStart DateEnd Date Unallocated, Noms Provider, [address] [place] [address] [facility] - [facility]10/26/24 [facility] HospitalM[facility]lla andres NP [address] [place] [address] Nurse PractitionerPiedmont [facility]10/26/24 Lamberto Canseco CN [address] [place] [address] Obstetrics and Oiwpeauybz88/2/24Te MemberRelationshipSpecialtyStart DateEnd Date Unallocated, Noms ProviderMD [address] [place] [address] PCP - [facility]10/26/24 Teresathomas b. finan centerMirella NP [address] [place] [address] [facility] Pract[facility]erBay[facility] Fmmnnkne41/2/24 Lamberto Canseco CN [address] [place] [address] Obstetrics and Zjhwbhfwqc04/2/24Te MemberRelationshipSpecialtyStart DateEnd Date Unallocated, Noms MD Chris [address] [place] [address] PCP - [facility]10/26/24 HackenMirella andres NP [address] [facility] [place] [address] Nurse PractitionerFamily Ueizxhmv76/2/24 Lamberto Canseco CNM [address] [facility] [place] [address] Obstetrics and Siqizjiwjq22/2/24Team MemberRelationshipSpecialtyStart DateEnd Date Unallocated, [place]als [place] [address] PCP - GeneralFamily Xhsfsvkx40/2/[address] [facility] hospitalMirella [facility] [address] [facility] [place] [address] Nurse Pract[facility]erBay[facility] Hospital Jgjjqyir28/2/24 Lamberto Canseco CNM [address] [facility] [place] [address] Obstetrics and Bnxgexfxbl93/2/24Te MemberRelationshipSpecialtyStart DateEnd Date Unallocated, [place] [address] PCP - GeneralFamily Unwvckxz71/2/24 [facility] InstituteMirella NP [address] [facility] [place] [address] Nurse PractitionerFami Baifpaxd98/2/24 Lamberto Canseco CNM [address] [facility] [place] [address] Obstetrics and Ycewhviwtq25/2/24Te MemberRelationshipSpecialtyStart DateEnd Date Unallocated, Jatin [place] [address] [facility] - [facility] Vfjwvdiu87/2/24 Mirella Thibodeaux NP [address] [facility] [place] [address] Nurse Pract[facility]erBay[facility] Hospital Sntkvjre56/2/24 Lamberto Canseco CNM [address] [place] [address] Obstetrics and Xbqeatencc43/2/24 Team Status: Inactive Member Role Status Dates Abel Richards DO Attending Provider Active Start : March 24, 2025 End: March 24, 2025Team MemberRelationshipSpecialtyStart DateEnd Date Unallocated, Jatin Perez MD [address] [place] [address] PCP - [facility]10/26/24 Mirella Thibodeaux NP [address] [place] [address] Nurse PractitionerP[facility]10/26/24 [facility] HospitalLamberto fontana CNM [address] [place] [address] Obstetrics and Wmxfxbplrp60/2/24Team MemberRelationshipSpecialtyStart DateEnd Date Unallocated, Jatin Perez MD [address] [place] [address] PCP - [facility]10/26/24 Primouniversity [facility] campusMirella NP [address] [place] [address] Nurse PractitionerFaPiedmont [facility]10/26/24 Lamberto Canseco CNM [address] [place] [address] Obstetrics and Jkdcraxljq17/2/24Te MemberRelationshipSpecialtyStart DateEnd Date Unallocated, Noms ProviderMD [address] [place] [address] PCP - [facility]10/26/24 Mirella Thibodeaux NP Nurse PractitionerPiedmont Mountainside Hospital10/26/24 Lamberto Canseco CNM [address] [place] [address] Obstetrics and Bvyyfwplln93/2/24Te MemberRelationshipSpecialtyStart DateEnd Date Unallocated, Jatin Perez MD [address] [place] [address] PCP - [facility]10/26/24 Mirella Thibodeaux NP Nurse PractitionerPiedmont Mountainside Hospital10/26/24 Lamberto Canseco CNM [address] [place] [address] Obstetrics and Ioyprezdjc40/2/24 Goals (unrecognized section and content) Goals may [...] BE BASED ON THE PRIMARY CLINICAL RECORDS. [facility]. provides no warranty or guarantee of the accuracy or completeness of information in this document.
--- NOTE | 2025-11-23 10:08 | CT_ITS ---
[address] [address] Patient Name: STEPHANIE LONGORIA MRN: [id number] date: 1990 Sex: F Assigned Patient Location: CT Current Patient Location: CT Accession/Order Number: [id number] Exam Date: 11/23/2025 10:00 Report Date: 11/23/2025 12:17 At the request of: STEPHANIE VELEZ DO Procedure: CT abdomen pelvis wo/w con CT ABDOMEN AND PELVIS WITHOUT AND WITH INTRAVENOUS CONTRAST CLINICAL DATA: Right upper quadrant pain, bloating and constipation. COMPARISON: None Spiral images were obtained through the abdomen and pelvis before and after intravenous administration of 100 mL of Omnipaque 300. Patient also received oral contrast. This CT exam was performed using one or more following dose reduction techniques: Automated exposure control, adjustment of the mA and/or kV according to patient size, or use of iterative reconstruction technique. Limited cuts through the lung bases show no contributory findings. The gallbladder is contracted. No intrahepatic masses are seen. The spleen, pancreas and adrenal glands show no acute findings. No renal , ureteral or bladder calculi are present precontrast. Following contrast administration, the renal nephrograms are symmetric. No hydronephrosis is identified. The abdominal aorta is normal caliber. No enlarged lymph nodes or ascites are seen. There is a tiny umbilical hernia containing fat. The small bowel loops are not distended. Mild to moderate stool is present throughout the colon. There are no acute bony findings. Images through the pelvis show no appendiceal inflammation. No dilated small bowel is seen. There is mild distal colonic stool. No diverticular disease is noted. The uterus is slightly levoverted. There are small ovarian follicles. No urinary bladder abnormalities are visualized. There is no ascites. CT/CT abdomen pelvis wo/w con IMPRESSION: NO ACUTE FINDINGS. Impression dictated by: Brittani Montalvo M.D. 11/23/2025 12:17 PM Dictation Location: [facility] Electronically authenticated by: [id number] Date: 11/23/2025 12:17
== END 2025-11-23 08:59 | disposition home or self-care (01) ==
LOC: CT 08:58
PROVIDERS: PCP Internal Medicine; Visit Provider Obstetrics & Gynecology
DX: R14.0 Abdominal distension (gaseous) (principal); R10.11 Right upper quadrant pain; K59.00 Constipation, unspecified
CPT/HCPCS: 74178; Q9967